=== PATIENT | male | born 1945 | race African-American/Black ===

== ENCOUNTER 2017-04-01 11:45 | Inpatient (IN) | payer MEDICARE, OTHER ==
[2017-04-01] VITALS (14 sets, daily range): BP systolic 132–190; BP diastolic 70–96; PULSE 82–94; RESP 15–20; TEMP 97.6–98.4; O2SAT 94–100
[~2017-04-01] VITALS: Ht 180.3 cm; Wt 120.5 kg
[~2017-04-01 11:45] MED LIST: ALPR.25 PO; ARIC5TAB PO; BENA20 PO; CEFTR2P2 IV; ECOT81TA2 PO; FURO1TAB93 PO; GLUC10TA3 PO; GLUCTAB PO; HYDR10TA23 PO; MEMA10 PO; MULT-65 PO; NORC7.5T PO; NOVOLOGSS; OMEP20TA39 PO; SERO25TA PO; VITA-83 PO; VITATAB25 PO; ZOFR4TAB3 SL
--- NOTE | 2017-04-01 12:20 | PD ---
HPI Chief Complaint: Respiratory Distress Time Seen by Provider: 12:12 Travel History International Travel<30 days: No Contact w/Intl Traveler<30days: No Traveled to known affect area: No History of Present Illness HPI 71-year-old male with history of CHF, diabetes, and pneumonia presents to the emergency room for evaluation of shortness of breath. Patient lives in a dementia unit of a retirement. His daughter requesting a transfer today because he had increased work of breathing, even with talking. He was diagnosed with pneumonia and started on Levaquin and prednisone yesterday. On route, the paramedics administered 1 DuoNeb and 2 albuterol treatments and 125 Solu-Medrol. Patient reports moderate relief in symptoms. Patient reports shortness of breath but denies any chest pain. History is somewhat limited. PFSH Past Medical History Anemia: Yes Anxiety: Yes Cancer: No Cardiovascular Problems: Yes Congestive Heart Failure: Yes Cerebrovascular Accident: Yes Dementia: Yes Diabetes: Yes Patient Takes Glucophage: Yes Endocrine: No GERD: Yes Genitourinary: No Hypertension: Yes Immune Disorder: No Implanted Vascular Access Dvce: No Musculoskeletal: No Neurologic: Yes (DEMENTIA) Psychiatric: No Reproductive: No Respiratory: Yes Past Surgical History Other Surgery: Yes (hemorroid) Social History Alcohol Use: No Tobacco Use: No Substance Use: No Allergies-Medications (Allergen,Severity, Reaction): Coded Allergies: No Known Allergies (Unverified , 03/19/15) Reported Meds & Prescriptions Reported Meds & Active Scripts Active Rocephin 2 Gram Addvantage (Ceftriaxone Sodium) 2 Gm Inj 2 Gm IV DAILY 12 Days Namenda (Memantine HCl) 10 Mg Tab 10 Mg PO BID Start taking after Namenda 5 mg twice a day is completed Ecotrin Low Strength (Aspirin) 81 Mg Tabec 81 Mg PO DAILY Reported Hm Omeprazole (Omeprazole) 20 Mg Tab 20 Mg PO DAILY Seroquel 25 mg (Quetiapine Fumarate) 25 Mg Tab 12.5 Mg PO BID Glipizide 10 Mg Tab 10 Mg PO DAILY Xanax 0.25 Mg (Alprazolam) Alprazolam 0.25 mg Tab 1 Tab PO HS Vitamin C (Calcium Ascorbate) 500 Mg Tab 500 Mg PO BID Aricept (Donepezil HCl) 5 Mg Tab 10 Mg PO DAILY Lotensin 20 mg (Benazepril HCl) 20 Mg Tab 1 Tab PO BID Vitamin D-[address] (Cholecalciferol) 1,000 Unit Tab 1,000 Unit PO DAILY [place] 7.5-325 mg (Hydrocodone-Acetaminophen 7.5-325 mg) 7.5 Mg/325 Mg Tab 1 Tab PO Q4H PRN Multi-Vitamin Daily (Multivitamins) Daily Tab 1 Tab PO DAILY Novolog Insulin Supplemental Scale (Insulin Aspart) 100 /Ml Inj 1 Unit .XX .XX Glucophage XR 24 HR (Metformin HCl) 500 Mg Tab 500 Mg PO BIDPC Lasix (Furosemide) 40 Mg Tab 40 Mg PO DAILY Zofran ODT (Ondansetron HCl) 4 Mg Tab 4 Mg SL Q6H PRN FOR NAUSEA/VOMITING Hydralazine HCl 10 Mg Tab 10 Mg PO Review of Systems Except as stated in HPI: all other systems reviewed are Neg Physical Exam Narrative GENERAL: Well developed, well-nourished male in no acute distress. Afebrile. Ambulatory. SKIN: Focused skin assessment warm/dry. HEAD: Atraumatic. Normocephalic. EYES: Pupils equal and round. No scleral icterus. No injection or drainage. NECK: Trachea midline. No JVD. CARDIOVASCULAR: Regular rate and rhythm. No murmur appreciated. RESPIRATORY: Breath sounds equal bilaterally. Coarse lung sounds bilaterally with inspiratory next 3 wheezes. Moderate increased work of breathing. NEUROLOGICAL: Awake and alert. No obvious cranial nerve deficits. Motor grossly within normal limits. Normal speech. PSYCHIATRIC: Appropriate mood and affect; insight and judgment normal. Data Data Last Documented VS Vital Signs Date Time Temp Pulse Resp B/P (MAP) Pulse Ox O2 Delivery O2 Flow Rate FiO2 04/01/17 14:22 97 40 04/01/17 12:16 Nasal Cannula 3.00 04/01/17 12:02 97.6 85 16 140/96 (111) Orders Orders Complete Blood Count With Diff (04/01/17 12:12) Comprehensive Metabolic Panel (04/01/17 12:12) B-Type Natriuretic Peptide (04/01/17 12:12) Act Partial Throm Time (Ptt) (04/01/17 12:12) Prothrombin Time / Inr (Pt) (04/01/17 12:12) Ckmb (Isoenzyme) Profile (04/01/17 12:12) Troponin I (04/01/17 12:12) Influenzae A/B Antigen (04/01/17 12:12) Iv Access Insert/Monitor (04/01/17 12:12) Electrocardiogram (04/01/17 12:12) Ecg Monitoring (04/01/17 12:12) Oximetry (04/01/17 12:12) Oxygen Administration (04/01/17 12:12) Chest, Single Ap (04/01/17 12:12) Sodium Chloride 0.9% Flush (Ns Flush) (04/01/17 12:15) Blood Culture (04/01/17 12:15) Lactic Acid Sepsis Protocol (04/01/17 12:15) CKMB (04/01/17 12:23) CKMB% (04/01/17 12:23) Sodium Bicarbonate 8.4% Inj (Sodium Bica (04/01/17 13:45) Albuterol Concentrated Neb (Albuterol Co (04/01/17 13:45) Sodium Polysty Sulfate Liq (Kayexalate L (04/01/17 13:45) Insulin Human Nph Inj (Novolin N Inj) (04/01/17 13:45) Ceftriaxone Inj (Rocephin Inj) (04/01/17 13:49) Azithromycin Inj (Zithromax Inj) (04/01/17 13:49) Admit Order (Ed Use Only) (04/01/17 14:29) Labs Laboratory Tests Test 04/01/17 12:23 04/01/17 12:30 White Blood Count 8.1 TH/MM3 Red Blood Count 3.58 MIL/MM3 Hemoglobin 10.2 GM/DL Hematocrit 31.5 % Mean Corpuscular Volume 88.0 FL Mean Corpuscular Hemoglobin 28.4 PG Mean Corpuscular Hemoglobin Concent 32.2 % Red Cell Distribution Width 14.8 % Platelet Count 208 TH/MM3 Mean Platelet Volume 8.2 FL Neutrophils (%) (Auto) 89.3 % Lymphocytes (%) (Auto) 5.7 % Monocytes (%) (Auto) 4.9 % Eosinophils (%) (Auto) 0.0 % Basophils (%) (Auto) 0.1 % Neutrophils # (Auto) 7.3 TH/MM3 Lymphocytes # (Auto) 0.5 TH/MM3 Monocytes # (Auto) 0.4 TH/MM3 Eosinophils # (Auto) 0.0 TH/MM3 Basophils # (Auto) 0.0 TH/MM3 CBC Comment DIFF FINAL Differential Comment Prothrombin Time 10.7 SEC Prothromb Time International Ratio 1.1 RATIO Activated Partial Thromboplast Time 25.8 SEC Blood Urea Nitrogen 60 MG/DL Creatinine 1.52 MG/DL Random Glucose 237 MG/DL Total Protein 7.9 GM/DL Albumin 3.6 GM/DL Calcium Level 8.9 MG/DL Alkaline Phosphatase 142 U/L Aspartate Amino Transf (AST/SGOT) 32 U/L Alanine Aminotransferase (ALT/SGPT) 57 U/L Total Bilirubin 0.2 MG/DL Sodium Level 137 MEQ/L Potassium Level 5.8 MEQ/L Chloride Level 103 MEQ/L Carbon Dioxide Level 27.6 MEQ/L Anion Gap 6 MEQ/L Estimat Glomerular Filtration Rate 55 ML/MIN Total Creatine Kinase 593 U/L Creatine Kinase MB 17.9 NG/ML Creatine Kinase MB % 3.0 % Troponin I 0.10 NG/ML B-Type Natriuretic Peptide 45 PG/ML Lactic Acid Level 2.3 mmol/L [facility] Medical Decision Making Medical Screen Exam Complete: Yes Emergency Medical Condition: Yes Medical Record Reviewed: Yes Differential Diagnosis COPD exacerbation, CHF exacerbation, pneumonia, sepsis Narrative Course 71-year-old male presents to the emergency room from an assisted living facility for evaluation of increasing shortness of breath. He was diagnosed with pneumonia and started on Levaquin and prednisone yesterday. Abdomen worsened today. Patient only complains of shortness of breath. Denies any chest pain. Physical exam reveals moderate increased work of breathing. Lung sounds are coarse bilaterally with inspiratory and expiratory wheezes. IV access established and basic labs obtained. Patient was sent to liters of oxygen and telemetry. EKG shows sinus rhythm with rate [address] changes. Repeat chest x-ray here shows suspected minimal atelectasis or scarring at the bases. Patient BiPAP to help with increased work of breathing. He appears much more comfortable on BiPAP. CBC is essentially unremarkable. CMP has mild hyperkalemia and elevated creatinine. Patient was given insulin, albuterol , and Kayexalate. His CK-MB is elevated at 17.9 and his troponin is 0.1. BMP is unremarkable. Lactic acid is 2.3. Patient treated empirically for pneumonia with azithromycin and Rocephin. This is likely COPD exacerbation with superimposed URI or pneumonia. Patient will be admitted to intermediate care. I spoke to Dr. Warner agrees to accept this patient to his service. Diagnosis Primary Impression: COPD exacerbation Additional Impressions: Lactic acidosis Elevated troponin Admitting Information Admitting Physician Requests: Admit Condition: Stable Bri Linda Apr 01, 2017 12:20
--- NOTE | 2017-04-01 12:59 | RADRPT ---
EXAM DATE/TIME: 04/01/2017 12:29 [facility] COMPARISON: CHEST SINGLE AP, March 19, 2015, 17:56. INDICATIONS : Shortness of breath and congestion. MEDICAL HISTORY : Hypertension. Dementia. Diabetes. SURGICAL HISTORY : None. ENCOUNTER: Initial ACUITY: 3 days PAIN SCORE: 3/10 LOCATION: Bilateral chest FINDINGS: The heart size is normal. There is minimal linear density seen at the bases. The mid and upper lungs are clear. No effusion is seen. CONCLUSION: Suspected minimal atelectasis or scarring at the bases. Jerman John MD on April 01, 2017 at 12:55 Board Certified Radiologist. This report was verified electronically.
[2017-04-01 13:05] LABS: AUTOMATED NEUTROPHIL # 7.3 TH/MM3 (1.8-7.7); BASOPHIL % 0.1 % (0.0-2.0); HEMATOCRIT 31.5 % (39.0-51.0); HEMOGLOBIN 10.2 GM/DL (13.0-17.0); LYMPH % 5.7 % (9.0-44.0); LYMPHOCYTE # 0.5 TH/MM3 (1.0-4.8); MEAN CORPUSCULAR HEMOGLOBIN 28.4 PG (27.0-34.0); MEAN CORPUSCULAR HGB CONC 32.2 % (32.0-36.0); MEAN PLATELET VOLUME 8.2 FL (7.0-11.0); MONO % 4.9 % (0.0-8.0); MONOCYTE # 0.4 TH/MM3 (0-0.9); NEUT % 89.3 % (16.0-70.0); PLATELET COUNT 208 TH/MM3 (150-450); RED BLOOD COUNT 3.58 MIL/MM3 (4.50-5.90); RED CELL DISTRIBUTION WIDTH 14.8 % (11.6-17.2); WHITE BLOOD COUNT 8.1 TH/MM3 (4.0-11.0)
[2017-04-01 13:15] LABS: LACTIC ACID SEPSIS PROTOCOL 2.3 mmol/L (0.4-2.0)
[2017-04-01 13:15] LABS: INTERNATIONAL NORMALIZED RATIO 1.1 RATIO; PROTHROMBIN TIME - PATIENT 10.7 SEC (9.8-11.6)
[2017-04-01 13:33] LABS: ALBUMIN 3.6 GM/DL (3.4-5.0); ALKALINE PHOSPHATASE 142 U/L (45-117); ALT (GPT) 57 U/L (12-78); AST (GOT) 32 U/L (15-37); BICARBONATE 27.6 MEQ/L (21.0-32.0); BLOOD UREA NITROGEN 60 MG/DL (7-18); CALCIUM 8.9 MG/DL (8.5-10.1); CHLORIDE 103 MEQ/L (98-107); CREATININE 1.52 MG/DL (0.60-1.30); GLOMERULAR FILTRATION RATE 55 ML/MIN (>89); GLUCOSE,RANDOM 237 MG/DL (74-106); SODIUM (NA) 137 MEQ/L (136-145); TOTAL BILIRUBIN ADULT 0.2 MG/DL (0.2-1.0); TOTAL PROTEIN 7.9 GM/DL (6.4-8.2)
[2017-04-01] MEDS ORDERED: INSULIN HUMAN NPH 1,000 UNITS/10 ML VIAL SQ ONE (13:45)
[2017-04-01] MEDS ORDERED: SODIUM POLYSTYRENE SULFONATE SUSP 15 GM/60 ML CUP PO ONE (13:45)
[2017-04-01] MEDS ORDERED: RESP: ALBUTEROL CONC 2.5 MG/0.5 ML NEB INH ONE (13:45)
[2017-04-01] MEDS ORDERED: SODIUM BICARBONATE 8.4% SOLN 50 MEQ/50 ML VIAL SLOW IVP ONE (13:45)
[2017-04-01] MEDS ORDERED: AZITHROMYCIN INJ 500 MG in SODIUM CHLOR 0.9% 250 ML INJ 250 ML IV STA (13:49)
[2017-04-01] MEDS ORDERED: cefTRIAXone INJ 2,000 MG in SODIUM CHLORIDE 0.9% INJ 100 ML IV STA (13:49)
--- NOTE | 2017-04-01 14:33 | PD ---
Physical Exam Narrative GENERAL: Well-nourished, well-developed patient. SKIN: Warm and dry. HEAD: Normocephalic and atraumatic. EYES: No injection or drainage. ENT: No nasal drainage noted. NECK: Supple, trachea midline. CARDIOVASCULAR: Regular rate and rhythm RESPIRATORY: Expiratory wheezing bilaterally. No accessory muscle use. GASTROINTESTINAL: Abdomen soft, nondistended. NEUROLOGICAL: Awake and alert. Motor and sensory grossly within normal limits. Normal speech. Data Data Last Documented VS Vital Signs Date Time Temp Pulse Resp B/P (MAP) Pulse Ox O2 Delivery O2 Flow Rate FiO2 04/01/17 14:22 97 40 04/01/17 12:16 Nasal Cannula 3.00 04/01/17 12:02 97.6 85 16 140/96 (111) Orders Orders Complete Blood Count With Diff (04/01/17 12:12) Comprehensive Metabolic Panel (04/01/17 12:12) B-Type Natriuretic Peptide (04/01/17 12:12) Act Partial Throm Time (Ptt) (04/01/17 12:12) Prothrombin Time / Inr (Pt) (04/01/17 12:12) Ckmb (Isoenzyme) Profile (04/01/17 12:12) Troponin I (04/01/17 12:12) Influenzae A/B Antigen (04/01/17 12:12) Iv Access Insert/Monitor (04/01/17 12:12) Electrocardiogram (04/01/17 12:12) Ecg Monitoring (04/01/17 12:12) Oximetry (04/01/17 12:12) Oxygen Administration (04/01/17 12:12) Chest, Single Ap (04/01/17 12:12) Sodium Chloride 0.9% Flush (Ns Flush) (04/01/17 12:15) Blood Culture (04/01/17 12:15) Lactic Acid Sepsis Protocol (04/01/17 12:15) CKMB (04/01/17 12:23) CKMB% (04/01/17 12:23) Sodium Bicarbonate 8.4% Inj (Sodium Bica (04/01/17 13:45) Albuterol Concentrated Neb (Albuterol Co (04/01/17 13:45) Sodium Polysty Sulfate Liq (Kayexalate L (04/01/17 13:45) Insulin Human Nph Inj (Novolin N Inj) (04/01/17 13:45) Ceftriaxone Inj (Rocephin Inj) (04/01/17 13:49) Azithromycin Inj (Zithromax Inj) (04/01/17 13:49) Admit Order (Ed Use Only) (04/01/17 14:29) Labs Laboratory Tests Test 04/01/17 12:23 04/01/17 12:30 White Blood Count 8.1 TH/MM3 Red Blood Count 3.58 MIL/MM3 Hemoglobin 10.2 GM/DL Hematocrit 31.5 % Mean Corpuscular Volume 88.0 FL Mean Corpuscular Hemoglobin 28.4 PG Mean Corpuscular Hemoglobin Concent 32.2 % Red Cell Distribution Width 14.8 % Platelet Count 208 TH/MM3 Mean Platelet Volume 8.2 FL Neutrophils (%) (Auto) 89.3 % Lymphocytes (%) (Auto) 5.7 % Monocytes (%) (Auto) 4.9 % Eosinophils (%) (Auto) 0.0 % Basophils (%) (Auto) 0.1 % Neutrophils # (Auto) 7.3 TH/MM3 Lymphocytes # (Auto) 0.5 TH/MM3 Monocytes # (Auto) 0.4 TH/MM3 Eosinophils # (Auto) 0.0 TH/MM3 Basophils # (Auto) 0.0 TH/MM3 CBC Comment DIFF FINAL Differential Comment Prothrombin Time 10.7 SEC Prothromb Time International Ratio 1.1 RATIO Activated Partial Thromboplast Time 25.8 SEC Blood Urea Nitrogen 60 MG/DL Creatinine 1.52 MG/DL Random Glucose 237 MG/DL Total Protein 7.9 GM/DL Albumin 3.6 GM/DL Calcium Level 8.9 MG/DL Alkaline Phosphatase 142 U/L Aspartate Amino Transf (AST/SGOT) 32 U/L Alanine Aminotransferase (ALT/SGPT) 57 U/L Total Bilirubin 0.2 MG/DL Sodium Level 137 MEQ/L Potassium Level 5.8 MEQ/L Chloride Level 103 MEQ/L Carbon Dioxide Level 27.6 MEQ/L Anion Gap 6 MEQ/L Estimat Glomerular Filtration Rate 55 ML/MIN Total Creatine Kinase 593 U/L Creatine Kinase MB 17.9 NG/ML Creatine Kinase MB % 3.0 % Troponin I 0.10 NG/ML B-Type Natriuretic Peptide 45 PG/ML Lactic Acid Level 2.3 mmol/L [facility] Supervised Visit with DANTE: Yes Interpretation(s) CBC & BMP Diagram 04/01/17 12:23 Total Protein 7.9, Albumin 3.6, Calcium Level 8.9, Alkaline Phosphatase 142 H, Aspartate Amino Transf (AST/SGOT) 32, Alanine Aminotransferase (ALT/SGPT) 57, Total Bilirubin 0.2 Last 24 hours Impressions Chest X-Ray 04/01/17 1212 Signed Impressions: Service Date/Time: April 12:29 - CONCLUSION: Suspected minimal atelectasis or scarring at the bases. Jerman John MD Patient pulled his BiPAP off and when it had been off for about 10 minutes ABG shows pH 7.31, PCO2 53, PO2 of 74, he is probably a chronic retainer but agrees to place BiPAP on to help get rid of CO2 Narrative Course I, Dr. diaz, have reviewed the advance practice practitioner's documentation and am in agreement, met with the patient face to face, made the diagnosis, and the medical decision making was done by me. *My assessment and Findings: 71-year-old male presents with shortness of breath. It appears he's having upper respiratory infection which has triggered his COPD exacerbation. Given his elevated lactate will also dose with antibiotics. His troponin is also elevated and this will need to be trended. Diagnosis Primary Impression: COPD exacerbation Additional Impressions: Elevated troponin Lactic acidosis Admitting Information Admitting Physician Requests: Admit Condition: Stable Belle Diaz MD Apr 01, 2017 14:33
[2017-04-01] MEDS ORDERED: SODIUM CHLOR 0.9% 1000 ML INJ 1,000 ML IV SCH (14:34)
[2017-04-01] MEDS ORDERED: ONDANSETRON ODT 4 MG TAB SL PRN (14:45)
[2017-04-01] MEDS ORDERED: ASPIRIN 325 MG TAB PO ONE (14:45)
[2017-04-01] MEDS ORDERED: RESP: ALBUTEROL 2.5 MG/IPRATROPIUM 0.5 MG NEB (PRN) NEB (14:45)
[2017-04-01] MEDS ORDERED: PILL SPLITTER OTHER PRN (15:15)
[2017-04-01] MEDS: RESP: ALBUTEROL 2.5 MG/IPRATROPIUM 0.5 MG NEB (SCH) NEB ×2 (16:00→20:16)
[2017-04-01] MEDS: methylPREDNISolone SOD SUCC 125 MG/2 ML VIAL IV PUSH SCH ×2 (17:35→21:00)
[2017-04-01] MEDS: HEPARIN SODIUM - SQ 10,000 UNITS/ML VIAL SQ SCH (17:36)
--- NOTE | 2017-04-01 18:30 | HHI.HP ---
[facility] Kee Dugan MD Admission Diagnosis copd exacerbation, lactic acidosis, elevated troponin Diagnoses: Chief Complaint: I can't catch my breath Travel History International Travel<30 Days: No Contact w/Intl Traveler <30 Da: No Traveled to Known Affected Are: No History of Present Illness 71 years old male with history of CHF diabetes and recent upper respiratory infection presented to the ED with severe short of breath and wheezing, patient lives in alf due to dementia, his daughter requested to transfer patient to hospital due to increase work of breathing even on rest. Patient recently was diagnosed with pneumonia and started on Levaquin and prednisone. I saw patient in the room he was on BiPAP, in ED he was found to have hypercapnic respiratory failure he was given O2 and DuoNeb and a dose of Solu- Medrol, history was restricted due to increase of respiratory work and being on BiPAP, influenza A and B was negative Review of Systems All systems reviewed and was positive for what is mentioned in history of present illness otherwise negative Past Family Social History Past Medical History Anemia Anxiety Hypertension CHF History CVA Dementia is Diabetes History of surgery for hemorrhoid Past Surgical History As above Allergies: Coded Allergies: No Known Allergies (Unverified , 03/19/15) Family History Review with the patient,not aware of significant medical history runs in his family Social History Denied tobacco alcohol or illicit drug abuse Physical Exam Vital Signs Vital Signs Date Time Temp Pulse Resp B/P (MAP) Pulse Ox O2 Delivery O2 Flow Rate FiO2 04/01/17 14:39 88 20 144/93 (110) 98 BiPAP 04/01/17 14:22 97 40 04/01/17 12:16 97 Nasal Cannula 3.00 04/01/17 12:16 98 Nasal Cannula 3.00 04/01/17 12:02 97.6 85 16 140/96 (111) 97 Physical Exam GENERAL: This is a well-nourished, well-developed patient, in moderate respiratory distress SKIN: No rashes, warm and dry HEAD: Atraumatic. Normocephalic. EYES: Pupils equal round and reactive. Extraocular motions intact. No scleral icterus. ENT: Nose without bleeding, or drainage, Airway patent. NECK: Trachea midline. Supple CARDIOVASCULAR: Regular acute without murmurs, gallops, or rubs. RESPIRATORY: Bilateral scattered wheezes with increased respiratory work and use of respiratory muscle GASTROINTESTINAL: Abdomen soft, non-tender, nondistended. Positive bowel sounds MUSCULOSKELETAL: Extremities without clubbing, cyanosis, or edema. +1 edema NEUROLOGICAL: Awake and alert. Moves all extremity. Normal speech.no focal neurological deficit Laboratory Laboratory Tests Test 04/01/17 12:23 04/01/17 12:30 04/01/17 15:28 04/01/17 17:11 White Blood Count 8.1 Red Blood Count 3.58 Hemoglobin 10.2 Hematocrit 31.5 Mean Corpuscular Volume 88.0 Mean Corpuscular Hemoglobin 28.4 Mean Corpuscular Hemoglobin Concent 32.2 Red Cell Distribution Width 14.8 Platelet Count 208 Mean Platelet Volume 8.2 Neutrophils (%) (Auto) 89.3 Lymphocytes (%) (Auto) 5.7 Monocytes (%) (Auto) 4.9 Eosinophils (%) (Auto) 0.0 Basophils (%) (Auto) 0.1 Neutrophils # (Auto) 7.3 Lymphocytes # (Auto) 0.5 Monocytes # (Auto) 0.4 Eosinophils # (Auto) 0.0 Basophils # (Auto) 0.0 CBC Comment DIFF FINAL Differential Comment Prothrombin Time 10.7 Prothromb Time International Ratio 1.1 Activated Partial Thromboplast Time 25.8 Blood Urea Nitrogen 60 Creatinine 1.52 Random Glucose 237 Total Protein 7.9 Albumin 3.6 Calcium Level 8.9 Alkaline Phosphatase 142 Aspartate Amino Transf (AST/SGOT) 32 Alanine Aminotransferase (ALT/SGPT) 57 Total Bilirubin 0.2 Sodium Level 137 Potassium Level 5.8 Chloride Level 103 Carbon Dioxide Level 27.6 Anion Gap 6 Estimat Glomerular Filtration Rate 55 Total Creatine Kinase 593 Creatine Kinase MB 17.9 Creatine Kinase MB % 3.0 Troponin I 0.10 B-Type Natriuretic Peptide 45 Lactic Acid Level 2.3 2.4 Blood Gas Puncture Site LT RADIAL Blood Gas Patient Temperature 98.6 Blood Gas HCO3 26 Blood Gas Base Excess 0.8 Blood Gas Oxygen Saturation 92 Arterial Blood pH 7.32 Arterial Blood Partial Pressure CO2 53 Arterial Blood Partial Pressure O2 75 Arterial Blood Oxygen Content 13.0 Arterial Blood Carboxyhemoglobin 1.1 Arterial Blood Methemoglobin 0.7 Blood Gas Hemoglobin 10.0 Oxygen Delivery Device NASAL CANNULA Blood Gas Liter Flow 2.5 Date/Time Source Procedure Growth Status 04/01/17 12:28 Blood Peripheral Aerobic Blood Culture Pending Received 04/01/17 12:28 Blood Peripheral Anaerobic Blood Culture Pending Received 04/01/17 12:35 Nasal Aspirate Influenza Types A,B Antigen (ANTHONY) - Final NEGATIVE FOR FLU A AND B ANTIGEN.... Complete Result Diagram: 04/01/17 1223 04/01/17 1223 Imaging Last Impressions Chest X-Ray 04/01/17 1212 Signed Impressions: Service Date/Time: , April 01, 2017 12:29 - CONCLUSION: Suspected minimal atelectasis or scarring at the bases. MD Alina Henry VTE Risk Assessment Alina VTE Risk Assessment: Mod/High Risk (score >= 2) Alina Risk Assessment Model Point Value = 1 Point Value = 2 Point Value = 3 Point Value = 5 Age 41-60 Minor surgery BMI > 25 kg/m2 Swollen legs Varicose veins or History of unexplained or recurrent spontaneous Oral contraceptives or hormone replacement Sepsis (< 1 month) Serious lung disease, including pneumonia (< 1 month) Abnormal pulmonary function Acute myocardial infarction Congestive heart failure (< 1 month) History of inflammatory bowel disease Medical patient at bed rest Age 61-74 Arthroscopic surgery Major open surgery (> 45 min) Laparoscopic surgery (> 45 min) Malignancy Confined to bed (> 72 hours) Immobilizing plaster cast Central venous access Age >= 75 History of VTE Family history of VTE Factor V Leiden Prothrombin [id number] Lupus anticoagulant Anticardiolipin antibodies Elevated serum homocysteine Heparin-induced thrombocytopenia Other congenital or acquired thrombophilia Stroke (< 1 month) Elective arthroplasty Hip, pelvis, or leg fracture Acute spinal cord injury (< 1 month) Prophylaxis Regimen Total Risk Factor Score Risk Level Prophylaxis Regimen 0-1 Low Early ambulation 2 Moderate Order ONE of the following: *Sequential Compression Device (SCD) *Heparin 5000 units SQ BID 3-4 Higher Order ONE of the following medications: *Heparin 5000 units SQ TID *Enoxaparin/Lovenox 40 mg SQ daily (WT < 150 kg, CrCl > 30 mL/min) *Enoxaparin/Lovenox 30 mg SQ daily (WT < 150 kg, CrCl > 10-29 mL/min) *Enoxaparin/Lovenox 30 mg SQ BID (WT < 150 kg, CrCl > 30 mL/min) AND/OR *Sequential Compression Device (SCD) 5 or more Highest Order ONE of the following medications: *Heparin 5000 units SQ TID (Preferred with Epidurals) *Enoxaparin/Lovenox 40 mg SQ daily (WT < 150 kg, CrCl > 30 mL/min) *Enoxaparin/Lovenox 30 mg SQ daily (WT < 150 kg, CrCl > 10-29 mL/min) *Enoxaparin/Lovenox 30 mg SQ BID (WT < 150 kg, CrCl > 30 mL/min) AND *Sequential Compression Device (SCD) Assessment and Plan Assessment and Plan 71 years old male admitted with worsening severe short of breath and wheezing Hypercapnic resp failure Acute exacerbation bronchial asthma with increased respiratory distress Hyperkalemia Elevated CK and troponin without chest pain mostly due to acute on chronic renal failure and CHF Bilateral lower extremity edema questionable CHF Left shift without leukocytosis Lactic acidosis ADALI DVT prophylaxis Plan: Admit to telemetry floor Stat administration of O2, DuoNeb, Solu-Medrol Stat Bipap prn chest x-ray showed minimal scarring at the bases, no patrick infiltrate,No phlegm or fever no signs of active infection, patient received dose of Zithromax and Rocephin and ED,we'll hold on antibiotic hold Lasix for now due to lactic acidosis and ADALI Repeat BMP and lactic acid in a.m. we'll hold on IV fluid for now due to suspect heart failure Check 2-D echo heparin and SCD for DVT prophylaxis Discussed Condition With Patient in ED physician Physician Certification 2 Midnight Certification Type: Admission for Inpatient Services Order for Inpatient Services The services are ordered in accordance with Medicare regulations or non- Medicare payer requirements, as applicable. In the case of services not specified as inpatient-only, they are appropriately provided as inpatient services in accordance with the 2-midnight benchmark. Estimated LOS (days): 3 days is the estimated time the patient will need to remain in the hospital, assuming treatment plan goals are met and no additional complications. Post-Hospital Plan: Not yet determined Marilou Warner MD Apr 01, 2017 18:29
[2017-04-01 20:07] LABS: TROPONIN I 0.08 NG/ML (0.02-0.05)
--- NOTE | 2017-04-01 20:58 | PD ---
Data Data Last Documented VS Vital Signs Date Time Temp Pulse Resp B/P (MAP) Pulse Ox O2 Delivery O2 Flow Rate FiO2 04/01/17 14:22 97 40 04/01/17 12:16 Nasal Cannula 3.00 04/01/17 12:02 97.6 85 16 140/96 (111) Orders Orders Complete Blood Count With Diff (04/01/17 12:12) Comprehensive Metabolic Panel (04/01/17 12:12) B-Type Natriuretic Peptide (04/01/17 12:12) Act Partial Throm Time (Ptt) (04/01/17 12:12) Prothrombin Time / Inr (Pt) (04/01/17 12:12) Ckmb (Isoenzyme) Profile (04/01/17 12:12) Troponin I (04/01/17 12:12) Influenzae A/B Antigen (04/01/17 12:12) Iv Access Insert/Monitor (04/01/17 12:12) Electrocardiogram (04/01/17 12:12) Ecg Monitoring (04/01/17 12:12) Oximetry (04/01/17 12:12) Oxygen Administration (04/01/17 12:12) Chest, Single Ap (04/01/17 12:12) Sodium Chloride 0.9% Flush (Ns Flush) (04/01/17 12:15) Blood Culture (04/01/17 12:15) Lactic Acid Sepsis Protocol (04/01/17 12:15) CKMB (04/01/17 12:23) CKMB% (04/01/17 12:23) Sodium Bicarbonate 8.4% Inj (Sodium Bica (04/01/17 13:45) Albuterol Concentrated Neb (Albuterol Co (04/01/17 13:45) Sodium Polysty Sulfate Liq (Kayexalate L (04/01/17 13:45) Insulin Human Nph Inj (Novolin N Inj) (04/01/17 13:45) Ceftriaxone Inj (Rocephin Inj) (04/01/17 13:49) Azithromycin Inj (Zithromax Inj) (04/01/17 13:49) Admit Order (Ed Use Only) (04/01/17 14:29) Labs Laboratory Tests Test 04/01/17 12:23 04/01/17 12:30 White Blood Count 8.1 TH/MM3 Red Blood Count 3.58 MIL/MM3 Hemoglobin 10.2 GM/DL Hematocrit 31.5 % Mean Corpuscular Volume 88.0 FL Mean Corpuscular Hemoglobin 28.4 PG Mean Corpuscular Hemoglobin Concent 32.2 % Red Cell Distribution Width 14.8 % Platelet Count 208 TH/MM3 Mean Platelet Volume 8.2 FL Neutrophils (%) (Auto) 89.3 % Lymphocytes (%) (Auto) 5.7 % Monocytes (%) (Auto) 4.9 % Eosinophils (%) (Auto) 0.0 % Basophils (%) (Auto) 0.1 % Neutrophils # (Auto) 7.3 TH/MM3 Lymphocytes # (Auto) 0.5 TH/MM3 Monocytes # (Auto) 0.4 TH/MM3 Eosinophils # (Auto) 0.0 TH/MM3 Basophils # (Auto) 0.0 TH/MM3 CBC Comment DIFF FINAL Differential Comment Prothrombin Time 10.7 SEC Prothromb Time International Ratio 1.1 RATIO Activated Partial Thromboplast Time 25.8 SEC Blood Urea Nitrogen 60 MG/DL Creatinine 1.52 MG/DL Random Glucose 237 MG/DL Total Protein 7.9 GM/DL Albumin 3.6 GM/DL Calcium Level 8.9 MG/DL Alkaline Phosphatase 142 U/L Aspartate Amino Transf (AST/SGOT) 32 U/L Alanine Aminotransferase (ALT/SGPT) 57 U/L Total Bilirubin 0.2 MG/DL Sodium Level 137 MEQ/L Potassium Level 5.8 MEQ/L Chloride Level 103 MEQ/L Carbon Dioxide Level 27.6 MEQ/L Anion Gap 6 MEQ/L Estimat Glomerular Filtration Rate 55 ML/MIN Total Creatine Kinase 593 U/L Creatine Kinase MB 17.9 NG/ML Creatine Kinase MB % 3.0 % Troponin I 0.10 NG/ML B-Type Natriuretic Peptide 45 PG/ML Lactic Acid Level 2.3 mmol/L [facility] Supervised Visit with DANTE: Yes Narrative Course Patient seen and examined by me briefly, alert and awake, tolerating BiPAP fairly well, I was asked by respiratory therapy to review his ABG which earlier today on 2.5 L nasal cannula was a pH of 7.31, PCO2 of 53 and a PO2 of 74, on BiPAP 12/03/34 percent making 900 tidal volume is now a pH is 7.30 and a PCO2 of 54.1 PO2 101, for a short time we increased his settings to 15/8/35 percent, the patient was then discussed with Dr. Stoll briefly and we reviewed the patient 's clinical status as well as the ABGs in he thinks the patient would be fine on 12 03 for now and would be stable for CIC. Diagnosis Primary Impression: COPD exacerbation Additional Impressions: Elevated troponin Lactic acidosis Condition: Jorge Ordonez MD Apr 01, 2017 20:58
[2017-04-01] MEDS: MEMANTINE HCL 10 MG TAB PO SCH (20:59)
[2017-04-01] MEDS: QUEtiapine FUMARATE 25 MG TAB PO SCH (21:00)
[2017-04-01] MEDS: ALPRAZolam 0.25 MG TAB PO SCH (21:00)
[2017-04-01] MEDS: ASCORBIC ACID 500 MG TAB PO SCH (21:00)
[2017-04-02] VITALS (12 sets, daily range): BP systolic 148–191; BP diastolic 72–114; PULSE 79–96; RESP 19–29; TEMP 98.4–98.8; O2SAT 92–99
[2017-04-02] MEDS ORDERED: CHLORHEXIDINE GLUCONATE 2 % 1 PACK (2 CLOTHS)(extra cloths) TOPICAL PRN (00:15)
[2017-04-02] MEDS: CHLORHEXIDINE GLUCONATE 2 % 1 PACK (2 CLOTHS)(taper/protocol) TOPICAL SCH (00:32)
[2017-04-02] MEDS: HEPARIN SODIUM - SQ 10,000 UNITS/ML VIAL SQ SCH ×4 (00:32→23:01)
[2017-04-02 01:51] LABS: CALCIUM 8.4 MG/DL (8.5-10.1)
[2017-04-02 01:54] LABS: TROPONIN I 0.09 NG/ML (0.02-0.05)
[2017-04-02 02:23] LABS: CREATININE 1.81 MG/DL (0.60-1.30)
[2017-04-02] MEDS: RESP: ALBUTEROL 2.5 MG/IPRATROPIUM 0.5 MG NEB (SCH) NEB ×4 (02:46→20:56)
[2017-04-02] MEDS ORDERED: GLUCAGON 1 MG/ML VIAL OTHER PRN (04:00)
[2017-04-02] MEDS ORDERED: DEXTROSE 50% IN WATER 50 ML VIAL(D50) IV PUSH PRN (04:00)
[2017-04-02] MEDS: methylPREDNISolone SOD SUCC 125 MG/2 ML VIAL IV PUSH SCH ×4 (04:14→23:01)
[2017-04-02] MEDS: SODIUM POLYSTYRENE SULFONATE SUSP 15 GM/60 ML CUP PO SCH ×4 (04:14→17:34)
[2017-04-02] MEDS ORDERED: ALPRAZolam 0.25 MG TAB PO ONE (04:15)
[2017-04-02 05:59] LABS: BASOPHIL % 0.1 % (0.0-2.0); HEMATOCRIT 29.8 % (39.0-51.0); LYMPH % 5.6 % (9.0-44.0); LYMPHOCYTE # 0.4 TH/MM3 (1.0-4.8); MEAN CELL VOLUME 87.6 FL (80.0-100.0); MEAN CORPUSCULAR HEMOGLOBIN 29.4 PG (27.0-34.0); MEAN CORPUSCULAR HGB CONC 33.5 % (32.0-36.0); MEAN PLATELET VOLUME 8.2 FL (7.0-11.0); MONO % 4.3 % (0.0-8.0); MONOCYTE # 0.3 TH/MM3 (0-0.9); PLATELET COUNT 182 TH/MM3 (150-450); RED CELL DISTRIBUTION WIDTH 14.7 % (11.6-17.2); WHITE BLOOD COUNT 7.8 TH/MM3 (4.0-11.0)
[2017-04-02 06:24] LABS: BICARBONATE 27.3 MEQ/L (21.0-32.0); CALCIUM 8.4 MG/DL (8.5-10.1); CREATININE 1.75 MG/DL (0.60-1.30)
[2017-04-02] MEDS: INSULIN ASPART SUPPLEMENTAL SCALE SQ SCH ×4 (08:00→20:42)
[2017-04-02] MEDS: ASCORBIC ACID 500 MG TAB PO SCH ×2 (08:47→20:13)
[2017-04-02] MEDS: CHOLECALCIFEROL (VIT D3) 1000 UNIT TAB PO SCH (08:47)
[2017-04-02] MEDS: ASPIRIN EC 81 MG TABEC PO SCH (08:47)
[2017-04-02] MEDS: QUEtiapine FUMARATE 25 MG TAB PO SCH ×3 (08:47→20:14)
[2017-04-02] MEDS: DONEPEZIL HCL 5 MG TAB PO SCH (08:47)
[2017-04-02] MEDS: PANTOPRAZOLE SOD 20 MG DELAYED RELEASE TAB PO SCH (08:48)
[2017-04-02] MEDS: MEMANTINE HCL 10 MG TAB PO SCH ×2 (08:49→20:13)
[2017-04-02] MEDS: ACETAMINOPHEN/HYDROcodone 325 MG/7.5 MG TAB PO PRN ×2 (08:51→17:00)
[2017-04-02] MEDS ORDERED: FUROSEMIDE 40 MG TAB PO SCH (09:00)
[2017-04-02 09:49] LABS: TROPONIN I 0.09 NG/ML (0.02-0.05)
[2017-04-02] MEDS ORDERED: QUEtiapine FUMARATE 25 MG TAB PO ONE (13:00)
--- NOTE | 2017-04-02 14:56 | HHI.PR ---
Subjective Remarks Sitting on the chair on O2 nasal cannula, daughter at the bedside Restart feeling better already, denied having phlegm production or fever Still having significant wheezes Objective Vitals Vital Signs Date Time Temp Pulse Resp B/P (MAP) Pulse Ox O2 Delivery O2 Flow Rate FiO2 04/02/17 09:59 96 35 04/02/17 09:06 97 Nasal Cannula 3.00 04/02/17 04:49 96 35 04/02/17 04:05 92 Nasal Cannula 3.00 04/02/17 04:00 98.8 96 21 148/72 (97) 92 04/02/17 04:00 96 04/02/17 00:00 83 04/02/17 00:00 98.4 81 29 186/97 (126) 99 04/01/17 23:45 98.4 85 15 136/86 (103) 100 04/01/17 23:40 94 35 04/01/17 23:35 100 Non-Rebreather 15.00 04/01/17 23:35 100 15.00 100 04/01/17 23:22 94 18 148/70 (96) 97 BiPAP 35.00 04/01/17 22:26 82 20 164/81 (108) 97 BiPAP 35.00 04/01/17 21:00 99 35 04/01/17 20:48 100 BiPAP 35.00 04/01/17 20:40 99 04/01/17 20:18 99 BiPAP 35 04/01/17 20:18 99 35 04/01/17 19:19 94 20 177/73 (107) 98 BiPAP 40.00 04/01/17 18:40 85 19 132/91 (105) 96 BiPAP I/O 04/01/17 04/01/17 04/01/17 04/02/17 04/02/17 04/02/17 07:00 15:00 23:00 07:00 15:00 23:00 Intake Total 350 ml 812 ml Output Total 300 ml Balance 350 ml 512 ml Intake Oral 240 ml IV Total 350 ml 572 ml Output Urine Total 300 ml # Bowel Movements 0 Result Diagram: 04/02/17 0540 04/02/17 0540 Objective Remarks GENERAL: This is a well-nourished, well-developed patient, in moderate respiratory distress SKIN: No rashes, warm and dry HEAD: Atraumatic. Normocephalic. EYES: Pupils equal round and reactive. Extraocular motions intact. No scleral icterus. ENT: Nose without bleeding, or drainage, Airway patent. NECK: Trachea midline. Supple CARDIOVASCULAR: Regular acute without murmurs, gallops, or rubs. RESPIRATORY: Bilateral scattered wheezes with increased respiratory work and use of respiratory muscle GASTROINTESTINAL: Abdomen soft, non-tender, nondistended. Positive bowel sounds MUSCULOSKELETAL: Extremities without clubbing, cyanosis, or edema. +1 edema NEUROLOGICAL: Awake and alert. Moves all extremity. Normal speech.no focal neurological deficit A/P Assessment and Plan 04/02: Reading relatively improved with continue on steroid DuoNeb oxygen he is on 3 L nasal cannula mostly bronchial asthma no phlegm production or fever, will monitor very closely and repeat chest x-ray in a.m. if not improving, resume Lasix now that lactic acidosis improved, check BNP, creatinine 1.75 today A/P: 71 years old male admitted with worsening severe short of breath and wheezing Hypercapnic resp failure Acute exacerbation bronchial asthma with increased respiratory distress Hyperkalemia Elevated CK and troponin without chest pain mostly due to acute on chronic renal failure and CHF Bilateral lower extremity edema questionable CHF Left shift without leukocytosis Lactic acidosis- -resolved ADALI mostly on CKD DVT prophylaxis Plan: Admit to telemetry floor ABG reviewed by me pH 7.32, PCO2 53, pO2 75 Stat administration of O2, DuoNeb, Solu-Medrol Stat Bipap prn chest x-ray showed minimal scarring at the bases, no patrick infiltrate,No phlegm or fever no signs of active infection, patient received dose of Zithromax and Rocephin and ED,we'll hold on antibiotic hold Lasix for now due to lactic acidosis and ADALI Repeat BMP and lactic acid in a.m. we'll hold on IV fluid for now due to suspect heart failure Check 2-D echo heparin and SCD for DVT prophylaxis Marilou Warner MD Apr 02, 2017 14:56
[2017-04-02] MEDS ORDERED: SODIUM POLYSTYRENE SULFONATE SUSP 15 GM/60 ML CUP PO ONE (18:45)
--- NOTE | 2017-04-02 19:52 | EKG ---
Date Performed: 04/01/2017 Time Performed: 12:22:58 PTAGE: 71 years EKG: Sinus rhythm NORMAL ECG Since the prior tracing, there has been no significant change PREVIOUS TRACING : 03/20/2015 07.25 DOCTOR: Juan Jose Smiley Interpretating Date/Time 04/02/2017 19:51:17
[2017-04-02] MEDS: ALPRAZolam 0.25 MG TAB PO SCH (20:13)
[2017-04-02] MEDS: FUROSEMIDE 40 MG TAB PO SCH (20:34)
--- NOTE | 2017-04-02 22:00 | RADRPT ---
EXAM DATE/TIME: 04/02/2017 21:24 [facility] COMPARISON: CHEST SINGLE AP, April 01, 2017, 12:29. INDICATIONS : Chest pain. MEDICAL HISTORY : Hypertension. Diabetes mellitus type II. Dementia SURGICAL HISTORY : None. ENCOUNTER: Initial ACUITY: 3 days PAIN SCORE: 0/10 LOCATION: Bilateral chest FINDINGS: Stable cardiomegaly is noted. The lungs are clear. The pulmonary vascular pattern is normal. CONCLUSION: Cardiomegaly. Clear lungs. Jorge Chang MD on April 02, 2017 at 21:56 Board Certified Radiologist. This report was verified electronically.
[2017-04-03] VITALS (18 sets, daily range): BP systolic 123–180; BP diastolic 74–96; PULSE 68–97; RESP 11–34; TEMP 97.2–98.7; O2SAT 87–100
[2017-04-03] MEDS: CHLORHEXIDINE GLUCONATE 2 % 1 PACK (2 CLOTHS)(taper/protocol) TOPICAL SCH (02:31)
[2017-04-03] MEDS: methylPREDNISolone SOD SUCC 125 MG/2 ML VIAL IV PUSH SCH ×4 (03:40→21:11)
[2017-04-03] MEDS: RESP: ALBUTEROL 2.5 MG/IPRATROPIUM 0.5 MG NEB (SCH) NEB ×4 (04:42→19:09)
--- NOTE | 2017-04-03 04:46 | HHI.PR ---
Addendum to Inpatient Note Addendum Reason: Additional Documentation Additional Information Patient was unable to go to xray for AP/Lat chest xray. Portable x ray ordered to evaluate pneumonia. Debi Ignacio Apr 03, 2017 04:46
[2017-04-03] MEDS: INSULIN ASPART SUPPLEMENTAL SCALE SQ SCH ×4 (08:00→21:10)
[2017-04-03] MEDS: INSULIN DETEMIR 100 UNITS/ML VIAL SQ SCH ×2 (09:15→21:08)
[2017-04-03] MEDS: ASCORBIC ACID 500 MG TAB PO SCH ×2 (09:44→20:39)
[2017-04-03] MEDS: HEPARIN SODIUM - SQ 10,000 UNITS/ML VIAL SQ SCH ×3 (09:44→22:56)
[2017-04-03] MEDS: FUROSEMIDE 40 MG TAB PO SCH (09:46)
[2017-04-03] MEDS: ASPIRIN EC 81 MG TABEC PO SCH (09:46)
[2017-04-03] MEDS: MEMANTINE HCL 10 MG TAB PO SCH ×2 (09:51→20:41)
[2017-04-03] MEDS: CHOLECALCIFEROL (VIT D3) 1000 UNIT TAB PO SCH (09:51)
[2017-04-03] MEDS: PANTOPRAZOLE SOD 20 MG DELAYED RELEASE TAB PO SCH (09:51)
[2017-04-03] MEDS: DONEPEZIL HCL 5 MG TAB PO SCH (09:51)
[2017-04-03] MEDS: QUEtiapine FUMARATE 25 MG TAB PO SCH ×3 (09:52→20:39)
[2017-04-03] MEDS: ENALAPRILAT 1.25 MG/ML VIAL IV PUSH PRN (12:02)
[2017-04-03] MEDS ORDERED: LORazepam 2 MG/ML VIAL IV ONE (14:45)
[2017-04-03] MEDS ORDERED: hydrALAZINE HCL 20 MG/ML VIAL IV ONE (14:45)
[2017-04-03 15:50] LABS: AUTOMATED NEUTROPHIL # 6.5 TH/MM3 (1.8-7.7); BASOPHIL % 0.1 % (0.0-2.0); HEMATOCRIT 31.4 % (39.0-51.0); HEMOGLOBIN 10.5 GM/DL (13.0-17.0); LYMPH % 6.9 % (9.0-44.0); LYMPHOCYTE # 0.5 TH/MM3 (1.0-4.8); MEAN CELL VOLUME 87.9 FL (80.0-100.0); MEAN CORPUSCULAR HEMOGLOBIN 29.3 PG (27.0-34.0); MEAN CORPUSCULAR HGB CONC 33.3 % (32.0-36.0); MEAN PLATELET VOLUME 8.2 FL (7.0-11.0); MONOCYTE # 0.2 TH/MM3 (0-0.9); PLATELET COUNT 181 TH/MM3 (150-450); RED BLOOD COUNT 3.57 MIL/MM3 (4.50-5.90); RED CELL DISTRIBUTION WIDTH 14.9 % (11.6-17.2); WHITE BLOOD COUNT 7.2 TH/MM3 (4.0-11.0)
--- NOTE | 2017-04-03 16:27 | HHI.PR ---
Subjective Remarks continue to be agitated , he is demented , non coherant d/w nurse and daughter still with inc pco2 , on 4 l nc , refused bipap earleier bg not controlled mostly due to steroid will inc accuch frq, coverage Objective Vitals Vital Signs Date Time Temp Pulse Resp B/P (MAP) Pulse Ox O2 Delivery O2 Flow Rate FiO2 04/03/17 09:23 97 50 04/03/17 05:49 95 50 04/03/17 05:47 94 BiPAP 45 04/03/17 05:01 98.7 68 20 146/80 (102) 98 04/03/17 04:42 98 35 04/03/17 04:00 71 04/03/17 00:39 100 35 04/03/17 00:34 98.2 91 34 136/77 (96) 87 04/03/17 00:00 87 04/02/17 21:40 95 Bi-Pap 04/02/17 21:36 95 35 04/02/17 20:58 93 Nasal Cannula 3.00 04/02/17 20:56 98.6 81 19 191/114 (139) 96 04/02/17 20:00 79 04/02/17 19:00 95 Nasal Cannula 4.00 I/O 04/02/17 04/02/17 04/02/17 04/03/17 04/03/17 04/03/17 07:00 15:00 23:00 07:00 15:00 23:00 Intake Total 812 ml 480 ml 240 ml Output Total 300 ml 900 ml 800 ml Balance 512 ml -420 ml 240 ml -800 ml Intake Oral 240 ml 480 ml 240 ml IV Total 572 ml Output Urine Total 300 ml 900 ml 800 ml # Voids 4 # Bowel Movements 0 0 2 Result Diagram: 04/03/17 1518 04/02/17 0540 Objective Remarks GENERAL: This is a well-nourished, well-developed patient, in moderate respiratory distress SKIN: No rashes, warm and dry HEAD: Atraumatic. Normocephalic. EYES: Pupils equal round and reactive. Extraocular motions intact. No scleral icterus. ENT: Nose without bleeding, or drainage, Airway patent. NECK: Trachea midline. Supple CARDIOVASCULAR: Regular acute without murmurs, gallops, or rubs. RESPIRATORY: Bilateral scattered wheezes with increased respiratory work and use of respiratory muscle GASTROINTESTINAL: Abdomen soft, non-tender, nondistended. Positive bowel sounds MUSCULOSKELETAL: Extremities without clubbing, cyanosis, or edema. +1 edema NEUROLOGICAL: Awake and alert. Moves all extremity. Normal speech.no focal neurological deficit A/P Assessment and Plan 2/3: htn uncontrolled , give stat hydralazine 10 mg ivx1, inc hydralazine po to 10 q8h , d/w daughter and nurse , will give one dose of lasix iv due to inc edema despite bnp wnl 54. I&O, consult pulmonary , cont monitoring bmp bg uncontrolled due to steroid , add levemir 5 u bid with iSS A/P: 71 years old male admitted with worsening severe short of breath and wheezing acute Hypercapnic resp failure Acute exacerbation bronchial asthma with increased respiratory distress Hyperkalemia Elevated CK and troponin without chest pain mostly due to acute on chronic renal failure and CHF Bilateral lower extremity edema questionable CHF Left shift without leukocytosis Lactic acidosis- -resolved ADALI mostly on CKD DVT prophylaxis Plan: Admit to telemetry floor ABG reviewed by me pH 7.32, PCO2 53, pO2 75 Stat administration of O2, DuoNeb, Solu-Medrol Stat Bipap prn chest x-ray showed minimal scarring at the bases, no patrick infiltrate,No phlegm or fever no signs of active infection, patient received dose of Zithromax and Rocephin and ED,we'll hold on antibiotic hold Lasix for now due to lactic acidosis and ADALI Repeat BMP and lactic acid in a.m. we'll hold on IV fluid for now due to suspect heart failure Check 2-D echo heparin and SCD for DVT prophylaxis Marilou Warner MD Apr 03, 2017 16:27
[2017-04-03] MEDS ORDERED: FUROSEMIDE 40 MG/4 ML VIAL IV PUSH ONE (16:30)
[2017-04-03] MEDS: hydrALAZINE HCL 10 MG TAB PO SCH ×2 (17:17→21:11)
--- NOTE | 2017-04-03 18:35 | MB ---
cc: [facility] DATE OF CONSULTATION 04/03/17 REASON FOR CONSULTATION Respiratory failure and COPD. HISTORY OF PRESENT ILLNESS This is a 71-year-old obese man with a history of diabetes and congestive heart failure who was brought to the emergency room with a recent history of respiratory infection leading to cough, chest congestion, wheezing and shortness of breath. The patient is a halfway resident and has a longstanding history of dementia. He has been noted to be tachypneic and was suspected to have pneumonia and, thus, was placed on Levaquin. Due to deterioration in his clinical status with increased lethargy, he was brought to the hospital, was placed on BiPap initially for hypercapneic respiratory failure. A chest x-ray done showed low lung volumes and clear lung carcamo. PAST MEDICAL HISTORY 1. Diabetes, 2. Hypertension, 3. History of CVA 4. Prior history of dementia, 5. History of hemorrhoid surgery 6. Anemia of chronic disease. ALLERGIES None listed. HABITS The patient does not smoke. No significant alcohol use. FAMILY HISTORY Noncontributory REVIEW OF SYSTEMS The patient is demented and does not answer any questions appropriately and seems quite lethargic as well. PHYSICAL EXAMINATION GENERAL: This is an obese elderly man whose face was plethoric. VITAL SIGNS: Blood pressure 140/90, pulse is 88, respirations 20, temperature 97.5. HEENT: Head normocephalic. Pupils are reactive and equal. Sclerae were injected. Tongue is moist. Throat is mildly injected. Nasal mucosa is clear. NECK: Supple. No bruits. There is mild venous distension at 45 degrees. Trachea midline. No thyroid enlargement. CHEST: Equal movements. Decreased excursions. Breath sounds diminished at the bases with wheezes bilaterally and occasional basilar crackles. CARDIAC: Heart sounds are irregular S1, S2 with no murmur. No S3. ABDOMEN: Soft, obese without masses. No organomegaly or tenderness. Bowel sounds are active. EXTREMITIES: Edema 1+. Pigmentation of the skin of the lower extremities. diminished peripheral pulses. The patient does move his legs sluggishly and moves his arms well. There is no calf tenderness on either side. NEUROLOGIC: Reflexes are 1+. there are no focal deficits. SKIN: Dry and scaly. IMPRESSION 1. Hypercapnic respiratory failure. 2. Hypoventilation and possible obstructive sleep apnea syndrome 3. History of bronchial asthma with chronic bronchitis 4. Diabetes mellitus 5. Dementia. 6. History of hypertension 7. History of CVA. PLAN The patient will be placed on O2 3.5 liters, nebulized DuoNeb solution added q.i.d. and Symbicort 160/4.5 two puffs twice a day. The patient will be placed on BiPap at night and blood gases repeated. We will continue with Solu-Medrol 60 mg IV q. [address] him on Zithromax 500 mg IV daily. I will follow and discuss the case with you, Dr. Warner. Thank you for this consultation. MD SLADE Garcia/ /5:32 PM /6:06 PM
[2017-04-03 20:26] LABS: BICARBONATE 31.4 MEQ/L (21.0-32.0); BLOOD UREA NITROGEN 64 MG/DL (7-18); CALCIUM 8.8 MG/DL (8.5-10.1); CHLORIDE 103 MEQ/L (98-107); GLUCOSE,RANDOM 259 MG/DL (74-106); SODIUM (NA) 140 MEQ/L (136-145)
[2017-04-03] MEDS: ALPRAZolam 0.25 MG TAB PO SCH (20:41)
[2017-04-03 20:46] LABS: CREATININE 1.37 MG/DL (0.60-1.30); GLOMERULAR FILTRATION RATE 62 ML/MIN (>89)
[2017-04-03] MEDS: BUDESONIDE-FORMOTEROL 160/4.5 MCG INHALER INH SCH (21:09)
[2017-04-03] MEDS ORDERED: HALOPERIDOL LACTATE 5 MG/ML AMP IM ONE (23:00)
[2017-04-04] VITALS (24 sets, daily range): BP systolic 113–173; BP diastolic 55–89; PULSE 68–105; RESP 13–28; TEMP 97.2–98.5; O2SAT 30–100
[2017-04-04] MEDS ORDERED: ZIPRASIDONE MESYLATE 20 MG VIAL IM ONE (01:30)
[2017-04-04] MEDS: CHLORHEXIDINE GLUCONATE 2 % 1 PACK (2 CLOTHS)(taper/protocol) TOPICAL SCH (03:10)
[2017-04-04] MEDS: methylPREDNISolone SOD SUCC 125 MG/2 ML VIAL IV PUSH SCH ×3 (03:10→20:59)
[2017-04-04] MEDS: hydrALAZINE HCL 10 MG TAB PO SCH ×3 (05:36→21:00)
[2017-04-04] MEDS: AZITHROMYCIN INJ 500 MG in SODIUM CHLOR 0.9% 250 ML INJ 250 ML IV SCH ×2 (08:39→19:28)
[2017-04-04] MEDS: DONEPEZIL HCL 5 MG TAB PO SCH (08:48)
[2017-04-04] MEDS: HEPARIN SODIUM - SQ 10,000 UNITS/ML VIAL SQ SCH ×3 (08:48→23:48)
[2017-04-04] MEDS: ASCORBIC ACID 500 MG TAB PO SCH ×3 (08:48→20:42)
[2017-04-04] MEDS: CHOLECALCIFEROL (VIT D3) 1000 UNIT TAB PO SCH ×2 (08:49→09:00)
[2017-04-04] MEDS: QUEtiapine FUMARATE 25 MG TAB PO SCH ×2 (08:49→20:42)
[2017-04-04] MEDS: FUROSEMIDE 40 MG TAB PO SCH (08:49)
[2017-04-04] MEDS: MEMANTINE HCL 10 MG TAB PO SCH ×2 (08:49→20:42)
[2017-04-04] MEDS: ASPIRIN EC 81 MG TABEC PO SCH (08:49)
[2017-04-04] MEDS: PANTOPRAZOLE SOD 20 MG DELAYED RELEASE TAB PO SCH (08:49)
[2017-04-04] MEDS: BUDESONIDE-FORMOTEROL 160/4.5 MCG INHALER INH SCH ×2 (08:50→20:49)
[2017-04-04] MEDS: RESP: ALBUTEROL 2.5 MG/IPRATROPIUM 0.5 MG NEB (SCH) NEB ×4 (08:54→20:00)
[2017-04-04] MEDS ORDERED: FUROSEMIDE 40 MG/4 ML VIAL ONE (09:06)
[2017-04-04] MEDS ORDERED: FUROSEMIDE 40 MG/4 ML VIAL IV PUSH ONE (09:10)
[2017-04-04] MEDS ORDERED: methylPREDNISolone SOD SUCC 125 MG/2 ML VIAL IV ONE (09:15)
--- NOTE | 2017-04-04 09:34 | HHI.PR ---
Subjective Remarks I was paged by the nurse ~9 AM as the patient is with shortness of breath and he is desaturating. The patient is with severe dementia and he cannot tolerate BiPAP. Patient cannot be a restraints and also on BiPAP at the same time. Since her order at best site and the patient was placed on BiPAP. He is with shortness of breath, crackles, some wheezing. Received stat Solu Medrol 125, Lasix and DuoNeb's. ABG with hypercapnia. Able to reorient the patient. The patient denies any chest pain at this time. He denies nausea or vomiting no diarrhea or constipation. His however noted agitated at times with shortness of breath. Paged by the nurse again at 1 PM, also Halmarct paged as patient noted again deteriorating with sob, lethargic and aggressive at times, with low BP. Objective Vitals Vital Signs Date Time Temp Pulse Resp B/P (MAP) Pulse Ox O2 Delivery O2 Flow Rate FiO2 04/04/17 09:21 98 BiPAP 35 04/04/17 09:05 100 50 04/04/17 09:00 96 Venturi Mask 50 04/04/17 06:00 102 04/04/17 05:00 103 04/04/17 04:00 98.3 104 24 113/55 (74) 96 04/04/17 04:00 Venturi Mask 04/04/17 04:00 104 04/04/17 03:00 103 04/04/17 02:00 100 04/04/17 01:00 105 04/04/17 00:00 Venturi Mask 04/04/17 00:00 99 04/04/17 00:00 97.2 99 24 162/87 (112) 98 04/03/17 23:00 97 04/03/17 22:00 88 04/03/17 21:00 90 04/03/17 20:00 89 04/03/17 20:00 97.9 89 22 123/96 (105) 95 04/03/17 20:00 Nasal Cannula 4.00 04/03/17 19:09 96 Nasal Cannula 3.50 04/03/17 18:00 80 04/03/17 18:00 97.2 82 28 161/82 (108) 97 04/03/17 18:00 97 4.00 2/3/18 16:00 97.5 82 21 162/74 (103) 94 04/03/17 16:00 80 04/03/17 12:00 83 04/03/17 12:00 97.8 80 21 180/86 (117) 95 04/03/17 11:30 92 Nasal Cannula 4.00 I/O 04/03/17 04/03/17 04/03/17 04/04/17 04/04/17 04/04/17 06:59 14:59 22:59 06:59 14:59 22:59 Intake Total 240 ml 480 ml Output Total 800 ml 600 ml 2000 ml Balance 240 ml -800 ml -600 ml -1520 ml Intake Oral 240 ml 480 ml Output Urine Total 800 ml 600 ml 2000 ml # Voids 4 # Bowel Movements 2 0 Result Diagram: 04/03/17 1518 04/03/17 1518 Imaging Last Impressions Chest X-Ray 04/04/17 0000 Signed Impressions: Service Date/Time: Tuesday, April 04, 2017 09:37 - CONCLUSION: 1. Bibasilar atelectasis. Frantz Helms MD Objective Remarks GENERAL: This is a well-nourished, well-developed patient, with sob, in respiratory distress, anxious, agitated at times, however able to reorient patient at times. SKIN: No rashes, warm and dry HEAD: Atraumatic. Normocephalic. EYES: Pupils equal round and reactive. Extraocular motions intact. No scleral icterus. ENT: Nose without bleeding, or drainage, Airway patent. NECK: Trachea midline. Supple CARDIOVASCULAR: Regular acute without murmurs, gallops, or rubs. RESPIRATORY: Bilateral scattered wheezes with increased respiratory work and use of accessory respiratory muscle, decreased breath sounds, bibasilar crackles. GASTROINTESTINAL: Abdomen soft, non-tender, nondistended. Positive bowel sounds MUSCULOSKELETAL: Extremities without clubbing, cyanosis. +2 BL LE edema. NEUROLOGICAL: Lethargic, aggressive at times. Moves all extremity. Doesn't follow commands. Normal speech. A/P Assessment and Plan 71 years old male admitted with worsening severe short of breath and wheezing Acute Hypercapnic resp failure, on BiPAP Acute exacerbation bronchial asthma with increased respiratory distress Hyperkalemia, resolved Elevated CK and troponin without chest pain mostly due to acute on chronic renal failure and CHF. Consult cardiology Bilateral lower extremity edema questionable CHF Left shift without leukocytosis Lactic acidosis- -resolved ADALI mostly on CKD Dementia continue home meds. Now with aggressive behavior, add haldol prn. ABG reviewed by me pH 7.32, PCO2 53, pO2 75 Stat administration of O2, DuoNeb, Solu-Medrol Stat Bipap prn chest x-ray showed minimal scarring at the bases, no patrick infiltrate,No phlegm or fever no signs of active infection, patient received dose of Zithromax and Rocephin and ED,we'll hold on antibiotic hold Lasix for now due to lactic acidosis and ADALI Repeat BMP and lactic acid in a.m. we'll hold on IV fluid for now due to suspect heart failure Check 2-D echo pending. Consult cardiology Patient was noted on with uncontrolled htn received hydralazine 10 mg IV x1, inc hydralazine po to 10 q8h, lasix iv due to inc edema despite bnp wnl 54. I&O, pulmonary consulted , cont monitoring bmp BS uncontrolled due to steroid, added levemir 5 u bid with ISS, monitor BS, patient however not able to eat much On 04/04 at ~ 9 AM paged by the nurse as the patient with hypoxia, altered mental ststus more lethargic confused and also aggressive at times. Patient with bibasilar cracles on exam, wheezing, using accesory muscle with labored breathing. he was placed on BIPAP, abg stat with hypoercapnia , received lasix 40 mg IV x1 with very good UOP, duoneb stat and solumedriol stat. Patient was placed on bipap with repeat ABG improving Paged by the nurse as the patient is very aggressive, received haldol CXR stat reviewed not significant congestion however patient received lasix with good UOP. Ordered DDimer slightly elevated , with ADALI hold CTA for now might consider VQ scan to r/o PE Repeat ABG at ~noon while on bipap reviewed and improved However later at ~ 1PM today paged by the nurse as patient deteriorating, and with low BP SBP in 80s, repeat 89/69. Patient is aggressive at times. Halicat was paged again. Will transfer to the ICU floor for close observation as patient is unstable . Consult folder operator, discussed with Dr Saeed. Patient is deteriorating might need pressors and also might need intubation if doesn't tolerated bipap and worsening. Heparin and SCD for DVT prophylaxis Discussed with the patient, nurse, family, Rita nurse, Dr Saeed folder operator Critical care > 45 minutes Shazia Moreno MD Apr 04, 2017 09:34
[2017-04-04] MEDS: INSULIN ASPART SUPPLEMENTAL SCALE SQ SCH ×4 (10:06→20:45)
--- NOTE | 2017-04-04 10:11 | MB ---
cc: SHASHA MUIR MD DATE OF CONSULTATION: 04/04/2017 REASON FOR CONSULTATION: CHF HISTORY OF PRESENT ILLNESS The patient is a 71-year-old gentleman with a history of hypercarbic respiratory failure, CHF, dementia, diabetes and hypertension who is a "Halicat" here due to what seems like another episode of hypercapnic respiratory failure. Currently the patient is on BiPap and is somewhat altered, is not able to answer any questions. All history is from the chart. PAST MEDICAL HISTORY As above. CURRENT MEDICATIONS 1. Apresoline 10 milligrams q8 hours. 2. Seroquel 25 milligrams b.i.d. 3. Lasix 40 milligrams p.o. daily. IV Lasix has been given. 4. Aricept 10 milligrams daily. 5. Aspirin 81 milligrams daily. 6. Subcu heparin. ALLERGIES: NO KNOWN DRUG ALLERGIES. PHYSICAL EXAMINATION: VITAL SIGNS: Afebrile, pulse 102, respiratory rate 24, blood pressure 115/55, sating 90% on BiPAP. GENERAL: An obese gentleman on BiPAP, who is unable to answer any of my questions due to altered mental status/dementia. NECK: No JVD. LUNGS: Decreased breath sounds. CARDIOVASCULAR: Regular rate and rhythm. No significant murmurs appreciated. ABDOMEN: Benign. EXTREMITIES: No edema. EKG shows sinus rhythm with occasional ectopy. No acute ST-T wave changes. LABORATORY DATA: Sodium 140, potassium 4.1, chloride 103, bicarb 31.4, BUN 64, creatinine 1.37, glucose 259. Troponin is 0.09. Chest x-ray: Cardiomegaly. Echocardiogram from about 2 years ago showed ejection fraction 55-60%. IMPRESSION 1. CHF. The patient seems to have a combination of chronic diastolic congestive heart failure as well as chronic CO2 retention with periodic hypercarbic respiratory failure. He is already diuresing on IV Lasix. I will continue this. He is on BiPAP to assist his significant CO2 retention as proven by his blood gases. Will have him undergo a new echocardiogram to ensure his LV function has not changed. 2. With regards to his slightly elevated troponin, this is very likely due to his CHF, and given his poor baseline functionality as well as dementia, I do not believe that any further ischemic workup is warranted. Further recommendations based on the above. Thank you again for the opportunity to participate this patient's care. MD EARL Gomez/ELVER /9:43 AM /10:00 AM
[2017-04-04] MEDS ORDERED: HALOPERIDOL LACTATE 5 MG/ML AMP IM ONE (10:45)
--- NOTE | 2017-04-04 11:00 | RADRPT ---
EXAM DATE/TIME: 04/04/2017 09:37 [facility] COMPARISON: CHEST SINGLE AP, April 02, 2017, 21:24. INDICATIONS : Short of Breath MEDICAL HISTORY : Hypertension. Diabetes mellitus type II. Dementia SURGICAL HISTORY : None. ENCOUNTER: Subsequent ACUITY: 4 - 6 days PAIN SCORE: 0/10 LOCATION: chest FINDINGS: A single view of the chest demonstrates bibasilar subsegmental atelectasis. Heart borderline enlarged . Diminished lung volumes. The cardiomediastinal contours are unremarkable. Osseous structures are i ntact. CONCLUSION: 1. Bibasilar atelectasis. Frantz Helms MD on April 04, 2017 at 10:56 Board Certified Radiologist. This report was verified electronically.
[2017-04-04 11:30] LABS: AUTOMATED NEUTROPHIL # 10.5 TH/MM3 (1.8-7.7); BASOPHIL % 0.1 % (0.0-2.0); HEMATOCRIT 34.6 % (39.0-51.0); HEMOGLOBIN 11.5 GM/DL (13.0-17.0); LYMPH % 3.8 % (9.0-44.0); LYMPHOCYTE # 0.5 TH/MM3 (1.0-4.8); MEAN CELL VOLUME 88.2 FL (80.0-100.0); MEAN CORPUSCULAR HEMOGLOBIN 29.3 PG (27.0-34.0); MEAN CORPUSCULAR HGB CONC 33.2 % (32.0-36.0); MEAN PLATELET VOLUME 8.3 FL (7.0-11.0); MONO % 8.8 % (0.0-8.0); MONOCYTE # 1.1 TH/MM3 (0-0.9); NEUT % 87.3 % (16.0-70.0); PLATELET COUNT 198 TH/MM3 (150-450); RED BLOOD COUNT 3.92 MIL/MM3 (4.50-5.90); RED CELL DISTRIBUTION WIDTH 14.7 % (11.6-17.2)
[2017-04-04 11:32] LABS: HEMOGLOBIN A1C 7.9 % (4.3-6.0)
[2017-04-04 11:46] LABS: ALBUMIN 3.3 GM/DL (3.4-5.0); AST (GOT) 29 U/L (15-37); BICARBONATE 33.8 MEQ/L (21.0-32.0); BLOOD UREA NITROGEN 55 MG/DL (7-18); CHLORIDE 106 MEQ/L (98-107); CREATININE 1.21 MG/DL (0.60-1.30); GLOMERULAR FILTRATION RATE 71 ML/MIN (>89); GLUCOSE,RANDOM 198 MG/DL (74-106); SODIUM (NA) 144 MEQ/L (136-145)
[2017-04-04 11:50] LABS: ALKALINE PHOSPHATASE 117 U/L (45-117); ALT (GPT) 54 U/L (12-78); TOTAL BILIRUBIN ADULT 0.3 MG/DL (0.2-1.0); TOTAL PROTEIN 7.3 GM/DL (6.4-8.2)
[2017-04-04] MEDS: INSULIN ASPART 1,000 UNITS/10 ML VIAL SQ SCH ×2 (12:00→17:00)
--- NOTE | 2017-04-04 12:13 | EKG ---
Date Performed: 04/04/2017 Time Performed: 09:06:58 PTAGE: 71 years EKG: Sinus rhythm with PACs Otherwise within normal limits Compared to previous tracing, PACs are new. Abnormal ECG PREVIOUS TRACING : 04/01/2017 12.22 DOCTOR: Sudhir Pathak Interpretating Date/Time 04/04/2017 12:11:24
--- NOTE | 2017-04-04 13:05 | HHI.PR ---
Subjective Remarks Paged by the nurse, patient is deteriorating. Halicat was called again. Patient with low BP. On BIPAP> Objective Vitals Vital Signs Date Time Temp Pulse Resp B/P (MAP) Pulse Ox O2 Delivery O2 Flow Rate FiO2 04/04/17 12:39 100 Nasal Cannula 3.00 04/04/17 09:21 98 BiPAP 35 04/04/17 09:05 100 50 04/04/17 09:00 96 Venturi Mask 50 04/04/17 07:00 Venturi Mask 6.00 50 04/04/17 06:00 102 04/04/17 05:00 103 04/04/17 04:00 98.3 104 24 113/55 (74) 96 04/04/17 04:00 Venturi Mask 04/04/17 04:00 104 04/04/17 03:00 103 04/04/17 02:00 100 04/04/17 01:00 105 04/04/17 00:00 Venturi Mask 04/04/17 00:00 99 04/04/17 00:00 97.2 99 24 162/87 (112) 98 04/03/17 23:00 97 04/03/17 22:00 88 04/03/17 21:00 90 04/03/17 20:00 89 04/03/17 20:00 97.9 89 22 123/96 (105) 95 04/03/17 20:00 Nasal Cannula 4.00 04/03/17 19:09 96 Nasal Cannula 3.50 04/03/17 18:00 80 04/03/17 18:00 97.2 82 28 161/82 (108) 97 04/03/17 18:00 97 4.00 04/03/17 16:00 97.5 82 21 162/74 (103) 94 04/03/17 16:00 80 I/O 04/03/17 04/03/17 04/03/17 04/04/17 04/04/17 04/04/17 07:00 15:00 23:00 07:00 15:00 23:00 Intake Total 240 ml 480 ml Output Total 800 ml 600 ml 2000 ml Balance 240 ml -800 ml -600 ml -1520 ml Intake Oral 240 ml 480 ml Output Urine Total 800 ml 600 ml 2000 ml # Voids 4 # Bowel Movements 2 0 Result Diagram: 04/04/17 1020 04/04/17 1020 Shazia Moreno MD Apr 04, 2017 13:05
[2017-04-04] MEDS ORDERED: LORazepam 2 MG/ML VIAL ONE (13:40)
[2017-04-04] MEDS ORDERED: LORazepam 2 MG/ML VIAL IV ONE (14:00)
--- NOTE | 2017-04-04 15:08 | ECHRPT ---
Indication: ASSESS HEART CAPACITY CONCLUSIONS Mildly dilated left ventricle. Moderate concentric left ventricular hypertrophy. The left ventricular systolic function is low normal with an estimated ejection fraction in the rang e of 50- 55%. Patient combative during study, trying to kick nurses/tech; study ended with somewhat limited imagin g. BP: / HR: Rhythm: MEASUREMENTS (Male / Female) Normal Values Technical Quality:Technically difficult study 2D ECHO LV Diastolic Diameter PLAX 5.4 cm 4.2 - 5.9 / 3.9 - 5.3 cm LV Systolic Diameter PLAX 4.2 cm IVS Diastolic Thickness 1.6 cm 0.6 - 1.0 / 0.6 - 0.9 cm LVPW Diastolic Thickness 1.0 cm 0.6 - 1.0 / 0.6 - 0.9 cm LV Relative Wall Thickness 0.5 FINDINGS LEFT VENTRICLE Mildly dilated left ventricle. Moderate concentric left ventricular hypertrophy. The left ventricular systolic function is low normal with an estimated ejection fraction in the rang e of 50- 55%. RIGHT VENTRICLE Normal right ventricular size and systolic function. LEFT ATRIUM The left atrial size is normal. RIGHT ATRIUM The right atrial size is normal. ATRIAL SEPTUM Normal atrial septal thickness without atrial level shunting by limited color doppler interrogation. AORTA The aortic root and proximal ascending aorta are normal in size on limited imaging. MITRAL VALVE Structurally normal mitral valve. No mitral valve stenosis or regurgitation. AORTIC VALVE Trileaflet aortic valve. No aortic valve stenosis or regurgitation. TRICUSPID VALVE The tricuspid valve is not well visualized. PULMONARY VALVE The pulmonary valve is not well visualized. VESSELS The inferior vena cava is normal in size. PERICARDIUM No pericardial effusion. John Perez MD (Electronically Signed) Final Date:04 April 2017 15:06
[2017-04-04] MEDS: ENALAPRILAT 1.25 MG/ML VIAL IV PUSH PRN (16:03)
--- NOTE | 2017-04-04 16:20 | PD.CONS ---
[facility] Service Critical Care Medicine Consult Requested By Reason for Consult Hypercapnic respiratory failure Primary Care Physician Kee Dugan MD History of Present Illness This is a 71 years old male with history of CHF, diabetes and recent upper respiratory infection presented to the ED with severe short of breath and wheezing on 04/01/17.The patient resides in SNF secondary to to dementia, his daughter requested to transfer patient to hospital due to increase work of breathing even on rest. Patient recently was diagnosed with pneumonia and started on Levaquin and prednisone. I saw patient in the room he was on BiPAP, in ED he was found to have hypercapnic respiratory failure he was given O2 and DuoNeb and a dose of Solu-Medrol, history was restricted due to increase of respiratory work and being on BiPAP, influenza A and B was negative. The patient was then transferred to the medical floor. During the last evening the patient had increased work of breathing, the patient was noted to have frothy pink sputum and BiPAP was ordered. The patient did not receive BiPAP during the night secondary to being combative, and inability to be restrained on BiPAP. The patient's respiratory status continued to worsen, Halicat was initiated the patient received furosemide 40 mg IV early this a.m. and diuresed greater than 1 L. The patient subsequently became hypotensive, and critical care medicine was consulted. Upon presentation to [facility], the patient was compatible requiring 2-point wrist restraints, and subsequently 1 mg of Ativan was administered. The patient continues on BiPAP, echocardiogram was performing cardiology evaluation. O2 saturation was noted improvement 100% on FiO2 of 35%, a normal respiratory rate. ROS - General Review of Systems All systems reviewed and was positive for what is mentioned in history of present illness otherwise negative PFSH Past Family Social History Past Medical History Anemia Anxiety Hypertension CHF History CVA Dementia is Diabetes History of surgery for hemorrhoid Past Surgical History As above Allergies: Coded Allergies: No Known Allergies (Unverified , 03/19/15) Family History Review with the patient's family,not aware of significant medical history runs in his family Social History Denied tobacco alcohol or illicit drug abuse per family report Physical Exam Vital Signs Vital Signs Date Time Temp Pulse Resp B/P (MAP) Pulse Ox O2 Delivery O2 Flow Rate FiO2 04/04/17 14:00 79 04/04/17 13:00 80 04/04/17 12:39 100 Nasal Cannula 3.00 04/04/17 12:00 97.2 78 24 152/86 (108) 99 04/04/17 12:00 86 04/04/17 11:00 Bi-Pap 99 04/04/17 11:00 78 04/04/17 10:00 84 04/04/17 09:21 98 BiPAP 35 04/04/17 09:05 100 50 04/04/17 09:00 96 Venturi Mask 50 04/04/17 09:00 88 04/04/17 08:00 86 04/04/17 08:00 97.3 91 28 173/89 (117) 97 04/04/17 07:00 Venturi Mask 6.00 50 04/04/17 07:00 90 04/04/17 06:00 102 04/04/17 05:00 103 04/04/17 04:00 98.3 104 24 113/55 (74) 96 04/04/17 04:00 Venturi Mask 04/04/17 04:00 104 04/04/17 03:00 103 04/04/17 02:00 100 04/04/17 01:00 105 04/04/17 00:00 Venturi Mask 04/04/17 00:00 99 04/04/17 00:00 97.2 99 24 162/87 (112) 98 04/03/17 23:00 97 04/03/17 22:00 88 04/03/17 21:00 90 04/03/17 20:00 89 04/03/17 20:00 97.9 89 22 123/96 (105) 95 04/03/17 20:00 Nasal Cannula 4.00 04/03/17 19:09 96 Nasal Cannula 3.50 04/03/17 18:00 80 04/03/17 18:00 97.2 82 28 161/82 (108) 97 04/03/17 18:00 97 4.00 Physical Exam GENERAL: This is an obese chronically ill appearing combative male patient. Responding to questions, but also swinging arms spontaneously requesting to be left alone SKIN: Warm and dry. HEAD: Atraumatic. Normocephalic. EYES: Pupils equal and round. No scleral icterus. No injection or drainage. ENT: No nasal bleeding or discharge. Mucous membranes pink and moist. NECK: Trachea midline. No JVD. CARDIOVASCULAR: Normal rate, regular rhythm. RESPIRATORY: No accessory muscle use. Diminished breath sounds throughout expiratory wheezing noted throughout lung carcamo. Breath sounds equal bilaterally. GASTROINTESTINAL: Abdomen soft, non-tender, protuberant nondistended. No guarding. MUSCULOSKELETAL: Extremities without clubbing, cyanosis, or edema. No obvious deformities. NEUROLOGICAL: Awake, confused and combative. RASS 0. No gross focal/sensory deficits.Spontaneous movement in all 4 extremities, refuses currently to follow any commands. Laboratory Laboratory Tests Test 04/04/17 09:01 04/04/17 10:20 04/04/17 13:05 04/04/17 13:45 Blood Gas Puncture Site RT RADIAL LT RADIAL RT RADIAL Blood Gas Patient Temperature 98.6 98.6 98.6 Blood Gas HCO3 33 33 33 Blood Gas Base Excess 6.9 8.1 8.3 Blood Gas Oxygen Saturation 97 78 92 Arterial Blood pH 7.34 7.40 7.40 Arterial Blood Partial Pressure CO2 62 54 55 Arterial Blood Partial Pressure O2 188 47 73 Arterial Blood Oxygen Content 15.5 12.0 14.4 Arterial Blood Carboxyhemoglobin 0.6 0.9 0.9 Arterial Blood Methemoglobin 1.5 1.3 1.5 Blood Gas Hemoglobin 11.1 10.9 11.1 Oxygen Delivery Device BiPAP BIPAP 14IPAP 7 EPAP BIPAP 14IPAP/7EPAP Blood Gas Ventilator Setting IPAP14/EPAP7 Blood Gas Inspired Oxygen 50 35 35 White Blood Count 12.0 Red Blood Count 3.92 Hemoglobin 11.5 Hematocrit 34.6 Mean Corpuscular Volume 88.2 Mean Corpuscular Hemoglobin 29.3 Mean Corpuscular Hemoglobin Concent 33.2 Red Cell Distribution Width 14.7 Platelet Count 198 Mean Platelet Volume 8.3 Neutrophils (%) (Auto) 87.3 Lymphocytes (%) (Auto) 3.8 Monocytes (%) (Auto) 8.8 Eosinophils (%) (Auto) 0.0 Basophils (%) (Auto) 0.1 Neutrophils # (Auto) 10.5 Lymphocytes # (Auto) 0.5 Monocytes # (Auto) 1.1 Eosinophils # (Auto) 0.0 Basophils # (Auto) 0.0 CBC Comment DIFF FINAL Differential Comment D-Dimer Quantitative (PE/DVT) 0.65 Blood Urea Nitrogen 55 Creatinine 1.21 Random Glucose 198 Total Protein 7.3 Albumin 3.3 Calcium Level 9.0 Alkaline Phosphatase 117 Aspartate Amino Transf (AST/SGOT) 29 Alanine Aminotransferase (ALT/SGPT) 54 Total Bilirubin 0.3 Sodium Level 144 Potassium Level 4.4 Chloride Level 106 Carbon Dioxide Level 33.8 Anion Gap 4 Estimat Glomerular Filtration Rate 71 B-Type Natriuretic Peptide 64 Date/Time Source Procedure Growth Status 04/01/17 12:28 Blood Peripheral Aerobic Blood Culture - Preliminary NO GROWTH IN 3 DAYS Resulted 04/01/17 12:28 Blood Peripheral Anaerobic Blood Culture - Preliminary NO GROWTH IN 3 DAYS Resulted 04/01/17 12:35 Nasal Aspirate Influenza Types A,B Antigen (ANTHONY) - Final NEGATIVE FOR FLU A AND B ANTIGEN.... Complete Result Diagram: 04/04/17 1020 04/04/17 1020 Imaging Last Impressions Chest X-Ray 04/04/17 0000 Signed Impressions: Service Date/Time: Tuesday, April 04, 2017 09:37 - CONCLUSION: 1. Bibasilar atelectasis. Frantz Helms MD Septic Shock Reassessment Septic shock perfusion: reassessment completed Assessment and Plan Assessment and Plan This is a chronically ill patient with repeated episodes of acute hypoxemic respiratory failure with CHF exacerbation for possible emergent intubation. Admit to ICU. Plan by systems: Neurologic: Dementia History of CVA Agitation Neurochecks per ICU protocol Continue Aricept Ativan 1 mg IV 1 dose Continue Haldol 2 mg every 8 hours when necessary for agitation Respiratory: Acute hypercapnic respiratory failure History of bronchial asthma and chronic bronchitis Pulmonary edema Pulmonology following Dr. Bay Williamson Solu-Medrol 60 mg every 6, azithromycin 500 mg/day, will expand empiric antibiotics see below Follow-up chest x-ray Repeat ABG improved PaO2 73 on FiO2 of 35% Consider CT thorax if no continued improvement Obtain sputum culture Patient received IV Lasix with adequate diuresis. Will consider Acetazolamide in addition secondary to CO2 retention, continue to monitor ABG Cardiovascular: Chronic diastolic CHF Cardiology following-Dr. Pace follow-up recommendations 04/04 echo-EF 5055 percent, mildly dilated left ventricle, moderately concentric LVH , LV systolic function low normal Plan for repeat echo per cardiology in near future F/U BNP Renal: Maintain Locke catheter patient receiving diuretics -- Strict I/Os FEN/GI: Obesity Mild protein calorie malnutrition Assess bedside swallow in a.m. Nothing by mouth except medications tonight Resume diabetic diet in a.m. Hydralazine PRN for systolic blood pressure greater than 160 Heme/ID: Leukocytosis Anemia of chronic disease Monitor CBC. WBC count elevation noted 7 -> 12 today Blood cultures 2 negative growth to date Obtain urine culture Influenza nasal wash negative Obtain Legionella, pneumococcal urine antigens Endocrine: Diabetes mellitus Sliding-scale insulin per ICU protocol low dose regimen -- SSI Prophylaxis: GI Prophylaxis Protonix DVT Prophylaxis -- SCDs Heparin every 8 hours Lines: Peripheral IVs 2 providing adequate access. Central line if indicated Dispo: my billing statement This patient remains critically ill with one or more organ systems which are or may become a threat to life. I have spent in excess of 60 minutes discontinuously in the care and management of this patient. This time is exclusive of procedures, and includes, but is not limited to, evaluation of the patient, review of the medical record, discussions with family, consultants, nursing staff, or respiratory therapy, and documentation in the medical record. Code Status Full Discussed Condition With Dr. Moreno and [employer]LO[employer] PRODUCT MANAGER at bedside Angela Saeed MD Apr 04, 2017 16:20
[2017-04-04] MEDS: PANTOPRAZOLE SODIUM 40 MG VIAL IV PUSH SCH (17:14)
[2017-04-04] MEDS: CEFEPIME INJ 2,000 MG in SODIUM CHLORIDE 0.9% INJ 100 ML IV SCH (17:14)
--- NOTE | 2017-04-04 17:21 | HHI.PR ---
Subjective Remarks He is now on BiPAP but lethargic. CXR shows basal infiltrates. Poor output.Has wheezing. Objective Vital Signs Date Time Temp Pulse Resp B/P (MAP) Pulse Ox O2 Delivery O2 Flow Rate FiO2 04/04/17 16:37 94 35 04/04/17 16:00 88 04/04/17 16:00 98 Bi-Pap 35 04/04/17 16:00 98.5 88 21 147/65 (92) 98 04/04/17 14:00 79 04/04/17 14:00 98 Bi-Pap 35 04/04/17 13:00 80 04/04/17 12:39 100 Nasal Cannula 3.00 04/04/17 12:00 97.2 78 24 152/86 (108) 99 04/04/17 12:00 86 04/04/17 11:00 Bi-Pap 99 04/04/17 11:00 78 04/04/17 10:00 84 04/04/17 09:21 98 BiPAP 35 04/04/17 09:05 100 50 04/04/17 09:00 96 Venturi Mask 50 04/04/17 09:00 88 04/04/17 08:00 86 04/04/17 08:00 97.3 91 28 173/89 (117) 97 04/04/17 07:00 Venturi Mask 6.00 50 04/04/17 07:00 90 04/04/17 06:00 102 04/04/17 05:00 103 04/04/17 04:00 98.3 104 24 113/55 (74) 96 04/04/17 04:00 Venturi Mask 04/04/17 04:00 104 04/04/17 03:00 103 04/04/17 02:00 100 04/04/17 01:00 105 04/04/17 00:00 Venturi Mask 04/04/17 00:00 99 04/04/17 00:00 97.2 99 24 162/87 (112) 98 04/03/17 23:00 97 04/03/17 22:00 88 04/03/17 21:00 90 04/03/17 20:00 89 04/03/17 20:00 97.9 89 22 123/96 (105) 95 04/03/17 20:00 Nasal Cannula 4.00 2/3/18 19:09 96 Nasal Cannula 3.50 04/03/17 18:00 80 04/03/17 18:00 97.2 82 28 161/82 (108) 97 04/03/17 18:00 97 4.00 I/O 04/03/17 04/03/17 04/03/17 04/04/17 04/04/17 04/04/17 07:00 15:00 23:00 07:00 15:00 23:00 Intake Total 240 ml 480 ml Output Total 800 ml 600 ml 2000 ml Balance 240 ml -800 ml -600 ml -1520 ml Intake Oral 240 ml 480 ml Output Urine Total 800 ml 600 ml 2000 ml # Voids 4 # Bowel Movements 2 0 Result Diagram: 04/04/17 1020 04/04/17 1020 Objective Remarks GENERAL: This is an obese elderly man whose face was plethoric. HEENT: Head normocephalic. Pupils are reactive and equal. Sclerae were injected. Tongue is moist. Throat is mildly injected. Nasal mucosa is clear. NECK: Supple. No bruits. There is mild venous distension at 45 degrees. Trachea midline. No thyroid enlargement. CHEST: Equal movements. Decreased excursions. Breath sounds diminished at the bases with wheezes bilaterally and occasional basilar crackles. CARDIAC: Heart sounds are irregular S1, S2 with no murmur. No S3. ABDOMEN: Soft, obese without masses. No organomegaly or tenderness. Bowel sounds are active. EXTREMITIES: Edema 1+. Pigmentation of the skin of the lower extremities. diminished peripheral pulses. The patient does move his legs sluggishly and moves his arms well. There is no calf tenderness on either side. NEUROLOGIC: Reflexes are diminished . Very lethargic. SKIN: Dry and scaly. Assessment and Plan Assessment and Plan IMPRESSION 1. Hypercapnic respiratory failure. 2. Hypoventilation and possible obstructive sleep apnea syndrome 3. History of bronchial asthma with chronic bronchitis 4. Diabetes mellitus 5. Dementia. 6. History of hypertension 7. History of CVA. Plan : 1. Cont BiPAP 12/09 ,FIO2 30% 2. Continue Zithromax 500 mg Daily 3. Nebs qid Duoneb 4. BMP in am. 5.Symbicort 160/4.5 Mcg , 2 puffs bid. 6. Solumedrol 40 Mg q6h. Chhaya Ta MD Apr 04, 2017 17:21
[2017-04-04] MEDS: metroNIDAZOLE 500 MG INJ 100 ML IV SCH (17:57)
[2017-04-04] MEDS ORDERED: FUROSEMIDE 40 MG/4 ML VIAL IV PUSH SCH (18:00)
[2017-04-04 19:17] LABS: AMORPHOUS SEDIMENT, URINE RARE; BACTERIA, URINE OCC /hpf; BILIRUBIN, URINE NEG (NEG); BLOOD, URINE MOD (NEG); GLUCOSE,URINE NEG (NEG); HYALINE CAST, URINE 7 /lpf (RARE); KETONE, URINE NEG (NEG); NITRITE,URINE NEG (NEG); URINE COLOR LIGHT-YELLOW (YELLW/STRAW); URINE LEUKOCYTE ESTERASE TRACE (NEG)
[2017-04-04] MEDS: ALPRAZolam 0.25 MG TAB PO SCH (20:42)
[2017-04-04] MEDS: INSULIN DETEMIR 100 UNITS/ML VIAL SQ SCH (20:43)
[2017-04-04] MEDS: HALOPERIDOL LACTATE 5 MG/ML AMP IV PUSH PRN (23:39)
[2017-04-05] VITALS (16 sets, daily range): BP systolic 133–204; BP diastolic 60–138; PULSE 66–92; RESP 14–38; TEMP 98.3–98.7; O2SAT 86–100
[2017-04-05] MEDS: metroNIDAZOLE 500 MG INJ 100 ML IV SCH ×3 (02:05→19:03)
[2017-04-05] MEDS: CEFEPIME INJ 2,000 MG in SODIUM CHLORIDE 0.9% INJ 100 ML IV SCH ×3 (02:07→19:04)
[2017-04-05] MEDS: hydrALAZINE HCL 20 MG/ML VIAL IV PUSH PRN ×2 (02:07→22:47)
[2017-04-05] MEDS: methylPREDNISolone SOD SUCC 125 MG/2 ML VIAL IV PUSH SCH ×3 (03:29→16:07)
[2017-04-05] MEDS: CHLORHEXIDINE GLUCONATE 2 % 1 PACK (2 CLOTHS)(taper/protocol) TOPICAL SCH (03:29)
[2017-04-05] MEDS: hydrALAZINE HCL 10 MG TAB PO SCH ×3 (04:04→21:30)
--- NOTE | 2017-04-05 04:07 | RADRPT ---
EXAM DATE/TIME: 04/05/2017 03:10 [place] COMPARISON: CHEST SINGLE AP, April 04, 2017, 9:37. INDICATIONS : Shortness of breath, possible pulmonary disease. MEDICAL HISTORY : Hypertension. Diabetes mellitus type II. Dementia SURGICAL HISTORY : None. ENCOUNTER: Subsequent ACUITY: 1 week PAIN SCORE: 0/10 LOCATION: Bilateral chest FINDINGS: Portable AP view of the chest demonstrates mildly enlarged cardiac silhouette. Lungs are underinflate d with atelectasis at the bases. No pleural effusion or pneumothorax is identified. The bones and sof t tissues demonstrate no acute finding. CONCLUSION: Stable chest x-ray with atelectasis at the lung bases. No acute cardiopulmonary abnormality is identi fied otherwise. Jerman Benitez MD on April 05, 2017 at 4:05 Board Certified Radiologist. This report was verified electronically.
[2017-04-05 05:04] LABS: AUTOMATED NEUTROPHIL # 8.1 TH/MM3 (1.8-7.7); BASOPHIL % 0.1 % (0.0-2.0); HEMATOCRIT 33.6 % (39.0-51.0); HEMOGLOBIN 11.1 GM/DL (13.0-17.0); LYMPH % 4.9 % (9.0-44.0); LYMPHOCYTE # 0.5 TH/MM3 (1.0-4.8); MEAN CELL VOLUME 87.2 FL (80.0-100.0); MEAN CORPUSCULAR HGB CONC 33.2 % (32.0-36.0); MEAN PLATELET VOLUME 8.1 FL (7.0-11.0); MONO % 8.9 % (0.0-8.0); MONOCYTE # 0.8 TH/MM3 (0-0.9); NEUT % 86.1 % (16.0-70.0); PLATELET COUNT 188 TH/MM3 (150-450); RED BLOOD COUNT 3.85 MIL/MM3 (4.50-5.90); RED CELL DISTRIBUTION WIDTH 14.9 % (11.6-17.2); WHITE BLOOD COUNT 9.4 TH/MM3 (4.0-11.0)
[2017-04-05 05:25] LABS: ALBUMIN 3.2 GM/DL (3.4-5.0); AST (GOT) 26 U/L (15-37); BLOOD UREA NITROGEN 53 MG/DL (7-18); CALCIUM 8.7 MG/DL (8.5-10.1); CHLORIDE 107 MEQ/L (98-107); CREATININE 1.31 MG/DL (0.60-1.30); GLOMERULAR FILTRATION RATE 65 ML/MIN (>89); GLUCOSE,RANDOM 131 MG/DL (74-106); MAGNESIUM 2.7 MG/DL (1.5-2.5); SODIUM (NA) 148 MEQ/L (136-145)
[2017-04-05 05:28] LABS: ALKALINE PHOSPHATASE 112 U/L (45-117); ALT (GPT) 50 U/L (12-78); PHOSPHORUS 2.4 MG/DL (2.5-4.9); TOTAL BILIRUBIN ADULT 0.4 MG/DL (0.2-1.0); TOTAL PROTEIN 7.2 GM/DL (6.4-8.2)
[2017-04-05] MEDS: INSULIN ASPART SUPPLEMENTAL SCALE SQ SCH ×4 (08:00→20:27)
[2017-04-05] MEDS: INSULIN ASPART 1,000 UNITS/10 ML VIAL SQ SCH ×3 (08:00→16:37)
[2017-04-05] MEDS: RESP: ALBUTEROL 2.5 MG/IPRATROPIUM 0.5 MG NEB (SCH) NEB ×4 (08:00→20:03)
[2017-04-05] MEDS: HALOPERIDOL LACTATE 5 MG/ML AMP IV PUSH PRN ×2 (08:23→22:47)
[2017-04-05] MEDS: SODIUM CHLORIDE 0.9% FLUSH 10 ML FLUSH IVF PRN (08:23)
[2017-04-05] MEDS: INSULIN DETEMIR 100 UNITS/ML VIAL SQ SCH ×3 (09:00→21:30)
[2017-04-05] MEDS: BUDESONIDE-FORMOTEROL 160/4.5 MCG INHALER INH SCH ×2 (09:33→21:00)
[2017-04-05] MEDS: HEPARIN SODIUM - SQ 10,000 UNITS/ML VIAL SQ SCH ×2 (09:34→16:07)
[2017-04-05] MEDS: DONEPEZIL HCL 5 MG TAB PO SCH (09:35)
[2017-04-05] MEDS: ASCORBIC ACID 500 MG TAB PO SCH ×2 (09:36→21:00)
[2017-04-05] MEDS: ASPIRIN EC 81 MG TABEC PO SCH (09:36)
[2017-04-05] MEDS: QUEtiapine FUMARATE 25 MG TAB PO SCH ×2 (09:36→21:00)
[2017-04-05] MEDS: CHOLECALCIFEROL (VIT D3) 1000 UNIT TAB PO SCH (09:36)
[2017-04-05] MEDS: MEMANTINE HCL 10 MG TAB PO SCH ×2 (09:36→21:00)
--- NOTE | 2017-04-05 09:37 | PD.CARD.PN ---
Subjective Subjective Remarks Pt confused, continues to struggle w/ acute on chronic change in MS likely caused by hypercarbia. Objective Medications Current Medications Medications (Trade) Dose Ordered Sig/Vijay Route Start Time Stop Time Status Last Admin (NS Flush) 2 ml UNSCH PRN IVF 04/01/17 12:15 04/05/17 08:23 (Xanax) 0.25 mg HS PO 04/01/17 21:00 04/04/17 20:42 (Vitamin D3) 1,000 units DAILY PO 04/02/17 09:00 04/03/17 09:51 (Aricept) 10 mg DAILY PO 04/02/17 09:00 04/04/17 08:48 ([place] 7.5-325 Mg) 1 tab Q4H PRN PO 04/01/17 14:45 04/02/17 17:00 (Namenda) 10 mg BID PO 04/01/17 21:00 04/04/17 20:42 (Zofran Odt) 4 mg Q6H PRN SL 04/01/17 14:45 (Ecotrin Ec) 81 mg DAILY PO 04/02/17 09:00 04/04/17 08:49 (Vitamin C) 500 mg BID PO 04/01/17 21:00 04/04/17 20:42 (Heparin Inj) 5,000 units Q8H SQ 04/01/17 16:00 04/04/17 23:48 (Duoneb Neb) 1 ampule Q2HR NEB PRN NEB 04/01/17 14:45 (SoluMEDROL INJ) 60 mg Q6H IV PUSH 04/01/17 16:00 04/05/17 03:29 (Pill Splitter) 1 ea UNSCH PRN OTHER 04/01/17 15:15 Miscellaneous Information Patient in critical care unit? Ass... Q361D .XX 04/02/17 00:15 04/02/17 00:15 (Chlorhexidine 2% Cloth) 3 pack DAILY@04 TOPICAL 04/02/17 04:00 04/06/17 04:01 04/05/17 03:29 (Chlorhexidine 2% Cloth) 3 pack UNSCH PRN TOPICAL 04/02/17 00:15 04/07/17 00:10 (D50w (Vial) Inj) 50 ml UNSCH PRN IV PUSH 04/02/17 04:00 (Glucagon Inj) 1 mg UNSCH PRN OTHER 04/02/17 04:00 (NovoLOG SUPPLEMENTAL SCALE) 1 ACHS SLIDING SCALE SQ 04/02/17 08:00 04/04/17 20:45 (SEROquel) 25 mg BID PO 04/02/17 21:00 04/04/17 20:42 (Vasotec Inj) 1.25 mg Q6H PRN IV PUSH 04/03/17 11:30 04/04/17 16:03 (Apresoline) 10 mg Q8HR PO 04/03/17 16:30 04/04/17 21:00 (Symbicort 160-4.5 Mcg Inh) 2 puff Q12HR INH 04/03/17 21:00 04/04/17 08:50 Azithromycin 500 mg/Sodium Chloride 250 ml @ 250 mls/hr Q24H IV 04/03/17 18:00 04/04/17 19:28 (Duoneb Neb) 1 ampule Q4HR WHILE AWAKE NEB NEB 04/03/17 20:00 04/04/17 20:00 (Levemir Inj) 12 units BID SQ 04/04/17 21:00 04/04/17 20:43 (NovoLOG INJ) 2 units TIDAC SQ 04/04/17 12:00 (Lasix Inj) 40 mg BID@09,18 IV PUSH 04/04/17 18:00 04/04/17 17:57 (Haldol Inj) 2 mg Q8HR PRN IV PUSH 04/04/17 10:45 04/05/17 08:23 (Apresoline Inj) 20 mg Q4H PRN IV PUSH 04/04/17 17:00 04/05/17 02:07 (Protonix Inj) 40 mg Q24H IV PUSH 04/04/17 17:00 04/04/17 17:14 Cefepime HCl 2000 mg/Sodium Chloride 100 ml @ 200 mls/hr Q8H IV 04/04/17 18:00 04/05/17 02:07 Metronidazole 100 ml @ 100 mls/hr Q8H IV 04/04/17 18:00 04/05/17 02:05 Vital Signs / I&O Vital Signs Date Time Temp Pulse Resp B/P (MAP) Pulse Ox O2 Delivery O2 Flow Rate FiO2 04/05/17 06:00 83 04/05/17 04:00 Nasal Cannula 6.00 04/05/17 04:00 92 04/05/17 04:00 98.3 92 38 189/84 (119) 100 04/05/17 02:00 81 04/05/17 00:00 91 04/05/17 00:00 98.3 91 35 154/79 (104) 94 04/05/17 00:00 Nasal Cannula 6.00 04/04/17 22:00 96 Nasal Cannula 3.00 04/04/17 22:00 88 04/04/17 20:40 30 30 04/04/17 20:00 99 Bi-Pap 30 04/04/17 20:00 98.1 68 13 132/64 (86) 97 04/04/17 20:00 68 04/04/17 18:00 74 04/04/17 16:37 94 30 04/04/17 16:00 88 04/04/17 16:00 98 Bi-Pap 35 04/04/17 16:00 98.5 88 21 147/65 (92) 98 04/04/17 14:00 79 04/04/17 14:00 98 Bi-Pap 35 04/04/17 13:00 80 04/04/17 12:39 100 Nasal Cannula 3.00 04/04/17 12:00 97.2 78 24 152/86 (108) 99 04/04/17 12:00 86 04/04/17 11:00 Bi-Pap 99 04/04/17 11:00 78 04/04/17 10:00 84 I/O 04/04/17 04/04/17 04/04/17 04/05/17 04/05/17 04/05/17 07:00 15:00 23:00 07:00 15:00 23:00 Intake Total 480 ml 200 ml 450 ml Output Total 2000 ml 1100 ml 1650 ml Balance -1520 ml -900 ml -1200 ml Intake Oral 480 ml 0 ml IV Total 200 ml 450 ml Output Urine Total 2000 ml 1100 ml 1650 ml # Bowel Movements 0 0 Physical Exam GENERAL: confused CARDIOVASCULAR: Regular rate and rhythm without murmurs, gallops, or rubs. RESPIRATORY: Clear to auscultation. Breath sounds equal bilaterally. No wheezes , rales, or rhonchi. GASTROINTESTINAL: Abdomen soft, non-tender, nondistended. Normal active bowel sounds MUSCULOSKELETAL: Extremities without clubbing, cyanosis, or edema. NEURO: confused Laboratory Laboratory Tests Test 04/04/17 10:20 04/04/17 13:05 04/04/17 13:45 04/04/17 17:40 White Blood Count 12.0 TH/MM3 Red Blood Count 3.92 MIL/MM3 Hemoglobin 11.5 GM/DL Hematocrit 34.6 % Mean Corpuscular Volume 88.2 FL Mean Corpuscular Hemoglobin 29.3 PG Mean Corpuscular Hemoglobin Concent 33.2 % Red Cell Distribution Width 14.7 % Platelet Count 198 TH/MM3 Mean Platelet Volume 8.3 FL Neutrophils (%) (Auto) 87.3 % Lymphocytes (%) (Auto) 3.8 % Monocytes (%) (Auto) 8.8 % Eosinophils (%) (Auto) 0.0 % Basophils (%) (Auto) 0.1 % Neutrophils # (Auto) 10.5 TH/MM3 Lymphocytes # (Auto) 0.5 TH/MM3 Monocytes # (Auto) 1.1 TH/MM3 Eosinophils # (Auto) 0.0 TH/MM3 Basophils # (Auto) 0.0 TH/MM3 CBC Comment DIFF FINAL Differential Comment D-Dimer Quantitative (PE/DVT) 0.65 MG/L FEU Blood Urea Nitrogen 55 MG/DL Creatinine 1.21 MG/DL Random Glucose 198 MG/DL Total Protein 7.3 GM/DL Albumin 3.3 GM/DL Calcium Level 9.0 MG/DL Alkaline Phosphatase 117 U/L Aspartate Amino Transf (AST/SGOT) 29 U/L Alanine Aminotransferase (ALT/SGPT) 54 U/L Total Bilirubin 0.3 MG/DL Sodium Level 144 MEQ/L Potassium Level 4.4 MEQ/L Chloride Level 106 MEQ/L Carbon Dioxide Level 33.8 MEQ/L Anion Gap 4 MEQ/L Estimat Glomerular Filtration Rate 71 ML/MIN B-Type Natriuretic Peptide 64 PG/ML Blood Gas Puncture Site LT RADIAL RT RADIAL Blood Gas Patient Temperature 98.6 98.6 Blood Gas HCO3 33 mmol/L 33 mmol/L Blood Gas Base Excess 8.1 mmol/L 8.3 mmol/L Blood Gas Oxygen Saturation 78 % 92 % Arterial Blood pH 7.40 7.40 Arterial Blood Partial Pressure CO2 54 mmHg 55 mmHg Arterial Blood Partial Pressure O2 47 mmHg 73 mmHg Arterial Blood Oxygen Content 12.0 Vol % 14.4 Vol % Arterial Blood Carboxyhemoglobin 0.9 % 0.9 % Arterial Blood Methemoglobin 1.3 % 1.5 % Blood Gas Hemoglobin 10.9 G/DL 11.1 G/DL Oxygen Delivery Device BIPAP 14IPAP 7 EPAP BIPAP 14IPAP/7EPAP Blood Gas Inspired Oxygen 35 % 35 % Urine Color LIGHT-YELLOW Urine Turbidity CLEAR Urine pH 5.0 Urine Specific [place] 1.009 Urine Protein NEG mg/dL Urine Glucose (UA) NEG mg/dL Urine Ketones NEG mg/dL Urine Occult Blood MOD Urine Nitrite NEG Urine Bilirubin NEG Urine Urobilinogen LESS THAN 2.0 MG/DL Urine Leukocyte Esterase TRACE Urine RBC 104 /hpf Urine WBC 4 /hpf Urine Amorphous Sediment RARE Urine Bacteria OCC /hpf Urine Hyaline Casts 7 /lpf Microscopic Urinalysis Comment CULT NOT INDICATED Test 04/04/17 19:29 04/05/17 03:09 04/05/17 04:37 B-Type Natriuretic Peptide 56 PG/ML 41 PG/ML Blood Gas Puncture Site LT RADIAL Blood Gas Patient Temperature 98.6 Blood Gas HCO3 35 mmol/L Blood Gas Base Excess 10.3 mmol/L Blood Gas Oxygen Saturation 92 % Arterial Blood pH 7.44 Arterial Blood Partial Pressure CO2 53 mmHg Arterial Blood Partial Pressure O2 74 mmHg Arterial Blood Oxygen Content 14.3 Vol % Arterial Blood Carboxyhemoglobin 1.0 % Arterial Blood Methemoglobin 1.6 % Blood Gas Hemoglobin 10.9 G/DL Oxygen Delivery Device NASAL CANNULA Blood Gas Liter Flow 5 L/M White Blood Count 9.4 TH/MM3 Red Blood Count 3.85 MIL/MM3 Hemoglobin 11.1 GM/DL Hematocrit 33.6 % Mean Corpuscular Volume 87.2 FL Mean Corpuscular Hemoglobin 29.0 PG Mean Corpuscular Hemoglobin Concent 33.2 % Red Cell Distribution Width 14.9 % Platelet Count 188 TH/MM3 Mean Platelet Volume 8.1 FL Neutrophils (%) (Auto) 86.1 % Lymphocytes (%) (Auto) 4.9 % Monocytes (%) (Auto) 8.9 % Eosinophils (%) (Auto) 0.0 % Basophils (%) (Auto) 0.1 % Neutrophils # (Auto) 8.1 TH/MM3 Lymphocytes # (Auto) 0.5 TH/MM3 Monocytes # (Auto) 0.8 TH/MM3 Eosinophils # (Auto) 0.0 TH/MM3 Basophils # (Auto) 0.0 TH/MM3 CBC Comment DIFF FINAL Differential Comment Blood Urea Nitrogen 53 MG/DL Creatinine 1.31 MG/DL Random Glucose 131 MG/DL Total Protein 7.2 GM/DL Albumin 3.2 GM/DL Calcium Level 8.7 MG/DL Phosphorus Level 2.4 MG/DL Magnesium Level 2.7 MG/DL Alkaline Phosphatase 112 U/L Aspartate Amino Transf (AST/SGOT) 26 U/L Alanine Aminotransferase (ALT/SGPT) 50 U/L Total Bilirubin 0.4 MG/DL Sodium Level 148 MEQ/L Potassium Level 3.9 MEQ/L Chloride Level 107 MEQ/L Carbon Dioxide Level 37.0 MEQ/L Anion Gap 4 MEQ/L Estimat Glomerular Filtration Rate 65 ML/MIN Imaging Last 24 hours Impressions Chest X-Ray 04/05/17 0300 Signed Impressions: Service Date/Time: Wednesday, April 05, 2017 03:10 - CONCLUSION: Stable chest x-ray with atelectasis at the lung bases. No acute cardiopulmonary abnormality is identified otherwise. Jerman Benitez MD Assessment and Plan Problem List: (1) Diastolic CHF ICD Codes: I50.30 - Unspecified diastolic (congestive) heart failure Plan: Cr bumping so will change to oral lasix, seems reasonably compensated, complicated by his severe COPD/CO2 retention, bp still high, will add losartan 100mg daily, LVEF normal (2) COPD exacerbation ICD Codes: J44.1 - Chronic obstructive pulmonary disease with (acute) exacerbation Status: Acute Plan: Per [facility] Assessment and Plan I will sign off but be available as needed, please call with questions. John Perez MD Apr 05, 2017 09:37
[2017-04-05] MEDS: LOSARTAN 50 MG TAB PO SCH (10:00)
[2017-04-05] MEDS ORDERED: LORazepam 2 MG/ML VIAL IV PUSH ONE (11:30)
[2017-04-05] MEDS: ENALAPRILAT 1.25 MG/ML VIAL IV PUSH PRN (12:53)
--- NOTE | 2017-04-05 13:33 | HHI.CCPN ---
Subjective Remarks/Hospital Course This is a 71 year old male with history of CHF, diabetes and recent upper respiratory infection presented to the ED with severe short of breath and wheezing on 04/01/17.The patient resides in SNF secondary to to dementia, his daughter requested to transfer patient to hospital due to increase work of breathing even on rest. Patient recently was diagnosed with pneumonia and started on Levaquin and prednisone. I saw patient in the room he was on BiPAP, in ED he was found to have hypercapnic respiratory failure he was given O2 and DuoNeb and a dose of Solu-Medrol, history was restricted due to increase of respiratory work and being on BiPAP, influenza A and B was negative. The patient was then transferred to the medical floor. During the last evening the patient had increased work of breathing, the patient was noted to have frothy pink sputum and BiPAP was ordered. The patient did not receive BiPAP during the night secondary to being combative, and inability to be restrained on BiPAP. The patient's respiratory status continued to worsen, Halicat was initiated the patient received furosemide 40 mg IV early this a.m. and diuresed greater than 1 L. The patient subsequently became hypotensive, and critical care medicine was consulted. Upon presentation to [facility], the patient was compatible requiring 2-point wrist restraints, and subsequently 1 mg of Ativan was administered. The patient continues on BiPAP, echocardiogram was performing cardiology evaluation. O2 saturation was noted improvement 100% on FiO2 of 35%, a normal respiratory rate. Subjective: 04/05: No acute events overnight. The patient became agitated, removing peripheral IVs, requiring 1 mg of Ativan last evening. Patient continues in restraints for patient safety. The patient continues to have adequate diuresis with Lasix. Patient was changed from CPAP to nasal cannula 6 L/m ABGs performed this afternoon show slight elevation in PCO2 to 63 however patient had been given Ativan for anxiety. Patient will receive 1 dose of Acetazolamide 250 mg. Plan for bedside swallow and advancement of diet. Objective Vital Signs Date Time Temp Pulse Resp B/P (MAP) Pulse Ox O2 Delivery O2 Flow Rate FiO2 04/05/17 12:48 100 30 04/05/17 06:00 83 04/05/17 04:00 Nasal Cannula 6.00 04/05/17 04:00 98.3 38 189/84 (119) Intake and Output 04/05/17 04/05/17 04/06/17 08:00 16:00 00:00 Intake Total 450 ml Output Total 1650 ml Balance -1200 ml Result Diagram: 04/05/17 0437 04/05/17 0437 Other Results Microbiology Date/Time Source Procedure Growth Status 04/04/17 17:40 Urine Catheterized Urine Streptococcus pneumoniae Antigen (M - Final PRESUMPTIVE NEGATIVE FOR STREPTOCOCCU... Complete 04/04/17 17:40 Urine Clean Catch Legionella Antigen - Final PRESUMPTIVE NEGATIVE FOR LEGIONELLA P... Complete Laboratory Tests Test 04/04/17 13:45 04/05/17 03:09 04/05/17 12:30 Blood Gas Puncture Site RT RADIAL LT RADIAL RT RADIAL Blood Gas Patient Temperature 98.6 98.6 98.6 Blood Gas HCO3 33 mmol/L (22-26) 35 mmol/L (22-26) 35 mmol/L (22-26) Blood Gas Base Excess 8.3 mmol/L (-2-2) 10.3 mmol/L (-2-2) 9.9 mmol/L (-2-2) Blood Gas Oxygen Saturation 92 % (90-100) 92 % (90-100) 95 % (90-100) Arterial Blood pH 7.40 (7.380-7.420) 7.44 (7.380-7.420) 7.37 (7.380-7.420) Arterial Blood Partial Pressure CO2 55 mmHg (38-42) 53 mmHg (38-42) 63 mmHg (38-42) Arterial Blood Partial Pressure O2 73 mmHg (61-120) 74 mmHg (61-120) 101 mmHg (61-120) Arterial Blood Oxygen Content 14.4 Vol % (12.0-20.0) 14.3 Vol % (12.0-20.0) 15.2 Vol % (12.0-20.0) Arterial Blood Carboxyhemoglobin 0.9 % (0-4) 1.0 % (0-4) 0.9 % (0-4) Arterial Blood Methemoglobin 1.5 % (0-2) 1.6 % (0-2) 1.5 % (0-2) Blood Gas Hemoglobin 11.1 G/DL (12.0-16.0) 10.9 G/DL (12.0-16.0) 11.3 G/DL (12.0-16.0) Oxygen Delivery Device BIPAP 14IPAP/7EPAP NASAL CANNULA NASAL CANNULA Blood Gas Inspired Oxygen 35 % Blood Gas Liter Flow 5 L/M 4 L/M Imaging Last Impressions Chest X-Ray 04/04/17 0000 Signed Impressions: Service Date/Time: Tuesday, April 04, 2017 09:37 - CONCLUSION: 1. Bibasilar atelectasis. Frantz Helms MD Objective Remarks GENERAL: This is an obese chronically ill appearing male patient, resting comfortably SKIN: Warm and dry. HEAD: Atraumatic. Normocephalic. EYES: Pupils equal and round. No scleral icterus. No injection or drainage. ENT: No nasal bleeding or discharge. Mucous membranes pink and moist. NECK: Trachea midline. No JVD. CARDIOVASCULAR: Normal rate, regular rhythm. RESPIRATORY: No accessory muscle use.Mild expiratory wheezing noted throughout lung carcamo. Breath sounds equal bilaterally. GASTROINTESTINAL: Abdomen soft, non-tender, protuberant nondistended. No guarding. MUSCULOSKELETAL: Extremities without clubbing, cyanosis, or edema. No obvious deformities. NEUROLOGICAL: Asleep, easily arousable. No gross focal/sensory deficits.Spontaneous movement in all 4 extremities. A/P Assessment and Plan This is a chronically ill patient with repeated episodes of acute hypoxemic respiratory failure with CHF exacerbation for possible emergent intubation. Admit to ICU. Plan by systems: Neurologic: Dementia History of CVA Agitation Neurochecks per ICU protocol Continue Aricept and Namenda Ativan 1 mg IV 1 dose repeated today Continue Haldol 2 mg every 8 hours when necessary for agitation Respiratory: Acute hypercapnic respiratory insufficiency History of bronchial asthma and chronic bronchitis Pulmonary edema Pulmonology following Dr. Bay Williamson Solu-Medrol 60 mg every 6, azithromycin 500 mg/day, will expand empiric antibiotics see below Follow-up chest x-ray Repeat ABG improved PaO2 73 on FiO2 of 35% Consider CT thorax if no continued improvement Obtain sputum culture Patient received IV Lasix with adequate diuresis. Acetazolamide 250 mg x 1 dose secondary to CO2 retention, continue to monitor ABG Cardiovascular: Chronic diastolic CHF Cardiology following-Dr. Pace follow-up recommendations 04/04 echo-EF 50-55% mildly dilated left ventricle, moderately concentric LVH , LV systolic function low normal Plan for repeat echo per cardiology in near future F/U BNP Renal: Maintain Locke catheter patient receiving diuretics -- Strict I/Os FEN/GI: Obesity Mild protein calorie malnutrition Assess bedside swallow in a.m. Resume 1800-calorie ADA diet Resume diabetic diet in a.m. Hydralazine PRN for systolic blood pressure greater than 160 Heme/ID: Leukocytosis-resolved Anemia of chronic disease Monitor CBC. WBC count noted 12 ->9 today Blood cultures 2 negative growth to date Obtain urine culture Influenza nasal wash negative Legionella, pneumococcal urine antigens-negative Endocrine: Diabetes mellitus Sliding-scale insulin per ICU protocol low dose regimen -- SSI Prophylaxis: GI Prophylaxis Protonix DVT Prophylaxis -- SCDs Heparin every 8 hours Lines: Peripheral IVs 2 providing adequate access. Central line if indicated Dispo: Level [facility] Discussed with daughter,Haily Lora (TAIWO) and RADIO PRODUCER at bedside(Marciano). All questions answered. Physician Angela Rayo MD Apr 05, 2017 13:33
[2017-04-05] MEDS: PANTOPRAZOLE SODIUM 40 MG VIAL IV PUSH SCH (16:06)
[2017-04-05] MEDS: AZITHROMYCIN INJ 500 MG in SODIUM CHLOR 0.9% 250 ML INJ 250 ML IV SCH (18:00)
--- NOTE | 2017-04-05 19:25 | HHI.PR ---
Subjective Remarks He is now on a N/C but lethargic.Was on BiPAP last nite CXR shows basal infiltrates. Poor output.Has wheezing. Objective Vital Signs Date Time Temp Pulse Resp B/P (MAP) Pulse Ox O2 Delivery O2 Flow Rate FiO2 04/05/17 18:00 84 04/05/17 16:07 98 50 04/05/17 16:00 97 Bi-Pap 50 04/05/17 16:00 98.3 91 21 147/63 (91) 97 04/05/17 16:00 90 04/05/17 14:00 91 04/05/17 12:48 100 30 04/05/17 12:45 94 Bi-Pap 50 04/05/17 12:00 98.6 82 22 204/82 (122) 86 04/05/17 12:00 Nasal Cannula 6.00 04/05/17 12:00 82 04/05/17 10:00 66 04/05/17 08:00 88 04/05/17 08:00 Nasal Cannula 6.00 04/05/17 08:00 98.4 88 20 197/138 (157) 90 04/05/17 06:00 83 04/05/17 04:00 Nasal Cannula 6.00 04/05/17 04:00 92 04/05/17 04:00 98.3 92 38 189/84 (119) 100 04/05/17 02:00 81 04/05/17 00:00 91 04/05/17 00:00 98.3 91 35 154/79 (104) 94 04/05/17 00:00 Nasal Cannula 6.00 04/04/17 22:00 96 Nasal Cannula 3.00 04/04/17 22:00 88 04/04/17 20:40 30 30 04/04/17 20:00 99 Bi-Pap 30 04/04/17 20:00 98.1 68 13 132/64 (86) 97 04/04/17 20:00 68 I/O 04/04/17 04/04/17 04/04/17 04/05/17 04/05/17 04/05/17 07:00 15:00 23:00 07:00 15:00 23:00 Intake Total 480 ml 200 ml 450 ml 200 ml 0 ml Output Total 2000 ml 1100 ml 1650 ml 3000 ml Balance -1520 ml -900 ml -1200 ml 200 ml -3000 ml Intake Oral 480 ml 0 ml 0 ml IV Total 200 ml 450 ml 200 ml Output Urine Total 2000 ml 1100 ml 1650 ml 3000 ml # Bowel Movements 0 0 0 Result Diagram: 04/05/1743604/05/17436 Objective Remarks GENERAL: This is an obese elderly man whose face was plethoric. HEENT: Head normocephalic. Pupils are reactive and equal. Sclerae were injected. Tongue is moist. Throat is dry Nasal mucosa is clear. NECK: Supple. No bruits. There is mild venous distension at 45 degrees. Trachea midline. No thyroid enlargement. CHEST: Equal movements. Decreased excursions. Breath sounds diminished at the bases with wheezes bilaterally and occasional basilar crackles. CARDIAC: Heart sounds are irregular S1, S2 with no murmur. No S3. ABDOMEN: Soft, obese without masses. No organomegaly or tenderness. Bowel sounds are active. EXTREMITIES: Edema 1+. Pigmentation of the skin of the lower extremities. diminished peripheral pulses. The patient does move his legs sluggishly and moves his arms . There is no calf tenderness on either side. NEUROLOGIC: Reflexes are diminished . Very lethargic. SKIN: Dry and scaly. Assessment and Plan Assessment and Plan IMPRESSION 1. Hypercapnic respiratory failure. 2. Hypoventilation and possible obstructive sleep apnea syndrome 3. History of bronchial asthma with chronic bronchitis 4. Diabetes mellitus 5. Dementia. 6. History of hypertension 7. History of CVA. Plan : 1. Cont BiPAP 15/7 ,FIO2 30% 2. Continue Zithromax 500 mg / Cefipime 2 G Q12H Daily 3. Nebs qid Duoneb 4. BMP CXR ,CBC in am. 5.Symbicort 160/4.5 Mcg , 2 puffs bid. 6. Solumedrol IV 40 Mg q6h. 7. Ativan 1 mg and haldol 2 mg Q6H PRN Chhaya Ta MD Apr 05, 2017 19:25
[2017-04-05] MEDS: ALPRAZolam 0.25 MG TAB PO SCH (21:00)
[2017-04-05] MEDS ORDERED: LISINOPRIL 20 MG TAB PO SCH (21:00)
[2017-04-05] MEDS: methylPREDNISolone SOD SUCC 40 MG/1 ML VIAL IV PUSH SCH (22:46)
[2017-04-06] VITALS (20 sets, daily range): BP systolic 107–144; BP diastolic 59–95; PULSE 45–93; RESP 16–23; TEMP 97.3–98.6; O2SAT 91–98
[2017-04-06] MEDS ORDERED: SUCCINYLCHOLINE CHLORIDE 200 MG/10 ML VIAL ONE (00:52)
[2017-04-06] MEDS ORDERED: PROPOFOL 500 MG/50 ML INJ 50 ML ONE (00:57)
[2017-04-06] MEDS ORDERED: PROPOFOL 1000 MG/100 ML INJ 100 ML IV PRN (01:00)
--- NOTE | 2017-04-06 01:20 | PD.PROCEDR ---
Procedure Note Procedure Endotracheal Intubation A time-out was completed verifying correct patient, procedure, site, positioning , and special equipment if applicable. The patient was placed in a flat position. Sedation was obtained using Etomidate 20mg. The patient was easily ventilated using an ambu bag. The [employer]/ MAC 4 BLADE was used and inserted into the oropharynx at which time there was a Grade 1 view of the vocal cords. A 8-icelandic endotracheal tube was inserted and visualized going through the vocal cords. The stylette was removed. Colorimetric change was visualized on the CO2 meter. Breath sounds were heard in both lung carcamo equally. The endotracheal tube was placed at 23 cm, measured at the teeth. A chest x-ray was ordered to assess for pneumothorax and verify endotrachealtube placement. Estimated Blood Loss: 0 The patient tolerated the procedure well and there were no complications. Cheko Coleman MD Apr 06, 2017 1:20 am
--- NOTE | 2017-04-06 01:39 | RADRPT ---
EXAM DATE/TIME: 04/06/2017 01:13 [place] COMPARISON: CHEST SINGLE AP, April 05, 2017, 3:10. INDICATIONS : Respiratory failure. MEDICAL HISTORY : Hypertension. Diabetes mellitus type II. Dementia SURGICAL HISTORY : None. ENCOUNTER: Subsequent ACUITY: 1 day PAIN SCORE: Non-responsive. LOCATION: Bilateral chest FINDINGS: Portable AP view of the chest demonstrates a normal-sized cardiac silhouette. Endotracheal tube is pr esent with distal tip measuring 5.7 cm and the ese. Lungs are underinflated but likely atelectasis at the lung bases. No pleural effusion or pneumothorax is identified. The bones and soft tissues dem onstrate no acute finding. CONCLUSION: 1. Underinflation with bibasilar airspace opacity most likely representing atelectasis. 2. ETT distal tip measures 5.7 cm in the ese. Jerman Benitez MD on April 06, 2017 at 1:37 Board Certified Radiologist. This report was verified electronically.
[2017-04-06] MEDS ORDERED: MIDAZOLAM 100 MG/NS 100 ML DRIP Premix IV PRN (02:00)
[2017-04-06] MEDS: PROPOFOL 1000 MG/100 ML INJ 100 ML IV PRN ×4 (02:10→20:16)
[2017-04-06] MEDS: metroNIDAZOLE 500 MG INJ 100 ML IV SCH ×3 (02:33→16:46)
[2017-04-06] MEDS: CEFEPIME INJ 2,000 MG in SODIUM CHLORIDE 0.9% INJ 100 ML IV SCH ×3 (02:34→16:46)
[2017-04-06] MEDS: CHLORHEXIDINE GLUCONATE 2 % 1 PACK (2 CLOTHS)(taper/protocol) TOPICAL SCH (04:00)
[2017-04-06] MEDS: methylPREDNISolone SOD SUCC 40 MG/1 ML VIAL IV PUSH SCH ×4 (04:21→21:30)
[2017-04-06] MEDS: hydrALAZINE HCL 10 MG TAB PO SCH ×3 (06:00→22:00)
[2017-04-06] MEDS: RESP: ALBUTEROL 2.5 MG/IPRATROPIUM 0.5 MG NEB (SCH) NEB ×3 (07:40→20:33)
[2017-04-06] MEDS: INSULIN ASPART 1,000 UNITS/10 ML VIAL SQ SCH ×3 (08:00→17:00)
[2017-04-06] MEDS: INSULIN ASPART SUPPLEMENTAL SCALE SQ SCH ×4 (08:00→21:29)
[2017-04-06] MEDS: CHLORHEXIDINE 0.12% (ORAL KIT) 15 ML CUP MT SCH ×3 (08:00→19:38)
[2017-04-06] MEDS ORDERED: RASS Change Order XX ONE ×2 (08:45→11:15)
[2017-04-06] MEDS: HEPARIN SODIUM - SQ 10,000 UNITS/ML VIAL SQ SCH ×4 (08:52→23:54)
[2017-04-06] MEDS: ASPIRIN EC 81 MG TABEC PO SCH (08:56)
[2017-04-06] MEDS: ASCORBIC ACID 500 MG TAB PO SCH ×2 (08:57→21:15)
[2017-04-06] MEDS: MEMANTINE HCL 10 MG TAB PO SCH ×2 (08:57→21:15)
[2017-04-06] MEDS: CHOLECALCIFEROL (VIT D3) 1000 UNIT TAB PO SCH (08:57)
[2017-04-06] MEDS: DONEPEZIL HCL 5 MG TAB PO SCH (08:58)
[2017-04-06] MEDS ORDERED: FUROSEMIDE 40 MG TAB PO SCH (09:00)
[2017-04-06] MEDS: BUDESONIDE-FORMOTEROL 160/4.5 MCG INHALER INH SCH ×2 (09:00→20:15)
[2017-04-06] MEDS ORDERED: FUROSEMIDE 40 MG/4 ML VIAL IV PUSH SCH (09:00)
[2017-04-06] MEDS: LISINOPRIL 20 MG TAB PO SCH ×2 (09:00→21:15)
[2017-04-06] MEDS: LOSARTAN 50 MG TAB PO SCH (09:00)
--- NOTE | 2017-04-06 09:11 | HHI.CCPN ---
Subjective Remarks/Hospital Course This is a 71 year old male with history of CHF, diabetes and recent upper respiratory infection presented to the ED with severe short of breath and wheezing on 04/01/17.The patient resides in SNF secondary to to dementia, his daughter requested to transfer patient to hospital due to increase work of breathing even on rest. Patient recently was diagnosed with pneumonia and started on Levaquin and prednisone. I saw patient in the room he was on BiPAP, in ED he was found to have hypercapnic respiratory failure he was given O2 and DuoNeb and a dose of Solu-Medrol, history was restricted due to increase of respiratory work and being on BiPAP, influenza A and B was negative. The patient was then transferred to the medical floor. During the last evening the patient had increased work of breathing, the patient was noted to have frothy pink sputum and BiPAP was ordered. The patient did not receive BiPAP during the night secondary to being combative, and inability to be restrained on BiPAP. The patient's respiratory status continued to worsen, Halicat was initiated the patient received furosemide 40 mg IV early this a.m. and diuresed greater than 1 L. The patient subsequently became hypotensive, and critical care medicine was consulted. [place] [facility] [place] was compatible requiring 2-point wrist restraints, and subsequently 1 mg of Ativan was administered. The patient continues on BiPAP, echocardiogram was performing cardiology evaluation. O2 saturation was noted improvement 100% on FiO2 of 35%, a normal respiratory rate. Subjective: 2: No acute events overnight. The patient became agitated, removing peripheral IVs, requiring 1 mg of Ativan last evening. Patient continues in restraints for patient safety. The patient continues to have adequate diuresis with Lasix. Patient was changed from CPAP to nasal cannula 6 L/m ABGs performed this afternoon show slight elevation in PCO2 to 63 however patient had been given Ativan for anxiety. Patient will receive 1 dose of Acetazolamide 250 mg. Plan for bedside swallow and advancement of diet. 04/06: Afebrile. Early this a.m. ,the patient became hypoxemic requiring emergent intubation at 5 AM. The patient currently intubated and sedated. ET tube T was noted to be near the ese endotracheal tube retracted chest x-ray pending. Dietary consulted for initiation of tube feeds. Objective Vital Signs Date Time Temp Pulse Resp B/P (MAP) Pulse Ox O2 Delivery O2 Flow Rate FiO2 04/06/17 08:42 92 80 04/06/17 06:00 55 04/06/17 04:00 98.2 16 112/62 (79) 04/06/17 00:00 Nasal Cannula 6.00 Intake and Output 04/06/17 04/06/17 04/06/17 07:59 15:59 23:59 Intake Total 350 ml Output Total 1275 ml Balance -925 ml Result Diagram: 04/05/17 0437 04/05/17 0437 Other Results Microbiology Date/Time Source Procedure Growth Status 04/04/17 17:40 Urine Catheterized Urine Streptococcus pneumoniae Antigen (M - Final PRESUMPTIVE NEGATIVE FOR STREPTOCOCCU... Complete 04/04/17 17:40 Urine Clean Catch Legionella Antigen - Final PRESUMPTIVE NEGATIVE FOR LEGIONELLA P... Complete Laboratory Tests Test 04/05/17 12:30 04/05/17 17:28 04/05/17 18:50 04/06/17 02:14 Blood Gas Puncture Site RT RADIAL RT RADIAL RT RADIAL RT RADIAL Blood Gas Patient Temperature 98.6 98.6 98.6 98.6 Blood Gas HCO3 35 mmol/L (22-26) 36 mmol/L (22-26) 34 mmol/L (22-26) 31 mmol/L (22-26) Blood Gas Base Excess 9.9 mmol/L (-2-2) 7.6 mmol/L (-2-2) 7.4 mmol/L (-2-2) 5.6 mmol/L (-2-2) Blood Gas Oxygen Saturation 95 % (90-100) 94 % (90-100) 95 % (90-100) 88 % ( 90-100) Arterial Blood pH 7.37 (7.380-7.420) 7.18 (7.380-7.420) 7.30 (7.380-7.420) 7.37 (7.380-7.420) Arterial Blood Partial Pressure CO2 63 mmHg (38-42) 99 mmHg (38-42) 70 mmHg (38-42) 54 mmHg (38-42) Arterial Blood Partial Pressure O2 101 mmHg (61-120) 106 mmHg (61-120) 106 mmHg (61-120) 61 mmHg (61-120) Arterial Blood Oxygen Content 15.2 Vol % (12.0-20.0) 15.4 Vol % (12.0-20.0) 14.4 Vol % (12.0-20.0) 13.4 Vol % (12.0-20.0) Arterial Blood Carboxyhemoglobin 0.9 % (0-4) 0.6 % (0-4) 0.9 % (0-4) 0.8 % (0-4) Arterial Blood Methemoglobin 1.5 % (0-2) 1.6 % (0-2) 1.4 % (0-2) 1.5 % (0-2) Blood Gas Hemoglobin 11.3 G/DL (12.0-16.0) 11.6 G/DL (12.0-16.0) 10.7 G/DL (12.0-16.0) 10.8 G/DL (12.0-16.0) Oxygen Delivery Device NASAL CANNULA BiPAP BiPAP VENTILATOR Blood Gas Liter Flow 4 L/M Blood Gas Ventilator Setting [id number] PRVC14/550/1.0/+8 Blood Gas Inspired Oxygen 50 % 50 % 100 % Test 04/06/17 05:20 Blood Gas Puncture Site LT RADIAL Blood Gas Patient Temperature 98.6 Blood Gas HCO3 30 mmol/L (22-26) Blood Gas Base Excess 5.8 mmol/L (-2-2) Blood Gas Oxygen Saturation 94 % (90-100) Arterial Blood pH 7.46 (7.380-7.420) Arterial Blood Partial Pressure CO2 43 mmHg (38-42) Arterial Blood Partial Pressure O2 76 mmHg (61-120) Arterial Blood Oxygen Content 13.6 Vol % (12.0-20.0) Arterial Blood Carboxyhemoglobin 0.9 % (0-4) Arterial Blood Methemoglobin 1.4 % (0-2) Blood Gas Hemoglobin 10.3 G/DL (12.0-16.0) Oxygen Delivery Device VENTILATOR Blood Gas Ventilator Setting PRVC14/550/1.0/+8 Blood Gas Inspired Oxygen 80 % Imaging Last Impressions Chest X-Ray 04/04/17 0000 Signed Impressions: Service Date/Time: Tuesday, April 04, 2017 09:37 - CONCLUSION: 1. Bibasilar atelectasis. Frantz Helms MD Objective Remarks GENERAL: This is an obese chronically ill appearing male patient, intubated and sedated SKIN: Warm and dry. HEAD: Atraumatic. Normocephalic. EYES: Pupils equal and round. No scleral icterus. No injection or drainage. ENT: No nasal bleeding or discharge. Mucous membranes pink and moist. NECK: Trachea midline. No JVD. CARDIOVASCULAR: Normal rate, regular rhythm. RESPIRATORY: No accessory muscle use.Mild expiratory wheezing still noted throughout lung carcamo. Breath sounds equal bilaterally. GASTROINTESTINAL: Abdomen soft, non-tender, protuberant nondistended. No guarding. MUSCULOSKELETAL: Extremities without clubbing, cyanosis, or edema. No obvious deformities. NEUROLOGICAL: RASS -2. No gross focal/sensory deficits.Spontaneous movement in all 4 extremities. Procedures 2/ emergent intubation Urinary Catheter: No A/P Assessment and Plan Plan by systems: Neurologic: Dementia History of CVA Agitation Neurochecks per ICU protocol 04/06 propofol and midazolam for sedation and analgesia while intubated. Discontinue midazolam changed to fentanyl infusion Continue Aricept and Namenda Daily sedation vacation Continue Haldol 2 mg every 8 hours when necessary for agitation Respiratory: Acute hypercapnic respiratory insufficiency History of bronchial asthma and chronic bronchitis Pulmonary edema Pulmonology following Dr. Bay Williamson Solu-Medrol 60 mg every 6, azithromycin 500 mg/day, will expand empiric antibiotics see below 04/06 emergently intubated 8.0 ETT at 26.5 at the lip ( near ese), retracted 2 cm Follow-up chest x-ray Repeat ABG postintubation 7.46/43/76/30/5.8 Obtain sputum culture Continue IV Lasix 40mg/ day Cardiovascular: Chronic diastolic CHF Cardiology following-Dr. Pace follow-up recommendations 04/04 echo-EF 50-55% mildly dilated left ventricle, moderately concentric LVH , LV systolic function low normal Plan for repeat echo per cardiology in near future F/U BNP Renal: Maintain Locke catheter patient receiving diuretics -- Strict I/Os FEN/GI: Obesity Mild protein calorie malnutrition Insert OGT Dietary consult for tube feeds Hydralazine PRN for systolic blood pressure greater than 160 Heme/ID: Leukocytosis-resolved Anemia of chronic disease Monitor CBC. WBC count noted 12 ->9 today 2/2 Blood cultures 2 negative growth to date Obtain urine culture Influenza nasal wash negative Legionella, pneumococcal urine antigens-negative Follow up sputum culture Endocrine: Diabetes mellitus Sliding-scale insulin per ICU protocol low dose regimen -- SSI Prophylaxis: GI Prophylaxis Protonix DVT Prophylaxis -- SCDs Heparin every 8 hours Lines: Peripheral IVs 2 providing adequate access. Central line if indicated Dispo: Level 3 Discussed with AUTOMOTIVE QUALITY ENGINEER at bedside(Marciano). All questions answered. Physician Angela Rayo MD Apr 06, 2017 09:11
[2017-04-06] MEDS: fentaNYL 2,500 MCG/NS 250 ML IV PRN (09:43)
[2017-04-06] MEDS: INSULIN DETEMIR 100 UNITS/ML VIAL SQ SCH ×2 (09:44→21:30)
--- NOTE | 2017-04-06 10:12 | RADRPT ---
EXAM DATE/TIME: 04/06/2017 09:26 [facility] COMPARISON: No previous studies available for comparison. INDICATIONS : Evaluate OG tube placement. MEDICAL HISTORY : Hypertension. Diabetes mellitus type II. Dementia. SURGICAL HISTORY : None. ENCOUNTER: Subsequent ACUITY: 1 day PAIN SCORE: Non-responsive. LOCATION: abdomen FINDINGS: The nasogastric tube has its tip in the distal stomach. There is no bowel obstruction or ileus. Degen erative changes are noted throughout the lumbar spine. Mild degenerative changes are noted involving hip joints bilaterally. CONCLUSION: 1. Nasogastric tube has its tip in the distal stomach. 2. Mild degenerative changes involving the lumbar spine and hip joints bilaterally. 3. No bowel obstruction or ileus. Jorge Chang MD on April 06, 2017 at 10:08 Board Certified Radiologist. This report was verified electronically.
--- NOTE | 2017-04-06 10:21 | RADRPT ---
EXAM DATE/TIME: 04/06/2017 09:20 [facility] COMPARISON: CHEST SINGLE AP, April 06, 2017, 1:13. INDICATIONS : Evaluate ET tube placement. MEDICAL HISTORY : Hypertension. Diabetes mellitus type II. Dementia. SURGICAL HISTORY : None. ENCOUNTER: Subsequent ACUITY: 1 day PAIN SCORE: Non-responsive. LOCATION: Bilateral chest FINDINGS: The cardiac silhouette is enlarged in transverse diameter. Endotracheal tube is in good position abov e the ese. A nasogastric tube is in place with its tip in the stomach. There is prominence of the central pulmonary vasculature with indistinct vascular margins compatible with vascular congestion bu t no evidence of overt failure. The findings are improved when compared with the prior exam. CONCLUSION: Cardiomegaly and findings of vascular congestion without overt failure. The findings are improved whe n compared with the prior exam. Kee Leone MD on April 06, 2017 at 10:16 Board Certified Radiologist. This report was verified electronically.
[2017-04-06 11:27] LABS: AUTOMATED NEUTROPHIL # 5.2 TH/MM3 (1.8-7.7); BASOPHIL % 0.1 % (0.0-2.0); HEMATOCRIT 32.8 % (39.0-51.0); HEMOGLOBIN 10.9 GM/DL (13.0-17.0); LYMPHOCYTE # 0.5 TH/MM3 (1.0-4.8); MEAN CELL VOLUME 88.4 FL (80.0-100.0); MEAN CORPUSCULAR HEMOGLOBIN 29.3 PG (27.0-34.0); MEAN CORPUSCULAR HGB CONC 33.1 % (32.0-36.0); MEAN PLATELET VOLUME 8.5 FL (7.0-11.0); MONO % 4.2 % (0.0-8.0); MONOCYTE # 0.3 TH/MM3 (0-0.9); NEUT % 86.7 % (16.0-70.0); PLATELET COUNT 164 TH/MM3 (150-450); RED BLOOD COUNT 3.72 MIL/MM3 (4.50-5.90); RED CELL DISTRIBUTION WIDTH 14.7 % (11.6-17.2)
--- NOTE | 2017-04-06 11:30 | HHI.PR ---
Subjective Remarks Was on BiPAP last nite but became obtunded and intubated and now on 70 % FIO2 CXR shows basal infiltrates. Has wheezing. Sedated now. Objective Vital Signs Date Time Temp Pulse Resp B/P (MAP) Pulse Ox O2 Delivery O2 Flow Rate FiO2 04/06/17 08:42 92 80 04/06/17 06:00 55 04/06/17 05:30 96 80 04/06/17 04:18 98 100 04/06/17 04:00 98.2 61 16 112/62 (79) 98 04/06/17 04:00 61 04/06/17 04:00 40 04/06/17 02:00 70 04/06/17 01:24 97 100 04/06/17 01:05 95 50 04/06/17 00:00 Nasal Cannula 6.00 04/06/17 00:00 93 04/06/17 00:00 98.5 93 23 122/95 (104) 95 04/05/17 22:20 100 50 04/05/17 22:00 69 04/05/17 20:03 100 50 04/05/17 20:03 100 BiPAP 50 04/05/17 20:00 97 Bi-Pap 50 04/05/17 20:00 73 04/05/17 20:00 98.7 73 14 133/60 (84) 100 04/05/17 18:00 84 04/05/17 16:07 98 50 04/05/17 16:00 97 Bi-Pap 50 04/05/17 16:00 98.3 91 21 147/63 (91) 97 04/05/17 16:00 90 04/05/17 14:00 91 04/05/17 12:48 100 30 04/05/17 12:45 94 Bi-Pap 50 04/05/17 12:00 98.6 82 22 204/82 (122) 86 04/05/17 12:00 Nasal Cannula 6.00 04/05/17 12:00 82 I/O 04/05/17 04/05/17 04/05/17 04/06/17 04/06/17 04/06/17 07:00 15:00 23:00 07:00 15:00 23:00 Intake Total 450 ml 200 ml 250 ml 350 ml Output Total 1650 ml 3000 ml 1275 ml Balance -1200 ml 200 ml -2750 ml -925 ml Intake Oral 0 ml 0 ml 0 ml IV Total 450 ml 200 ml 250 ml 350 ml Output Urine Total 1650 ml 3000 ml 1275 ml # Bowel Movements 0 0 0 Result Diagram: 04/06/17 1030 04/05/17 0437 Objective Remarks GENERAL: This is an obese elderly man on the vent HEENT: Head normocephalic. Pupils are reactive and equal. Sclerae were clear. Nasal mucosa is clear. NECK: Supple. No bruits. There is mild venous distension . Trachea midline. No thyroid enlargement. CHEST: Equal movements. Decreased excursions. Breath sounds diminished at the bases with wheezes bilaterally and occasional basilar crackles. CARDIAC: Heart sounds are irregular S1, S2 with no murmur. No S3. ABDOMEN: Soft, obese without masses. No organomegaly or tenderness. Bowel sounds are active. EXTREMITIES: Edema 1+. Pigmentation of the skin of the lower extremities. diminished peripheral pulses. NEUROLOGIC: Reflexes are diminished . Very lethargic, Sedated. SKIN: Dry and scaly. Assessment and Plan Assessment and Plan IMPRESSION 1. Hypercapnic respiratory failure. 2. Hypoventilation and possible obstructive sleep apnea syndrome 3. History of bronchial asthma with chronic bronchitis 4. Diabetes mellitus 5. Dementia. 6. History of hypertension 7. History of CVA. Plan : 1. Vent support and wean FIo2 2. Continue antibiotics. 3. Nebs qid Duoneb 4. BMP CXR ,CBC in am. 5.Symbicort 160/4.5 Mcg , 2 puffs bid. 6. Solumedrol IV 40 Mg q6h. 7. IV Versed , Fentanyl Chhaya Ta MD Apr 06, 2017 11:30
[2017-04-06 11:37] LABS: BICARBONATE 30.1 MEQ/L (21.0-32.0); CALCIUM 8.5 MG/DL (8.5-10.1); CREATININE 1.44 MG/DL (0.60-1.30); MAGNESIUM 3.1 MG/DL (1.5-2.5); PHOSPHORUS 1.9 MG/DL (2.5-4.9)
[2017-04-06 13:30] LABS: MYCOPLASMA PNEUMONIAE IGG Positive (Negative); MYCOPLASMA PNEUMONIAE IGM Negative (Negative)
[2017-04-06] MEDS: PANTOPRAZOLE SODIUM 40 MG VIAL IV PUSH SCH (16:45)
[2017-04-06] MEDS: AZITHROMYCIN INJ 500 MG in SODIUM CHLOR 0.9% 250 ML INJ 250 ML IV SCH (18:11)
[2017-04-06] MEDS ORDERED: ICU - MAGNESIUM OXIDE 400 MG TAB PO PRN (20:00)
[2017-04-06] MEDS ORDERED: ICU - SODIUM PHOSPHATE 30 MMOL/NS 250 ML IV PRN ×2 (20:00)
[2017-04-06] MEDS ORDERED: ICU - POTASSIUM CHLORIDE/AQUEOUS SOLN 20 MEQ/100 ML IVPB IV PRN (20:00)
[2017-04-06] MEDS ORDERED: ICU - MAGNESIUM SULFATE 2 GM/NS 100 ML IV PRN ×2 (20:00)
[2017-04-06] MEDS ORDERED: ICU - POTASSIUM CHLORIDE/AQUEOUS SOLN 40 MEQ/100 ML IVPB IV PRN (20:00)
[2017-04-06] MEDS ORDERED: ICU - POTASSIUM PHOSPHATE 30 MMOL/NS 250 ML IV PRN ×2 (20:00)
[2017-04-06] MEDS ORDERED: ICU - POTASSIUM PHOSPHATE MONOBASIC 500 MG TAB PO PRN (20:00)
[2017-04-06] MEDS ORDERED: ICU - CALL ORDERING PHYSICIAN PRN (20:00)
[2017-04-06] MEDS ORDERED: ICU - D/C ICU ELECTROLYTE ORDERS PRN (20:00)
[2017-04-06] MEDS ORDERED: POTASSIUM CHLORIDE 25 MEQ EFFERVESCENT TAB PO PRN (20:00)
[2017-04-06] MEDS ORDERED: ICU - MAGNESIUM SULFATE 4 GM/NS 100 ML IV PRN ×2 (20:00)
[2017-04-07] VITALS (17 sets, daily range): BP systolic 106–127; BP diastolic 52–62; PULSE 58–72; RESP 14–21; TEMP 97.5–98.8; O2SAT 92–98
[2017-04-07] MEDS: metroNIDAZOLE 500 MG INJ 100 ML IV SCH ×3 (02:21→18:16)
[2017-04-07] MEDS: CEFEPIME INJ 2,000 MG in SODIUM CHLORIDE 0.9% INJ 100 ML IV SCH ×3 (02:21→17:15)
[2017-04-07] MEDS: RESP: ALBUTEROL 2.5 MG/IPRATROPIUM 0.5 MG NEB (SCH) NEB ×4 (03:16→20:08)
[2017-04-07] MEDS: methylPREDNISolone SOD SUCC 40 MG/1 ML VIAL IV PUSH SCH ×4 (03:56→21:51)
[2017-04-07 04:25] LABS: BASOPHIL % 0.1 % (0.0-2.0); HEMATOCRIT 35.1 % (39.0-51.0); HEMOGLOBIN 11.7 GM/DL (13.0-17.0); LYMPH % 2.2 % (9.0-44.0); LYMPHOCYTE # 0.2 TH/MM3 (1.0-4.8); MEAN CELL VOLUME 87.8 FL (80.0-100.0); MEAN CORPUSCULAR HEMOGLOBIN 29.2 PG (27.0-34.0); MEAN CORPUSCULAR HGB CONC 33.3 % (32.0-36.0); MEAN PLATELET VOLUME 8.9 FL (7.0-11.0); MONO % 4.9 % (0.0-8.0); MONOCYTE # 0.5 TH/MM3 (0-0.9); NEUT % 92.8 % (16.0-70.0); PLATELET COUNT 178 TH/MM3 (150-450); RED CELL DISTRIBUTION WIDTH 14.9 % (11.6-17.2); WHITE BLOOD COUNT 9.7 TH/MM3 (4.0-11.0)
--- NOTE | 2017-04-07 04:44 | RADRPT ---
EXAM DATE/TIME: 04/07/2017 03:48 [facility] COMPARISON: CHEST SINGLE AP, April 06, 2017, 9:20. INDICATIONS : Short of breath. MEDICAL HISTORY : Hypertension. Diabetes mellitus type II. Dementia. SURGICAL HISTORY : None. ENCOUNTER: Subsequent ACUITY: 1 week PAIN SCORE: 0/10 LOCATION: Bilateral chest FINDINGS: Portable AP view of the chest demonstrates cardiac silhouette size at the upper limits for normal. ET T and NG tube remain present. Lungs are underinflated with mild bibasilar opacity. No pleural effusio n or pneumothorax is identified. CONCLUSION: Stable chest x-ray with underinflation with mild bibasilar opacity likely representing atelectasis. Jerman Benitez MD on April 07, 2017 at 4:42 Board Certified Radiologist. This report was verified electronically.
[2017-04-07 05:14] LABS: BICARBONATE 31.7 MEQ/L (21.0-32.0); CALCIUM 8.4 MG/DL (8.5-10.1); CREATININE 1.61 MG/DL (0.60-1.30)
[2017-04-07] MEDS: hydrALAZINE HCL 10 MG TAB PO SCH ×3 (05:43→22:00)
--- NOTE | 2017-04-07 07:58 | HHI.CCPN ---
Subjective Remarks/Hospital Course This is a 71 year old male with history of CHF, diabetes and recent upper respiratory infection presented to the ED with severe short of breath and wheezing on 04/01/17.The patient resides in SNF secondary to to dementia, his daughter requested to transfer patient to hospital due to increase work of breathing even on rest. Patient recently was diagnosed with pneumonia and started on Levaquin and prednisone. I saw patient in the room he was on BiPAP, in ED he was found to have hypercapnic respiratory failure he was given O2 and DuoNeb and a dose of Solu-Medrol, history was restricted due to increase of respiratory work and being on BiPAP, influenza A and B was negative. The patient was then transferred to the medical floor. During the last evening the patient had increased work of breathing, the patient was noted to have frothy pink sputum and BiPAP was ordered. The patient did not receive BiPAP during the night secondary to being combative, and inability to be restrained on BiPAP. The patient's respiratory status continued to worsen, Halicat was initiated the patient received furosemide 40 mg IV early this a.m. and diuresed greater than 1 L. The patient subsequently became hypotensive, and critical care medicine was consulted. [place] [facility] [place] was compatible requiring 2-point wrist restraints, and subsequently 1 mg of Ativan was administered. The patient continues on BiPAP, echocardiogram was performing cardiology evaluation. O2 saturation was noted improvement 100% on FiO2 of 35%, a normal respiratory rate. Subjective: 2: No acute events overnight. The patient became agitated, removing peripheral IVs, requiring 1 mg of Ativan last evening. Patient continues in restraints for patient safety. The patient continues to have adequate diuresis with Lasix. Patient was changed from CPAP to nasal cannula 6 L/m ABGs performed this afternoon show slight elevation in PCO2 to 63 however patient had been given Ativan for anxiety. Patient will receive 1 dose of Acetazolamide 250 mg. Plan for bedside swallow and advancement of diet. 04/06: Afebrile. Early this a.m. ,the patient became hypoxemic requiring emergent intubation at 5 AM. The patient currently intubated and sedated. ET tube T was noted to be near the ese endotracheal tube retracted chest x-ray pending. Dietary consulted for initiation of tube feeds. 04/07: Afebrile. Overnight the patient's noted sodium level elevation with slight elevation in creatinine. Lasix discontinued. Chest x-ray unchanged. Oxygenation status slightly improved today plan for initiation of CPAP trials. Objective Vital Signs Date Time Temp Pulse Resp B/P (MAP) Pulse Ox O2 Delivery O2 Flow Rate FiO2 04/07/17 06:00 64 04/07/17 04:00 97.5 21 113/57 (75) 93 04/07/17 04:00 60 04/06/17 00:00 Nasal Cannula 6.00 Intake and Output 04/07/17 04/07/17 04/08/17 08:00 16:00 00:00 Intake Total 866 ml Output Total 600 ml Balance 266 ml Result Diagram: 04/07/1731604/07/17316 Other Results Microbiology Date/Time Source Procedure Growth Status 04/04/17 17:40 Urine Catheterized Urine Streptococcus pneumoniae Antigen (M - Final PRESUMPTIVE NEGATIVE FOR STREPTOCOCCU... Complete 04/04/17 17:40 Urine Clean Catch Legionella Antigen - Final PRESUMPTIVE NEGATIVE FOR LEGIONELLA P... Complete Laboratory Tests Test 04/07/17 05:31 Blood Gas Puncture Site LT RADIAL Blood Gas Patient Temperature 98.6 Blood Gas HCO3 29 mmol/L (22-26) Blood Gas Base Excess 5.3 mmol/L (-2-2) Blood Gas Oxygen Saturation 95 % (90-100) Arterial Blood pH 7.45 (7.380-7.420) Arterial Blood Partial Pressure CO2 43 mmHg (38-42) Arterial Blood Partial Pressure O2 94 mmHg (61-120) Arterial Blood Oxygen Content 16.0 Vol % (12.0-20.0) Arterial Blood Carboxyhemoglobin 0.7 % (0-4) Arterial Blood Methemoglobin 1.6 % (0-2) Blood Gas Hemoglobin 12.0 G/DL (12.0-16.0) Oxygen Delivery Device VENTILATOR Blood Gas Ventilator Setting Blood Gas Inspired Oxygen 55 % Imaging Last Impressions Chest X-Ray 04/07/17 0600 Signed Impressions: Service Date/Time: Friday, April 07, 2017 03:48 - CONCLUSION: Stable chest x-ray with underinflation with mild bibasilar opacity likely representing atelectasis. Jerman Benitez MD Abdomen X-Ray 04/06/17 0000 Signed Impressions: Service Date/Time: Thursday, April 06, 2017 09:26 - CONCLUSION: 1. Nasogastric tube has its tip in the distal stomach. 2. Mild degenerative changes involving the lumbar spine and hip joints bilaterally. 3. No bowel obstruction or ileus. Jorge Chang MD Last Impressions Chest X-Ray 04/04/17 0000 Signed Impressions: Service Date/Time: Tuesday, April 04, 2017 09:37 - CONCLUSION: 1. Bibasilar atelectasis. Frantz Helms MD Objective Remarks GENERAL: This is an obese chronically ill appearing male patient, intubated and sedated SKIN: Warm and dry. HEAD: Atraumatic. Normocephalic. EYES: Pupils equal and round. No scleral icterus. No injection or drainage. ENT: No nasal bleeding or discharge. Mucous membranes pink and moist. NECK: Trachea midline. No JVD. CARDIOVASCULAR: Normal rate, regular rhythm. RESPIRATORY: No accessory muscle use. Clear to auscultation bilaterally. Breath sounds equal bilaterally. GASTROINTESTINAL: Abdomen soft, non-tender, protuberant nondistended. No guarding. Normoactive bowel sounds MUSCULOSKELETAL: Extremities without clubbing, cyanosis, or edema. No obvious deformities. NEUROLOGICAL: RASS -2. No gross focal/sensory deficits.Spontaneous movement in all 4 extremities. Procedures 2/ emergent intubation A/P Assessment and Plan Plan by systems: Neurologic: Dementia History of CVA Agitation Neurochecks per ICU protocol propofol and fentanyl for sedation and analgesia while intubated. Continue Aricept and Namenda Daily sedation vacation Continue Haldol 2 mg every 8 hours when necessary for agitation Respiratory: Acute hypercapnic respiratory insufficiency History of bronchial asthma and chronic bronchitis Pulmonary edema Pulmonology following Dr. Bay Williamson Solu-Medrol 60 mg every 6, azithromycin 500 mg/day, will expand empiric antibiotics see below 2/ emergently intubated 8.0 ETT at 26.5 at the lip ( near ese), retracted 2 cm Follow-up chest x-ray IV Lasix 40mg/ day as continued noted elevation in creatinine ETT day 2 Cardiovascular: Chronic diastolic CHF Cardiology following-Dr. Pace follow-up recommendations 04/04 echo-EF 50-55% mildly dilated left ventricle, moderately concentric LVH , LV systolic function low normal Plan for repeat echo per cardiology in near future BNP- WNL Renal: Maintain Locke catheter -- Strict I/Os FEN/GI: Obesity Mild protein calorie malnutrition Electrolyte derangement Glucerna 1.5 goal rate 50 Hydralazine PRN for systolic blood pressure greater than 160 Sodium level 151-free water flushes initiated 200 cc every 6 hours Heme/ID: Leukocytosis-resolved Anemia of chronic disease Monitor CBC. WBC count noted 12 ->9 today 2/2 Blood cultures 2 negative growth to date Obtain urine culture Influenza nasal wash negative Legionella, pneumococcal urine antigens-negative Follow up sputum culture Endocrine: Diabetes mellitus Sliding-scale insulin per ICU protocol low dose regimen -- SSI Prophylaxis: GI Prophylaxis Protonix DVT Prophylaxis -- SCDs Heparin every 8 hours Lines: Peripheral IVs 2 providing adequate access. Central line if indicated Dispo: Level 3 Discussed with DINING CAR CONDUCTOR at bedside. All questions answered. Discussed with daughter patient's daughter yesterday, consideration for possible trach tracheostomy and continued aggressive ventilator weaning process at this time. Palliative care consulted to determine goals of care in the event that a tracheostomy and PEG placement will have to be a consideration. Physician Angela Rayo MD Apr 07, 2017 07:58
[2017-04-07] MEDS: CHLORHEXIDINE 0.12% (ORAL KIT) 15 ML CUP MT SCH ×4 (08:00→20:00)
[2017-04-07] MEDS: FREE WATER G-TUBE SCH ×3 (08:00→18:00)
[2017-04-07 08:18] LABS: PHOSPHORUS 4.1 MG/DL (2.5-4.9)
[2017-04-07] MEDS: LISINOPRIL 20 MG TAB PO SCH ×2 (08:19→20:49)
[2017-04-07] MEDS: ASCORBIC ACID 500 MG TAB PO SCH ×2 (08:19→20:49)
[2017-04-07] MEDS: LOSARTAN 50 MG TAB PO SCH (08:19)
[2017-04-07] MEDS: MEMANTINE HCL 10 MG TAB PO SCH ×2 (08:19→20:49)
[2017-04-07] MEDS: CHOLECALCIFEROL (VIT D3) 1000 UNIT TAB PO SCH (08:19)
[2017-04-07] MEDS: ASPIRIN EC 81 MG TABEC PO SCH (08:19)
[2017-04-07] MEDS: HEPARIN SODIUM - SQ 10,000 UNITS/ML VIAL SQ SCH ×2 (08:20→17:15)
[2017-04-07] MEDS: INSULIN ASPART 1,000 UNITS/10 ML VIAL SQ SCH ×3 (08:20→16:21)
[2017-04-07] MEDS: INSULIN ASPART SUPPLEMENTAL SCALE SQ SCH ×4 (08:21→21:03)
[2017-04-07] MEDS: INSULIN DETEMIR 100 UNITS/ML VIAL SQ SCH ×2 (08:21→21:03)
[2017-04-07] MEDS: DONEPEZIL HCL 5 MG TAB PO SCH (08:22)
[2017-04-07] MEDS: BUDESONIDE-FORMOTEROL 160/4.5 MCG INHALER INH SCH ×2 (08:22→20:50)
[2017-04-07] MEDS: PROPOFOL 1000 MG/100 ML INJ 100 ML IV PRN ×3 (10:59→19:39)
--- NOTE | 2017-04-07 13:32 | PD.CONS ---
Consult Service Palliative Care Consult Requested By Dr. Saeed. Primary Care Physician Kee Dugan MD Reason for Consultation a. To assist with evaluation and management of symptoms including: Shortness of breath, anxiety/agitation. b. To assist medical decision maker(s) with: better understanding of current medical conditions; weighing benefits/burdens of medical treatment options; making medical treatment decisions. . HPI History of Present Illness Mr. Lora 71-year-old male with a medical history significant for dementia, CHF , diabetes mellitus, history of CVA. Patient presented to ED from EMS on 04/01/17 for evaluation of worsening shortness of breath. Patient was recently diagnosed with pneumonia and was started on antibiotic and steroids. Upon ED arrival, patient was placed on BiPAP. Laboratory workup revealing potassium 5.8, BUN/ creatinine 60/1.52. Troponin elevated. Chest x-ray revealing minimal atelectasis or scaring at the bases. Patient was admitted for further management. Pulmonology, Dr. Ta consulted on 04/03/17 for evaluation of respiratory failure and COPD. Patient was placed on BiPAP and was continued on Solu-Medrol IV. Cardiology, Dr. Perez consulted on 04/05/17 for evaluation and management of CHF. Echocardiogram revealing EF of 50-55%, moderate left ventricular hypertrophy. Patient with a combination of chronic diastolic congestive heart failure as well as chronic CO2 retention. As per cardiology, elevated troponin likely secondary to CHF. No further ischemic workup recommended given patient's poor baseline physical condition and dementia. Clinical course complicated by worsening respiratory condition, agitation. Halicat was called on 04/04/07 patient was transferred to medical ICU for further monitoring and management. Patient was emergently intubated on 04/06/17 secondary to hypoxia and respiratory failure. Palliative care has been consulted for further clarifications of goals of care. Reviewed patient's past acute hospitalization from 04/13/14 to 04/14/14 secondary to TIA. At that time, patient was at [facility] receiving IV antibiotic treatment for right foot osteomyelitis. Patient was returned to [place] upon discharge. Patient seen in medical ICU. Endotracheally intubated on mechanical ventilation. On propofol and fentanyl drip for sedation. Briefly opening eyes to tactile stimuli, not following any commands or attempting to communicate. Patient currently on 50% FiO2, tolerated CPAP trial for approximately 3 hours today, however, became restless. Chest x-ray today revealed an stable chest with underinflation with mild bibasilar opacity likely representing atelectasis. Blood cultures 04/01/17 with no growth in 5 days. Sodium remains elevated at 151, potassium 3.7. BUN/creatinine 85/1.61. Met with patient's Carley and daughter Haily. In this first visit, reviewed the role of palliative care in advanced illness in regards to symptom management as well as support surrounding goals of care and advance care planning. and daughter receptive to palliative care consultation. Obtained patient's past medical history and psychosocial history. Reviewed events leading to this hospitalization, clinical course and current medical management. Patient's and daughter with a very good understanding of patient's clinical condition and plan of care. Shared concerns of patient high risk for further complications, continue decline and given multiple chronic ongoing comorbidities, respiratory failure, dementia and physical deconditioning. Reviewed advance directives, no living will has been completed as per family. Shared concerns of patient's ability to medically extubate given the above. Reviewed likelihood of trach and PEG if patient is unable to medically extubate. Patient's verbalized that patient would never be in agreement with tracheostomy or PEG tube placement. Goal of therapy at this time is to allow a few more days for clinical improvement, continue attempts at medical extubation. Family verbalized that they will not proceed with tracheostomy or PEG tube if patient is unable to medically extubate. Reviewed that at that time compression and withdrawal life support would be available. Discussed risks, benefits and limitations of CPR given patient's condition. Family requesting full code at this time while awaiting for additional family members. Daughter verbalized wishing for her sister to see patient alive, sister is coming from [facility] tomorrow. Patient's 2 sisters and brother, and from [place] on Wednesday. Family receptive to palliative care follow-ups. Case reviewed with bedside RN Bonifacio and Mercedes. Function/Cognitive Trajectory Patient is a long-term resident of [place] memory care unit for the past year and a half. Walking without assistive device. Requiring assistance with bathing and dressing. Able to feed self. Diagnosed with dementia approximately 4 years ago. Progressive cognitive decline since then. . Review of Systems ROS Limitations: Clinical Condition, Intubated, Altered Mental Status Constitutional: COMPLAINS OF: Generalized weakness, DENIES: Fever Eyes: DENIES: Eye inflammation Ears, nose, mouth, throat: DENIES: Nasal discharge, Oral lesions, Running Nose , Epistaxis Respiratory: COMPLAINS OF: Cough, Sputum production, Shortness of breath Cardiovascular: COMPLAINS OF: Dyspnea on Exertion, DENIES: Lower Extremity Edema Gastrointestinal: DENIES: Nausea, Vomiting, Difficulty Swallowing Genitourinary: COMPLAINS OF: Urinary incontinence Musculoskeletal: DENIES: Back pain Integumentary: DENIES: Abnormal pigmentation, Rash Hematologic/Lymphatics: COMPLAINS OF: Bruising Immunologic/Allergic: DENIES: Eczema Neurologic: DENIES: Localized weakness, Seizures, Tremor Psychiatric: COMPLAINS OF: Anxiety, Confusion, Agitation Other ROS: Limited ROS secondary to patient's clinical condition, sedated, intubated. ROS obtained from medical records, patient's family and clinical observation. . Past Family Social History Coded Allergies: No Known Allergies (Unverified , 03/19/15) Past Medical History Dementia Hypertension Anemia Anxiety Hypertension CHF History CVA Diabetes History of osteomyelitis to right foot, IV abx 2014. . Past Surgical History History of surgery for hemorrhoid. . Reported Medications Rocephin 2 Gram Addvantage (Ceftriaxone Sodium) 2 Gm Inj 2 Gm IV DAILY 12 Days Namenda (Memantine HCl) 10 Mg Tab 10 Mg PO BID Start taking after Namenda 5 mg twice a day is completed Ecotrin Low Strength (Aspirin) 81 Mg Tabec 81 Mg PO DAILY Hm Omeprazole (Omeprazole) 20 Mg Tab 20 Mg PO DAILY Seroquel 25 mg (Quetiapine Fumarate) 25 Mg Tab 12.5 Mg PO BID Glipizide 10 Mg Tab 10 Mg PO DAILY Xanax 0.25 Mg (Alprazolam) Alprazolam 0.25 mg Tab 1 Tab PO HS Vitamin C (Calcium Ascorbate) 500 Mg Tab 500 Mg PO BID Aricept (Donepezil HCl) 5 Mg Tab 10 Mg PO DAILY Lotensin 20 mg (Benazepril HCl) 20 Mg Tab 1 Tab PO BID Vitamin D-[address] (Cholecalciferol) 1,000 Unit Tab 1,000 Unit PO DAILY Lenox 7.5-325 mg (Hydrocodone-Acetaminophen 7.5-325 mg) 7.5 Mg/325 Mg Tab 1 Tab PO Q4H PRN Multi-Vitamin Daily (Multivitamins) Daily Tab 1 Tab PO DAILY Novolog Insulin Supplemental Scale (Insulin Aspart) 100 /Ml Inj 1 Unit .XX .XX Glucophage XR 24 HR (Metformin HCl) 500 Mg Tab 500 Mg PO BIDPC Lasix (Furosemide) 40 Mg Tab 40 Mg PO DAILY Zofran ODT (Ondansetron HCl) 4 Mg Tab 4 Mg SL Q6H PRN Hydralazine HCl 10 Mg Tab 10 Mg PO . Current Medications Medications (Trade) Dose Ordered Sig/Vijay Route Start Time Stop Time Status Last Admin (NS Flush) 2 ml UNSCH PRN IVF 04/01/17 12:15 04/05/17 08:23 (Vitamin D3) 1,000 units DAILY PO 04/02/17 09:00 04/07/17 08:19 (Aricept) 10 mg DAILY PO 04/02/17 09:00 04/07/17 08:22 (Lenox 7.5-325 Mg) 1 tab Q4H PRN PO 04/01/17 14:45 04/02/17 17:00 (Namenda) 10 mg BID PO 04/01/17 21:00 04/07/17 08:19 (Zofran Odt) 4 mg Q6H PRN SL 04/01/17 14:45 (Ecotrin Ec) 81 mg DAILY PO 04/02/17 09:00 04/07/17 08:19 (Vitamin C) 500 mg BID PO 04/01/17 21:00 04/07/17 08:19 (Heparin Inj) 5,000 units Q8H SQ 04/01/17 16:00 04/07/17 08:20 (Duoneb Neb) 1 ampule Q2HR NEB PRN NEB 04/01/17 14:45 (Pill Splitter) 1 ea UNSCH PRN OTHER 04/01/17 15:15 Miscellaneous Information Patient in critical care unit? Ass... Q361D .XX 04/02/17 00:15 04/02/17 00:15 (D50w (Vial) Inj) 50 ml UNSCH PRN IV PUSH 04/02/17 04:00 (Glucagon Inj) 1 mg UNSCH PRN OTHER 04/02/17 04:00 (NovoLOG SUPPLEMENTAL SCALE) 1 ACHS SLIDING SCALE SQ 04/02/17 08:00 04/07/17 11:48 (SEROquel) 25 mg BID PO 04/02/17 21:00 Future Hold 04/05/17 09:36 (Vasotec Inj) 1.25 mg Q6H PRN IV PUSH 04/03/17 11:30 04/05/17 12:53 (Apresoline) 10 mg Q8HR PO 04/03/17 16:30 04/04/17 21:00 (Symbicort 160-4.5 Mcg Inh) 2 puff Q12HR INH 04/03/17 21:00 04/05/17 09:33 Azithromycin 500 mg/Sodium Chloride 250 ml @ 250 mls/hr Q24H IV 04/03/17 18:00 04/06/17 18:11 (NovoLOG INJ) 2 units TIDAC SQ 04/04/17 12:00 04/07/17 11:47 (Haldol Inj) 2 mg Q8HR PRN IV PUSH 04/04/17 10:45 04/05/17 22:47 (Apresoline Inj) 20 mg Q4H PRN IV PUSH 04/04/17 17:00 04/05/17 22:47 (Protonix Inj) 40 mg Q24H IV PUSH 04/04/17 17:00 04/06/17 16:45 Cefepime HCl 2000 mg/Sodium Chloride 100 ml @ 200 mls/hr Q8H IV 04/04/17 18:00 04/07/17 08:19 Metronidazole 100 ml @ 100 mls/hr Q8H IV 04/04/17 18:00 04/07/17 08:18 (Cozaar) 100 mg DAILY PO 04/05/17 10:00 04/07/17 08:19 (SoluMEDROL INJ) 40 mg Q6H IV PUSH 04/05/17 22:00 04/07/17 08:20 (Peridex 0.12% Liq) 15 ml BID@08,20 MT 04/06/17 08:00 04/07/17 08:22 Propofol 100 ml @ 37.74 mls/ hr TITRATE PRN IV 04/06/17 01:45 04/07/17 10:59 (Duoneb Neb) 1 ampule Q6HR NEB NEB 04/06/17 16:00 04/07/17 09:05 (Peridex 0.12% Liq) 15 ml BID@08,20 MT 04/06/17 20:00 Fentanyl Citrate 250 ml @ 5 mls/hr TITRATE PRN IV 04/06/17 08:45 04/06/17 09:43 (Lasix Inj) 40 mg DAILY IV PUSH 04/06/17 09:00 Future Hold 04/06/17 09:44 (Prinivil) 20 mg BID PO 04/06/17 09:00 04/07/17 08:19 Miscellaneous Information D/C ICU ELECTROLYTE ORDERS... UNSCH PRN .XX 04/06/17 20:00 Miscellaneous Information ICU - CALL ORDERING PHYSIC... UNSCH PRN .XX 04/06/17 20:00 Potassium Chloride 100 ml @ 25 mls/hr UNSCH PRN IV 04/06/17 20:00 (K-Lyte Cl Eff) 50 meq UNSCH PRN PO 04/06/17 20:00 Potassium Chloride 100 ml @ 50 mls/hr UNSCH PRN IV 04/06/17 20:00 Magnesium Sulfate 4 gm/Sodium Chloride 108 ml @ 54 mls/hr UNSCH PRN IV 04/06/17 20:00 Magnesium Sulfate 2 gm/Sodium Chloride 104 ml @ 52 mls/hr UNSCH PRN IV 04/06/17 20:00 (Mag-Ox) 800 mg UNSCH PRN PO 04/06/17 20:00 Sodium Phosphate 30 mmol/Sodium Chloride 260 ml @ 43.333 mls/ hr UNSCH PRN IV 04/06/17 20:00 (K-Phos) 2,000 mg UNSCH PRN PO 04/06/17 20:00 Potassium Phosphate 30 mmol/ Sodium Chloride 260 ml @ 43.333 mls/ hr UNSCH PRN IV 04/06/17 20:00 04/06/17 21:14 (Free Water) VOLUME: 200 ML Q6HR G-TUBE 04/07/17 08:00 04/07/17 12:00 (Levemir Inj) 15 units BID SQ 04/07/17 21:00 Family History Patient has 4 children who are alive and well. . Substance Use Tobacco: Former smoker. Patient smoking 1 cigar per day. Alcohol: None reported. Prescription med abuse: None reported. Illicits: None reported. . Psychosocial History Patient's family is originally from [place]. Patient was born in [facility]. Patient moved to [place] approximately 4 years ago. Patient has been for over 30 years, they have 4 children together. 2 sons who live in [place], one daughter who resides locally and another daughter who is is still in [facility]. 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 . Spiritual/Cultural Factors Alevism obey. . Living Will: Never completed Health Care Surrogate: Never completed Durable Power of Title Abstractor: Copy in medical record Date completed: 02/26/2014. . Health Care Surrogate(s): Only daughter power of corporate associate attorney has been completed. No living will or designation of healthcare surrogate completed as per family. As per [place] statute, healthcare proxy decision-making falls to patient's Carley Lora. . Family/friends goals: Full code. Continue aggressive management at this time. . Ethical and Legal Issues No ethical legal issues identified. . Physical Exam Vital Signs Date Time Temp Pulse Resp B/P (MAP) Pulse Ox O2 Delivery O2 Flow Rate FiO2 04/07/17 10:00 66 04/07/17 09:05 50 04/07/17 09:05 97 50 04/07/17 08:00 98.8 66 16 110/52 (71) 96 04/07/17 08:00 64 04/07/17 06:00 64 04/07/17 04:00 97.5 65 21 113/57 (75) 93 04/07/17 04:00 60 04/07/17 04:00 65 04/07/17 03:16 94 55 04/07/17 02:00 58 04/07/17 00:00 61 04/07/17 00:00 60 04/07/17 00:00 97.7 60 16 127/62 (83) 95 04/06/17 22:00 61 04/06/17 20:33 97 60 04/06/17 20:00 97.3 52 16 144/68 (93) 97 04/06/17 20:00 60 04/06/17 20:00 52 04/06/17 18:00 48 04/06/17 17:00 97 65 04/06/17 16:00 98.5 45 16 126/68 (87) 96 04/06/17 16:00 65 04/06/17 16:00 45 04/06/17 14:00 46 Exam CONSTITUTIONAL/GENERAL: This is an adequately nourished patient, in no apparent distress. TUBES/LINES/DRAINS: ETT, OG, Locke catheter, PIV's, SCDs, bilateral soft wrist restraints. SKIN: No jaundice, rashes, or lesions. Ecchymoses on upper extremities. No wounds seen anteriorly. Skin temperature appropriate. Not diaphoretic. HEAD: Atraumatic. Normocephalic. EYES: Pupils equal and round and reactive. No scleral icterus. No injection or drainage. ENT: Hearing grossly normal. Nose without bleeding or purulent drainage. Moist oral mucosa. NECK: Trachea midline. Supple. CARDIOVASCULAR: Regular rate and rhythm without murmurs, gallops, or rubs. Peripheral pulses symmetric. RESPIRATORY/CHEST: Symmetric, unlabored respirations. Endotracheally intubated on mechanical ventilation. Clear breath sounds bilaterally. GASTROINTESTINAL: Abdomen large, round, obese. Bowel sounds present. GENITOURINARY: Without palpable bladder distension. Locke catheter in place. MUSCULOSKELETAL: Extremities without clubbing, cyanosis. No mottling or clubbing. Edema to bilateral arms. NEUROLOGICAL: Sedated. Briefly opening eyes to tactile stimuli. Not following commands. PSYCHIATRIC: Episodes of anxiety/agitation. . Diagnostic Tests Laboratory Laboratory Tests Test 04/04/17 13:05 04/04/17 13:45 04/04/17 17:40 04/04/17 19:29 Blood Gas Puncture Site LT RADIAL RT RADIAL Blood Gas Patient Temperature 98.6 98.6 Blood Gas HCO3 33 mmol/L (22-26) 33 mmol/L (22-26) Blood Gas Base Excess 8.1 mmol/L (-2-2) 8.3 mmol/L (-2-2) Blood Gas Oxygen Saturation 78 % (90-100) 92 % (90-100) Arterial Blood pH 7.40 (7.380-7.420) 7.40 (7.380-7.420) Arterial Blood Partial Pressure CO2 54 mmHg (38-42) 55 mmHg (38-42) Arterial Blood Partial Pressure O2 47 mmHg (61-120) 73 mmHg (61-120) Arterial Blood Oxygen Content 12.0 Vol % (12.0-20.0) 14.4 Vol % (12.0-20.0) Arterial Blood Carboxyhemoglobin 0.9 % (0-4) 0.9 % (0-4) Arterial Blood Methemoglobin 1.3 % (0-2) 1.5 % (0-2) Blood Gas Hemoglobin 10.9 G/DL (12.0-16.0) 11.1 G/DL (12.0-16.0) Oxygen Delivery Device BIPAP 14IPAP 7 EPAP BIPAP 14IPAP/7EPAP Blood Gas Inspired Oxygen 35 % 35 % Urine Color LIGHT-YELLOW (YELLW/STRAW) Urine Turbidity CLEAR (CLEAR) Urine pH 5.0 (5.0-8.5) Urine Specific Otis 1.009 (1.002-1.035) Urine Protein NEG mg/dL (NEG-TRACE) Urine Glucose (UA) NEG mg/dL (NEG) Urine Ketones NEG mg/dL (NEG) Urine Occult Blood MOD (NEG) Urine Nitrite NEG (NEG) Urine Bilirubin NEG (NEG) Urine Urobilinogen LESS THAN 2.0 MG/DL (LESS Urine Leukocyte Esterase TRACE (NEG) Urine RBC 104 /hpf (0-3) Urine WBC 4 /hpf (0-5) Urine Amorphous Sediment RARE Urine Bacteria OCC /hpf (NONE) Urine Hyaline Casts 7 /lpf (RARE) Microscopic Urinalysis Comment CULT NOT INDICATED B-Type Natriuretic Peptide 56 PG/ML (0-100) Mycoplasma Pneumoniae Interpretat . Mycoplasma pneumoniae IgG Antibody Positive (Negative) Mycoplasma pneumoniae IgM Antibody Negative (Negative) Test 04/05/17 03:09 04/05/17 04:37 04/05/17 12:30 04/05/17 17:28 Blood Gas Puncture Site LT RADIAL RT RADIAL RT RADIAL Blood Gas Patient Temperature 98.6 98.6 98.6 Blood Gas HCO3 35 mmol/L (22-26) 35 mmol/L (22-26) 36 mmol/L (22-26) Blood Gas Base Excess 10.3 mmol/L (-2-2) 9.9 mmol/L (-2-2) 7.6 mmol/L (-2-2) Blood Gas Oxygen Saturation 92 % (90-100) 95 % (90-100) 94 % (90-100) Arterial Blood pH 7.44 (7.380-7.420) 7.37 (7.380-7.420) 7.18 (7.380-7.420) Arterial Blood Partial Pressure CO2 53 mmHg (38-42) 63 mmHg (38-42) 99 mmHg (38-42) Arterial Blood Partial Pressure O2 74 mmHg (61-120) 101 mmHg (61-120) 106 mmHg (61-120) Arterial Blood Oxygen Content 14.3 Vol % (12.0-20.0) 15.2 Vol % (12.0-20.0) 15.4 Vol % (12.0-20.0) Arterial Blood Carboxyhemoglobin 1.0 % (0-4) 0.9 % (0-4) 0.6 % (0-4) Arterial Blood Methemoglobin 1.6 % (0-2) 1.5 % (0-2) 1.6 % (0-2) Blood Gas Hemoglobin 10.9 G/DL (12.0-16.0) 11.3 G/DL (12.0-16.0) 11.6 G/DL (12.0-16.0) Oxygen Delivery Device NASAL CANNULA NASAL CANNULA BiPAP Blood Gas Liter Flow 5 L/M 4 L/M White Blood Count 9.4 TH/MM3 (4.0-11.0) Red Blood Count 3.85 MIL/MM3 (4.50-5.90) Hemoglobin 11.1 GM/DL (13.0-17.0) Hematocrit 33.6 % (39.0-51.0) Mean Corpuscular Volume 87.2 FL (80.0-100.0) Mean Corpuscular Hemoglobin 29.0 PG (27.0-34.0) Mean Corpuscular Hemoglobin Concent 33.2 % (32.0-36.0) Red Cell Distribution Width 14.9 % (11.6-17.2) Platelet Count 188 TH/MM3 (150-450) Mean Platelet Volume 8.1 FL (7.0-11.0) Neutrophils (%) (Auto) 86.1 % (16.0-70.0) Lymphocytes (%) (Auto) 4.9 % (9.0-44.0) Monocytes (%) (Auto) 8.9 % (0.0-8.0) Eosinophils (%) (Auto) 0.0 % (0.0-4.0) Basophils (%) (Auto) 0.1 % (0.0-2.0) Neutrophils # (Auto) 8.1 TH/MM3 (1.8-7.7) Lymphocytes # (Auto) 0.5 TH/MM3 (1.0-4.8) Monocytes # (Auto) 0.8 TH/MM3 (0-0.9) Eosinophils # (Auto) 0.0 TH/MM3 (0-0.4) Basophils # (Auto) 0.0 TH/MM3 (0-0.2) CBC Comment DIFF FINAL Differential Comment Blood Urea Nitrogen 53 MG/DL (7-18) Creatinine 1.31 MG/DL (0.60-1.30) Random Glucose 131 MG/DL (74-106) Total Protein 7.2 GM/DL (6.4-8.2) Albumin 3.2 GM/DL (3.4-5.0) Calcium Level 8.7 MG/DL (8.5-10.1) Phosphorus Level 2.4 MG/DL (2.5-4.9) Magnesium Level 2.7 MG/DL (1.5-2.5) Alkaline Phosphatase 112 U/L (45-117) Aspartate Amino Transf (AST/SGOT) 26 U/L (15-37) Alanine Aminotransferase (ALT/SGPT) 50 U/L (12-78) Total Bilirubin 0.4 MG/DL (0.2-1.0) Sodium Level 148 MEQ/L (136-145) Potassium Level 3.9 MEQ/L (3.5-5.1) Chloride Level 107 MEQ/L (98-107) Carbon Dioxide Level 37.0 MEQ/L (21.0-32.0) Anion Gap 4 MEQ/L (5-15) Estimat Glomerular Filtration Rate 65 ML/MIN (>89) B-Type Natriuretic Peptide 41 PG/ML (0-100) Blood Gas Ventilator Setting [id number] Blood Gas Inspired Oxygen 50 % Test 04/05/17 18:50 04/06/17 02:14 04/06/17 05:20 04/06/17 10:30 Blood Gas Puncture Site RT RADIAL RT RADIAL LT RADIAL Blood Gas Patient Temperature 98.6 98.6 98.6 Blood Gas HCO3 34 mmol/L (22-26) 31 mmol/L (22-26) 30 mmol/L (22-26) Blood Gas Base Excess 7.4 mmol/L (-2-2) 5.6 mmol/L (-2-2) 5.8 mmol/L (-2-2) Blood Gas Oxygen Saturation 95 % (90-100) 88 % (90-100) 94 % (90-100) Arterial Blood pH 7.30 (7.380-7.420) 7.37 (7.380-7.420) 7.46 (7.380-7.420) Arterial Blood Partial Pressure CO2 70 mmHg (38-42) 54 mmHg (38-42) 43 mmHg (38-42) Arterial Blood Partial Pressure O2 106 mmHg (61-120) 61 mmHg (61-120) 76 mmHg (61-120) Arterial Blood Oxygen Content 14.4 Vol % (12.0-20.0) 13.4 Vol % (12.0-20.0) 13.6 Vol % (12.0-20.0) Arterial Blood Carboxyhemoglobin 0.9 % (0-4) 0.8 % (0-4) 0.9 % (0-4) Arterial Blood Methemoglobin 1.4 % (0-2) 1.5 % (0-2) 1.4 % (0-2) Blood Gas Hemoglobin 10.7 G/DL (12.0-16.0) 10.8 G/DL (12.0-16.0) 10.3 G/DL (12.0-16.0) Oxygen Delivery Device BiPAP VENTILATOR VENTILATOR Blood Gas Ventilator Setting [id number] PRVC14/550/1.0/+8 PRVC14/550/1.0/+8 Blood Gas Inspired Oxygen 50 % 100 % 80 % White Blood Count 6.0 TH/MM3 (4.0-11.0) Red Blood Count 3.72 MIL/MM3 (4.50-5.90) Hemoglobin 10.9 GM/DL (13.0-17.0) Hematocrit 32.8 % (39.0-51.0) Mean Corpuscular Volume 88.4 FL (80.0-100.0) Mean Corpuscular Hemoglobin 29.3 PG (27.0-34.0) Mean Corpuscular Hemoglobin Concent 33.1 % (32.0-36.0) Red Cell Distribution Width 14.7 % (11.6-17.2) Platelet Count 164 TH/MM3 (150-450) Mean Platelet Volume 8.5 FL (7.0-11.0) Neutrophils (%) (Auto) 86.7 % (16.0-70.0) Lymphocytes (%) (Auto) 9.0 % (9.0-44.0) Monocytes (%) (Auto) 4.2 % (0.0-8.0) Eosinophils (%) (Auto) 0.0 % (0.0-4.0) Basophils (%) (Auto) 0.1 % (0.0-2.0) Neutrophils # (Auto) 5.2 TH/MM3 (1.8-7.7) Lymphocytes # (Auto) 0.5 TH/MM3 (1.0-4.8) Monocytes # (Auto) 0.3 TH/MM3 (0-0.9) Eosinophils # (Auto) 0.0 TH/MM3 (0-0.4) Basophils # (Auto) 0.0 TH/MM3 (0-0.2) CBC Comment DIFF FINAL Differential Comment Blood Urea Nitrogen 68 MG/DL (7-18) Creatinine 1.44 MG/DL (0.60-1.30) Random Glucose 309 MG/DL (74-106) Calcium Level 8.5 MG/DL (8.5-10.1) Phosphorus Level 1.9 MG/DL (2.5-4.9) Magnesium Level 3.1 MG/DL (1.5-2.5) Sodium Level 150 MEQ/L (136-145) Potassium Level 3.2 MEQ/L (3.5-5.1) Chloride Level 110 MEQ/L (98-107) Carbon Dioxide Level 30.1 MEQ/L (21.0-32.0) Anion Gap 10 MEQ/L (5-15) Estimat Glomerular Filtration Rate 58 ML/MIN (>89) B-Type Natriuretic Peptide 25 PG/ML (0-100) Test 04/07/17 03:17 04/07/17 05:31 04/07/17 07:20 White Blood Count 9.7 TH/MM3 (4.0-11.0) Red Blood Count 4.00 MIL/MM3 (4.50-5.90) Hemoglobin 11.7 GM/DL (13.0-17.0) Hematocrit 35.1 % (39.0-51.0) Mean Corpuscular Volume 87.8 FL (80.0-100.0) Mean Corpuscular Hemoglobin 29.2 PG (27.0-34.0) Mean Corpuscular Hemoglobin Concent 33.3 % (32.0-36.0) Red Cell Distribution Width 14.9 % (11.6-17.2) Platelet Count 178 TH/MM3 (150-450) Mean Platelet Volume 8.9 FL (7.0-11.0) Neutrophils (%) (Auto) 92.8 % (16.0-70.0) Lymphocytes (%) (Auto) 2.2 % (9.0-44.0) Monocytes (%) (Auto) 4.9 % (0.0-8.0) Eosinophils (%) (Auto) 0.0 % (0.0-4.0) Basophils (%) (Auto) 0.1 % (0.0-2.0) Neutrophils # (Auto) 9.0 TH/MM3 (1.8-7.7) Lymphocytes # (Auto) 0.2 TH/MM3 (1.0-4.8) Monocytes # (Auto) 0.5 TH/MM3 (0-0.9) Eosinophils # (Auto) 0.0 TH/MM3 (0-0.4) Basophils # (Auto) 0.0 TH/MM3 (0-0.2) CBC Comment DIFF FINAL Differential Comment Blood Urea Nitrogen 85 MG/DL (7-18) Creatinine 1.61 MG/DL (0.60-1.30) Random Glucose 345 MG/DL (74-106) Calcium Level 8.4 MG/DL (8.5-10.1) Sodium Level 151 MEQ/L (136-145) Potassium Level 3.7 MEQ/L (3.5-5.1) 3.9 MEQ/L (3.5-5.1) Chloride Level 112 MEQ/L (98-107) Carbon Dioxide Level 31.7 MEQ/L (21.0-32.0) Anion Gap 7 MEQ/L (5-15) Estimat Glomerular Filtration Rate 51 ML/MIN (>89) Blood Gas Puncture Site LT RADIAL Blood Gas Patient Temperature 98.6 Blood Gas HCO3 29 mmol/L (22-26) Blood Gas Base Excess 5.3 mmol/L (-2-2) Blood Gas Oxygen Saturation 95 % (90-100) Arterial Blood pH 7.45 (7.380-7.420) Arterial Blood Partial Pressure CO2 43 mmHg (38-42) Arterial Blood Partial Pressure O2 94 mmHg (61-120) Arterial Blood Oxygen Content 16.0 Vol % (12.0-20.0) Arterial Blood Carboxyhemoglobin 0.7 % (0-4) Arterial Blood Methemoglobin 1.6 % (0-2) Blood Gas Hemoglobin 12.0 G/DL (12.0-16.0) Oxygen Delivery Device VENTILATOR Blood Gas Ventilator Setting Blood Gas Inspired Oxygen 55 % Phosphorus Level 4.1 MG/DL (2.5-4.9) Result Diagram: 04/07/17 0317 04/07/17 0720 Microbiology Microbiology Date/Time Source Procedure Growth Status 04/06/17 12:15 Sputum Oral Tracheal Aspirate Gram Stain - Final Resulted 04/06/17 12:15 Sputum Oral Tracheal Aspirate Sputum Culture - Preliminary MODERATE GROWTH NORMAL RESPIRATORY FL... Resulted 04/04/17 17:40 Urine Catheterized Urine Streptococcus pneumoniae Antigen (M - Final PRESUMPTIVE NEGATIVE FOR STREPTOCOCCU... Complete 04/04/17 17:40 Urine Clean Catch Legionella Antigen - Final PRESUMPTIVE NEGATIVE FOR LEGIONELLA P... Complete Imaging Last Impressions Chest X-Ray 04/07/17 0600 Signed Impressions: Service Date/Time: Friday, April 07, 2017 03:48 - CONCLUSION: Stable chest x-ray with underinflation with mild bibasilar opacity likely representing atelectasis. Jerman Benitez MD Abdomen X-Ray 04/06/17 0000 Signed Impressions: Service Date/Time: Thursday, April 06, 2017 09:26 - CONCLUSION: 1. Nasogastric tube has its tip in the distal stomach. 2. Mild degenerative changes involving the lumbar spine and hip joints bilaterally. 3. No bowel obstruction or ileus. Jorge Chang MD Procedures * 04/06/17 -endotracheal intubation . Patient/Family Conference Present at Family Conference: Carley and daughter Haily. . Family Conference Time (mins): 41 Family Conference Location: Bedside, Consult Room Issues Discussed: * Palliative care role, purpose, approach * Additional medical, psychosocial, and spiritual history * Patients general health, functional status, and cognitive changes in the months leading up to the current hospitalization * Patient/family understanding of the current medical problems -baseline dementia, multiple chronic comorbidities, physical deconditioning, respiratory failure * Patient/family understanding of prognosis -prognosis is guarded at this time. High risk for further complications, continue decline and . * Patients goals of care as best understood from advance directives and/or conversations and/or values * Current medical treatment options and benefits/burdens of those options * Likely scenarios comparing ongoing aggressive care with a transition to comfort measures only * Compassionate withdrawal life support * Questions answered to the best of my ability * Palliative care contact information provided * Risks, benefits and limitations of CPR given patient's condition . Assessment and Plan Disease Oriented Problem List: (1) Acute respiratory failure (2) Pulmonary edema (3) Chronic diastolic congestive heart failure (4) Dementia (5) Diabetes mellitus Symptom Scale: (1) Shortness of breath 0-10 Scale: Unable to quantify (2) Pain 0-10 Scale: 10 (3) Debility 0-10 Scale: Unable to quantify Pertinent Non-Medical Issues Psychosocial: Patient's family is originally from [place]. Patient was born in [facility]. Patient moved to [place] approximately 4 years ago. Patient has been for over 30 years, they have 4 children together. 2 sons who live in [place], one daughter who resides locally and another daughter who is is still in [facility]. 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 Spiritual: Alevism. Legal: POA completed. Ethical issues impacting care: No ethical lesions identified. . Important Contacts Silvestre Lora , . . Prognosis Mr. Lora 71-year-old male with a medical history significant for dementia, CHF , diabetes mellitus, history of CVA. Patient is a resident of a long-term memory care unit. Currently admitted for respiratory failure requiring intubation and mechanical ventilation. Very high risk for further complications , continue decline and . Guarded prognosis. . Code Status: Full Code Plan * CODE STATUS: Full code. Risks, benefits and limitations of CPR discussed with patient's family given patient's condition. The requesting full code at this time. * HEALTHCARE DECISION-MAKING: Patient incapacitated for medical decision-making given baseline dementia and critical condition. Patient will not regain medical decision-making capacity. POA completed but only includes financial matters. As per [place] statute, healthcare proxy decision-making falls to patient's Carley Lora. is fully supported by daughter Haily Lora who is a nurse. Palliative care recommends to include patient's daughter Haily in all goals of care conversations with . * GOALS OF CARE: Family electing to continue aggressive management to include full code. Family verbalized NOT likely to proceed with tracheostomy or PEG tube placement if patient is unable to medically extubate, compassionately withdrawal life support discussed at length. Family awaiting for additional family members to arrive. Receptive to f/u goals of care conversation with palliative care. * SYMPTOMS: = Shortness of breath, secondary to respiratory failure, pulmonary edema, CHF. Currently intubated on mechanical ventilation. = Debility: Progressive. Patient resident of long-term [facility]. = Pain: No defect oral. History of chronic pain. Currently on fentanyl drip. Appears comfortable. * Case discussed with bedside RN Bonifacio. * Spiritual services offered and accepted. Referral made. * Palliative care contact information has been provided to patient's family. * Palliative care will continue to follow-up for further clarifications of goals of care as patient's clinical course continue to evolve. . Time Spent Total Floor Time (mins): 79 (Total time to include review and summarization of available medical records to include prior hospitalization, physical exam, goals of care conversation with patient's family, case discussion with bedside RN.) >50% Counseling/Coord of Care: Yes Thank you for the opportunity to participate in the care of Mr. Lora. Attestation To help prompt me to consider important information that might be impacting today's encounter and assessment, information from prior notes written by myself or my colleagues may have been "brought forward" into today's note. My signature on this note, however, is an attestation that I personally performed the exam, history, and/or decision-making noted today, and, unless otherwise indicated, the interactions with patient, family, and staff as well as the review of records all occurred today. I also attest that the listed assessment and stated plan reflect my best clinical judgment today based on the combination of historical information, prior notes, and today's exam/ interactions. When time spent is documented, it refers only to time spent today by the signer, or if indicated, combined time spent today by collaborating physician/nurse practitioner. Mercedes Blanco Apr 07, 2017 13:32
[2017-04-07] MEDS: PANTOPRAZOLE SODIUM 40 MG VIAL IV PUSH SCH (16:21)
[2017-04-07] MEDS: AZITHROMYCIN INJ 500 MG in SODIUM CHLOR 0.9% 250 ML INJ 250 ML IV SCH (17:03)
--- NOTE | 2017-04-07 19:34 | HHI.PR ---
Subjective Remarks Intubated and on vent support. Fio2 50 %. Poor output. Opens eyes but will not follow commands. Family here Objective Vital Signs Date Time Temp Pulse Resp B/P (MAP) Pulse Ox O2 Delivery O2 Flow Rate FiO2 04/07/17 18:00 72 04/07/17 16:35 92 50 04/07/17 16:00 65 04/07/17 16:00 50 04/07/17 16:00 98.7 66 14 106/55 (72) 95 04/07/17 14:00 68 04/07/17 12:54 94 50 04/07/17 12:00 98.6 72 18 98 04/07/17 12:00 66 04/07/17 12:00 50 04/07/17 10:00 66 04/07/17 09:05 50 04/07/17 09:05 97 50 04/07/17 08:00 98.8 66 16 110/52 (71) 96 04/07/17 08:00 64 04/07/17 06:00 64 04/07/17 04:00 97.5 65 21 113/57 (75) 93 04/07/17 04:00 60 04/07/17 04:00 65 04/07/17 03:16 94 55 04/07/17 02:00 58 04/07/17 00:00 61 04/07/17 00:00 60 04/07/17 00:00 97.7 60 16 127/62 (83) 95 04/06/17 22:00 61 04/06/17 20:33 97 60 04/06/17 20:00 97.3 52 16 144/68 (93) 97 04/06/17 20:00 60 04/06/17 20:00 52 I/O 04/06/17 04/06/17 04/06/17 04/07/17 04/07/17 04/07/17 07:00 15:00 23:00 07:00 15:00 23:00 Intake Total 350 ml 200 ml 630 ml 866 ml 100 ml 636 ml Output Total 1275 ml 1250 ml 600 ml 550 ml Balance -925 ml 200 ml -620 ml 266 ml 100 ml 86 ml Intake Oral 0 ml IV Total 350 ml 200 ml 450 ml 460 ml 100 ml Tube Feeding 100 ml 346 ml 436 ml Other 80 ml 60 ml 200 ml Output Urine Total 1275 ml 1250 ml 600 ml 550 ml # Bowel Movements 0 0 0 0 Result Diagram: 04/07/177 04/07/17 0720 Objective Remarks GENERAL: This is an obese elderly man on vent support and sedated. HEENT: Head normocephalic. Pupils are reactive and equal. Sclerae were injected. Tongue is moist. Throat is dry Nasal mucosa is clear. NECK: Supple. No bruits. There is mild venous distension Trachea midline. No thyroid enlargement. CHEST: Equal movements. Decreased excursions. Breath sounds diminished at the bases with wheezes bilaterally and occasional basilar crackles. CARDIAC: Heart sounds are irregular S1, S2 with no murmur. No S3. ABDOMEN: Soft, obese without masses. No organomegaly or tenderness. Bowel sounds are active. EXTREMITIES: Edema 1+. Pigmentation of the skin of the lower extremities. diminished peripheral pulses. NEUROLOGIC: Reflexes are diminished . lethargic.Sedated SKIN: Dry and scaly. Assessment and Plan Assessment and Plan IMPRESSION 1. Hypercapnic respiratory failure. 2. Hypoventilation and possible obstructive sleep apnea syndrome 3. History of bronchial asthma with chronic bronchitis 4. Diabetes mellitus 5. Dementia. 6. History of hypertension 7. History of CVA. 8. ADALI Plan : 1. Wean vent to CPAP and FIo2 40 % 2. Continue antibiotics Cefipime 2 G Q12H Daily 3. Nebs qid Duoneb 4. BMP CXR ,CBC in am. 5.Symbicort 160/4.5 Mcg , 2 puffs bid. 6. Solumedrol IV 40 Mg q6h. 7. Sedation with versed / Fentanyl. 8. Hold Diuretics. Chhaya Ta MD Apr 07, 2017 19:33
[2017-04-08] VITALS (19 sets, daily range): BP systolic 86–118; BP diastolic 52–62; PULSE 59–80; RESP 6–17; TEMP 97.6–99; O2SAT 5–96
[2017-04-08] MEDS: HEPARIN SODIUM - SQ 10,000 UNITS/ML VIAL SQ SCH ×3 (00:03→16:07)
[2017-04-08] MEDS: PROPOFOL 1000 MG/100 ML INJ 100 ML IV PRN ×4 (00:04→17:53)
[2017-04-08] MEDS: metroNIDAZOLE 500 MG INJ 100 ML IV SCH ×3 (01:58→17:17)
[2017-04-08] MEDS: CEFEPIME INJ 2,000 MG in SODIUM CHLORIDE 0.9% INJ 100 ML IV SCH ×3 (01:58→22:14)
[2017-04-08] MEDS: RESP: ALBUTEROL 2.5 MG/IPRATROPIUM 0.5 MG NEB (SCH) NEB ×4 (04:04→20:21)
[2017-04-08] MEDS: methylPREDNISolone SOD SUCC 40 MG/1 ML VIAL IV PUSH SCH ×3 (04:39→16:06)
[2017-04-08 05:09] LABS: HEMATOCRIT 35.3 % (39.0-51.0); HEMOGLOBIN 11.5 GM/DL (13.0-17.0); MEAN CELL VOLUME 88.5 FL (80.0-100.0); MEAN CORPUSCULAR HEMOGLOBIN 28.8 PG (27.0-34.0); MEAN CORPUSCULAR HGB CONC 32.5 % (32.0-36.0); MEAN PLATELET VOLUME 9.3 FL (7.0-11.0); PLATELET COUNT 153 TH/MM3 (150-450); RED BLOOD COUNT 3.99 MIL/MM3 (4.50-5.90); RED CELL DISTRIBUTION WIDTH 14.8 % (11.6-17.2); WHITE BLOOD COUNT 10.8 TH/MM3 (4.0-11.0)
[2017-04-08 05:23] LABS: BICARBONATE 29.2 MEQ/L (21.0-32.0); CREATININE 2.42 MG/DL (0.60-1.30); MAGNESIUM 3.3 MG/DL (1.5-2.5); PHOSPHORUS 3.7 MG/DL (2.5-4.9)
[2017-04-08 05:34] LABS: CALCIUM-PROTEIN CORRECTED 7.8 MG/DL (8.5-10.1); TOTAL PROTEIN 5.6 GM/DL (6.4-8.2)
[2017-04-08] MEDS: FREE WATER G-TUBE SCH ×5 (06:00→20:00)
[2017-04-08] MEDS: hydrALAZINE HCL 10 MG TAB PO SCH ×3 (06:00→22:00)
[2017-04-08] MEDS: CHLORHEXIDINE 0.12% (ORAL KIT) 15 ML CUP MT SCH ×4 (08:00→21:02)
[2017-04-08] MEDS: INSULIN ASPART SUPPLEMENTAL SCALE SQ SCH (08:03)
[2017-04-08] MEDS: INSULIN DETEMIR 100 UNITS/ML VIAL SQ SCH ×2 (08:03→21:00)
[2017-04-08] MEDS: INSULIN ASPART 1,000 UNITS/10 ML VIAL SQ SCH (08:03)
[2017-04-08] MEDS: ASCORBIC ACID 500 MG TAB PO SCH ×2 (08:04→21:02)
[2017-04-08] MEDS: ASPIRIN EC 81 MG TABEC PO SCH (08:05)
[2017-04-08] MEDS: MEMANTINE HCL 10 MG TAB PO SCH ×2 (08:05→21:02)
[2017-04-08] MEDS: DONEPEZIL HCL 5 MG TAB PO SCH (08:06)
[2017-04-08] MEDS: CHOLECALCIFEROL (VIT D3) 1000 UNIT TAB PO SCH (08:06)
[2017-04-08] MEDS: LOSARTAN 50 MG TAB PO SCH (08:07)
[2017-04-08] MEDS: BUDESONIDE-FORMOTEROL 160/4.5 MCG INHALER INH SCH ×2 (08:07→21:00)
[2017-04-08] MEDS: LISINOPRIL 20 MG TAB PO SCH ×2 (08:07→21:00)
[2017-04-08] MEDS ORDERED: CALCIUM GLUCONATE INJ 2 GM in DEXTROSE 5% IN WATER 100ML INJ 100 ML IV ONE ×2 (08:15)
--- NOTE | 2017-04-08 08:22 | HHI.CCPN ---
Subjective Remarks/Hospital Course This is a 71 year old male with history of CHF, diabetes and recent upper respiratory infection presented to the ED with severe short of breath and wheezing on 04/01/17.The patient resides in SNF secondary to to dementia, his daughter requested to transfer patient to hospital due to increase work of breathing even on rest. Patient recently was diagnosed with pneumonia and started on Levaquin and prednisone. I saw patient in the room he was on BiPAP, in ED he was found to have hypercapnic respiratory failure he was given O2 and DuoNeb and a dose of Solu-Medrol, history was restricted due to increase of respiratory work and being on BiPAP, influenza A and B was negative. The patient was then transferred to the medical floor. During the last evening the patient had increased work of breathing, the patient was noted to have frothy pink sputum and BiPAP was ordered. The patient did not receive BiPAP during the night secondary to being combative, and inability to be restrained on BiPAP. The patient's respiratory status continued to worsen, Halicat was initiated the patient received furosemide 40 mg IV early this a.m. and diuresed greater than 1 L. The patient subsequently became hypotensive, and critical care medicine was consulted. Upon presentation to [facility], the patient was compatible requiring 2-point wrist restraints, and subsequently 1 mg of Ativan was administered. The patient continues on BiPAP, echocardiogram was performing cardiology evaluation. O2 saturation was noted improvement 100% on FiO2 of 35%, a normal respiratory rate. Subjective: 2: No acute events overnight. The patient became agitated, removing peripheral IVs, requiring 1 mg of Ativan last evening. Patient continues in restraints for patient safety. The patient continues to have adequate diuresis with Lasix. Patient was changed from CPAP to nasal cannula 6 L/m ABGs performed this afternoon show slight elevation in PCO2 to 63 however patient had been given Ativan for anxiety. Patient will receive 1 dose of Acetazolamide 250 mg. Plan for bedside swallow and advancement of diet. 04/06: Afebrile. Early this a.m. ,the patient became hypoxemic requiring emergent intubation at 5 AM. The patient currently intubated and sedated. ET tube was noted to be near the ese endotracheal tube retracted chest x-ray pending. Dietary consulted for initiation of tube feeds. 04/07: Afebrile. Overnight the patient's noted sodium level elevation with slight elevation in creatinine. Lasix discontinued on 04/06. Chest x-ray unchanged. Oxygenation status slightly improved today plan for initiation of CPAP trials. 04/08: The patient continues to have an elevation in creatinine, Lasix was discontinued on 04/06. BUN also elevated ,free water flushes frequency increased to every 4 hours. Patient fell CPAP trials yesterday after approximately 30 minutes, and continued attempts at CPAP trials. Palliative care was consulted yesterday discussion with family the patient and family would not want a tracheostomy nor PEG placement. Family arriving from [facility] today to visit patient. Continuing aggressive ventilator weaning in attempt to extubate patient. A chin with persistent hyperglycemia most likely secondary to exogenous steroids, placed on high-dose insulin sliding scale, dehydration will bolus with 1/2 NSS this am. Objective Vital Signs Date Time Temp Pulse Resp B/P (MAP) Pulse Ox O2 Delivery O2 Flow Rate FiO2 04/08/17 06:00 80 04/08/17 04:06 92 50 04/08/17 04:00 98.8 6 114/58 (76) 04/06/17 00:00 Nasal Cannula 6.00 Intake and Output 04/08/17 04/08/17 04/09/17 08:00 16:00 00:00 Intake Total 1138 ml Output Total 400 ml Balance 738 ml Result Diagram: 04/08/17 0428 04/08/17 0428 Other Results Laboratory Tests Test 04/08/17 06:00 Blood Gas Puncture Site RT RADIAL Blood Gas Patient Temperature 98.6 Blood Gas HCO3 26 mmol/L (22-26) Blood Gas Base Excess 2.3 mmol/L (-2-2) Blood Gas Oxygen Saturation 91 % (90-100) Arterial Blood pH 7.44 (7.380-7.420) Arterial Blood Partial Pressure CO2 40 mmHg (38-42) Arterial Blood Partial Pressure O2 71 mmHg (61-120) Arterial Blood Oxygen Content 15.2 Vol % (12.0-20.0) Arterial Blood Carboxyhemoglobin 0.6 % (0-4) Arterial Blood Methemoglobin 1.6 % (0-2) Blood Gas Hemoglobin 11.8 G/DL (12.0-16.0) Oxygen Delivery Device VENTILATOR Blood Gas Ventilator Setting Blood Gas Inspired Oxygen 50 % Imaging Last Impressions Chest X-Ray 04/07/17 0600 Signed Impressions: Service Date/Time: Friday, April 07, 2017 03:48 - CONCLUSION: Stable chest x-ray with underinflation with mild bibasilar opacity likely representing atelectasis. Jerman Benitez MD Abdomen X-Ray 04/06/17 0000 Signed Impressions: Service Date/Time: Thursday, April 06, 2017 09:26 - CONCLUSION: 1. Nasogastric tube has its tip in the distal stomach. 2. Mild degenerative changes involving the lumbar spine and hip joints bilaterally. 3. No bowel obstruction or ileus. Jorge Chang MD Last Impressions Chest X-Ray 04/07/17 0600 Signed Impressions: Service Date/Time: Friday, April 07, 2017 03:48 - CONCLUSION: Stable chest x-ray with underinflation with mild bibasilar opacity likely representing atelectasis. Jerman Benitez MD Abdomen X-Ray 04/06/17 0000 Signed Impressions: Service Date/Time: Thursday, April 06, 2017 09:26 - CONCLUSION: 1. Nasogastric tube has its tip in the distal stomach. 2. Mild degenerative changes involving the lumbar spine and hip joints bilaterally. 3. No bowel obstruction or ileus. Jorge Chang MD Last Impressions Chest X-Ray 04/04/17 0000 Signed Impressions: Service Date/Time: Tuesday, April 04, 2017 09:37 - CONCLUSION: 1. Bibasilar atelectasis. Frantz Helms MD Objective Remarks GENERAL: This is an obese chronically ill appearing male patient, intubated and sedated SKIN: Warm and dry. HEAD: Atraumatic. Normocephalic. EYES: Pupils equal and round. No scleral icterus. No injection or drainage. ENT: No nasal bleeding or discharge. Mucous membranes pink and moist. NECK: Trachea midline. No JVD. CARDIOVASCULAR: Normal rate, regular rhythm. RESPIRATORY: No accessory muscle use. Mild expiratory wheezing, diminished breath sounds throughout lung carcamo. Breath sounds equal bilaterally. GASTROINTESTINAL: Abdomen soft, non-tender, protuberant nondistended. No guarding. Normoactive bowel sounds MUSCULOSKELETAL: Extremities without clubbing, cyanosis, or edema. No obvious deformities. NEUROLOGICAL: RASS -2. No gross focal/sensory deficits.Spontaneous movement in all 4 extremities. Procedures 04/06 emergent intubation A/P Assessment and Plan Plan by systems: Neurologic: Dementia History of CVA Agitation Neurochecks per ICU protocol Propofol and fentanyl for sedation and analgesia while intubated. Continue Aricept and Namenda Daily sedation vacation Continue Haldol 2 mg every 8 hours when necessary for agitation Respiratory: Acute hypercapnic respiratory insufficiency History of bronchial asthma and chronic bronchitis Pulmonary edema Pulmonology following Dr. Bay Williamson Solu-Medrol 60 mg every 6, azithromycin 500 mg/day, will expand empiric antibiotics see below 04/06 emergently intubated 8.0 ETT at 26.5 at the lip ( near ese), retracted 2 cm Follow-up chest x-ray 04/06 IV Lasix 40mg/ day discontinued noted elevation in creatinine ETT day 2 Cardiovascular: Chronic diastolic CHF Cardiology following-Dr. Pace follow-up recommendations 04/04 echo-EF 50-55% mildly dilated left ventricle, moderately concentric LVH , LV systolic function low normal Plan for repeat echo per cardiology in near future BNP- WNL Renal: Maintain Locke catheter -- Strict I/Os FEN/GI: Obesity Mild protein calorie malnutrition Electrolyte derangement Glucerna 1.5 goal rate 50 Hydralazine PRN for systolic blood pressure greater than 160 Sodium level 151-> 154 free water flushes increased 200 cc every 4 hours. We' ll consider / NSS infusion Hypernatremia, hypocalcemia Calcium gluconate 2 g IV now Heme/ID: Leukocytosis-resolved Anemia of chronic disease Monitor CBC. WBC count noted 12 ->9 today 2/2 Blood cultures 2 negative growth to date Obtain urine culture Influenza nasal wash negative Legionella, pneumococcal urine antigens-negative Follow up sputum culture Endocrine: Diabetes mellitus Persistent elevation in glucose most likely secondary to steroids every 6 hours , Levemir increased to 15 units twice a day, and high-dose supplemental scale Sliding-scale insulin per ICU protocol high dose regimen -- SSI Musculoskeletal: PT evaluation and treat Functional maintenance daily Prophylaxis: GI Prophylaxis Protonix DVT Prophylaxis -- SCDs Heparin every 8 hours Lines: Peripheral IVs 2 providing adequate access. Central line if indicated Dispo: Level 3 Discussed with WASTE PICKER at bedside. All questions answered. Discussed with daughter patient's daughter yesterday, consideration for possible trach tracheostomy and continued aggressive ventilator weaning process at this time. Palliative care following to determine goals of care in the event that a tracheostomy and PEG placement, family does not want a tracheostomy or PEG tube placement. Plan for aggressive ventilator weaning measures, if unsuccessful tentative plan for possible compassionate withdrawal. Physician Angela Rayo MD Apr 08, 2017 08:21
[2017-04-08] MEDS ORDERED: SODIUM CHLOR 0.45% 500 ML INJ 500 ML IV ONE (08:30)
[2017-04-08] MEDS ORDERED: CALCIUM GLUCONATE INJ 2 GM in SODIUM CHLORIDE 0.9% INJ 100 ML IV ONE (09:00)
[2017-04-08] MEDS ORDERED: INSULIN ASPART SUPPLEMENTAL SCALE SQ SCH (12:00)
--- NOTE | 2017-04-08 12:38 | HHI.PR ---
Subjective Remarks Intubated and on vent support. Fio2 50 %. On CPAP now but renal functions are worse. Opens eyes but will not follow commands. Objective Vital Signs Date Time Temp Pulse Resp B/P (MAP) Pulse Ox O2 Delivery O2 Flow Rate FiO2 04/08/17 12:00 50 04/08/17 12:00 67 04/08/17 11:12 94 50 04/08/17 10:00 68 04/08/17 08:36 95 50 04/08/17 08:00 98.8 69 14 99/55 (70) 94 04/08/17 08:00 50 04/08/17 08:00 50 04/08/17 08:00 69 04/08/17 06:00 80 04/08/17 04:06 92 50 04/08/17 04:00 73 04/08/17 04:00 50 04/08/17 04:00 98.8 73 6 114/58 (76) 91 04/08/17 02:00 71 04/08/17 00:35 92 50 04/08/17 00:00 97.6 69 15 116/62 (80) 91 04/08/17 00:00 50 04/08/17 00:00 69 04/07/17 22:00 70 04/07/17 20:05 93 50 04/07/17 20:00 50 04/07/17 20:00 98.6 69 15 109/59 (76) 92 04/07/17 20:00 69 04/07/17 18:00 72 04/07/17 16:35 92 50 04/07/17 16:00 65 04/07/17 16:00 50 04/07/17 16:00 98.7 66 14 106/55 (72) 95 04/07/17 14:00 68 04/07/17 12:54 94 50 I/O 04/07/17 04/07/17 04/07/17 04/08/17 04/08/17 04/08/17 07:00 15:00 23:00 07:00 15:00 23:00 Intake Total 866 ml 100 ml 936 ml 1138 ml Output Total 600 ml 550 ml 400 ml Balance 266 ml 100 ml 386 ml 738 ml IV Total 460 ml 100 ml 300 ml 200 ml Tube Feeding 346 ml 436 ml 538 ml Other 60 ml 200 ml 400 ml Output Urine Total 600 ml 550 ml 400 ml # Bowel Movements 0 0 0 Result Diagram: 04/08/1742704/08/17427 Objective Remarks GENERAL: This is an obese elderly man on the vent HEENT: Head normocephalic. Pupils are reactive and equal. Sclerae were clear. Nasal mucosa is clear. NECK: Supple. No bruits. There is venous distension . Trachea midline. No thyroid enlargement. CHEST: Equal movements. Decreased excursions. Breath sounds diminished at the bases with wheezes bilaterally and occasional basilar crackles. CARDIAC: Heart sounds are irregular S1, S2 with no murmur. No S3. ABDOMEN: Soft, obese without masses. No organomegaly or tenderness. Bowel sounds are active. EXTREMITIES: Edema 1+. Pigmentation of the skin of the lower extremities. diminished peripheral pulses. NEUROLOGIC: Very lethargic, Sedated. SKIN: Dry and scaly. Assessment and Plan Assessment and Plan IMPRESSION 1. Hypercapnic respiratory failure. 2. Hypoventilation and possible obstructive sleep apnea syndrome 3. History of bronchial asthma with chronic bronchitis 4. Diabetes mellitus 5. Dementia. 6. History of hypertension 7. History of CVA. 8. ADALI Plan : 1. Wean vent to CPAP 6/12 and FIo2 50 % 2. Continue antibiotics Cefipime 2 G Q12H Daily 3. Nebs qid Duoneb 4. BMP BMP ,CBC in am. 5.Symbicort 160/4.5 Mcg , 2 puffs bid. 6. Solumedrol IV 40 Mg q8h. 7. Sedation with versed / Fentanyl. 8. Family to discus with palliative care. 9. Poor prognosis Chhaya Ta MD Apr 08, 2017 12:38
[2017-04-08] MEDS ORDERED: SODIUM CHLOR 0.45% 1000 ML INJ 1,000 ML IV SCH (12:45)
[2017-04-08] MEDS ORDERED: DEXTROSE 50% IN WATER 50 ML VIAL(D50) IV PUSH PRN (12:45)
[2017-04-08] MEDS ORDERED: MISC INFORMATION OTHER ONE (12:45)
--- NOTE | 2017-04-08 13:34 | HHI.HCPN ---
Palliative care spoke with daughter, Haily. Confirmed to meet with palliative care tomorrow, Wednesday04/09/17 at 11am. Palliative care will continue to follow throughout hospitalization. Dora Abraham MSW, SHERIFF OFFICER Apr 08, 2017 13:34
[2017-04-08] MEDS: INSULIN REGULAR (IV INFUSION) 100 UNITS in SODIUM CHLORIDE 0.9% INJ 99 ML IV PRN ×2 (13:41→20:50)
[2017-04-08] MEDS: PANTOPRAZOLE SODIUM 40 MG VIAL IV PUSH SCH (16:06)
[2017-04-08] MEDS ORDERED: SODIUM CHLOR 0.45% IV ONE (17:00)
[2017-04-08] MEDS: AZITHROMYCIN INJ 500 MG in SODIUM CHLOR 0.9% 250 ML INJ 250 ML IV SCH (17:16)
[2017-04-08] MEDS: SODIUM CHLOR 0.45% 1000 ML INJ 1,000 ML IV SCH ×2 (22:04→23:09)
[2017-04-09] VITALS (18 sets, daily range): BP systolic 91–135; BP diastolic 52–72; PULSE 54–67; RESP 7–24; TEMP 97.4–98.1; O2SAT 5–97
[2017-04-09] MEDS: methylPREDNISolone SOD SUCC 40 MG/1 ML VIAL IV PUSH SCH ×3 (00:31→16:40)
[2017-04-09] MEDS: HEPARIN SODIUM - SQ 10,000 UNITS/ML VIAL SQ SCH ×3 (00:31→16:41)
[2017-04-09] MEDS: metroNIDAZOLE 500 MG INJ 100 ML IV SCH ×3 (02:00→17:29)
[2017-04-09] MEDS: PROPOFOL 1000 MG/100 ML INJ 100 ML IV PRN ×2 (03:17→16:43)
[2017-04-09] MEDS: fentaNYL 2,500 MCG/NS 250 ML IV PRN (03:17)
[2017-04-09] MEDS: RESP: ALBUTEROL 2.5 MG/IPRATROPIUM 0.5 MG NEB (SCH) NEB ×4 (03:30→20:09)
[2017-04-09] MEDS: FREE WATER G-TUBE SCH ×5 (04:00→17:29)
--- NOTE | 2017-04-09 04:36 | RADRPT ---
EXAM DATE/TIME: 04/09/2017 03:44 [place] COMPARISON: CHEST SINGLE AP, April 07, 2017, 3:48. INDICATIONS : Evaluate for respiratory failure. MEDICAL HISTORY : Hypertension. Diabetes mellitus type II. Dementia. SURGICAL HISTORY : None. ENCOUNTER: Subsequent ACUITY: 1 week PAIN SCORE: Non-responsive. LOCATION: chest FINDINGS: A single view of the chest demonstrates a endotracheal tube in good position. NG enters stomach. Card iomegaly. Mild basilar airspace disease similar to April 07. No pneumothorax. CONCLUSION: 1. Stable exam with mild basilar airspace disease. No pneumothorax. Tha Wilhelm MD on April 09, 2017 at 4:34 Board Certified Radiologist. This report was verified electronically.
[2017-04-09] MEDS: hydrALAZINE HCL 10 MG TAB PO SCH ×3 (06:00→21:41)
[2017-04-09 06:44] LABS: HEMATOCRIT 33.1 % (39.0-51.0); HEMOGLOBIN 10.7 GM/DL (13.0-17.0); MEAN CELL VOLUME 89.1 FL (80.0-100.0); MEAN CORPUSCULAR HEMOGLOBIN 28.9 PG (27.0-34.0); MEAN CORPUSCULAR HGB CONC 32.4 % (32.0-36.0); MEAN PLATELET VOLUME 9.7 FL (7.0-11.0); PLATELET COUNT 119 TH/MM3 (150-450); RED BLOOD COUNT 3.72 MIL/MM3 (4.50-5.90); RED CELL DISTRIBUTION WIDTH 14.9 % (11.6-17.2); WHITE BLOOD COUNT 12.6 TH/MM3 (4.0-11.0)
[2017-04-09 07:15] LABS: BICARBONATE 26.9 MEQ/L (21.0-32.0); CALCIUM 6.8 MG/DL (8.5-10.1); CREATININE 3.37 MG/DL (0.60-1.30); MAGNESIUM 3.3 MG/DL (1.5-2.5); PHOSPHORUS 4.4 MG/DL (2.5-4.9)
[2017-04-09 07:37] LABS: CALCIUM-PROTEIN CORRECTED 7.8 MG/DL (8.5-10.1); TOTAL PROTEIN 5.1 GM/DL (6.4-8.2)
[2017-04-09] MEDS: CHLORHEXIDINE 0.12% (ORAL KIT) 15 ML CUP MT SCH ×4 (08:00→21:40)
[2017-04-09] MEDS: ASCORBIC ACID 500 MG TAB PO SCH ×2 (08:07→21:40)
[2017-04-09] MEDS: DONEPEZIL HCL 5 MG TAB PO SCH (08:08)
[2017-04-09] MEDS: ASPIRIN EC 81 MG TABEC PO SCH (08:08)
[2017-04-09] MEDS: LOSARTAN 50 MG TAB PO SCH (08:08)
[2017-04-09] MEDS: MEMANTINE HCL 10 MG TAB PO SCH ×2 (08:08→21:40)
[2017-04-09] MEDS: CHOLECALCIFEROL (VIT D3) 1000 UNIT TAB PO SCH (08:08)
[2017-04-09] MEDS: BUDESONIDE-FORMOTEROL 160/4.5 MCG INHALER INH SCH ×2 (08:09→21:00)
[2017-04-09] MEDS: LISINOPRIL 20 MG TAB PO SCH (08:09)
[2017-04-09] MEDS: INSULIN DETEMIR 100 UNITS/ML VIAL SQ SCH ×2 (08:10→21:00)
[2017-04-09] MEDS: CEFEPIME INJ 2,000 MG in SODIUM CHLORIDE 0.9% INJ 100 ML IV SCH ×2 (09:21→21:40)
--- NOTE | 2017-04-09 10:21 | HHI.CCPN ---
Subjective Remarks/Hospital Course This is a 71 year old male with history of CHF, diabetes and recent upper respiratory infection presented to the ED with severe short of breath and wheezing on 04/01/17.The patient resides in SNF secondary to to dementia, his daughter requested to transfer patient to hospital due to increase work of breathing even on rest. Patient recently was diagnosed with pneumonia and started on Levaquin and prednisone. I saw patient in the room he was on BiPAP, in ED he was found to have hypercapnic respiratory failure he was given O2 and DuoNeb and a dose of Solu-Medrol, history was restricted due to increase of respiratory work and being on BiPAP, influenza A and B was negative. The patient was then transferred to the medical floor. During the last evening the patient had increased work of breathing, the patient was noted to have frothy pink sputum and BiPAP was ordered. The patient did not receive BiPAP during the night secondary to being combative, and inability to be restrained on BiPAP. The patient's respiratory status continued to worsen, Halicat was initiated the patient received furosemide 40 mg IV early this a.m. and diuresed greater than 1 L. The patient subsequently became hypotensive, and critical care medicine was consulted. Upon presentation to [facility], the patient was compatible requiring 2-point wrist restraints, and subsequently 1 mg of Ativan was administered. The patient continues on BiPAP, echocardiogram was performing cardiology evaluation. O2 saturation was noted improvement 100% on FiO2 of 35%, a normal respiratory rate. Subjective: 2: No acute events overnight. The patient became agitated, removing peripheral IVs, requiring 1 mg of Ativan last evening. Patient continues in restraints for patient safety. The patient continues to have adequate diuresis with Lasix. Patient was changed from CPAP to nasal cannula 6 L/m ABGs performed this afternoon show slight elevation in PCO2 to 63 however patient had been given Ativan for anxiety. Patient will receive 1 dose of Acetazolamide 250 mg. Plan for bedside swallow and advancement of diet. 04/06: Afebrile. Early this a.m. ,the patient became hypoxemic requiring emergent intubation at 5 AM. The patient currently intubated and sedated. ET tube was noted to be near the ese endotracheal tube retracted chest x-ray pending. Dietary consulted for initiation of tube feeds. 04/07: Afebrile. Overnight the patient's noted sodium level elevation with slight elevation in creatinine. Lasix discontinued on 04/06. Chest x-ray unchanged. Oxygenation status slightly improved today plan for initiation of CPAP trials. 04/08: The patient continues to have an elevation in creatinine, Lasix was discontinued on 04/06. BUN also elevated ,free water flushes frequency increased to every 4 hours. Patient fell CPAP trials yesterday after approximately 30 minutes, and continued attempts at CPAP trials. Palliative care was consulted yesterday discussion with family the patient and family would not want a tracheostomy nor PEG placement. Family arriving from [facility] today to visit patient. Continuing aggressive ventilator weaning in attempt to extubate patient. A chin with persistent hyperglycemia most likely secondary to exogenous steroids, placed on high-dose insulin sliding scale, dehydration will bolus with 1/2 NSS this am. 04/09: Remains intubated sedated. Apparently gets agitated on lightening sedation. On 45% FiO2. Chest x-ray remains unchanged. Further worsening of renal function BUN 144 from 116 yesterday, creatinine 2.4 today from 2.4 yesterday. Urine output in 24 hours under 400. Continues to fail CPAP. I have consulted nephrology Objective Vital Signs Date Time Temp Pulse Resp B/P (MAP) Pulse Ox O2 Delivery O2 Flow Rate FiO2 04/09/17 10:00 57 04/09/17 08:20 96 45 04/09/17 08:00 97.4 17 93/52 (66) 04/06/17 00:00 Nasal Cannula 6.00 Intake and Output 04/09/17 04/09/17 04/09/17 07:59 15:59 23:59 Intake Total 1430 ml Output Total 125 ml Balance 1305 ml Result Diagram: 04/09/17 0615 04/09/17 0615 Other Results Microbiology Date/Time Source Procedure Growth Status 04/06/17 12:15 Sputum Oral Tracheal Aspirate Gram Stain - Final Complete 04/06/17 12:15 Sputum Oral Tracheal Aspirate Sputum Culture - Final MODERATE GROWTH NORMAL RESPIRATORY ANIA Complete Imaging Last Impressions Chest X-Ray 04/07/17 0600 Signed Impressions: Service Date/Time: Friday, April 07, 2017 03:48 - CONCLUSION: Stable chest x-ray with underinflation with mild bibasilar opacity likely representing atelectasis. Jerman Benitez MD Abdomen X-Ray 04/06/17 0000 Signed Impressions: Service Date/Time: Thursday, April 06, 2017 09:26 - CONCLUSION: 1. Nasogastric tube has its tip in the distal stomach. 2. Mild degenerative changes involving the lumbar spine and hip joints bilaterally. 3. No bowel obstruction or ileus. Jorge Chang MD Last Impressions Chest X-Ray 04/07/17 0600 Signed Impressions: Service Date/Time: Friday, April 07, 2017 03:48 - CONCLUSION: Stable chest x-ray with underinflation with mild bibasilar opacity likely representing atelectasis. Jerman Benitez MD Abdomen X-Ray 04/06/17 0000 Signed Impressions: Service Date/Time: Thursday, April 06, 2017 09:26 - CONCLUSION: 1. Nasogastric tube has its tip in the distal stomach. 2. Mild degenerative changes involving the lumbar spine and hip joints bilaterally. 3. No bowel obstruction or ileus. Jorge Chang MD Last Impressions Chest X-Ray 04/04/17 0000 Signed Impressions: Service Date/Time: Tuesday, April 04, 2017 09:37 - CONCLUSION: 1. Bibasilar atelectasis. Frantz Helms MD Objective Remarks GENERAL: This is an obese chronically ill appearing patient, intubated and sedated SKIN: Warm and dry. HEAD: Atraumatic. Normocephalic. EYES: Pupils equal and round. No scleral icterus. No injection or drainage. ENT: No nasal bleeding or discharge. Orotracheally intubated NECK: Trachea midline. No JVD. CARDIOVASCULAR: Normal rate, regular rhythm. RESPIRATORY: Mild expiratory wheezing, diminished breath sounds throughout lung carcamo, equal bilaterally. GASTROINTESTINAL: Abdomen soft, non-tender, protuberant nondistended. No guarding. Normoactive bowel sounds MUSCULOSKELETAL: Extremities without clubbing, cyanosis, or edema. No obvious deformities. NEUROLOGICAL: RASS -2. Spontaneous movement in all 4 extremities. No gross focal/sensory deficits. Procedures 2/6 emergent intubation A/P Assessment and Plan Plan by systems: Neurologic: Dementia History of CVA Agitation Propofol and fentanyl for sedation and analgesia while intubated. Continue Aricept and Namenda Daily sedation vacation Continue Haldol 2 mg every 8 hours when necessary for agitation Neurochecks per ICU protocol Respiratory: Acute hypoxemic and hypercapnic respiratory failure History of bronchial asthma and chronic bronchitis Pulmonary edema Pulmonology following Dr. Bay Delgadillo-Medrol 40 mg every 8, azithromycin 500 mg/day, will expand empiric antibiotics see below 04/06 emergently intubated 8.0 ETT 04/06 IV Lasix 40mg/ day discontinued noted elevation in creatinine Continues to fail CPAP trials Cardiovascular: Chronic diastolic CHF Cardiology following-Dr. Pace 04/04 echo-EF 50-55% mildly dilated left ventricle, moderately concentric LVH LV systolic function low normal Plan for repeat echo per cardiology in near future Renal: Worsening acute kidney failure Worsening BUN and creatinine today 144/3.4 Maintain Locke catheter Strict I/Os, Nephrology consult Normal saline 500 ML bolus and half normal saline at 100 ML per hour FEN/GI: Obesity Mild protein calorie malnutrition Electrolyte derangement Glucerna 1.5 goal rate 50 Hydralazine PRN for systolic blood pressure greater than 160 Sodium level 150 free water flushes 200 cc every 4 hours. Hypernatremia, hypocalcemia Calcium gluconate 2 g IV now Heme/ID: Leukocytosis Anemia of chronic disease Monitor CBC. WBC count noted 12 04/02 Blood cultures 2 negative growth to date Obtain urine culture Influenza nasal wash negative Legionella, pneumococcal urine antigens-negative Continue cefepime Flagyl azithromycin Endocrine: Diabetes mellitus Persistent elevation in glucose secondary to steroids Continue Levemir, Sliding-scale insulin per ICU protocol high dose regimen -- SSI Musculoskeletal: PT evaluation and treat Functional maintenance daily Prophylaxis: GI Prophylaxis Protonix DVT Prophylaxis -- SCDs Heparin every 8 hours Lines: Peripheral IVs 2 providing adequate access. Central line if indicated Dispo: CCT 30 Discussed with TELEMARKETING SALES REPRESENTATIVE at bedside. Condition is critically ill now with worsening renal function BUN of 144 creatinine of 3.4. Remains encephalopathic failing CPAP trials. Nephrology consulted. Prognosis guarded Palliative care following to determine goals of care in the event that a tracheostomy and PEG placement, family does not want a tracheostomy or PEG tube placement. Plan for aggressive ventilator weaning measures, if unsuccessful tentative plan for possible compassionate withdrawal. Moise Stoll MD Apr 09, 2017 10:21
[2017-04-09] MEDS ORDERED: SODIUM CHLORID 0.9% 500 ML INJ 500 ML IV ONE (10:30)
[2017-04-09] MEDS ORDERED: SODIUM CHLOR 0.45% 1000 ML INJ 1,000 ML IV SCH (10:30)
--- NOTE | 2017-04-09 12:33 | HHI.HCPN ---
Reason for visit a. To assist with evaluation and management of symptoms including: Shortness of breath, anxiety/agitation. b. To assist medical decision maker(s) with: better understanding of current medical conditions; weighing benefits/burdens of medical treatment options; making medical treatment decisions. . Subjective/Interval History Palliative care follow-up for further clarifications of goals of care. Patient seen in medical ICU. Endotracheally intubated on mechanical ventilation. Sedation off during my visit. Patient opening eyes to voice and tactile stimuli , restless. Tracking with eyes but not following any commands. Currently on 45 % FiO2. Has been unable to tolerate CPAP trials, currently on day 4 of endotracheal intubation. Kidney function, BUN/creatinine 144/3.37 from 116/ 2.42. Nephrology has been consulted, pending recommendations. Met with patient's Carley, daughters Haily and Delilah and granddaughters Ferny and Marilyn. Reviewed events leading to this hospitalization, clinical course and current medical management. Patient's and daughter Haily with a very good understanding of patient's clinical condition and plan of care. Shared concerns of patient high risk for further complications, continue decline and given multiple chronic ongoing comorbidities, respiratory failure, dementia and physical deconditioning. Reviewed advance directives, no living will has been completed as per family. Shared concerns of patient's ability to medically extubate given the above. Reviewed likelihood of trach and PEG if patient is unable to medically extubate. Patient 's verbalized that patient would never be in agreement with tracheostomy or PEG tube placement. Goal of therapy at this time is to allow a few more days for clinical improvement, continue attempts at medical extubation. Family verbalized that they will NOT proceed with tracheostomy or PEG tube if patient is unable to medically extubate. Reviewed that at that time compassionate withdrawal of life support would be available. Discussed risks, benefits and limitations of CPR given patient's condition. Family requesting full code at this time while awaiting for additional family members. Patient's siblings arriving today from [place]. Family receptive to palliative care follow-up on Wednesday. Case reviewed with bedside RN Millie and guest request runner Tim. . Family/friend interactions See interval note. . Advance Directives Living Will: Never completed Health Care Surrogate: Never completed Durable Power of Workforce Advisor: Copy in medical record Advance Directive Specifics Date completed: 02/26/2014. . Health Care Surrogate(s): Only daughter power of consumer attorney has been completed. No living will or designation of healthcare surrogate completed as per family. As per [place] statute, healthcare proxy decision-making falls to patient's Carley Lora. . Significant change in goals: Goals aggressive at this time. . Objective Vital Signs Date Time Temp Pulse Resp B/P (MAP) Pulse Ox O2 Delivery O2 Flow Rate FiO2 04/09/17 12:00 60 04/09/17 10:59 95 50 04/09/17 10:00 57 04/09/17 10:00 63 04/09/17 08:20 96 45 04/09/17 08:00 57 04/09/17 08:00 97.4 57 17 93/52 (66) 96 04/09/17 06:00 55 04/09/17 04:00 97.9 55 15 97/53 (68) 95 04/09/17 04:00 55 04/09/17 04:00 60 04/09/17 03:24 93 60 04/09/17 02:00 57 04/09/17 00:00 97.6 54 7 91/53 (66) 97 04/09/17 00:00 54 04/09/17 00:00 60 04/08/17 22:00 59 04/08/17 20:22 5 60 04/08/17 20:00 97.9 61 12 96/52 (67) 96 04/08/17 20:00 61 04/08/17 20:00 60 04/08/17 18:00 62 04/08/17 16:30 67 17 118/56 (76) 92 04/08/17 16:00 45 04/08/17 16:00 98.6 63 16 86/52 (63) 92 04/08/17 16:00 63 04/08/17 15:22 95 45 04/08/17 14:00 63 Intake & Output 04/09/17 04/09/17 07:00 19:00 Intake Total 3578 ml Output Total 125 ml Balance 3453 ml IV Total 2486 ml Tube Feeding 492 ml Other 600 ml Output Urine Total 125 ml # Bowel Movements 0 Physical Exam CONSTITUTIONAL/GENERAL: This is an adequately nourished patient in moderate distress secondary to restlessness. Sedation off at this time. TUBES/LINES/DRAINS: ETT, OG, Locke catheter, PIV's, SCDs, bilateral soft wrist restraints. SKIN: No jaundice, rashes, or lesions. Ecchymoses on upper extremities. No wounds seen anteriorly. Skin temperature appropriate. Not diaphoretic. HEAD: Atraumatic. Normocephalic. EYES: Pupils equal and round and reactive. No scleral icterus. No injection or drainage. ENT: Hearing grossly normal. Nose without bleeding or purulent drainage. Moist oral mucosa. Moderate amount of clear oral secretions noted. NECK: Trachea midline. Supple. CARDIOVASCULAR: Regular rate and rhythm without murmurs, gallops, or rubs. Peripheral pulses symmetric. RESPIRATORY/CHEST: Symmetric, unlabored respirations. Endotracheally intubated on mechanical ventilation. Scattered rhonchi. GASTROINTESTINAL: Abdomen large, round, obese. Bowel sounds present. GENITOURINARY: Without palpable bladder distension. Locke catheter in place. MUSCULOSKELETAL: Extremities without clubbing, cyanosis. No mottling or clubbing. Edema to bilateral arms. NEUROLOGICAL: Sedation. Tracking with eyes, not following any commands. PSYCHIATRIC: Restless, agitated. . Diagnostic Tests Laboratory Laboratory Tests Test 04/07/17 03:17 04/07/17 05:31 04/07/17 07:20 04/08/17 04:28 White Blood Count 9.7 TH/MM3 (4.0-11.0) 10.8 TH/MM3 (4.0-11.0) Red Blood Count 4.00 MIL/MM3 (4.50-5.90) 3.99 MIL/MM3 (4.50-5.90) Hemoglobin 11.7 GM/DL (13.0-17.0) 11.5 GM/DL (13.0-17.0) Hematocrit 35.1 % (39.0-51.0) 35.3 % (39.0-51.0) Mean Corpuscular Volume 87.8 FL (80.0-100.0) 88.5 FL (80.0-100.0) Mean Corpuscular Hemoglobin 29.2 PG (27.0-34.0) 28.8 PG (27.0-34.0) Mean Corpuscular Hemoglobin Concent 33.3 % (32.0-36.0) 32.5 % (32.0-36.0) Red Cell Distribution Width 14.9 % (11.6-17.2) 14.8 % (11.6-17.2) Platelet Count 178 TH/MM3 (150-450) 153 TH/MM3 (150-450) Mean Platelet Volume 8.9 FL (7.0-11.0) 9.3 FL (7.0-11.0) Neutrophils (%) (Auto) 92.8 % (16.0-70.0) Lymphocytes (%) (Auto) 2.2 % (9.0-44.0) Monocytes (%) (Auto) 4.9 % (0.0-8.0) Eosinophils (%) (Auto) 0.0 % (0.0-4.0) Basophils (%) (Auto) 0.1 % (0.0-2.0) Neutrophils # (Auto) 9.0 TH/MM3 (1.8-7.7) Lymphocytes # (Auto) 0.2 TH/MM3 (1.0-4.8) Monocytes # (Auto) 0.5 TH/MM3 (0-0.9) Eosinophils # (Auto) 0.0 TH/MM3 (0-0.4) Basophils # (Auto) 0.0 TH/MM3 (0-0.2) CBC Comment DIFF FINAL Differential Comment Blood Urea Nitrogen 85 MG/DL (7-18) 116 MG/DL (7-18) Creatinine 1.61 MG/DL (0.60-1.30) 2.42 MG/DL (0.60-1.30) Random Glucose 345 MG/DL (74-106) 338 MG/DL (74-106) Calcium Level 8.4 MG/DL (8.5-10.1) 7.0 MG/DL (8.5-10.1) Sodium Level 151 MEQ/L (136-145) 154 MEQ/L (136-145) Potassium Level 3.7 MEQ/L (3.5-5.1) 3.9 MEQ/L (3.5-5.1) 3.9 MEQ/L (3.5-5.1) Chloride Level 112 MEQ/L (98-107) 116 MEQ/L (98-107) Carbon Dioxide Level 31.7 MEQ/L (21.0-32.0) 29.2 MEQ/L (21.0-32.0) Anion Gap 7 MEQ/L (5-15) 9 MEQ/L (5-15) Estimat Glomerular Filtration Rate 51 ML/MIN (>89) 32 ML/MIN (>89) Blood Gas Puncture Site LT RADIAL Blood Gas Patient Temperature 98.6 Blood Gas HCO3 29 mmol/L (22-26) Blood Gas Base Excess 5.3 mmol/L (-2-2) Blood Gas Oxygen Saturation 95 % (90-100) Arterial Blood pH 7.45 (7.380-7.420) Arterial Blood Partial Pressure CO2 43 mmHg (38-42) Arterial Blood Partial Pressure O2 94 mmHg (61-120) Arterial Blood Oxygen Content 16.0 Vol % (12.0-20.0) Arterial Blood Carboxyhemoglobin 0.7 % (0-4) Arterial Blood Methemoglobin 1.6 % (0-2) Blood Gas Hemoglobin 12.0 G/DL (12.0-16.0) Oxygen Delivery Device VENTILATOR Blood Gas Ventilator Setting Blood Gas Inspired Oxygen 55 % Phosphorus Level 4.1 MG/DL (2.5-4.9) 3.7 MG/DL (2.5-4.9) Total Protein 5.6 GM/DL (6.4-8.2) Magnesium Level 3.3 MG/DL (1.5-2.5) Protein Corrected Calcium 7.8 MG/DL (8.5-10.1) Test 04/08/17 06:00 04/09/17 06:15 Blood Gas Puncture Site RT RADIAL Blood Gas Patient Temperature 98.6 Blood Gas HCO3 26 mmol/L (22-26) Blood Gas Base Excess 2.3 mmol/L (-2-2) Blood Gas Oxygen Saturation 91 % (90-100) Arterial Blood pH 7.44 (7.380-7.420) Arterial Blood Partial Pressure CO2 40 mmHg (38-42) Arterial Blood Partial Pressure O2 71 mmHg (61-120) Arterial Blood Oxygen Content 15.2 Vol % (12.0-20.0) Arterial Blood Carboxyhemoglobin 0.6 % (0-4) Arterial Blood Methemoglobin 1.6 % (0-2) Blood Gas Hemoglobin 11.8 G/DL (12.0-16.0) Oxygen Delivery Device VENTILATOR Blood Gas Ventilator Setting Blood Gas Inspired Oxygen 50 % White Blood Count 12.6 TH/MM3 (4.0-11.0) Red Blood Count 3.72 MIL/MM3 (4.50-5.90) Hemoglobin 10.7 GM/DL (13.0-17.0) Hematocrit 33.1 % (39.0-51.0) Mean Corpuscular Volume 89.1 FL (80.0-100.0) Mean Corpuscular Hemoglobin 28.9 PG (27.0-34.0) Mean Corpuscular Hemoglobin Concent 32.4 % (32.0-36.0) Red Cell Distribution Width 14.9 % (11.6-17.2) Platelet Count 119 TH/MM3 (150-450) Mean Platelet Volume 9.7 FL (7.0-11.0) Blood Urea Nitrogen 144 MG/DL (7-18) Creatinine 3.37 MG/DL (0.60-1.30) Random Glucose 167 MG/DL (74-106) Total Protein 5.1 GM/DL (6.4-8.2) Calcium Level 6.8 MG/DL (8.5-10.1) Phosphorus Level 4.4 MG/DL (2.5-4.9) Magnesium Level 3.3 MG/DL (1.5-2.5) Sodium Level 150 MEQ/L (136-145) Potassium Level 4.4 MEQ/L (3.5-5.1) Chloride Level 114 MEQ/L (98-107) Carbon Dioxide Level 26.9 MEQ/L (21.0-32.0) Anion Gap 9 MEQ/L (5-15) Estimat Glomerular Filtration Rate 22 ML/MIN (>89) Protein Corrected Calcium 7.8 MG/DL (8.5-10.1) Result Diagram: 04/09/1715 04/09/1715 Microbiology Microbiology Date/Time Source Procedure Growth Status 04/01/17 12:28 Blood Peripheral Aerobic Blood Culture - Final NO GROWTH IN 5 DAYS Complete 04/01/17 12:28 Blood Peripheral Anaerobic Blood Culture - Final NO GROWTH IN 5 DAYS Complete 04/06/17 12:15 Sputum Oral Tracheal Aspirate Gram Stain - Final Complete 04/06/17 12:15 Sputum Oral Tracheal Aspirate Sputum Culture - Final MODERATE GROWTH NORMAL RESPIRATORY ANIA Complete 04/04/17 17:40 Urine Catheterized Urine Streptococcus pneumoniae Antigen (M - Final PRESUMPTIVE NEGATIVE FOR STREPTOCOCCU... Complete Imaging Last 48 hours Impressions Chest X-Ray 04/09/17 0600 Signed Impressions: Service Date/Time: Sunday, April 09, 2017 03:44 - CONCLUSION: 1. Stable exam with mild basilar airspace disease. No pneumothorax. Tha Wilhelm MD Procedures * 04/06/17 -endotracheal intubation . Assessment and Plan Disease Oriented Problem List: (1) Acute respiratory failure (2) Pulmonary edema (3) Chronic diastolic congestive heart failure (4) Dementia (5) Diabetes mellitus Symptom Scale: (1) Shortness of breath 0-10 Scale: Unable to quantify (2) Pain 0-10 Scale: 10 (3) Debility 0-10 Scale: Unable to quantify Pertinent Non-Medical Issues Psychosocial: Patient's family is originally from [place]. Patient was born in [facility]. Patient moved to [place] approximately 4 years ago. Patient has been for over 30 years, they have 4 children together. 2 sons who live in [place], one daughter who resides locally and another daughter who is is still in [facility]. 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 Spiritual: Voodoo. Legal: POA completed. Ethical issues impacting care: No ethical lesions identified. . Important Contacts Ned Lora , . . Prognosis Mr. Lora 71-year-old male with a medical history significant for dementia, CHF , diabetes mellitus, history of CVA. Patient is a resident of a long-term memory care unit. Currently admitted for respiratory failure requiring intubation and mechanical ventilation. Very high risk for further complications , continue decline and . Guarded prognosis. . Code Status: Full Code Plan * CODE STATUS: Full code. Risks, benefits and limitations of CPR discussed with patient's family given patient's condition. [facility] requesting full code at this time. * HEALTHCARE DECISION-MAKING: Patient incapacitated for medical decision-making given baseline dementia and critical condition. Patient will not regain medical decision-making capacity. POA completed but only includes financial matters. As per [place] statute, healthcare proxy decision-making falls to patient's Carley Lora. is fully supported by ned Lora who is a nurse. Palliative care recommends to include patient's daughter Haily in all goals of care conversations with . * GOALS OF CARE: Family electing to continue aggressive management to include full code. Family verbalized NOT likely to proceed with tracheostomy or PEG tube placement if patient is unable to medically extubate, compassionately withdrawal life support discussed at length. Family awaiting for additional family members to arrive. Receptive to f/u goals of care conversation with palliative care. * SYMPTOMS: = Shortness of breath, secondary to respiratory failure, pulmonary edema, CHF. Currently intubated on mechanical ventilation. = Debility: Progressive. Patient resident of long-term facility. = Pain: No defect oral. History of chronic pain. Currently on fentanyl drip. Appears comfortable. * Case discussed with bedside RN Millie and guest request runner Josué. * Palliative care contact information has been provided to patient's family. * Palliative care will continue to follow-up for further clarifications of goals of care as patient's clinical course continue to evolve. . Time Spent Total Floor Time (mins): 37 (Total time to include review of medical records, physical exam, goals of care conversation with patient's family, case discussion with bedside RN and guest request runner.) >50% Counseling/Coord of Care: Yes Attestation To help prompt me to consider important information that might be impacting today's encounter and assessment, information from prior notes written by myself or my colleagues may have been "brought forward" into today's note. My signature on this note, however, is an attestation that I personally performed the exam, history, and/or decision-making noted today, and, unless otherwise indicated, the interactions with patient, family, and staff as well as the review of records all occurred today. I also attest that the listed assessment and stated plan reflect my best clinical judgment today based on the combination of historical information, prior notes, and today's exam/ interactions. When time spent is documented, it refers only to time spent today by the signer, or if indicated, combined time spent today by collaborating physician/nurse practitioner. Mercedes Blanco Apr 09, 2017 12:33
--- NOTE | 2017-04-09 13:00 | PD.CONS ---
HPI Service Nephrology Consult Requested By Reason for Consult Acute Renal Failure Primary Care Physician Kee Dugan MD History of Present Illness This is a 71 y/o AAM patient who was admitted from dementia LTC facility for shortness of breath, recent URI on 04/01. He was placed on BiPap 04/03, required intubation on 04/06. His baseline creatinine is 1.1-1.2. On arrival it was 1.5, improved slightly and venus to 3.37 today. His serum sodium is 150, urine output has slowed (400 ml yesterday, less than 200 ml today). PMH includes dementia, DM II, HTN, CHF. His BP has varied from 200s to 80s systolic. We were consulted to assist with management. His family is at the bedside. (Aliyah Onofre) Review of Systems ROS Limitations: Clinical Condition, Intubated, Unresponsive (Aliyah Onofre) Past Family Social History Allergies: Coded Allergies: No Known Allergies (Unverified , 03/19/15) Past Medical History Dementia Anemia Anxiety Hypertension CHF History CVA Diabetes Past Surgical History History of surgery for hemorrhoid Reported Medications Rocephin 2 Gram Addvantage (Ceftriaxone Sodium) 2 Gm Inj 2 Gm IV DAILY 12 Days Namenda (Memantine HCl) 10 Mg Tab 10 Mg PO BID Start taking after Namenda 5 mg twice a day is completed Ecotrin Low Strength (Aspirin) 81 Mg Tabec 81 Mg PO DAILY Reported Hm Omeprazole (Omeprazole) 20 Mg Tab 20 Mg PO DAILY Seroquel 25 mg (Quetiapine Fumarate) 25 Mg Tab 12.5 Mg PO BID Glipizide 10 Mg Tab 10 Mg PO DAILY Xanax 0.25 Mg (Alprazolam) Alprazolam 0.25 mg Tab 1 Tab PO HS Vitamin C (Calcium Ascorbate) 500 Mg Tab 500 Mg PO BID Aricept (Donepezil HCl) 5 Mg Tab 10 Mg PO DAILY Lotensin 20 mg (Benazepril HCl) 20 Mg Tab 1 Tab PO BID Vitamin D-[address] (Cholecalciferol) 1,000 Unit Tab 1,000 Unit PO DAILY Gilford 7.5-325 mg (Hydrocodone-Acetaminophen 7.5-325 mg) 7.5 Mg/325 Mg Tab 1 Tab PO Q4H PRN Multi-Vitamin Daily (Multivitamins) Daily Tab 1 Tab PO DAILY Novolog Insulin Supplemental Scale (Insulin Aspart) 100 /Ml Inj 1 Unit .XX .XX Glucophage XR 24 HR (Metformin HCl) 500 Mg Tab 500 Mg PO BIDPC Lasix (Furosemide) 40 Mg Tab 40 Mg PO DAILY Zofran ODT (Ondansetron HCl) 4 Mg Tab 4 Mg SL Q6H PRN FOR NAUSEA/VOMITING Hydralazine HCl 10 Mg Tab 10 Mg PO Active Ordered Medications Current Medications Medications (Trade) Dose Ordered Sig/Vijay Route Start Time Stop Time Status Last Admin (NS Flush) 2 ml UNSCH PRN IVF 04/01/17 12:15 04/05/17 08:23 (Vitamin D3) 1,000 units DAILY PO 04/02/17 09:00 04/09/17 08:08 (Aricept) 10 mg DAILY PO 04/02/17 09:00 04/09/17 08:08 (Gilford 7.5-325 Mg) 1 tab Q4H PRN PO 04/01/17 14:45 04/02/17 17:00 (Namenda) 10 mg BID PO 04/01/17 21:00 04/09/17 08:08 (Zofran Odt) 4 mg Q6H PRN SL 04/01/17 14:45 (Ecotrin Ec) 81 mg DAILY PO 04/02/17 09:00 04/09/17 08:08 (Vitamin C) 500 mg BID PO 04/01/17 21:00 04/09/17 08:07 (Heparin Inj) 5,000 units Q8H SQ 04/01/17 16:00 04/09/17 08:08 (Duoneb Neb) 1 ampule Q2HR NEB PRN NEB 04/01/17 14:45 (Pill Splitter) 1 ea UNSCH PRN OTHER 04/01/17 15:15 Miscellaneous Information Patient in critical care unit? Ass... Q361D .XX 04/02/17 00:15 04/02/17 00:15 (SEROquel) 25 mg BID PO 04/02/17 21:00 Future Hold 04/05/17 09:36 (Vasotec Inj) 1.25 mg Q6H PRN IV PUSH 04/03/17 11:30 04/05/17 12:53 (Apresoline) 10 mg Q8HR PO 04/03/17 16:30 04/04/17 21:00 (Symbicort 160-4.5 Mcg Inh) 2 puff Q12HR INH 04/03/17 21:00 04/05/17 09:33 Azithromycin 500 mg/Sodium Chloride 250 ml @ 250 mls/hr Q24H IV 04/03/17 18:00 04/08/17 17:16 (Haldol Inj) 2 mg Q8HR PRN IV PUSH 04/04/17 10:45 04/05/17 22:47 (Apresoline Inj) 20 mg Q4H PRN IV PUSH 04/04/17 17:00 04/05/17 22:47 (Protonix Inj) 40 mg Q24H IV PUSH 04/04/17 17:00 04/08/17 16:06 Metronidazole 100 ml @ 100 mls/hr Q8H IV 04/04/17 18:00 04/09/17 09:21 (Cozaar) 100 mg DAILY PO 04/05/17 10:00 Future Hold 04/07/17 08:19 (Peridex 0.12% Liq) 15 ml BID@08,20 MT 04/06/17 08:00 04/09/17 08:10 Propofol 100 ml @ 37.74 mls/ hr TITRATE PRN IV 04/06/17 01:45 04/09/17 03:17 (Duoneb Neb) 1 ampule Q6HR NEB NEB 04/06/17 16:00 04/09/17 08:20 (Peridex 0.12% Liq) 15 ml BID@08,20 MT 04/06/17 20:00 Fentanyl Citrate 250 ml @ 5 mls/hr TITRATE PRN IV 04/06/17 08:45 04/09/17 03:17 (Prinivil) 20 mg BID PO 04/06/17 09:00 Future Hold 04/07/17 20:49 Miscellaneous Information D/C ICU ELECTROLYTE ORDERS... UNSCH PRN .XX 04/06/17 20:00 Miscellaneous Information ICU - CALL ORDERING PHYSIC... UNSCH PRN .XX 04/06/17 20:00 Potassium Chloride 100 ml @ 25 mls/hr UNSCH PRN IV 04/06/17 20:00 (K-Lyte Cl Eff) 50 meq UNSCH PRN PO 04/06/17 20:00 Potassium Chloride 100 ml @ 50 mls/hr UNSCH PRN IV 04/06/17 20:00 Magnesium Sulfate 4 gm/Sodium Chloride 108 ml @ 54 mls/hr UNSCH PRN IV 04/06/17 20:00 Magnesium Sulfate 2 gm/Sodium Chloride 104 ml @ 52 mls/hr UNSCH PRN IV 04/06/17 20:00 (Mag-Ox) 800 mg UNSCH PRN PO 04/06/17 20:00 Sodium Phosphate 30 mmol/Sodium Chloride 260 ml @ 43.333 mls/ hr UNSCH PRN IV 04/06/17 20:00 (K-Phos) 2,000 mg UNSCH PRN PO 04/06/17 20:00 Potassium Phosphate 30 mmol/ Sodium Chloride 260 ml @ 43.333 mls/ hr UNSCH PRN IV 04/06/17 20:00 04/06/17 21:14 (Levemir Inj) 15 units BID SQ 04/07/17 21:00 04/08/17 08:03 Cefepime HCl 2000 mg/Sodium Chloride 100 ml @ 200 mls/hr Q12H IV 04/08/17 22:00 04/09/17 09:21 (SoluMEDROL INJ) 40 mg Q8H IV PUSH 04/08/17 17:00 04/09/17 08:09 Insulin Human Regular 100 units/ Sodium Chloride 100 ml @ 2 mls/hr TITRATE PRN IV 04/08/17 12:45 04/08/17 20:50 (D50w (Vial) Inj) 50 ml UNSCH PRN IV PUSH 04/08/17 12:45 (Free Water) 400 ml Q6HR G-TUBE 04/09/17 18:00 UNV (Diuril Inj) 250 mg ONCE ONCE IV 04/09/17 12:30 04/09/17 12:31 UNV Sodium Chloride 38.5 meq/Sterile Water 1,009.625 ml @ 30 mls/hr Q24H IV 04/09/17 12:30 UNV Family History No hx of renal impairment Social History Lives at longterm No smoking Hx + ETOH history (Aliyah Onofre) Physical Exam Vital Signs Vital Signs Date Time Temp Pulse Resp B/P (MAP) Pulse Ox O2 Delivery O2 Flow Rate FiO2 04/09/17 12:00 60 04/09/17 10:59 95 50 04/09/17 10:00 57 04/09/17 10:00 63 04/09/17 08:20 96 45 04/09/17 08:00 57 04/09/17 08:00 97.4 57 17 93/52 (66) 96 04/09/17 06:00 55 04/09/17 04:00 97.9 55 15 97/53 (68) 95 04/09/17 04:00 55 04/09/17 04:00 60 04/09/17 03:24 93 60 04/09/17 02:00 57 04/09/17 00:00 97.6 54 7 91/53 (66) 97 04/09/17 00:00 54 04/09/17 00:00 60 04/08/17 22:00 59 04/08/17 20:22 5 60 04/08/17 20:00 97.9 61 12 96/52 (67) 96 04/08/17 20:00 61 04/08/17 20:00 60 04/08/17 18:00 62 04/08/17 16:30 67 17 118/56 (76) 92 04/08/17 16:00 45 04/08/17 16:00 98.6 63 16 86/52 (63) 92 04/08/17 16:00 63 04/08/17 15:22 95 45 04/08/17 14:00 63 Physical Exam Elderly AAM, off sedation slightly agitated S1/S2, RRR Lungs clear in upper carcamo, decreased in bases Abdomen obese, soft, + BS Ext 2-3+ edema Laboratory Laboratory Tests Test 04/09/17 06:15 White Blood Count 12.6 Red Blood Count 3.72 Hemoglobin 10.7 Hematocrit 33.1 Mean Corpuscular Volume 89.1 Mean Corpuscular Hemoglobin 28.9 Mean Corpuscular Hemoglobin Concent 32.4 Red Cell Distribution Width 14.9 Platelet Count 119 Mean Platelet Volume 9.7 Blood Urea Nitrogen 144 Creatinine 3.37 Random Glucose 167 Total Protein 5.1 Calcium Level 6.8 Phosphorus Level 4.4 Magnesium Level 3.3 Sodium Level 150 Potassium Level 4.4 Chloride Level 114 Carbon Dioxide Level 26.9 Anion Gap 9 Estimat Glomerular Filtration Rate 22 Protein Corrected Calcium 7.8 Date/Time Source Procedure Growth Status 2/1/18 12:28 Blood Peripheral Aerobic Blood Culture - Final NO GROWTH IN 5 DAYS Complete 04/01/17 12:28 Blood Peripheral Anaerobic Blood Culture - Final NO GROWTH IN 5 DAYS Complete 04/06/17 12:15 Sputum Oral Tracheal Aspirate Gram Stain - Final Complete 04/06/17 12:15 Sputum Oral Tracheal Aspirate Sputum Culture - Final MODERATE GROWTH NORMAL RESPIRATORY ANIA Complete 04/04/17 17:40 Urine Catheterized Urine Streptococcus pneumoniae Antigen (M - Final PRESUMPTIVE NEGATIVE FOR STREPTOCOCCU... Complete (Aliyah Onofre) Result Diagram: 04/09/1761404/09/17 0615 Imaging Last 72 hours Impressions Chest X-Ray 04/09/17 0600 Signed Impressions: Service Date/Time: Sunday, April 09, 2017 03:44 - CONCLUSION: 1. Stable exam with mild basilar airspace disease. No pneumothorax. Tha Wilhelm MD Chest X-Ray 04/07/17 06 Signed Impressions: Service Date/Time: Friday, April 07, 2017 03:48 - CONCLUSION: Stable chest x-ray with underinflation with mild bibasilar opacity likely representing atelectasis. Jerman Benitez MD (Aliyah Onofre) Assessment and Plan Problem List: (1) Acute renal failure ICD Codes: N17.9 - Acute kidney failure, unspecified Plan: Baseline creatinine 1.1-1.2 ADALI most likely ATN, possibly from renal hypoperfusion. His blood pressure was 200 systolic and later 90s. His urine output has slowed, he is volume overloaded. Due to hypernatremia, change Lasix to Diuril D/W family he may need dialysis today or tomorrow. They would like to think about it Avoid nephrotoxic agents. Lisinopril on hold. Obtain renal US. Repeat labs. (2) Chronic diastolic congestive heart failure ICD Codes: I50.32 - Chronic diastolic (congestive) heart failure Plan: Diuresis as above Echo shows LVH, EF 50-55%. 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 On 50% FiO2. (4) Diabetes mellitus ICD Codes: E11.9 - Diabetes mellitus Status: Acute Plan: On insulin gtt, maintain glucose 140-180 mg/dL. (5) Hypernatremia ICD Codes: E87.0 - Hyperosmolality and hypernatremia Plan: Increase free water via OG Diuril Start 03/04 NS Code Status Prognosis is guarded Discussed Condition With Family (, daughters, granddaughters) (Aliyah Onofre) Assessment and Plan patient was seen and examined. ADALI could be due to hypotension, ATN. He was diuresed on , and . Patient has hypernatremia with elevation in BUN and creatinine. May need dialysis if family wants aggressive care. Prognosis is guarded. Agree with above assessment and plan. Discussed with Dr. Stoll. Needs dialysis most likely. Will try diuresis. If not successful in the next 12 hours, dialysis. (Carloz Adams MD) Aliyah Onofre Apr 09, 2017 12:59 Carloz Adams MD Apr 09, 2017 15:19
[2017-04-09] MEDS ORDERED: CHLOROTHIAZIDE SOD 500 MG VIAL IV ONE (15:00)
--- NOTE | 2017-04-09 15:44 | RADRPT ---
EXAM DATE/TIME: 04/09/2017 13:55 [facility] COMPARISON: No previous studies available for comparison. EXTERNAL COMPARISON : [facility], CT ABDOMEN & PELVIS W & W/O CONTRAST, June 22, 2014 INDICATIONS : Increased BUN/Creatinine. MEDICAL HISTORY : Congestive heart failure. Gastroesophageal reflux disease. Hypertension. Transi ent ischemic attack. Dementia. Incontinence. Diabetes. Anxiety. Anemia. SURGICAL HISTORY : Hemorrhoidectomy. ENCOUNTER: Initial ACUITY: 1 day PAIN SCORE: Nonresponsive. LOCATION: Bilateral flank MEASUREMENTS: RIGHT KIDNEY: 11.1 x 6.0 x 6.7 cm LEFT KIDNEY: 12.0 x 6.6 x 4.7 cm FINDINGS: RIGHT KIDNEY: Renal cortex is normal in thickness and echotexture. No hydronephrosis, stone, or mass. LEFT KIDNEY: Renal cortex is normal in thickness and echotexture. No hydronephrosis, stone, or m ass. BLADDER: Within normal limits given the degree of distension. CONCLUSION: Limited exam, no hydronephrosis. Normal size kidneys. Marcelino Mc MD FACR on April 09, 2017 at 15:41 Board Certified Radiologist. This report was verified electronically.
[2017-04-09] MEDS: SODIUM CHLORIDE 23.4% INJ 38.5 MEQ in WATER STERILE FOR INJ 1,000 ML IV SCH (15:56)
[2017-04-09 16:23] LABS: ALBUMIN 2.2 GM/DL (3.4-5.0); BICARBONATE 25.2 MEQ/L (21.0-32.0); CALCIUM-PROTEIN CORRECTED 7.6 MG/DL (8.5-10.1); CREATININE 3.65 MG/DL (0.60-1.30); TOTAL BILIRUBIN ADULT 0.3 MG/DL (0.2-1.0); TOTAL PROTEIN 5.9 GM/DL (6.4-8.2)
[2017-04-09] MEDS: PANTOPRAZOLE SODIUM 40 MG VIAL IV PUSH SCH (16:41)
[2017-04-09] MEDS: AZITHROMYCIN INJ 500 MG in SODIUM CHLOR 0.9% 250 ML INJ 250 ML IV SCH (17:29)
[2017-04-09] MEDS: FUROSEMIDE 100 MG/10 ML VIAL IV PUSH SCH ×2 (17:57→21:41)
[2017-04-09] MEDS: INSULIN REGULAR (IV INFUSION) 100 UNITS in SODIUM CHLORIDE 0.9% INJ 99 ML IV PRN (21:43)
[2017-04-10] VITALS (18 sets, daily range): BP systolic 95–151; BP diastolic 53–73; PULSE 58–66; RESP 14–22; TEMP 97.5–98.2; O2SAT 91–96
[2017-04-10] MEDS: methylPREDNISolone SOD SUCC 40 MG/1 ML VIAL IV PUSH SCH ×3 (00:43→17:49)
[2017-04-10] MEDS: metroNIDAZOLE 500 MG INJ 100 ML IV SCH ×3 (00:43→17:47)
[2017-04-10] MEDS: HEPARIN SODIUM - SQ 10,000 UNITS/ML VIAL SQ SCH ×4 (00:43→23:36)
[2017-04-10] MEDS: PROPOFOL 1000 MG/100 ML INJ 100 ML IV PRN ×2 (04:07→18:02)
[2017-04-10] MEDS: RESP: ALBUTEROL 2.5 MG/IPRATROPIUM 0.5 MG NEB (SCH) NEB ×3 (04:32→15:26)
[2017-04-10] MEDS: hydrALAZINE HCL 10 MG TAB PO SCH ×3 (05:29→22:00)
[2017-04-10] MEDS: FREE WATER G-TUBE SCH ×5 (05:36→23:36)
[2017-04-10] MEDS: FUROSEMIDE 100 MG/10 ML VIAL IV PUSH SCH ×3 (05:36→22:01)
[2017-04-10 06:01] LABS: AUTOMATED NEUTROPHIL # 13.6 TH/MM3 (1.8-7.7); HEMATOCRIT 33.5 % (39.0-51.0); HEMOGLOBIN 10.8 GM/DL (13.0-17.0); LYMPH % 2.9 % (9.0-44.0); LYMPHOCYTE # 0.4 TH/MM3 (1.0-4.8); MEAN CELL VOLUME 89.1 FL (80.0-100.0); MEAN CORPUSCULAR HEMOGLOBIN 28.7 PG (27.0-34.0); MEAN CORPUSCULAR HGB CONC 32.2 % (32.0-36.0); MEAN PLATELET VOLUME 9.8 FL (7.0-11.0); MONO % 4.7 % (0.0-8.0); MONOCYTE # 0.7 TH/MM3 (0-0.9); NEUT % 92.4 % (16.0-70.0); PLATELET COUNT 120 TH/MM3 (150-450); RED BLOOD COUNT 3.76 MIL/MM3 (4.50-5.90); WHITE BLOOD COUNT 14.8 TH/MM3 (4.0-11.0)
--- NOTE | 2017-04-10 06:06 | RADRPT ---
EXAM DATE/TIME: 04/10/2017 03:45 [facility] COMPARISON: CHEST SINGLE AP, April 09, 2017, 3:44. INDICATIONS : Shortness of breath, possible pulmonary disease. MEDICAL HISTORY : Hypertension. Diabetes mellitus type II. Dementia SURGICAL HISTORY : None. ENCOUNTER: Subsequent ACUITY: 1 week PAIN SCORE: Non-responsive. LOCATION: Bilateral chest FINDINGS: A single view of the chest demonstrates endotracheal tube in good position. NG enters stomach. Bilate ral mostly basilar airspace disease and small effusions similar to April 09. No pneumothorax. CONCLUSION: 1. Basilar airspace disease and pleural effusions similar to April 09. Endotracheal tube and nasoga stric tube in good position. Tha Wilhelm MD on April 10, 2017 at 6:03 Board Certified Radiologist. This report was verified electronically.
[2017-04-10] MEDS: fentaNYL 2,500 MCG/NS 250 ML IV PRN (06:36)
[2017-04-10 07:22] LABS: ALBUMIN 1.9 GM/DL (3.4-5.0); BICARBONATE 25.6 MEQ/L (21.0-32.0); CALCIUM-PROTEIN CORRECTED 8.1 MG/DL (8.5-10.1); CREATININE 4.25 MG/DL (0.60-1.30); MAGNESIUM 3.3 MG/DL (1.5-2.5); TOTAL BILIRUBIN ADULT 0.3 MG/DL (0.2-1.0); TOTAL PROTEIN 5.1 GM/DL (6.4-8.2)
[2017-04-10] MEDS: CHLORHEXIDINE 0.12% (ORAL KIT) 15 ML CUP MT SCH ×4 (08:00→20:21)
[2017-04-10] MEDS: CHOLECALCIFEROL (VIT D3) 1000 UNIT TAB PO SCH (08:10)
[2017-04-10] MEDS: MEMANTINE HCL 10 MG TAB PO SCH ×2 (08:10→20:21)
[2017-04-10] MEDS: ASPIRIN EC 81 MG TABEC PO SCH (08:10)
[2017-04-10] MEDS: ASCORBIC ACID 500 MG TAB PO SCH ×2 (08:10→20:21)
[2017-04-10] MEDS: DONEPEZIL HCL 5 MG TAB PO SCH (08:11)
[2017-04-10] MEDS: CEFEPIME INJ 2,000 MG in SODIUM CHLORIDE 0.9% INJ 100 ML IV SCH ×2 (08:13→22:00)
[2017-04-10] MEDS: BUDESONIDE-FORMOTEROL 160/4.5 MCG INHALER INH SCH ×2 (08:15→20:21)
[2017-04-10] MEDS: INSULIN DETEMIR 100 UNITS/ML VIAL SQ SCH ×2 (08:16→20:21)
--- NOTE | 2017-04-10 11:32 | HHI.NPPN ---
Subjective Additional Remarks Patient is on the vent. sedated, clinically same. Objective Data Data Vital Signs Date Time Temp Pulse Resp B/P (MAP) Pulse Ox O2 Delivery O2 Flow Rate FiO2 04/10/17 08:03 50 04/10/17 08:03 95 50 04/10/17 06:00 59 04/10/17 04:32 91 50 04/10/17 04:00 58 04/10/17 04:00 97.8 58 14 101/55 (70) 91 04/10/17 04:00 50 04/10/17 02:00 61 04/10/17 00:00 97.9 63 16 151/65 (93) 93 04/10/17 00:00 63 04/10/17 00:00 50 04/09/17 23:31 95 50 04/09/17 22:00 58 04/09/17 20:00 97.9 64 24 117/58 (77) 92 04/09/17 20:00 50 04/09/17 20:00 64 04/09/17 19:58 92 50 04/09/17 18:00 63 04/09/17 16:08 5 50 04/09/17 16:00 67 04/09/17 16:00 50 04/09/17 16:00 98.1 67 17 135/68 (90) 96 04/09/17 14:00 61 04/09/17 12:00 97.9 60 14 130/72 (91) 94 04/09/17 12:00 50 04/09/17 12:00 60 -: 04/10/17 0400 04/10/17 0400 Physical Exam General Appearance Remarks Intubated and sedated. Eyes Eye Exam: Pupils Equal Pulmonary Resp Exam: Crackles, Rhonchi, Decreased Bases, Diminished Breath Sounds, Poor Inspiratory Effort Cardiology CV Exam: Regular, Normal Sinus Rhythm Gastrointestinal/Abdomen GI Exam: Soft, Non-Tender, Distended Extremeties Extremities Exam: Moderate Edema, Pitting Edema, Dependent Edema Neurologic Neuro Exam: Sedated Assessment/Plan Problem List: (1) Acute renal failure ICD Codes: N17.9 - Acute kidney failure, unspecified Plan: Baseline creatinine 1.1-1.2 ADALI most likely ATN, possibly from renal hypoperfusion. His blood pressure was 200 systolic and later 90s. His urine output has slowed, he is volume overloaded. D/W family he may need dialysis. Avoid nephrotoxic agents. Lisinopril on hold. Renal U/S noted. Non Oliguric, but urine out put is low. Creatinine continue to increase. If no improvement possible Dialysis. D/W his daughter. Continue Lasix. (2) Chronic diastolic congestive heart failure ICD Codes: I50.32 - Chronic diastolic (congestive) heart failure Plan: Diuresis as above Echo shows LVH, EF 50-55%. (3) Acute respiratory failure ICD Codes: J96.00 - Acute respiratory failure, unspecified whether with hypoxia or hypercapnia Plan: Vent management per sole ruffer. On 50% FiO2. (4) Diabetes mellitus ICD Codes: E11.9 - Diabetes mellitus Status: Acute Plan: On insulin gtt, maintain glucose 140-180 mg/dL. (5) Hypernatremia ICD Codes: E87.0 - Hyperosmolality and hypernatremia Plan: Increase free water via OG Diuril Start 03/04 Peter Rios MD Apr 10, 2017 11:32
[2017-04-10] MEDS: SODIUM CHLORIDE 23.4% INJ 38.5 MEQ in WATER STERILE FOR INJ 1,000 ML IV SCH (13:38)
--- NOTE | 2017-04-10 14:00 | HHI.CCPN ---
Subjective Remarks/Hospital Course This is a 71 year old male with history of CHF, diabetes and recent upper respiratory infection presented to the ED with severe short of breath and wheezing on 04/01/17.The patient resides in SNF secondary to to dementia, his daughter requested to transfer patient to hospital due to increase work of breathing even on rest. Patient recently was diagnosed with pneumonia and started on Levaquin and prednisone. I saw patient in the room he was on BiPAP, in ED he was found to have hypercapnic respiratory failure he was given O2 and DuoNeb and a dose of Solu-Medrol, history was restricted due to increase of respiratory work and being on BiPAP, influenza A and B was negative. The patient was then transferred to the medical floor. During the last evening the patient had increased work of breathing, the patient was noted to have frothy pink sputum and BiPAP was ordered. The patient did not receive BiPAP during the night secondary to being combative, and inability to be restrained on BiPAP. The patient's respiratory status continued to worsen, Halicat was initiated the patient received furosemide 40 mg IV early this a.m. and diuresed greater than 1 L. The patient subsequently became hypotensive, and critical care medicine was consulted. Upon presentation to [facility], the patient was compatible requiring 2-point wrist restraints, and subsequently 1 mg of Ativan was administered. The patient continues on BiPAP, echocardiogram was performing cardiology evaluation. O2 saturation was noted improvement 100% on FiO2 of 35%, a normal respiratory rate. Subjective: 2: No acute events overnight. The patient became agitated, removing peripheral IVs, requiring 1 mg of Ativan last evening. Patient continues in restraints for patient safety. The patient continues to have adequate diuresis with Lasix. Patient was changed from CPAP to nasal cannula 6 L/m ABGs performed this afternoon show slight elevation in PCO2 to 63 however patient had been given Ativan for anxiety. Patient will receive 1 dose of Acetazolamide 250 mg. Plan for bedside swallow and advancement of diet. 04/06: Afebrile. Early this a.m. ,the patient became hypoxemic requiring emergent intubation at 5 AM. The patient currently intubated and sedated. ET tube was noted to be near the ese endotracheal tube retracted chest x-ray pending. Dietary consulted for initiation of tube feeds. 04/07: Afebrile. Overnight the patient's noted sodium level elevation with slight elevation in creatinine. Lasix discontinued on 04/06. Chest x-ray unchanged. Oxygenation status slightly improved today plan for initiation of CPAP trials. 04/08: The patient continues to have an elevation in creatinine, Lasix was discontinued on 04/06. BUN also elevated ,free water flushes frequency increased to every 4 hours. Patient fell CPAP trials yesterday after approximately 30 minutes, and continued attempts at CPAP trials. Palliative care was consulted yesterday discussion with family the patient and family would not want a tracheostomy nor PEG placement. Family arriving from [facility] today to visit patient. Continuing aggressive ventilator weaning in attempt to extubate patient. A chin with persistent hyperglycemia most likely secondary to exogenous steroids, placed on high-dose insulin sliding scale, dehydration will bolus with 1/2 NSS this am. 04/09: Remains intubated sedated. Apparently gets agitated on lightening sedation. On 45% FiO2. Chest x-ray remains unchanged. Further worsening of renal function BUN 144 from 116 yesterday, creatinine 2.4 today from 2.4 yesterday. Urine output in 24 hours under 400. Continues to fail CPAP. I have consulted nephrology 04/10: BUN creat continues to rise. 165/4.3. Remans intubated, on lightening sedation, he follows commands on UE. D/W Dr. Zuniga. Will proceed with [facility] for HD starting in am (Renal failure with volume overload) Objective Vital Signs Date Time Temp Pulse Resp B/P (MAP) Pulse Ox O2 Delivery O2 Flow Rate FiO2 04/10/17 12:00 50 04/10/17 12:00 63 04/10/17 11:36 95 04/10/17 08:00 97.9 22 98/53 (68) Intake and Output 04/10/17 04/10/17 04/11/17 08:00 16:00 00:00 Intake Total 1765 ml Output Total 300 ml Balance 1465 ml Result Diagram: 04/10/17 0400 04/10/17 0400 Imaging Last Impressions Chest X-Ray 04/07/17 0600 Signed Impressions: Service Date/Time: Friday, April 07, 2017 03:48 - CONCLUSION: Stable chest x-ray with underinflation with mild bibasilar opacity likely representing atelectasis. Jerman Benitez MD Abdomen X-Ray 04/06/17 0000 Signed Impressions: Service Date/Time: Thursday, April 06, 2017 09:26 - CONCLUSION: 1. Nasogastric tube has its tip in the distal stomach. 2. Mild degenerative changes involving the lumbar spine and hip joints bilaterally. 3. No bowel obstruction or ileus. Jorge Chang MD Last Impressions Chest X-Ray 04/07/17 0600 Signed Impressions: Service Date/Time: Friday, April 07, 2017 03:48 - CONCLUSION: Stable chest x-ray with underinflation with mild bibasilar opacity likely representing atelectasis. Jerman Benitez MD Abdomen X-Ray 04/06/17 0000 Signed Impressions: Service Date/Time: Thursday, April 06, 2017 09:26 - CONCLUSION: 1. Nasogastric tube has its tip in the distal stomach. 2. Mild degenerative changes involving the lumbar spine and hip joints bilaterally. 3. No bowel obstruction or ileus. Jorge Chang MD Last Impressions Chest X-Ray 04/04/17 0000 Signed Impressions: Service Date/Time: Tuesday, April 04, 2017 09:37 - CONCLUSION: 1. Bibasilar atelectasis. Frantz Helms MD Objective Remarks GENERAL: This is an obese chronically ill appearing patient, intubated and sedated SKIN: Warm and dry. HEAD: Atraumatic. Normocephalic. EYES: Pupils equal and round. No scleral icterus. No injection or drainage. ENT: No nasal bleeding or discharge. Orotracheally intubated NECK: Trachea midline. No JVD. CARDIOVASCULAR: Normal rate, regular rhythm. RESPIRATORY: Mild expiratory wheezing, diminished breath sounds throughout lung carcamo, equal bilaterally. GASTROINTESTINAL: Abdomen soft, non-tender, protuberant nondistended. No guarding. Normoactive bowel sounds MUSCULOSKELETAL: Extremities without clubbing, cyanosis, or edema. No obvious deformities. NEUROLOGICAL: RASS -1. Spontaneous movement in all 4 extremities. Following commands on UE. No gross focal/sensory deficits. Procedures 2/6 emergent intubation A/P Assessment and Plan Plan by systems: Neurologic: Dementia History of CVA Agitation Propofol and fentanyl for sedation and analgesia while intubated. Continue Aricept and Namenda Daily sedation vacation, follows commands on UE with sedation hold Continue Haldol 2 mg every 8 hours when necessary for agitation Neurochecks per ICU protocol Respiratory: Acute hypoxemic and hypercapnic respiratory failure History of bronchial asthma and chronic bronchitis Pulmonary edema Pulmonology following Dr. Bay Williamson Solu-Medrol 40 mg every 8 2/6 emergently intubated 8.0 ETT Continues to fail CPAP trials Cardiovascular: Chronic diastolic CHF Cardiology following-Dr. Pace 04/04 echo-EF 50-55% mildly dilated left ventricle, moderately concentric LVH LV systolic function low normal Plan for repeat echo per cardiology in near future Need HD for fluid removal. Currently on Lasix 80 mg IV q8h Renal: Worsening acute kidney failure Worsening BUN and creatinine today 165/4.3 Maintain Locke catheter Strict I/Os, Nephrology following Need HD for fluid removal, patient is fluid overloaded. Currently on Lasix 80 mg IV q8h FEN/GI: Obesity Mild protein calorie malnutrition Electrolyte derangement Glucerna 1.5 goal rate 50 Hydralazine PRN for systolic blood pressure greater than 160 Sodium level 150 free water flushes 200 cc every 4 hours. Hypernatremia, hypocalcemia Calcium gluconate 2 g IV now Heme/ID: Leukocytosis Anemia of chronic disease Monitor CBC. WBC count noted 14 2/2 Blood cultures 2 negative growth to date Obtain urine culture Influenza nasal wash negative Legionella, pneumococcal urine antigens-negative Continue cefepime Flagyl azithromycin Endocrine: Diabetes mellitus Persistent elevation in glucose secondary to steroids Continue Levemir, Sliding-scale insulin per ICU protocol high dose regimen -- SSI Musculoskeletal: PT evaluation and treat Functional maintenance daily Prophylaxis: GI Prophylaxis Protonix DVT Prophylaxis -- SCDs Heparin every 8 hours Lines: Peripheral IVs [address] [facility] Discussed with CLINICAL AUDITOR at bedside. D/W Dr. Zuniga. Plan to start HD in 24 hours Condition is critically ill now with worsening renal function BUN of 165 creatinine of 4.3, fluid overloaded. Remains encephalopathic failing CPAP trials. Nephrology following HD starting tomorrow Palliative care following to determine goals of care in the event that a tracheostomy and PEG placement, family does not want a tracheostomy or PEG tube placement. Plan for aggressive ventilator weaning measures, if unsuccessful tentative plan for possible compassionate withdrawal. Moise Stoll MD Apr 10, 2017 14:00
[2017-04-10] MEDS: PANTOPRAZOLE SODIUM 40 MG VIAL IV PUSH SCH (17:46)
[2017-04-10] MEDS: AZITHROMYCIN INJ 500 MG in SODIUM CHLOR 0.9% 250 ML INJ 250 ML IV SCH (17:48)
[2017-04-10] MEDS: INSULIN REGULAR (IV INFUSION) 100 UNITS in SODIUM CHLORIDE 0.9% INJ 99 ML IV PRN (21:58)
[2017-04-11] VITALS (19 sets, daily range): BP systolic 92–132; BP diastolic 52–64; PULSE 60–71; RESP 14–18; TEMP 97.8–98.8; O2SAT 93–98
[2017-04-11] MEDS: methylPREDNISolone SOD SUCC 40 MG/1 ML VIAL IV PUSH SCH ×3 (01:09→16:48)
[2017-04-11] MEDS: metroNIDAZOLE 500 MG INJ 100 ML IV SCH ×3 (01:09→16:48)
[2017-04-11] MEDS: PROPOFOL 1000 MG/100 ML INJ 100 ML IV PRN ×4 (04:33→20:56)
[2017-04-11 04:46] LABS: AUTOMATED NEUTROPHIL # 14.2 TH/MM3 (1.8-7.7); BASOPHIL % 0.2 % (0.0-2.0); HEMATOCRIT 33.2 % (39.0-51.0); HEMOGLOBIN 10.7 GM/DL (13.0-17.0); LYMPH % 2.6 % (9.0-44.0); LYMPHOCYTE # 0.4 TH/MM3 (1.0-4.8); MEAN CELL VOLUME 88.9 FL (80.0-100.0); MEAN CORPUSCULAR HEMOGLOBIN 28.7 PG (27.0-34.0); MEAN CORPUSCULAR HGB CONC 32.3 % (32.0-36.0); MEAN PLATELET VOLUME 9.8 FL (7.0-11.0); MONO % 5.2 % (0.0-8.0); MONOCYTE # 0.8 TH/MM3 (0-0.9); PLATELET COUNT 120 TH/MM3 (150-450); RED BLOOD COUNT 3.74 MIL/MM3 (4.50-5.90); WHITE BLOOD COUNT 15.5 TH/MM3 (4.0-11.0)
[2017-04-11 05:26] LABS: ALBUMIN 1.9 GM/DL (3.4-5.0); BICARBONATE 22.1 MEQ/L (21.0-32.0); CALCIUM 7.4 MG/DL (8.5-10.1); CALCIUM-PROTEIN CORRECTED 8.4 MG/DL (8.5-10.1); CREATININE 4.84 MG/DL (0.60-1.30); TOTAL BILIRUBIN ADULT 0.3 MG/DL (0.2-1.0); TOTAL PROTEIN 5.3 GM/DL (6.4-8.2)
--- NOTE | 2017-04-11 05:34 | RADRPT ---
EXAM DATE/TIME: 04/11/2017 04:10 [facility] COMPARISON: CHEST SINGLE AP, April 10, 2017, 3:45. INDICATIONS : Respiratory failure- Evaluate for pneumonia MEDICAL HISTORY : Hypertension. Diabetes mellitus type II. Dementia SURGICAL HISTORY : ENCOUNTER: Subsequent ACUITY: 1 week PAIN SCORE: Non-responsive. LOCATION: Bilateral chest FINDINGS: A single view of the chest demonstrates endotracheal tube in good position. NG enters stomach. Bilate ral mostly basilar airspace disease relatively stable. No pneumothorax. No significant effusion. CONCLUSION: 1. Endotracheal tube and nasogastric tube in good position. Bilateral mostly basilar airspace disease relatively stable. Tha Wilhelm MD on April 11, 2017 at 5:31 Board Certified Radiologist. This report was verified electronically.
[2017-04-11] MEDS: FUROSEMIDE 100 MG/10 ML VIAL IV PUSH SCH ×3 (05:37→20:53)
[2017-04-11] MEDS: FREE WATER G-TUBE SCH ×2 (05:37→12:00)
[2017-04-11] MEDS: hydrALAZINE HCL 10 MG TAB PO SCH ×3 (05:37→20:54)
--- NOTE | 2017-04-11 07:24 | HHI.CCPN ---
Subjective Remarks/Hospital Course This is a 71 year old male with history of CHF, diabetes and recent upper respiratory infection presented to the ED with severe short of breath and wheezing on 04/01/17.The patient resides in SNF secondary to to dementia, his daughter requested to transfer patient to hospital due to increase work of breathing even on rest. Patient recently was diagnosed with pneumonia and started on Levaquin and prednisone. I saw patient in the room he was on BiPAP, in ED he was found to have hypercapnic respiratory failure he was given O2 and DuoNeb and a dose of Solu-Medrol, history was restricted due to increase of respiratory work and being on BiPAP, influenza A and B was negative. The patient was then transferred to the medical floor. During the last evening the patient had increased work of breathing, the patient was noted to have frothy pink sputum and BiPAP was ordered. The patient did not receive BiPAP during the night secondary to being combative, and inability to be restrained on BiPAP. The patient's respiratory status continued to worsen, Halicat was initiated the patient received furosemide 40 mg IV early this a.m. and diuresed greater than 1 L. The patient subsequently became hypotensive, and critical care medicine was consulted. Upon presentation to [facility] [place], the patient was compatible requiring 2-point wrist restraints, and subsequently 1 mg of Ativan was administered. The patient continues on BiPAP, echocardiogram was performing cardiology evaluation. O2 saturation was noted improvement 100% on FiO2 of 35%, a normal respiratory rate. Subjective: 2: No acute events overnight. The patient became agitated, removing peripheral IVs, requiring 1 mg of Ativan last evening. Patient continues in restraints for patient safety. The patient continues to have adequate diuresis with Lasix. Patient was changed from CPAP to nasal cannula 6 L/m ABGs performed this afternoon show slight elevation in PCO2 to 63 however patient had been given Ativan for anxiety. Patient will receive 1 dose of Acetazolamide 250 mg. Plan for bedside swallow and advancement of diet. 04/06: Afebrile. Early this a.m. ,the patient became hypoxemic requiring emergent intubation at 5 AM. The patient currently intubated and sedated. ET tube was noted to be near the ese endotracheal tube retracted chest x-ray pending. Dietary consulted for initiation of tube feeds. 04/07: Afebrile. Overnight the patient's noted sodium level elevation with slight elevation in creatinine. Lasix discontinued on 04/06. Chest x-ray unchanged. Oxygenation status slightly improved today plan for initiation of CPAP trials. 04/08: The patient continues to have an elevation in creatinine, Lasix was discontinued on 04/06. BUN also elevated ,free water flushes frequency increased to every 4 hours. Patient fell CPAP trials yesterday after approximately 30 minutes, and continued attempts at CPAP trials. Palliative care was consulted yesterday discussion with family the patient and family would not want a tracheostomy nor PEG placement. Family arriving from [facility] today to visit patient. Continuing aggressive ventilator weaning in attempt to extubate patient. A chin with persistent hyperglycemia most likely secondary to exogenous steroids, placed on high-dose insulin sliding scale, dehydration will bolus with 1/2 NSS this am. 04/09: Remains intubated sedated. Apparently gets agitated on lightening sedation. On 45% FiO2. Chest x-ray remains unchanged. Further worsening of renal function BUN 144 from 116 yesterday, creatinine 2.4 today from 2.4 yesterday. Urine output in 24 hours under 400. Continues to fail CPAP. I have consulted nephrology 04/10: BUN creat continues to rise. 165/4.3. Remans intubated, on lightening sedation, he follows commands on UE. D/W Dr. Zuniga. Will proceed with vascat for HD starting in am (Renal failure with volume overload) 04/11: Remains intubated sedated. BUN creatinine very elevated at 192/4.84. Urine output minimally improved 950 mL in [address] a Vas-Cath today to initiate hemodialysis. Still significantly volume overloaded with weight gain Objective Vital Signs Date Time Temp Pulse Resp B/P (MAP) Pulse Ox O2 Delivery O2 Flow Rate FiO2 04/11/17 06:00 65 04/11/17 04:10 95 50 04/11/17 04:00 98.8 16 132/61 (84) Intake and Output 04/11/17 04/11/17 04/12/17 08:00 16:00 00:00 Intake Total 1593 ml Output Total 600 ml Balance 993 ml Result Diagram: 04/11/1740904/11/17409 Imaging Last Impressions Chest X-Ray 04/07/17 0600 Signed Impressions: Service Date/Time: Friday, April 07, 2017 03:48 - CONCLUSION: Stable chest x-ray with underinflation with mild bibasilar opacity likely representing atelectasis. Jerman Benitez MD Abdomen X-Ray 04/06/17 0000 Signed Impressions: Service Date/Time: Thursday, April 06, 2017 09:26 - CONCLUSION: 1. Nasogastric tube has its tip in the distal stomach. 2. Mild degenerative changes involving the lumbar spine and hip joints bilaterally. 3. No bowel obstruction or ileus. Jorge Chang MD Last Impressions Chest X-Ray 04/07/17 0600 Signed Impressions: Service Date/Time: Friday, April 07, 2017 03:48 - CONCLUSION: Stable chest x-ray with underinflation with mild bibasilar opacity likely representing atelectasis. Jerman Benitez MD Abdomen X-Ray 04/06/17 0000 Signed Impressions: Service Date/Time: Thursday, April 06, 2017 09:26 - CONCLUSION: 1. Nasogastric tube has its tip in the distal stomach. 2. Mild degenerative changes involving the lumbar spine and hip joints bilaterally. 3. No bowel obstruction or ileus. Jorge Chagn MD Last Impressions Chest X-Ray 04/04/17 0000 Signed Impressions: Service Date/Time: Tuesday, April 04, 2017 09:37 - CONCLUSION: 1. Bibasilar atelectasis. Frantz Helms MD Objective Remarks GENERAL: This is an obese chronically ill appearing patient, intubated and sedated SKIN: Warm and dry. HEAD: Atraumatic. Normocephalic. EYES: Pupils equal and round. No scleral icterus. No injection or drainage. ENT: No nasal bleeding or discharge. Orotracheally intubated NECK: Trachea midline. No JVD. CARDIOVASCULAR: Normal rate, regular rhythm. RESPIRATORY: Mild expiratory wheezing, diminished breath sounds throughout lung carcamo, equal bilaterally. GASTROINTESTINAL: Abdomen soft, non-tender, protuberant nondistended. No guarding. Normoactive bowel sounds MUSCULOSKELETAL: Extremities without clubbing, cyanosis, or edema. No obvious deformities. NEUROLOGICAL: RASS -1. Spontaneous movement in all 4 extremities. Following commands on UE. No gross focal/sensory deficits. Procedures 2/6 emergent intubation A/P Assessment and Plan Plan by systems: Neurologic: Dementia History of CVA Agitation Propofol and fentanyl for sedation and analgesia while intubated. Continue Aricept and Namenda Daily sedation vacation, follows commands on UE with sedation hold Continue Haldol 2 mg every 8 hours when necessary for agitation Neurochecks per ICU protocol Respiratory: Acute hypoxemic and hypercapnic respiratory failure History of bronchial asthma and chronic bronchitis Pulmonary edema Pulmonology following Dr. Bay Williamson Solu-Medrol 40 mg every 8 2 emergently intubated 8.0 ETT Continues to fail CPAP trials DuoNeb every 6 hours scheduled and as needed Cardiovascular: Chronic diastolic CHF Cardiology following-Dr. Pace 04/04 echo-EF 50-55% mildly dilated left ventricle, moderately concentric LVH LV systolic function low normal Plan for repeat echo per cardiology in near future Start HD for fluid removal. Currently on Lasix 80 mg IV q8h Renal: Worsening acute kidney failure Worsening BUN and creatinine today 192/4.8 Maintain Locke catheter Strict I/Os, Nephrology following Need HD for fluid removal, patient is fluid overloaded. Currently on Lasix 80 mg IV q8h Please Vas-Cath for hemodialysis today FEN/GI: Obesity Mild protein calorie malnutrition Electrolyte derangement Glucerna 1.5 goal rate 50 Hydralazine PRN for systolic blood pressure greater than 160 Last BM 04/09/17 Heme/ID: Leukocytosis Anemia of chronic disease Probable pneumonia Monitor CBC. WBC count noted 14 2 Blood cultures 2 negative growth to date Influenza nasal wash negative Legionella, pneumococcal urine antigens-negative Continue cefepime Flagyl and DC azithromycin 04/11 Endocrine: Diabetes mellitus Persistent elevation in glucose secondary to steroids On Insulin gtt Musculoskeletal: PT evaluation and treat Functional maintenance daily Prophylaxis: GI Prophylaxis Protonix DVT Prophylaxis -- SCDs Heparin every 12 hours Lines: Peripheral IVs [address] Vascath 04/11 Dispo: CCT 30 Discussed with GEAR GENERATOR SET UP OPERATOR at bedside. D/W Dr. Zuniga. Plan to start HD 04/11/17 Condition is critically ill now with worsening renal function BUN of 192 creatinine of 4.8, fluid overloaded. Remains encephalopathic failing CPAP trials. Nephrology following HD starting today Palliative care following to determine goals of care in the event that a tracheostomy and PEG placement, family does not want a tracheostomy or PEG tube placement. Plan for aggressive ventilator weaning measures, if unsuccessful tentative plan for possible compassionate withdrawal. Moise Stoll MD Apr 11, 2017 07:23
[2017-04-11] MEDS: INSULIN DETEMIR 100 UNITS/ML VIAL SQ SCH ×2 (09:00→20:54)
[2017-04-11] MEDS: BUDESONIDE-FORMOTEROL 160/4.5 MCG INHALER INH SCH ×2 (09:00→20:53)
[2017-04-11] MEDS: RESP: ALBUTEROL 2.5 MG/IPRATROPIUM 0.5 MG NEB (SCH) NEB ×3 (09:41→20:11)
[2017-04-11] MEDS: CHOLECALCIFEROL (VIT D3) 1000 UNIT TAB PO SCH (09:59)
[2017-04-11] MEDS: ASCORBIC ACID 500 MG TAB PO SCH ×2 (09:59→20:54)
[2017-04-11] MEDS: MEMANTINE HCL 10 MG TAB PO SCH ×2 (09:59→20:54)
[2017-04-11] MEDS: DONEPEZIL HCL 5 MG TAB PO SCH (10:00)
--- NOTE | 2017-04-11 10:14 | RADRPT ---
EXAM DATE/TIME: 04/11/2017 09:25 [facility] COMPARISON: CHEST SINGLE AP, April 11, 2017, 4:10. INDICATIONS : Post vas vath placement. MEDICAL HISTORY : Hypertension. Diabetes mellitus type II. Dementia SURGICAL HISTORY : Hemorrhoidectomy. ENCOUNTER: Subsequent ACUITY: 3 weeks PAIN SCORE: Non-responsive. LOCATION: Bilateral chest FINDINGS: AP supine portable view of the chest demonstrates an endotracheal tube with the tip 2 cm above the le digna of the clavicles. Recommend advancement. There is a new right-sided central line with the tip ove rlying the region of the mid SVC. Orogastric tubing extending beyond the imaged portion of the film. Heart size is mildly enlarged. Bilateral pleural effusions are noted. Loss of visualization of the he midiaphragms consistent with bilateral lower lobe atelectasis. CONCLUSION: Interval placement of a right-sided central line which appears in appropriate position. The endotrach eal tube remains above the level of the clavicles, recommend advancement. Stable lung exam with bilat eral small moderate-sized pleural effusions. Jessenia Valenzuela MD on April 11, 2017 at 10:10 Board Certified Radiologist. This report was verified electronically.
[2017-04-11] MEDS ORDERED: SODIUM CHLOR 0.9% 1000 ML INJ 1,000 ML IV PRN (10:37)
[2017-04-11] MEDS ORDERED: SODIUM CHLOR 0.9% 1000 ML INJ 1,000 ML OTHER PRN ×2 (10:37)
--- NOTE | 2017-04-11 10:37 | HHI.NPPN ---
Subjective Additional Remarks Patient is on the vent. sedated, and clinically same. Objective Data Data Vital Signs Date Time Temp Pulse Resp B/P (MAP) Pulse Ox O2 Delivery O2 Flow Rate FiO2 04/11/17 08:00 50 04/11/17 07:42 98 50 04/11/17 06:00 65 04/11/17 04:10 95 50 04/11/17 04:00 50 04/11/17 04:00 66 04/11/17 04:00 98.8 66 16 132/61 (84) 93 04/11/17 02:00 66 04/11/17 00:24 96 50 04/11/17 00:00 65 04/11/17 00:00 50 04/11/17 00:00 98.6 65 16 103/64 (77) 94 04/10/17 22:00 61 04/10/17 20:04 95 50 04/10/17 20:01 98.0 65 14 95/73 (80) 96 04/10/17 20:00 65 04/10/17 20:00 50 04/10/17 18:00 65 04/10/17 16:00 64 04/10/17 16:00 50 04/10/17 16:00 97.5 64 14 130/62 (84) 93 04/10/17 15:27 93 50 04/10/17 14:00 62 04/10/17 12:00 50 04/10/17 12:00 98.2 63 15 143/63 (89) 92 04/10/17 12:00 63 04/10/17 11:36 95 50 -: 04/11/17 0410 04/11/17 0410 Physical Exam General Appearance Remarks Intubated and sedated. Eyes Eye Exam: Pupils Equal Pulmonary Resp Exam: Crackles, Rhonchi, Decreased Bases, Diminished Breath Sounds, Poor Inspiratory Effort Cardiology CV Exam: Regular, Normal Sinus Rhythm Gastrointestinal/Abdomen GI Exam: Soft, Non-Tender, Distended Extremeties Extremities Exam: Moderate Edema, Pitting Edema, Dependent Edema Neurologic Neuro Exam: Sedated Assessment/Plan Problem List: (1) Acute renal failure ICD Codes: N17.9 - Acute kidney failure, unspecified Plan: Baseline creatinine 1.1-1.2 ADALI most likely ATN, possibly from renal hypoperfusion. Avoid nephrotoxic agents. Lisinopril on hold. Renal U/S noted. Non Oliguric, but urine out put is low. Creatinine continue to increase. On Lasix, K is 5.5. Need to start HD, family willing to proceed. Bentleyreba done, will start HD today around [address] Adams will follow from AM. (2) Chronic diastolic congestive heart failure ICD Codes: I50.32 - Chronic diastolic (congestive) heart failure Plan: Diuresis as above Echo shows LVH, EF 50-55%. (3) Acute respiratory failure ICD Codes: J96.00 - Acute respiratory failure, unspecified whether with hypoxia or hypercapnia Plan: Vent management per communication clerk. On 50% FiO2. (4) Diabetes mellitus ICD Codes: E11.9 - Diabetes mellitus Status: Acute Plan: On insulin gtt, maintain glucose 140-180 mg/dL. (5) Hypernatremia ICD Codes: E87.0 - Hyperosmolality and hypernatremia Plan: Increase free water via OG Diuril Start 03/04 Peter Rios MD Apr 11, 2017 10:37
[2017-04-11] MEDS ORDERED: ONDANSETRON HCL 4 MG/2 ML VIAL IV PUSH PRN (10:45)
[2017-04-11] MEDS ORDERED: cloNIDine HCL 0.1 MG TAB PO PRN (10:45)
[2017-04-11] MEDS ORDERED: diphenhydrAMINE HCL 25 MG CAP PO PRN (10:45)
[2017-04-11] MEDS ORDERED: SODIUM CHLORIDE 0.9% FLUSH 10 ML FLUSH IV FLUSH PRN (10:45)
[2017-04-11] MEDS ORDERED: MANNITOL 12.5 GM/50 ML VIAL IV PRN (10:45)
[2017-04-11] MEDS ORDERED: GELATIN 12 MM/7 MM FOAM TOP PRN (10:45)
[2017-04-11] MEDS ORDERED: NITROGLYCERIN 0.4 MG SL 25 TABS/BTL SL PRN (10:45)
[2017-04-11] MEDS ORDERED: ACETAMINOPHEN 325 MG TAB PO PRN (10:45)
[2017-04-11] MEDS ORDERED: HEPARIN SODIUM - IV 10,000 UNITS/10 ML VIAL IV FLUSH PRN (10:45)
[2017-04-11] MEDS: HEPARIN SODIUM - SQ 10,000 UNITS/ML VIAL SQ SCH ×2 (12:57→20:53)
[2017-04-11] MEDS: ASPIRIN EC 81 MG TABEC PO SCH (12:57)
[2017-04-11] MEDS: CHLORHEXIDINE 0.12% (ORAL KIT) 15 ML CUP MT SCH ×2 (12:59→20:55)
[2017-04-11] MEDS: PANTOPRAZOLE SODIUM 40 MG VIAL IV PUSH SCH (16:48)
[2017-04-11] MEDS: GENTAMICIN SULFATE 20 MG/2 ML VIAL OTHER PRN (17:05)
[2017-04-11] MEDS ORDERED: DEXTROSE 50% IN WATER 50 ML VIAL(D50) IV PUSH PRN (17:30)
[2017-04-11] MEDS ORDERED: GLUCAGON 1 MG/ML VIAL OTHER PRN (17:30)
[2017-04-11] MEDS: CEFEPIME INJ 2,000 MG in SODIUM CHLORIDE 0.9% INJ 100 ML IV SCH (21:18)
[2017-04-11] MEDS: MEDIUM DOSE INSULIN NOVOLOG SUPPLEMENTAL SCALE SQ SCH (21:57)
[2017-04-12] VITALS (44 sets, daily range): BP systolic 83–154; BP diastolic 47–66; PULSE 68–88; RESP 10–19; TEMP 98.1–99; O2SAT 94–100
[2017-04-12] MEDS: methylPREDNISolone SOD SUCC 40 MG/1 ML VIAL IV PUSH SCH ×4 (01:01→21:32)
[2017-04-12] MEDS: metroNIDAZOLE 500 MG INJ 100 ML IV SCH ×3 (01:01→19:08)
[2017-04-12] MEDS: MEDIUM DOSE INSULIN NOVOLOG SUPPLEMENTAL SCALE SQ SCH (01:26)
[2017-04-12] MEDS: PROPOFOL 1000 MG/100 ML INJ 100 ML IV PRN ×2 (02:40→08:19)
[2017-04-12] MEDS: RESP: ALBUTEROL 2.5 MG/IPRATROPIUM 0.5 MG NEB (SCH) NEB ×4 (03:11→19:33)
[2017-04-12] MEDS ORDERED: DEXTROSE 50% IN WATER 50 ML VIAL(D50) IV PUSH PRN (03:30)
[2017-04-12] MEDS ORDERED: GLUCAGON 1 MG/ML VIAL OTHER PRN (03:30)
[2017-04-12] MEDS: HIGH DOSE INSULIN NOVOLOG SUPPLEMENTAL SCALE SQ SCH ×6 (03:37→21:31)
[2017-04-12] MEDS: FREE WATER G-TUBE SCH ×4 (06:00→21:32)
[2017-04-12] MEDS: FUROSEMIDE 100 MG/10 ML VIAL IV PUSH SCH (06:33)
[2017-04-12] MEDS: hydrALAZINE HCL 10 MG TAB PO SCH ×3 (06:33→21:30)
[2017-04-12] MEDS: CHLORHEXIDINE 0.12% (ORAL KIT) 15 ML CUP MT SCH ×2 (08:12→21:29)
[2017-04-12] MEDS: BUDESONIDE-FORMOTEROL 160/4.5 MCG INHALER INH SCH ×2 (08:13→21:00)
[2017-04-12] MEDS: HEPARIN SODIUM - SQ 10,000 UNITS/ML VIAL SQ SCH ×2 (08:13→21:31)
[2017-04-12] MEDS: ASPIRIN EC 81 MG TABEC PO SCH (08:14)
[2017-04-12] MEDS: CHOLECALCIFEROL (VIT D3) 1000 UNIT TAB PO SCH (08:14)
[2017-04-12] MEDS: DONEPEZIL HCL 5 MG TAB PO SCH (08:14)
[2017-04-12] MEDS: ASCORBIC ACID 500 MG TAB PO SCH ×2 (08:15→21:30)
[2017-04-12] MEDS: MEMANTINE HCL 10 MG TAB PO SCH ×2 (08:15→21:31)
[2017-04-12] MEDS: INSULIN DETEMIR 100 UNITS/ML VIAL SQ SCH ×2 (08:15→21:31)
[2017-04-12] MEDS: HEPARIN SODIUM - IV 10,000 UNITS/10 ML VIAL PRN (08:50)
[2017-04-12] MEDS: GENTAMICIN SULFATE 20 MG/2 ML VIAL OTHER PRN (08:51)
[2017-04-12] MEDS: ALBUMIN 25% INJ 100 ML IV PRN (09:53)
--- NOTE | 2017-04-12 11:15 | HHI.NPPN ---
Subjective General Problems: Edema Renal Failure: Acute Interval History Remains intubated, unresponsive. Seen during dialysis. He was dialyzed yesterday with 2L UF. (Aliyah Onofre) Review of Systems General General Remarks unable to obtain (Aliyah Onofre) Objective Data Data Vital Signs Date Time Temp Pulse Resp B/P (MAP) Pulse Ox O2 Delivery O2 Flow Rate FiO2 04/12/17 10:45 72 04/12/17 10:31 72 04/12/17 10:15 71 04/12/17 10:00 71 04/12/17 09:45 72 04/12/17 09:45 72 14 110/55 (73) 96 04/12/17 09:30 71 14 86/51 (63) 95 04/12/17 09:30 71 04/12/17 09:15 71 04/12/17 09:15 71 14 83/47 (59) 94 04/12/17 09:00 74 13 113/53 (73) 96 04/12/17 09:00 74 04/12/17 08:45 74 13 131/66 (87) 96 04/12/17 08:45 74 04/12/17 08:37 72 04/12/17 08:37 72 13 127/65 (85) 96 04/12/17 08:30 72 04/12/17 08:30 72 13 122/58 (79) 95 04/12/17 08:00 45 04/12/17 08:00 98.6 70 10 121/60 (80) 96 04/12/17 08:00 70 04/12/17 07:31 96 45 04/12/17 07:31 45 04/12/17 06:00 69 04/12/17 04:00 50 04/12/17 04:00 98.3 75 18 144/65 (91) 95 04/12/17 04:00 75 04/12/17 03:12 97 50 04/12/17 02:00 76 04/12/17 00:00 50 04/12/17 00:00 74 04/12/17 00:00 98.5 74 17 121/58 (79) 96 04/11/17 23:48 97 50 04/11/17 22:00 64 04/11/17 20:11 96 50 04/11/17 20:00 50 04/11/17 20:00 63 04/11/17 20:00 97.8 63 18 101/56 (71) 95 04/11/17 18:00 68 04/11/17 16:00 50 04/11/17 16:00 97.9 70 14 92/52 (65) 94 04/11/17 16:00 70 04/11/17 15:25 95 50 04/11/17 14:00 63 04/11/17 12:00 60 04/11/17 12:00 50 04/11/17 12:00 97.9 60 14 114/57 (76) 94 04/11/17 11:15 96 50 (Aliyah Onofre) -: 04/11/17 0410 04/11/17 0410 Imaging Last 72 hours Impressions Chest X-Ray 04/11/17 0600 Signed Impressions: Service Date/Time: Tuesday, April 11, 2017 04:10 - CONCLUSION: 1. Endotracheal tube and nasogastric tube in good position. Bilateral mostly basilar airspace disease relatively stable. Tha Wilhelm MD Chest X-Ray 04/11/17 0000 Signed Impressions: Service Date/Time: Tuesday, April 11, 2017 09:25 - CONCLUSION: Interval placement of a right-sided central line which appears in appropriate position. The endotracheal tube remains above the level of the clavicles, recommend advancement. Stable lung exam with bilateral small moderate-sized pleural effusions. Jessenia Valenzuela MD Chest X-Ray 04/10/17 0600 Signed Impressions: Service Date/Time: Monday, April 10, 2017 03:45 - CONCLUSION: 1. Basilar airspace disease and pleural effusions similar to April 09. Endotracheal tube and nasogastric tube in good position. Tha Wilhelm MD Tubes & Lines: Vas-Cath, Locke (Aliyah Onofre) Physical Exam General Appearance: Well Developed, Comfortable, Sleeping (Aliyah Onofre) Eyes Eye Exam: Pupils Equal (Aliyah Onofre) Throat Throat Exam: Oral Mucosa [place] & Moist (Aliyah Onofre) Pulmonary Resp Exam: No Distress, Crackles, Rhonchi, Decreased Bases, Diminished Breath Sounds, Poor Inspiratory Effort Resp Remarks vented lung sounds (Aliyah Onofre) Cardiology CV Exam: Regular, Normal Sinus Rhythm (Aliyah Onofre) Gastrointestinal/Abdomen GI Exam: Soft, Non-Tender, Distended (Aliyah Onofre) Musculoskeletal MS Exam: Joints Intact, Unable to Ambulate (Aliyah Onofre) Integumentary Skin Exam: Warm, Dry (Aliyah Onofre) Extremeties Extremities Exam: Moderate Edema, Pitting Edema, Dependent Edema (Aliyah Onofre) Neurologic Neuro Exam: Unresponsive, Sedated (Aliyah Onofre) Assessment/Plan Assessment Summary: ADALI/Acute Renal Failure, Acute Tubular Necrosis, Fluid/ Volume Overload Problem List: (1) Acute renal failure ICD Codes: N17.9 - Acute kidney failure, unspecified Plan: Baseline creatinine 1.1-1.2 Renal failure from ATN, possibly from renal hypoperfusion. HD started 04/11, 2L UF Seen during dialysis today on a 1K, 350 BFR, goal 2.5-3 L as tolerated Repeat labs daily. await renal recovery Avoid nephrotoxic agents. Lisinopril on hold. Non Oliguric, but urine out put is low. Avoid IVF Hold lasix for now. (2) Chronic diastolic congestive heart failure ICD Codes: I50.32 - Chronic diastolic (congestive) heart failure Plan: Diuresis as above Echo shows LVH, EF 50-55%. (3) Acute respiratory failure ICD Codes: J96.00 - Acute respiratory failure, unspecified whether with hypoxia or hypercapnia Plan: Vent management per english composition teacher. On 45% FiO2. (4) Diabetes mellitus ICD Codes: E11.9 - Diabetes mellitus Status: Acute Plan: On insulin gtt, maintain glucose 140-180 mg/dL. (5) Hypernatremia ICD Codes: E87.0 - Hyperosmolality and hypernatremia Plan: Improved Reduce free water via OG (Aliyah Onofre) Problem List: (1) Acute renal failure ICD Codes: N17.9 - Acute kidney failure, unspecified Plan: Baseline creatinine 1.1-1.2 Renal failure from ATN, possibly from renal hypoperfusion. HD started 2/11, 2L UF Seen during dialysis today on a 1K, 350 BFR, goal 2.5-3 L as tolerated Repeat labs daily. await renal recovery Avoid nephrotoxic agents. Lisinopril on hold. Non Oliguric, but urine out put is low. Avoid IVF Hold lasix for now. (2) Chronic diastolic congestive heart failure ICD Codes: I50.32 - Chronic diastolic (congestive) heart failure Plan: Diuresis as above Echo shows LVH, EF 50-55%. (3) Acute respiratory failure ICD Codes: J96.00 - Acute respiratory failure, unspecified whether with hypoxia or hypercapnia Plan: Vent management per english composition teacher. On 45% FiO2. (4) Diabetes mellitus ICD Codes: E11.9 - Diabetes mellitus Status: Acute Plan: On insulin gtt, maintain glucose 140-180 mg/dL. (5) Hypernatremia ICD Codes: E87.0 - Hyperosmolality and hypernatremia Plan: Improved Reduce free water via OG Plan patient was seen and examined. Intubated, seen during dialysis. 2700 ml removed in dialysis. Continue to monitor fluid and electrolyte status. (Carloz Adams MD) Aliyah Onofre Apr 12, 2017 11:15 Carloz Adams MD Apr 12, 2017 19:34
--- NOTE | 2017-04-12 12:30 | PD.PROCEDR ---
Central Line Procedure PROCEDURE DONE ON 04/11/17 REASON FOR PROCEDURE Central venous access PROCEDURE PERFORMED [facility] Informed consent for procedure was obtained and time out performed. The risks and benefits of the procedure were discussed to include but limited to bleeding , clot formation, infection, and even . ANESTHESIA Local injection of 1% Lidocaine DESCRIPTION OF THE PROCEDURE The patient was placed in supine, mild Trendelenburg position. The area was exposed and cleansed with ChloraPrep, times two. Large sterile drape was used to cover the patient, with the site exposed, under sterile conditions including cap, face mask, sterile gown, and sterile gloves. On single attempt, the introducer needle was inserted with negative pressure in syringe and venous flash was obtained. The guide wire was then advanced without any restriction and the needle was removed. The dilator was used without any complications. Using Seldinger technique the 20 CM 14 F two lumen catheter was advanced over the guide wire to a depth of 18 centimeters. The guide wire was removed. All ports were aspirated with dark venous blood return and flushed easily with sterile saline. All ports were capped. Antibiotic disc was placed around central line at puncture site. The central line was secured to the skin with two interrupted 2.0 silk sutures. The area was bandaged with sterile see- through central line bandage. RADIOLOGICAL DATA Ultrasound guidance was used to locate RIJ. Doppler/color flow was used to confirm venous flow. COMPLICATIONS: No apparent complications ESTIMATED BLOOD LOSS: Less than 5 cc. Moise Stoll MD Apr 12, 2017 12:30
--- NOTE | 2017-04-12 13:02 | HHI.CCPN ---
Subjective Remarks/Hospital Course This is a 71 year old male with history of CHF, diabetes and recent upper respiratory infection presented to the ED with severe short of breath and wheezing on 04/01/17.The patient resides in SNF secondary to to dementia, his daughter requested to transfer patient to hospital due to increase work of breathing even on rest. Patient recently was diagnosed with pneumonia and started on Levaquin and prednisone. I saw patient in the room he was on BiPAP, in ED he was found to have hypercapnic respiratory failure he was given O2 and DuoNeb and a dose of Solu-Medrol, history was restricted due to increase of respiratory work and being on BiPAP, influenza A and B was negative. The patient was then transferred to the medical floor. During the last evening the patient had increased work of breathing, the patient was noted to have frothy pink sputum and BiPAP was ordered. The patient did not receive BiPAP during the night secondary to being combative, and inability to be restrained on BiPAP. The patient's respiratory status continued to worsen, Halicat was initiated the patient received furosemide 40 mg IV early this a.m. and diuresed greater than 1 L. The patient subsequently became hypotensive, and critical care medicine was consulted. Upon presentation to [facility], the patient was compatible requiring 2-point wrist restraints, and subsequently 1 mg of Ativan was administered. The patient continues on BiPAP, echocardiogram was performing cardiology evaluation. O2 saturation was noted improvement 100% on FiO2 of 35%, a normal respiratory rate. Subjective: 2: No acute events overnight. The patient became agitated, removing peripheral IVs, requiring 1 mg of Ativan last evening. Patient continues in restraints for patient safety. The patient continues to have adequate diuresis with Lasix. Patient was changed from CPAP to nasal cannula 6 L/m ABGs performed this afternoon show slight elevation in PCO2 to 63 however patient had been given Ativan for anxiety. Patient will receive 1 dose of Acetazolamide 250 mg. Plan for bedside swallow and advancement of diet. 04/06: Afebrile. Early this a.m. ,the patient became hypoxemic requiring emergent intubation at 5 AM. The patient currently intubated and sedated. ET tube was noted to be near the ese endotracheal tube retracted chest x-ray pending. Dietary consulted for initiation of tube feeds. 04/07: Afebrile. Overnight the patient's noted sodium level elevation with slight elevation in creatinine. Lasix discontinued on 04/06. Chest x-ray unchanged. Oxygenation status slightly improved today plan for initiation of CPAP trials. 04/08: The patient continues to have an elevation in creatinine, Lasix was discontinued on 04/06. BUN also elevated ,free water flushes frequency increased to every 4 hours. Patient fell CPAP trials yesterday after approximately 30 minutes, and continued attempts at CPAP trials. Palliative care was consulted yesterday discussion with family the patient and family would not want a tracheostomy nor PEG placement. Family arriving from [facility] today to visit patient. Continuing aggressive ventilator weaning in attempt to extubate patient. A chin with persistent hyperglycemia most likely secondary to exogenous steroids, placed on high-dose insulin sliding scale, dehydration will bolus with 1/2 NSS this am. 04/09: Remains intubated sedated. Apparently gets agitated on lightening sedation. On 45% FiO2. Chest x-ray remains unchanged. Further worsening of renal function BUN 144 from 116 yesterday, creatinine 2.4 today from 2.4 yesterday. Urine output in 24 hours under 400. Continues to fail CPAP. I have consulted nephrology 04/10: BUN creat continues to rise. 165/4.3. Remans intubated, on lightening sedation, he follows commands on UE. D/W Dr. Zuniga. Will proceed with vascat for HD starting in am (Renal failure with volume overload) 04/11: Remains intubated sedated. BUN creatinine very elevated at 192/4.84. Urine output minimally improved 950 mL in [address] a Vas-Cath today to initiate hemodialysis. Still significantly volume overloaded with weight gain 04/12: Started on HD 04/11, removed 2L yesterday and 2.7 L today. Labs today pending, BUN was 192 yesterday. Remains encephalopathic Objective Vital Signs Date Time Temp Pulse Resp B/P (MAP) Pulse Ox O2 Delivery O2 Flow Rate FiO2 04/12/17 11:24 100 45 04/12/17 10:45 72 04/12/17 09:45 14 110/55 (73) 04/12/17 08:00 98.6 Intake and Output 04/12/17 04/12/17 04/13/17 08:00 16:00 00:00 Intake Total 1055 ml Output Total 250 ml 2700 ml Balance 805 ml -2700 ml Result Diagram: 04/11/1740904/11/17409 Imaging Last Impressions Chest X-Ray 04/07/17599 Signed Impressions: Service Date/Time: Friday, April 07, 2017 03:48 - CONCLUSION: Stable chest x-ray with underinflation with mild bibasilar opacity likely representing atelectasis. Jerman Benitez MD Abdomen X-Ray 04/06/17 0000 Signed Impressions: Service Date/Time: Thursday, April 06, 2017 09:26 - CONCLUSION: 1. Nasogastric tube has its tip in the distal stomach. 2. Mild degenerative changes involving the lumbar spine and hip joints bilaterally. 3. No bowel obstruction or ileus. Jorge Chang MD Last Impressions Chest X-Ray 04/07/17599 Signed Impressions: Service Date/Time: Friday, April 07, 2017 03:48 - CONCLUSION: Stable chest x-ray with underinflation with mild bibasilar opacity likely representing atelectasis. Jerman Benitez MD Abdomen X-Ray 04/06/17 0000 Signed Impressions: Service Date/Time: Thursday, April 06, 2017 09:26 - CONCLUSION: 1. Nasogastric tube has its tip in the distal stomach. 2. Mild degenerative changes involving the lumbar spine and hip joints bilaterally. 3. No bowel obstruction or ileus. Jorge Chang MD Last Impressions Chest X-Ray 04/04/17 0000 Signed Impressions: Service Date/Time: Tuesday, April 04, 2017 09:37 - CONCLUSION: 1. Bibasilar atelectasis. Frantz Helms MD Objective Remarks GENERAL: This is an obese chronically ill appearing patient, intubated and sedated SKIN: Warm and dry. HEAD: Atraumatic. Normocephalic. EYES: Pupils equal and round. No scleral icterus. No injection or drainage. ENT: No nasal bleeding or discharge. Orotracheally intubated, large amount of oral secretions NECK: Trachea midline. No JVD. CARDIOVASCULAR: Normal rate, regular rhythm. RESPIRATORY: Mild expiratory wheezing, diminished breath sounds throughout lung carcamo, equal bilaterally. GASTROINTESTINAL: Abdomen soft, non-tender, protuberant nondistended. No guarding. Normoactive bowel sounds MUSCULOSKELETAL: Extremities without clubbing, cyanosis, or edema. No obvious deformities. NEUROLOGICAL: More encephalopathic today, not following commands. No evident focal deficits Procedures 2 emergent intubation Urinary Catheter: Yes Assessment to: Continue A/P Assessment and Plan Plan by systems: Neurologic: Dementia History of CVA Agitation Propofol and fentanyl for sedation and analgesia while intubated. Daily sedation vacation Continue Aricept and Namenda Continue Haldol 2 mg every 8 hours when necessary for agitation Neurochecks per ICU protocol Respiratory: Acute hypoxemic and hypercapnic respiratory failure History of bronchial asthma and chronic bronchitis Pulmonary edema Solu-Medrol 40 mg every 8 2 emergently intubated 8.0 ETT Continues to fail CPAP trials DuoNeb every 6 hours scheduled and as needed Pulmonology following Dr. Bay Williamson Family requested continued weaning and no trach or PEG Cardiovascular: Chronic diastolic CHF Cardiology following-Dr. Pace 04/04 echo-EF 50-55% mildly dilated left ventricle, moderately concentric LVH Plan for repeat echo per cardiology in near future HD started 04/11/11. Removed 4.7L in 2 sessions. Currently on Lasix 80 mg IV q8h Renal: Worsening acute kidney failure Worsening BUN and creatinine 192/4.8 on 04/11 Maintain Locke catheter. Strict I/Os, Nephrology following HD started 04/11/11. Removed 4.7L in 2 sessions. Currently on Lasix 80 mg IV q8h. Currently on Lasix 80 mg IV q8h FEN/GI: Obesity Mild protein calorie malnutrition Electrolyte derangement Glucerna 1.5 goal rate 50 Hydralazine PRN for systolic blood pressure greater than 160 Heme/ID: Leukocytosis Anemia of chronic disease Probable pneumonia Monitor CBC. WBC count noted 14 04/02 Blood cultures 2 negative growth to date Influenza nasal wash negative Legionella, pneumococcal urine antigens-negative Continue cefepime Flagyl and DC azithromycin 04/11 Endocrine: Diabetes mellitus Persistent elevation in glucose secondary to steroids On Insulin gtt Musculoskeletal: PT evaluation and treat Functional maintenance daily Prophylaxis: GI Prophylaxis Protonix DVT Prophylaxis -- SCDs Heparin every 12 hours Lines: Peripheral IVs 2 providing adequate access. Placed Vascath 04/11 Dispo: CCT 30 Discussed with SOFTWARE CONFIGURATION MANAGER at bedside. D/W Dr. Jumani started HD 04/11/17 Condition is critically ill now with worsening renal function BUN of 192 creatinine of 4.8, fluid overloaded. Remains encephalopathic failing CPAP trials. Nephrology following HD starting today Palliative care following to determine goals of care in the event that a tracheostomy and PEG placement, family does not want a tracheostomy or PEG tube placement. Plan for aggressive ventilator weaning measures, if unsuccessful tentative plan for possible compassionate withdrawal. Moise Stoll MD Apr 12, 2017 13:02
[2017-04-12 13:21] LABS: ALBUMIN 2.6 GM/DL (3.4-5.0); ALKALINE PHOSPHATASE 90 U/L (45-117); ALT (GPT) 64 U/L (12-78); AST (GOT) 33 U/L (15-37); BICARBONATE 25.5 MEQ/L (21.0-32.0); BLOOD UREA NITROGEN 132 MG/DL (7-18); CALCIUM 7.6 MG/DL (8.5-10.1); CHLORIDE 101 MEQ/L (98-107); CREATININE 4.05 MG/DL (0.60-1.30); GLOMERULAR FILTRATION RATE 18 ML/MIN (>89); GLUCOSE,RANDOM 296 MG/DL (74-106); SODIUM (NA) 138 MEQ/L (136-145); TOTAL BILIRUBIN ADULT 0.5 MG/DL (0.2-1.0); TOTAL PROTEIN 5.5 GM/DL (6.4-8.2)
[2017-04-12] MEDS: HYOSCYAMINE 0.5 MG/ML AMP IV PUSH PRN ×2 (14:14→21:33)
--- NOTE | 2017-04-12 14:45 | HHI.HCPN ---
Reason for visit a. To assist with evaluation and management of symptoms including: Shortness of breath, anxiety/agitation. b. To assist medical decision maker(s) with: better understanding of current medical conditions; weighing benefits/burdens of medical treatment options; making medical treatment decisions. . Subjective/Interval History Palliative care follow-up for further clarifications of goals of care. Patient seen in medical ICU. Also present nurse and Dora Abraham LCSW. Patient remains intubated on mech vent, FiO2 45%/ PEEP 8. On Propofol. He does not arouse to voice or exam. No withdraw to noxious stimuli. Post hemodialysis today with 2700 mL removal. Creatinine 4.05, albumin 2.6. No new imaging. Generalized edema noted. Requested nurse call when family arrives. . Advance Directives Living Will: Never completed Health Care Surrogate: Never completed Durable Power of Icebox Man: Copy in medical record Advance Directive Specifics Date completed: 02/26/2014. . Health Care Surrogate(s): Only daughter power of trademark attorney has been completed. No living will or designation of healthcare surrogate completed as per family. As per [place] statute, healthcare proxy decision-making falls to patient's Carley Lora. . Significant change in goals: FULL CODE. Will further clarify treatment goals when family arrives. . Objective Vital Signs Date Time Temp Pulse Resp B/P (MAP) Pulse Ox O2 Delivery O2 Flow Rate FiO2 04/12/17 13:45 71 15 121/57 (78) 94 04/12/17 13:45 71 04/12/17 13:30 71 14 122/58 (79) 95 04/12/17 13:30 71 04/12/17 13:15 73 04/12/17 13:15 73 16 125/59 (81) 97 04/12/17 13:00 71 11 122/55 (77) 96 04/12/17 13:00 71 04/12/17 12:45 98.1 72 12 122/58 (79) 97 04/12/17 12:45 72 04/12/17 12:30 72 04/12/17 12:30 72 13 122/57 (78) 97 04/12/17 12:15 72 04/12/17 12:15 72 14 124/61 (82) 98 04/12/17 12:00 45 2/12/18 12:00 72 19 122/59 (80) 98 04/12/17 12:00 72 04/12/17 11:24 100 45 04/12/17 10:45 72 04/12/17 10:31 72 04/12/17 10:15 71 04/12/17 10:00 71 04/12/17 09:45 72 04/12/17 09:45 72 14 110/55 (73) 96 04/12/17 09:30 71 14 86/51 (63) 95 04/12/17 09:30 71 04/12/17 09:15 71 04/12/17 09:15 71 14 83/47 (59) 94 04/12/17 09:00 74 13 113/53 (73) 96 04/12/17 09:00 74 04/12/17 08:45 74 13 131/66 (87) 96 04/12/17 08:45 74 04/12/17 08:37 72 04/12/17 08:37 72 13 127/65 (85) 96 04/12/17 08:30 72 04/12/17 08:30 72 13 122/58 (79) 95 04/12/17 08:00 45 04/12/17 08:00 98.6 70 10 121/60 (80) 96 04/12/17 08:00 70 04/12/17 07:31 96 45 04/12/17 07:31 45 04/12/17 06:00 69 04/12/17 04:00 50 04/12/17 04:00 98.3 75 18 144/65 (91) 95 04/12/17 04:00 75 04/12/17 03:12 97 50 04/12/17 02:00 76 04/12/17 00:00 50 04/12/17 00:00 74 04/12/17 00:00 98.5 74 17 121/58 (79) 96 04/11/17 23:48 97 50 04/11/17 22:00 64 04/11/17 20:11 96 50 04/11/17 20:00 50 04/11/17 20:00 63 04/11/17 20:00 97.8 63 18 101/56 (71) 95 04/11/17 18:00 68 04/11/17 16:00 50 04/11/17 16:00 97.9 70 14 92/52 (65) 94 04/11/17 16:00 70 04/11/17 15:25 95 50 Intake & Output 04/12/17 04/12/17 07:00 19:00 Intake Total 1155 ml Output Total 250 ml 2700 ml Balance 905 ml -2700 ml IV Total 355 ml Other 800 ml Output Urine Total 250 ml Hemodialysis 2700 ml # Bowel Movements 1 Physical Exam CONSTITUTIONAL/GENERAL: This is an adequately nourished patient on access [facility] [place] vent. TUBES/LINES/DRAINS: ETT, OG, right IJ central line, Locke catheter, PIV's, SCDs , bilateral soft wrist restraints. SKIN: No jaundice, rashes, or lesions. Ecchymoses on upper extremities. No wounds seen anteriorly. Skin temperature appropriate. Not diaphoretic. EYES: Pupils equal and round and reactive. ENT: Unable to assess hearing. Nose without bleeding or purulent drainage. Moist oral mucosa. Moderate amount of clear oral secretions noted. CARDIOVASCULAR: Regular rate and rhythm without murmurs, gallops, or rubs. Peripheral pulses symmetric. RESPIRATORY/CHEST: Symmetric, unlabored respirations. Endotracheally intubated on mechanical ventilation. Scattered rhonchi. GASTROINTESTINAL: Abdomen large, round, obese. Bowel sounds present. GENITOURINARY: Without palpable bladder distension. Locke catheter in place. MUSCULOSKELETAL: Extremities without clubbing, cyanosis. No mottling or clubbing. Edema to bilateral arms. NEUROLOGICAL: Does not arouse to voice or exam. PSYCHIATRIC: sedated. . Diagnostic Tests Laboratory Laboratory Tests Test 04/09/17 14:58 04/10/17 04:00 04/11/17 04:10 04/11/17 12:40 Blood Urea Nitrogen 152 MG/DL (7-18) 165 MG/DL (7-18) 192 MG/DL (7-18) Creatinine 3.65 MG/DL (0.60-1.30) 4.25 MG/DL (0.60-1.30) 4.84 MG/DL (0.60-1.30) Random Glucose 164 MG/DL (74-106) 157 MG/DL (74-106) 149 MG/DL (74-106) Total Protein 5.9 GM/DL (6.4-8.2) 5.1 GM/DL (6.4-8.2) 5.3 GM/DL (6.4-8.2) Albumin 2.2 GM/DL (3.4-5.0) 1.9 GM/DL (3.4-5.0) 1.9 GM/DL (3.4-5.0) Calcium Level 7.0 MG/DL (8.5-10.1) 7.0 MG/DL (8.5-10.1) 7.4 MG/DL (8.5-10.1) Alkaline Phosphatase 94 U/L (45-117) 88 U/L (45-117) 83 U/L (45-117) Aspartate Amino Transf (AST/SGOT) 82 U/L (15-37) 79 U/L (15-37) 67 U/L (15-37) Alanine Aminotransferase (ALT/SGPT) 86 U/L (12-78) 79 U/L (12-78) 79 U/L (12-78) Total Bilirubin 0.3 MG/DL (0.2-1.0) 0.3 MG/DL (0.2-1.0) 0.3 MG/DL (0.2-1.0) Sodium Level 148 MEQ/L (136-145) 145 MEQ/L (136-145) 141 MEQ/L (136-145) Potassium Level 4.8 MEQ/L (3.5-5.1) 5.0 MEQ/L (3.5-5.1) 5.5 MEQ/L (3.5-5.1) Chloride Level 112 MEQ/L (98-107) 108 MEQ/L (98-107) 107 MEQ/L (98-107) Carbon Dioxide Level 25.2 MEQ/L (21.0-32.0) 25.6 MEQ/L (21.0-32.0) 22.1 MEQ/L (21.0-32.0) Anion Gap 11 MEQ/L (5-15) 11 MEQ/L (5-15) 12 MEQ/L (5-15) Estimat Glomerular Filtration Rate 20 ML/MIN (>89) 17 ML/MIN (>89) 14 ML/MIN (>89) Protein Corrected Calcium 7.6 MG/DL (8.5-10.1) 8.1 MG/DL (8.5-10.1) 8.4 MG/DL (8.5-10.1) White Blood Count 14.8 TH/MM3 (4.0-11.0) 15.5 TH/MM3 (4.0-11.0) Red Blood Count 3.76 MIL/MM3 (4.50-5.90) 3.74 MIL/MM3 (4.50-5.90) Hemoglobin 10.8 GM/DL (13.0-17.0) 10.7 GM/DL (13.0-17.0) Hematocrit 33.5 % (39.0-51.0) 33.2 % (39.0-51.0) Mean Corpuscular Volume 89.1 FL (80.0-100.0) 88.9 FL (80.0-100.0) Mean Corpuscular Hemoglobin 28.7 PG (27.0-34.0) 28.7 PG (27.0-34.0) Mean Corpuscular Hemoglobin Concent 32.2 % (32.0-36.0) 32.3 % (32.0-36.0) Red Cell Distribution Width 15.0 % (11.6-17.2) 15.0 % (11.6-17.2) Platelet Count 120 TH/MM3 (150-450) 120 TH/MM3 (150-450) Mean Platelet Volume 9.8 FL (7.0-11.0) 9.8 FL (7.0-11.0) Neutrophils (%) (Auto) 92.4 % (16.0-70.0) 92.0 % (16.0-70.0) Lymphocytes (%) (Auto) 2.9 % (9.0-44.0) 2.6 % (9.0-44.0) Monocytes (%) (Auto) 4.7 % (0.0-8.0) 5.2 % (0.0-8.0) Eosinophils (%) (Auto) 0.0 % (0.0-4.0) 0.0 % (0.0-4.0) Basophils (%) (Auto) 0.0 % (0.0-2.0) 0.2 % (0.0-2.0) Neutrophils # (Auto) 13.6 TH/MM3 (1.8-7.7) 14.2 TH/MM3 (1.8-7.7) Lymphocytes # (Auto) 0.4 TH/MM3 (1.0-4.8) 0.4 TH/MM3 (1.0-4.8) Monocytes # (Auto) 0.7 TH/MM3 (0-0.9) 0.8 TH/MM3 (0-0.9) Eosinophils # (Auto) 0.0 TH/MM3 (0-0.4) 0.0 TH/MM3 (0-0.4) Basophils # (Auto) 0.0 TH/MM3 (0-0.2) 0.0 TH/MM3 (0-0.2) CBC Comment DIFF FINAL DIFF FINAL Differential Comment Magnesium Level 3.3 MG/DL (1.5-2.5) Test 04/12/17 12:25 Blood Urea Nitrogen 132 MG/DL (7-18) Creatinine 4.05 MG/DL (0.60-1.30) Random Glucose 296 MG/DL (74-106) Total Protein 5.5 GM/DL (6.4-8.2) Albumin 2.6 GM/DL (3.4-5.0) Calcium Level 7.6 MG/DL (8.5-10.1) Alkaline Phosphatase 90 U/L (45-117) Aspartate Amino Transf (AST/SGOT) 33 U/L (15-37) Alanine Aminotransferase (ALT/SGPT) 64 U/L (12-78) Total Bilirubin 0.5 MG/DL (0.2-1.0) Sodium Level 138 MEQ/L (136-145) Potassium Level 5.0 MEQ/L (3.5-5.1) Chloride Level 101 MEQ/L (98-107) Carbon Dioxide Level 25.5 MEQ/L (21.0-32.0) Anion Gap 12 MEQ/L (5-15) Estimat Glomerular Filtration Rate 18 ML/MIN (>89) Result Diagram: 04/11/17 0410 04/12/17 1225 Microbiology Microbiology Date/Time Source Procedure Growth Status 04/01/17 12:28 Blood Peripheral Aerobic Blood Culture - Final NO GROWTH IN 5 DAYS Complete 04/01/17 12:28 Blood Peripheral Anaerobic Blood Culture - Final NO GROWTH IN 5 DAYS Complete 04/06/17 12:15 Sputum Oral Tracheal Aspirate Gram Stain - Final Complete 04/06/17 12:15 Sputum Oral Tracheal Aspirate Sputum Culture - Final MODERATE GROWTH NORMAL RESPIRATORY ANIA Complete 04/04/17 17:40 Urine Catheterized Urine Streptococcus pneumoniae Antigen (M - Final PRESUMPTIVE NEGATIVE FOR STREPTOCOCCU... Complete Imaging Last Impressions Chest X-Ray 04/11/17 0600 Signed Impressions: Service Date/Time: Tuesday, April 11, 2017 04:10 - CONCLUSION: 1. Endotracheal tube and nasogastric tube in good position. Bilateral mostly basilar airspace disease relatively stable. Tha Wilhelm MD Renal Ultrasound 04/09/17 0000 Signed Impressions: Service Date/Time: Sunday, April 09, 2017 13:55 - CONCLUSION: Limited exam, no hydronephrosis. Normal size kidneys. Marcelino Mc MD FACR Abdomen X-Ray 04/06/17 0000 Signed Impressions: Service Date/Time: Thursday, April 06, 2017 09:26 - CONCLUSION: 1. Nasogastric tube has its tip in the distal stomach. 2. Mild degenerative changes involving the lumbar spine and hip joints bilaterally. 3. No bowel obstruction or ileus. Jorge Chang MD Procedures * 04/06/17 -endotracheal intubation . Assessment and Plan Disease Oriented Problem List: (1) Acute respiratory failure (2) Pulmonary edema (3) Chronic diastolic congestive heart failure (4) Dementia (5) Diabetes mellitus Symptom Scale: (1) Shortness of breath 0-10 Scale: Unable to quantify (2) Pain 0-10 Scale: Unable to quantify (3) Debility 0-10 Scale: Unable to quantify Pertinent Non-Medical Issues Psychosocial: Patient's family is originally from [place]. Patient was born in [facility]. Patient moved to [place] approximately 4 years ago. Patient has been for over 30 years, they have 4 children together. 2 sons who live in [place], one daughter who resides locally and another daughter who is is still in [facility]. 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 Spiritual: Quaker. Legal: POA completed. Ethical issues impacting care: No ethical lesions identified. . Important Contacts Daughter Haily Lora , . . Prognosis Mr. Lora 71-year-old male with a medical history significant for dementia, CHF , diabetes mellitus, history of CVA. Patient is a resident of a long-term memory care unit. Currently admitted for respiratory failure requiring intubation and mechanical ventilation. Very high risk for further complications , continue decline and . Guarded prognosis. . Code Status: Full Code Plan * CODE STATUS: Full code. Risks, benefits and limitations of CPR discussed with patient's family given patient's condition. Fam requesting full code at this time. * HEALTHCARE DECISION-MAKING: Patient incapacitated for medical decision-making given baseline dementia and critical condition. Patient will not regain medical decision-making capacity. POA completed but only includes financial matters. As per [place] statute, healthcare proxy decision-making falls to patient's Carley Lora. is fully supported by daughter Haily Lora who is a nurse. Palliative care recommends to include patient's daughter Haily in all goals of care conversations with . * GOALS OF CARE: Family electing to continue aggressive management to include full code. Family verbalized NOT likely to proceed with tracheostomy or PEG tube placement if patient is unable to medically extubate, compassionately withdrawal life support discussed at length. Family awaiting for additional family members to arrive. Receptive to f/u goals of care conversation with palliative care. * SYMPTOMS: = Shortness of breath, secondary to respiratory failure, pulmonary edema, CHF. Currently intubated on mechanical ventilation. = Debility: Progressive. Patient resident of long-term facility. = Pain: No defect oral. History of chronic pain. Appears comfortable. * Palliative care will continue to follow-up for further clarifications of goals of care as patient's clinical course continue to evolve. . Attestation To help prompt me to consider important information that might be impacting today's encounter and assessment, information from prior notes written by myself or my colleagues may have been "brought forward" into today's note. My signature on this note, however, is an attestation that I personally performed the exam, history, and/or decision-making noted today, and, unless otherwise indicated, the interactions with patient, family, and staff as well as the review of records all occurred today. I also attest that the listed assessment and stated plan reflect my best clinical judgment today based on the combination of historical information, prior notes, and today's exam/ interactions. When time spent is documented, it refers only to time spent today by the signer, or if indicated, combined time spent today by collaborating physician/nurse practitioner. Danette Bernal Apr 12, 2017 14:45
[2017-04-12 15:37] LABS: HEPATITIS A AB IGM NEGATIVE (NEGATIVE); HEPATITIS B CORE AB IGM NEGATIVE (NEGATIVE); HEPATITIS B SURFACE ANTIGEN NEGATIVE (NEGATIVE); HEPATITIS C AB IgG NEGATIVE (NEGATIVE)
--- NOTE | 2017-04-12 16:05 | HHI.HCPN ---
Palliative care continuing to follow for ongoing support and continued conversation regarding goals of care. Spoke with daughter, Haily. Family meeting scheduled for Thursday 04/13 at 12pm. Palliative care will continue to follow throughout hospitalization. Dora Abraham ADMINISTRATIVE ASST, CARTON CATCHER Apr 12, 2017 16:05
[2017-04-12] MEDS: PANTOPRAZOLE SODIUM 40 MG VIAL IV PUSH SCH (19:11)
--- NOTE | 2017-04-12 20:04 | HHI.PR ---
Subjective Remarks Intubated and on vent support. Fio2 50 %. On CPAP now but renal functions are worse.Was Dialyzed Seems poorly responsive. Objective Vital Signs Date Time Temp Pulse Resp B/P (MAP) Pulse Ox O2 Delivery O2 Flow Rate FiO2 04/12/17 19:15 72 04/12/17 19:00 69 04/12/17 18:45 70 04/12/17 18:30 83 04/12/17 18:15 73 04/12/17 18:00 69 04/12/17 16:30 78 15 154/64 (94) 94 04/12/17 16:30 78 04/12/17 16:29 95 40 04/12/17 16:15 78 04/12/17 16:15 78 13 138/61 (86) 95 04/12/17 16:00 76 04/12/17 16:00 45 04/12/17 16:00 98.1 76 13 126/59 (81) 94 04/12/17 14:45 83 04/12/17 14:30 88 04/12/17 14:15 71 04/12/17 14:00 71 04/12/17 13:45 71 15 121/57 (78) 94 04/12/17 13:45 71 04/12/17 13:30 71 14 122/58 (79) 95 04/12/17 13:30 71 04/12/17 13:15 73 04/12/17 13:15 73 16 125/59 (81) 97 04/12/17 13:00 71 11 122/55 (77) 96 04/12/17 13:00 71 04/12/17 12:45 98.1 72 12 122/58 (79) 97 04/12/17 12:45 72 04/12/17 12:30 72 04/12/17 12:30 72 13 122/57 (78) 97 04/12/17 12:15 72 04/12/17 12:15 72 14 124/61 (82) 98 04/12/17 12:00 45 04/12/17 12:00 72 19 122/59 (80) 98 04/12/17 12:00 72 04/12/17 11:24 100 45 04/12/17 10:45 72 04/12/17 10:31 72 04/12/17 10:15 71 04/12/17 10:00 71 04/12/17 09:45 72 04/12/17 09:45 72 14 110/55 (73) 96 04/12/17 09:30 71 14 86/51 (63) 95 04/12/17 09:30 71 04/12/17 09:15 71 04/12/17 09:15 71 14 83/47 (59) 94 04/12/17 09:00 74 13 113/53 (73) 96 04/12/17 09:00 74 04/12/17 08:45 74 13 131/66 (87) 96 04/12/17 08:45 74 04/12/17 08:37 72 04/12/17 08:37 72 13 127/65 (85) 96 04/12/17 08:30 72 04/12/17 08:30 72 13 122/58 (79) 95 04/12/17 08:00 45 04/12/17 08:00 98.6 70 10 121/60 (80) 96 04/12/17 08:00 70 04/12/17 07:31 96 45 04/12/17 07:31 45 04/12/17 06:00 69 04/12/17 04:00 50 04/12/17 04:00 98.3 75 18 144/65 (91) 95 04/12/17 04:00 75 04/12/17 03:12 97 50 04/12/17 02:00 76 04/12/17 00:00 50 04/12/17 00:00 74 04/12/17 00:00 98.5 74 17 121/58 (79) 96 04/11/17 23:48 97 50 04/11/17 22:00 64 04/11/17 20:11 96 50 I/O 04/11/17 04/11/17 04/11/17 04/12/17 04/12/17 04/12/17 07:00 15:00 23:00 07:00 15:00 23:00 Intake Total 1593 ml 500 ml 1334 ml 1055 ml 605 ml Output Total 600 ml 2300 ml 250 ml 2700 ml 150 ml Balance 993 ml 500 ml -966 ml 805 ml -2700 ml 455 ml IV Total 200 ml 500 ml 100 ml 255 ml Tube Feeding 533 ml 434 ml 185 ml Tube Irrigant 60 ml Other 800 ml 800 ml 800 ml 420 ml Output Urine Total 600 ml 300 ml 250 ml 150 ml Hemodialysis 2000 ml 2700 ml # Bowel Movements 1 1 0 Result Diagram: 04/11/17 0410 04/12/17 1225 Objective Remarks GENERAL: This is an obese elderly man on the vent HEENT: Head normocephalic. Pupils are reactive and equal. Sclerae were clear. Nasal mucosa is clear. NECK: Supple. No bruits. There is venous distension . Trachea midline. No thyroid enlargement. CHEST: Equal movements. Decreased excursions. Breath sounds diminished at the bases with Occ wheezes bilaterally and occasional basilar crackles. CARDIAC: Heart sounds are irregular S1, S2 with no murmur. No S3. ABDOMEN: Soft, obese without masses. No organomegaly or tenderness. Bowel sounds are active. EXTREMITIES: Edema 1+. Pigmentation of the skin of the lower extremities. diminished peripheral pulses. NEUROLOGIC: Very lethargic, Sedated. SKIN: Dry and scaly. Assessment and Plan Assessment and Plan IMPRESSION 1. Hypercapnic respiratory failure. 2. Hypoventilation and possible obstructive sleep apnea syndrome 3. History of bronchial asthma with chronic bronchitis 4. Diabetes mellitus 5. Dementia. 6. History of hypertension 7. History of CVA. 8. ADALI Plan : 1. Wean vent to CPAP 8/5 cm and FIo2 40 % 2. Continue antibiotics Daily 3. Nebs qid Duoneb 4. BMP BMP ,CBC in am. 5.Symbicort 160/4.5 Mcg , 2 puffs bid. 6. Taper Solumedrol IV 40 Mg BID 7. Sedation with Propofol / Fentanyl. 8. Family to discus with palliative care. Chhaya Ta MD Apr 12, 2017 20:04
[2017-04-12] MEDS: CEFEPIME INJ 2,000 MG in SODIUM CHLORIDE 0.9% INJ 100 ML IV SCH (21:30)
[2017-04-13] VITALS (38 sets, daily range): BP systolic 117–179; BP diastolic 56–81; PULSE 64–86; RESP 14–21; TEMP 96.6–99.5; O2SAT 92–98
[2017-04-13] MEDS: metroNIDAZOLE 500 MG INJ 100 ML IV SCH ×3 (01:23→17:45)
[2017-04-13] MEDS: HIGH DOSE INSULIN NOVOLOG SUPPLEMENTAL SCALE SQ SCH ×6 (01:24→21:13)
[2017-04-13] MEDS: RESP: ALBUTEROL 2.5 MG/IPRATROPIUM 0.5 MG NEB (SCH) NEB ×4 (03:04→20:28)
--- NOTE | 2017-04-13 05:00 | RADRPT ---
EXAM DATE/TIME: 04/13/2017 03:27 [place] COMPARISON: CHEST SINGLE AP, April 11, 2017, 9:25. INDICATIONS : Short of breath. MEDICAL HISTORY : Hypertension. Diabetes mellitus type II. Dementia SURGICAL HISTORY : None. ENCOUNTER: Subsequent ACUITY: 2 weeks PAIN SCORE: 0/10 LOCATION: Bilateral chest FINDINGS: Endotracheal tube, enteric tube, right jugular line, bilateral effusions and lower lobe consolidation again seen. Cardiomegaly again noted. CONCLUSION: No significant change has occurred. Raoul Hemphill MD on April 13, 2017 at 4:57 Board Certified Radiologist. This report was verified electronically.
[2017-04-13] MEDS: hydrALAZINE HCL 10 MG TAB PO SCH ×3 (05:27→21:01)
[2017-04-13] MEDS: FREE WATER G-TUBE SCH ×3 (05:27→21:02)
[2017-04-13 06:51] LABS: AUTOMATED NEUTROPHIL # 11.9 TH/MM3 (1.8-7.7); BASOPHIL % 0.1 % (0.0-2.0); HEMATOCRIT 28.1 % (39.0-51.0); HEMOGLOBIN 9.4 GM/DL (13.0-17.0); LYMPH % 2.2 % (9.0-44.0); LYMPHOCYTE # 0.3 TH/MM3 (1.0-4.8); MEAN CELL VOLUME 87.3 FL (80.0-100.0); MEAN CORPUSCULAR HEMOGLOBIN 29.1 PG (27.0-34.0); MEAN CORPUSCULAR HGB CONC 33.3 % (32.0-36.0); MEAN PLATELET VOLUME 9.5 FL (7.0-11.0); MONO % 6.8 % (0.0-8.0); MONOCYTE # 0.9 TH/MM3 (0-0.9); NEUT % 90.9 % (16.0-70.0); PLATELET COUNT 142 TH/MM3 (150-450); RED BLOOD COUNT 3.22 MIL/MM3 (4.50-5.90); RED CELL DISTRIBUTION WIDTH 14.7 % (11.6-17.2); WHITE BLOOD COUNT 13.1 TH/MM3 (4.0-11.0)
[2017-04-13 07:16] LABS: ALBUMIN 2.3 GM/DL (3.4-5.0); BICARBONATE 24.8 MEQ/L (21.0-32.0); CALCIUM 7.7 MG/DL (8.5-10.1); CREATININE 5.21 MG/DL (0.60-1.30); MAGNESIUM 3.4 MG/DL (1.5-2.5); PHOSPHORUS 8.3 MG/DL (2.5-4.9)
[2017-04-13] MEDS: ASPIRIN EC 81 MG TABEC PO SCH (07:36)
[2017-04-13] MEDS: CHLORHEXIDINE 0.12% (ORAL KIT) 15 ML CUP MT SCH ×2 (07:36→21:00)
[2017-04-13] MEDS: HEPARIN SODIUM - SQ 10,000 UNITS/ML VIAL SQ SCH ×2 (07:36→21:00)
[2017-04-13] MEDS: DONEPEZIL HCL 5 MG TAB PO SCH (07:37)
[2017-04-13] MEDS: CHOLECALCIFEROL (VIT D3) 1000 UNIT TAB PO SCH (07:37)
[2017-04-13] MEDS: MEMANTINE HCL 10 MG TAB PO SCH ×2 (07:37→21:01)
[2017-04-13] MEDS: ASCORBIC ACID 500 MG TAB PO SCH ×2 (07:37→21:01)
[2017-04-13] MEDS: methylPREDNISolone SOD SUCC 40 MG/1 ML VIAL IV PUSH SCH ×2 (07:38→21:01)
[2017-04-13] MEDS: INSULIN DETEMIR 100 UNITS/ML VIAL SQ SCH ×2 (07:38→21:01)
[2017-04-13] MEDS: BUDESONIDE-FORMOTEROL 160/4.5 MCG INHALER INH SCH ×2 (07:38→21:00)
[2017-04-13] MEDS: HYOSCYAMINE 0.5 MG/ML AMP IV PUSH PRN (08:07)
[2017-04-13] MEDS: hydrALAZINE HCL 20 MG/ML VIAL IV PUSH PRN (09:28)
[2017-04-13] MEDS ORDERED: CALCIUM CHLORIDE 10% SOLN 1 GRAM/10 ML SYR IV PUSH ONE (09:30)
[2017-04-13] MEDS ORDERED: DEXTROSE 50% IN WATER 50 ML SYRINGE IV PUSH ONE (09:30)
[2017-04-13] MEDS ORDERED: INSULIN HUMAN REGULAR 1,000 UNITS/10 ML VIAL IV PUSH ONE (09:30)
[2017-04-13] MEDS ORDERED: CALCIUM GLUCONATE 10% 1 GM/10 ML VIAL ONE (09:34)
[2017-04-13] MEDS ORDERED: MORPHINE SULFATE 4 MG/ML INJ IV PUSH PRN (09:45)
--- NOTE | 2017-04-13 09:52 | HHI.CCPN ---
Subjective Remarks/Hospital Course This is a 71 year old male with history of CHF, diabetes and recent upper respiratory infection presented to the ED with severe short of breath and wheezing on 04/01/17.The patient resides in SNF secondary to to dementia, his daughter requested to transfer patient to hospital due to increase work of breathing even on rest. Patient recently was diagnosed with pneumonia and started on Levaquin and prednisone. I saw patient in the room he was on BiPAP, in ED he was found to have hypercapnic respiratory failure he was given O2 and DuoNeb and a dose of Solu-Medrol, history was restricted due to increase of respiratory work and being on BiPAP, influenza A and B was negative. The patient was then transferred to the medical floor. During the last evening the patient had increased work of breathing, the patient was noted to have frothy pink sputum and BiPAP was ordered. The patient did not receive BiPAP during the night secondary to being combative, and inability to be restrained on BiPAP. The patient's respiratory status continued to worsen, Halicat was initiated the patient received furosemide 40 mg IV early this a.m. and diuresed greater than 1 L. The patient subsequently became hypotensive, and critical care medicine was consulted. [place] [facility] the patient was compatible requiring 2-point wrist restraints, and subsequently 1 mg of Ativan was administered. The patient continues on BiPAP, echocardiogram was performing cardiology evaluation. O2 saturation was noted improvement 100% on FiO2 of 35%, a normal respiratory rate. Subjective: 2: No acute events overnight. The patient became agitated, removing peripheral IVs, requiring 1 mg of Ativan last evening. Patient continues in restraints for patient safety. The patient continues to have adequate diuresis with Lasix. Patient was changed from CPAP to nasal cannula 6 L/m ABGs performed this afternoon show slight elevation in PCO2 to 63 however patient had been given Ativan for anxiety. Patient will receive 1 dose of Acetazolamide 250 mg. Plan for bedside swallow and advancement of diet. 04/06: Afebrile. Early this a.m. ,the patient became hypoxemic requiring emergent intubation at 5 AM. The patient currently intubated and sedated. ET tube was noted to be near the ese endotracheal tube retracted chest x-ray pending. Dietary consulted for initiation of tube feeds. 04/07: Afebrile. Overnight the patient's noted sodium level elevation with slight elevation in creatinine. Lasix discontinued on 04/06. Chest x-ray unchanged. Oxygenation status slightly improved today plan for initiation of CPAP trials. 04/08: The patient continues to have an elevation in creatinine, Lasix was discontinued on 04/06. BUN also elevated ,free water flushes frequency increased to every 4 hours. Patient fell CPAP trials yesterday after approximately 30 minutes, and continued attempts at CPAP trials. Palliative care was consulted yesterday discussion with family the patient and family would not want a tracheostomy nor PEG placement. Family arriving from [facility] today to visit patient. Continuing aggressive ventilator weaning in attempt to extubate patient. A chin with persistent hyperglycemia most likely secondary to exogenous steroids, placed on high-dose insulin sliding scale, dehydration will bolus with 1/2 NSS this am. 04/09: Remains intubated sedated. Apparently gets agitated on lightening sedation. On 45% FiO2. Chest x-ray remains unchanged. Further worsening of renal function BUN 144 from 116 yesterday, creatinine 2.4 today from 2.4 yesterday. Urine output in 24 hours under 400. Continues to fail CPAP. I have consulted nephrology 04/10: BUN creat continues to rise. 165/4.3. Remans intubated, on lightening sedation, he follows commands on UE. D/W Dr. Zuniga. Will proceed with [facility] for HD starting in am (Renal failure with volume overload) 04/11: Remains intubated sedated. BUN creatinine very elevated at 192/4.84. Urine output minimally improved 950 mL in [address] a Vas-Cath today to initiate hemodialysis. Still significantly volume overloaded with weight gain 04/12: Started on HD 04/11, removed 2L yesterday and 2.7 L today. Labs today pending, BUN was 192 yesterday. Remains encephalopathic 04/13: Awake on the vent today. Followed basic commands when instructed in Icelandic by the physical therapist. Remains very weak. K remains elevated at 5.8 , BUN/creat 169/5.2, discuss with nephrology Dr. Adams. Plan for repeat dialysis again today Objective Vital Signs Date Time Temp Pulse Resp B/P (MAP) Pulse Ox O2 Delivery O2 Flow Rate FiO2 04/13/17 09:03 179/81 (113) 04/13/17 09:03 82 04/13/17 09:00 15 94 04/13/17 08:00 40 04/13/17 08:00 99.5 Intake and Output 04/13/17 04/13/17 04/14/17 08:00 16:00 00:00 Intake Total 1177 ml Output Total 150.0 ml Balance 1027.0 ml Result Diagram: 04/13/17 0420 04/13/17 0420 Imaging Last Impressions Chest X-Ray 04/07/17 0600 Signed Impressions: Service Date/Time: Friday, April 07, 2017 03:48 - CONCLUSION: Stable chest x-ray with underinflation with mild bibasilar opacity likely representing atelectasis. Jerman Benitez MD Abdomen X-Ray 04/06/17 0000 Signed Impressions: Service Date/Time: Thursday, April 06, 2017 09:26 - CONCLUSION: 1. Nasogastric tube has its tip in the distal stomach. 2. Mild degenerative changes involving the lumbar spine and hip joints bilaterally. 3. No bowel obstruction or ileus. Jorge Chang MD Last Impressions Chest X-Ray 04/07/17 0600 Signed Impressions: Service Date/Time: Friday, April 07, 2017 03:48 - CONCLUSION: Stable chest x-ray with underinflation with mild bibasilar opacity likely representing atelectasis. Jerman Benitez MD Abdomen X-Ray 04/06/17 0000 Signed Impressions: Service Date/Time: Thursday, April 06, 2017 09:26 - CONCLUSION: 1. Nasogastric tube has its tip in the distal stomach. 2. Mild degenerative changes involving the lumbar spine and hip joints bilaterally. 3. No bowel obstruction or ileus. Jorge Chang MD Last Impressions Chest X-Ray 04/04/17 0000 Signed Impressions: Service Date/Time: Tuesday, April 04, 2017 09:37 - CONCLUSION: 1. Bibasilar atelectasis. Frantz Helms MD Objective Remarks GENERAL: This is an obese chronically ill appearing patient, intubated off all sedation SKIN: Warm and dry. HEAD: Atraumatic. Normocephalic. EYES: Pupils equal and round. No scleral icterus. No injection or drainage. ENT: No nasal bleeding or discharge. Orotracheally intubated, large amount of oral secretions, moderate ETT secretions NECK: Trachea midline. No JVD. CARDIOVASCULAR: Normal rate, regular rhythm. RESPIRATORY: Mild expiratory wheezing, diminished breath sounds throughout lung [place], equal bilaterally. GASTROINTESTINAL: Abdomen soft, non-tender, protuberant nondistended. No guarding. Normoactive bowel sounds MUSCULOSKELETAL: Extremities without clubbing, cyanosis, or edema. No obvious deformities. NEUROLOGICAL: Awake alert. Follows commands upper and lower extremity when instructed in [place]ic. Right side slightly weaker than left but difficult to assess Procedures 2/6 emergent intubation A/P Assessment and Plan Plan by systems: Neurologic: Dementia History of CVA Agitation Hold all continuos sedation. Start morphine 2 mg IV every 3 hours as needed for pain Continue Aricept and Namenda Continue Haldol 2 mg every 8 hours when necessary for agitation Neurochecks per ICU protocol Respiratory: Acute hypoxemic and hypercapnic respiratory failure History of bronchial asthma and chronic bronchitis Pulmonary edema Solu-Medrol 40 mg every 12 2 emergently intubated 8.0 ETT. Vent day 8 Continues to fail CPAP trials DuoNeb every 6 hours scheduled and as needed Pulmonology following Dr. Bay Williamson Family requested continued weaning and no trach/PEG. Will request clarification re: aurea intubation if failed extubation Cardiovascular: Chronic diastolic CHF Cardiology following-Dr. Pace 04/04 echo-EF 50-55% mildly dilated left ventricle, moderately concentric LVH Plan for repeat echo per cardiology in near future HD started 04/11/11. Removed 4.7L in 2 sessions. Renal: Worsening acute kidney failure BUN and creatinine 192/4.8 on 04/11, HD started today 169/5.2 with K 5.8 will need repeat dialysis discussed with Dr. Adams Maintain Locke catheter. Strict I/Os, Nephrology following HD started 04/11/11. Removed 4.7L in 2 sessions. Currently on Lasix 80 mg IV q8h FEN/GI: Obesity Mild protein calorie malnutrition Electrolyte derangement Glucerna 1.5 goal rate 50-change to Nepro due to hyperkalemia Hydralazine PRN for systolic blood pressure greater than 160 Heme/ID: Leukocytosis-improving Anemia of chronic disease Probable pneumonia Monitor CBC. WBC count noted 12 trending down / Blood cultures 2 negative growth to date Influenza nasal wash negative Legionella, pneumococcal urine antigens-negative Continue cefepime Flagyl and DCd azithromycin 04/11 Endocrine: Diabetes mellitus Persistent elevation in glucose secondary to steroids On Insulin SSI Musculoskeletal: PT evaluation and treat Functional maintenance daily Prophylaxis: GI Prophylaxis Protonix DVT Prophylaxis -- SCDs Heparin every 12 hours Lines: Peripheral IVs 2 providing adequate access. Placed Vascath 04/11 Dispo: CCT 30 Discussed with [employer]AIL [employer] H[employer]DER at bedside. D/W Dr. Adams Condition remains critical with BUN of 169 creatinine of 5.2 and K 5.8, fluid overloaded. Need repeat HD today Palliative care following to determine goals of care in the event that a tracheostomy and PEG placement, family does not want a tracheostomy or PEG tube placement. Plan for aggressive ventilator weaning measures, if unsuccessful tentative plan for possible compassionate withdrawal. Patient could possibly be extubated in 1-2 days, will need to clarify goals of care prior to extubation. Discussed with palliative care team Moise Stoll MD Apr 13, 2017 09:52
--- NOTE | 2017-04-13 09:58 | HHI.NPPN ---
Subjective General Problems: Edema Renal Failure: Acute Interval History He is off sedation, on CPAP trial. Eyes open, following commands. Dialyzed Wednesday and Wednesday, however creatinine, BUN, and potassium are higher. Palliative care meeting today with family. (Aliyah Onofre) Review of Systems General General Remarks unable to obtain (Aliyah Onofre) Objective Data Data 04/13/17 04/14/17 19:00 07:00 Output Total 0 ml Balance 0 ml Tube Feeding Residual Discard 0 ml Vital Signs Date Time Temp Pulse Resp B/P (MAP) Pulse Ox O2 Delivery O2 Flow Rate FiO2 04/13/17 09:48 98 40 04/13/17 09:47 40 04/13/17 09:03 179/81 (113) 04/13/17 09:03 82 04/13/17 09:00 82 04/13/17 09:00 82 15 176/76 (109) 94 04/13/17 08:45 77 15 168/73 (104) 94 04/13/17 08:45 77 04/13/17 08:30 83 04/13/17 08:30 83 16 170/74 (106) 93 04/13/17 08:15 84 20 156/62 (93) 94 04/13/17 08:15 84 04/13/17 08:00 75 04/13/17 08:00 40 04/13/17 08:00 99.5 75 18 176/77 (110) 94 04/13/17 07:30 96 40 04/13/17 06:00 70 04/13/17 04:56 95 40 04/13/17 04:00 66 04/13/17 04:00 99.1 66 14 135/58 (83) 92 04/13/17 04:00 40 04/13/17 03:05 40 04/13/17 03:00 95 40 04/13/17 02:00 72 04/13/17 00:00 99.4 71 16 144/61 (88) 94 04/13/17 00:00 71 04/13/17 00:00 40 04/12/17 22:00 87 04/12/17 20:00 68 04/12/17 20:00 99.0 68 13 122/51 (74) 96 04/12/17 20:00 40 04/12/17 19:31 95 40 04/12/17 19:15 72 04/12/17 19:00 69 04/12/17 18:45 70 04/12/17 18:30 83 04/12/17 18:15 73 04/12/17 18:00 69 04/12/17 16:30 78 15 154/64 (94) 94 04/12/17 16:30 78 04/12/17 16:29 95 40 04/12/17 16:15 78 04/12/17 16:15 78 13 138/61 (86) 95 04/12/17 16:00 76 04/12/17 16:00 45 04/12/17 16:00 98.1 76 13 126/59 (81) 94 04/12/17 14:45 83 04/12/17 14:30 88 04/12/17 14:15 71 04/12/17 14:00 71 04/12/17 13:45 71 15 121/57 (78) 94 04/12/17 13:45 71 04/12/17 13:30 71 14 122/58 (79) 95 04/12/17 13:30 71 04/12/17 13:15 73 04/12/17 13:15 73 16 125/59 (81) 97 04/12/17 13:00 71 11 122/55 (77) 96 04/12/17 13:00 71 04/12/17 12:45 98.1 72 12 122/58 (79) 97 04/12/17 12:45 72 04/12/17 12:30 72 04/12/17 12:30 72 13 122/57 (78) 97 04/12/17 12:15 72 04/12/17 12:15 72 14 124/61 (82) 98 04/12/17 12:00 45 04/12/17 12:00 72 19 122/59 (80) 98 04/12/17 12:00 72 04/12/17 11:24 100 45 04/12/17 10:45 72 04/12/17 10:31 72 04/12/17 10:15 71 04/12/17 10:00 71 (Aliyah Onofre) -: 04/13/17 0420 04/13/17 0420 Imaging Last 72 hours Impressions Chest X-Ray 04/13/17 0600 Signed Impressions: Service Date/Time: Thursday, April 13, 2017 03:27 - CONCLUSION: No significant change has occurred. Raoul Hemphill MD Chest X-Ray 04/11/17 0600 Signed Impressions: Service Date/Time: Tuesday, April 11, 2017 04:10 - CONCLUSION: 1. Endotracheal tube and nasogastric tube in good position. Bilateral mostly basilar airspace disease relatively stable. Tha Wilhelm MD Chest X-Ray 04/11/17 0000 Signed Impressions: Service Date/Time: Tuesday, April 11, 2017 09:25 - CONCLUSION: Interval placement of a right-sided central line which appears in appropriate position. The endotracheal tube remains above the level of the clavicles, recommend advancement. Stable lung exam with bilateral small moderate-sized pleural effusions. Jessenia Valenzuela MD Tubes & Lines: Vas-Cath, Locke (Aliyah Onofre B. MOBILE PHONE SALESPERSON) Physical Exam General Appearance: Well Developed, Comfortable (Aliyah Onofre B. MOBILE PHONE SALESPERSON) Eyes Eye Exam: Pupils Equal ([place]Ali[place]ah B. MOBILE PHONE SALESPERSON) Throat Throat Exam: Oral Mucosa [place] & Moist ([place] B. MOBILE PHONE SALESPERSON) Pulmonary Resp Exam: No Distress, Crackles, Rhonchi, Decreased Bases, Diminished Breath Sounds, Poor Inspiratory Effort Resp Remarks vented lung sounds ([place]Ali[place]ah B. MOBILE PHONE SALESPERSON) Cardiology CV Exam: Regular, Normal Sinus Rhythm (Zia Onofreon B. MOBILE PHONE SALESPERSON) Gastrointestinal/Abdomen GI Exam: Soft, Non-Tender, Bowel Sounds Present ([place]ah B. MOBILE PHONE SALESPERSON) Musculoskeletal MS Exam: Joints Intact, Unable to Ambulate ([place]Aliyah B. MOBILE PHONE SALESPERSON) Integumentary Skin Exam: Warm, Dry ([place]Ali[place]ah B. MOBILE PHONE SALESPERSON) Extremeties Extremities Exam: Moderate Edema, Pitting Edema, Dependent Edema ([place]Aliyah B. MOBILE PHONE SALESPERSON) Neurologic Neuro Exam: Awake, Moving All Extremities (Aliyah Onofre B. MOBILE PHONE SALESPERSON) Assessment/Plan Discussed Condition With: Patient Assessment Summary: ADALI/Acute Renal Failure, Acute Tubular Necrosis, Fluid/ Volume Overload Problem List: (1) Acute renal failure ICD Codes: N17.9 - Acute kidney failure, unspecified Plan: Baseline creatinine 1.1-1.2 Renal failure from ATN, possibly from renal hypoperfusion. HD: 04/11 (2L UF); 04/12, (2.7L UF) HD today on a 1K, 2L fluid removal High BUN may be due to steroids, begin to taper Repeat labs daily. await renal recovery Avoid nephrotoxic agents. Lisinopril on hold. Non Oliguric, but urine out put is low. Avoid IVF Lasix on hold. (2) Hyperkalemia, diminished renal excretion ICD Codes: E87.5 - Hyperkalemia Plan: Give IV insulin, dextrose, calcium Dialysis today (3) Chronic diastolic congestive heart failure ICD Codes: I50.32 - Chronic diastolic (congestive) heart failure Plan: Diuresis as above Echo shows LVH, EF 50-55%. (4) Acute respiratory failure ICD Codes: J96.00 - Acute respiratory failure, unspecified whether with hypoxia or hypercapnia Plan: Vent management per laborer sawmill. CPAP trial, possible extubation. (5) Diabetes mellitus ICD Codes: E11.9 - Diabetes mellitus Status: Acute Plan: On insulin gtt, maintain glucose 140-180 mg/dL. (6) Hypernatremia ICD Codes: E87.0 - Hyperosmolality and hypernatremia Plan: Improved Reduce free water via OG (Aliyah Onofre) Plan patient was seen and examined. Agree with above assessment and plan. Discussed with Dr. Stoll. To have dialysis again today. Change TF to Nepro. Taper down steroids. Prognosis is guarded. (Carloz Adams MD) Aliyah Onofre Apr 13, 2017 09:58 Carloz Adams MD Apr 13, 2017 10:18
[2017-04-13] MEDS: CALCIUM ACETATE 667 MG CAP PO SCH ×3 (11:15→17:45)
--- NOTE | 2017-04-13 11:45 | HHI.HCPN ---
Reason for visit a. To assist with evaluation and management of symptoms including: Shortness of breath, anxiety/agitation. b. To assist medical decision maker(s) with: better understanding of current medical conditions; weighing benefits/burdens of medical treatment options; making medical treatment decisions. . Subjective/Interval History Palliative care follow-up for further clarifications of goals of care. Patient seen and assessed in medical ICU- room 500. Off sedation; tolerating CPAP trails since 929 on 40% FiO2 with PEEP/pressor support of 5/5. Eyes are open, tracking. Able to respond to simple questions (asked in [place]) by nodding yes or no. Follows simple commands by consistently squeezing with his left and right hand when asked to do so. Per notes, patient was following basic commands earlier this morning when instructed in [place] by the physical therapist. Dialyzed Wednesday and Wednesday, however creatinine, BUN, and potassium are higher. Potassium: 5.8, BUN 169, creatinine 5.21, GFR 16. Plan for HD today. Nephrology following. Plan for possible medical extubation in the upcoming days; palliative care met with the patient's family to clarify medical treatment goals moving forward. If the patient fails extubation he will need trach/PEG tube placement per Dr. Stoll so will need to consider desired CODE STATUS s/p extubation. Previously the patient's indicated that the patient would never be in agreement with tracheostomy or PEG tube placement, but now that the patient is more alert the family is uncertain what they should do. We reviewed the patient's comorbid conditions, underlying dementia as well as baseline debility. Family was encouraged to consider what the patient would say if he was participating in these conversations.They will discuss with family overnight; palliative care will follow up with family tomorrow morning 04/14/16. . Advance Directives Living Will: Never completed Health Care Surrogate: Never completed Durable Power of Rough Planer Tender: Copy in medical record Advance Directive Specifics Date completed: 02/26/2014. . Health Care Surrogate(s): Only daughter power of defense attorney has been completed. No living will or designation of healthcare surrogate completed as per family. As per [place] statute, healthcare proxy decision-making falls to patient's Carley Lora. . Objective Vital Signs Date Time Temp Pulse Resp B/P (MAP) Pulse Ox O2 Delivery O2 Flow Rate FiO2 04/13/17 11:25 93 40 04/13/17 09:48 98 40 04/13/17 09:47 40 04/13/17 09:03 179/81 (113) 04/13/17 09:03 82 04/13/17 09:00 82 04/13/17 09:00 82 15 176/76 (109) 94 04/13/17 08:45 77 15 168/73 (104) 94 04/13/17 08:45 77 04/13/17 08:30 83 04/13/17 08:30 83 16 170/74 (106) 93 04/13/17 08:15 84 20 156/62 (93) 94 04/13/17 08:15 84 04/13/17 08:00 75 04/13/17 08:00 40 04/13/17 08:00 99.5 75 18 176/77 (110) 94 04/13/17 07:30 96 40 04/13/17 06:00 70 04/13/17 04:56 95 40 04/13/17 04:00 66 04/13/17 04:00 99.1 66 14 135/58 (83) 92 04/13/17 04:00 40 04/13/17 03:05 40 04/13/17 03:00 95 40 04/13/17 02:00 72 04/13/17 00:00 99.4 71 16 144/61 (88) 94 04/13/17 00:00 71 04/13/17 00:00 40 04/12/17 22:00 87 04/12/17 20:00 68 04/12/17 20:00 99.0 68 13 122/51 (74) 96 04/12/17 20:00 40 04/12/17 19:31 95 40 04/12/17 19:15 72 04/12/17 19:00 69 04/12/17 18:45 70 04/12/17 18:30 83 04/12/17 18:15 73 04/12/17 18:00 69 04/12/17 16:30 78 15 154/64 (94) 94 04/12/17 16:30 78 04/12/17 16:29 95 40 04/12/17 16:15 78 04/12/17 16:15 78 13 138/61 (86) 95 04/12/17 16:00 76 04/12/17 16:00 45 04/12/17 16:00 98.1 76 13 126/59 (81) 94 04/12/17 14:45 83 04/12/17 14:30 88 04/12/17 14:15 71 04/12/17 14:00 71 04/12/17 13:45 71 15 121/57 (78) 94 04/12/17 13:45 71 04/12/17 13:30 71 14 122/58 (79) 95 04/12/17 13:30 71 04/12/17 13:15 73 04/12/17 13:15 73 16 125/59 (81) 97 04/12/17 13:00 71 11 122/55 (77) 96 04/12/17 13:00 71 04/12/17 12:45 98.1 72 12 122/58 (79) 97 04/12/17 12:45 72 04/12/17 12:30 72 04/12/17 12:30 72 13 122/57 (78) 97 04/12/17 12:15 72 04/12/17 12:15 72 14 124/61 (82) 98 04/12/17 12:00 45 04/12/17 12:00 72 19 122/59 (80) 98 04/12/17 12:00 72 Intake & Output 04/13/17 04/13/17 06:59 18:59 Intake Total 1692 ml Output Total 150 ml 0 ml Balance 1542 ml 0 ml IV Total 615 ml Tube Feeding 477 ml Tube Irrigant 600 ml Output Urine Total 150 ml Tube Feeding Residual Discard 0 ml # Bowel Movements 1 . Physical Exam CONSTITUTIONAL/GENERAL: This is an adequately nourished patient on [facility] vent. TUBES/LINES/DRAINS: ETT, OG, right IJ central line, Locke catheter, PIV's, SCDs , bilateral soft wrist restraints. SKIN: No jaundice, rashes, or lesions. Ecchymoses on upper extremities. No wounds seen anteriorly. Skin temperature appropriate. Not diaphoretic. EYES: Pupils equal and round and reactive. ENT: Unable to assess hearing. Nose without bleeding or purulent drainage. Dry oral mucosa. CARDIOVASCULAR: Regular rate and rhythm without murmurs, gallops, or rubs. Peripheral pulses symmetric. RESPIRATORY/CHEST: Symmetric, unlabored respirations. Endotracheally intubated , tolerating CPAP trials this morning Scattered rhonchi. GASTROINTESTINAL: Abdomen large, round, obese. Bowel sounds present. GENITOURINARY: Without palpable bladder distension. Locke catheter in place. MUSCULOSKELETAL: Extremities without clubbing, cyanosis. No mottling or clubbing. Edema to bilateral arms. NEUROLOGICAL: Eyes open, tracking. Able to respond to simple questions by nodding yes or no. Assessment limited as patient's primary language is [place]an. PSYCHIATRIC: No obvious anxiety or agitation.. . Diagnostic Tests Laboratory Laboratory Tests Test 04/11/17 04:10 04/11/17 12:40 04/12/17 12:25 04/13/17 04:20 White Blood Count 15.5 TH/MM3 (4.0-11.0) 13.1 TH/MM3 (4.0-11.0) Red Blood Count 3.74 MIL/MM3 (4.50-5.90) 3.22 MIL/MM3 (4.50-5.90) Hemoglobin 10.7 GM/DL (13.0-17.0) 9.4 GM/DL (13.0-17.0) Hematocrit 33.2 % (39.0-51.0) 28.1 % (39.0-51.0) Mean Corpuscular Volume 88.9 FL (80.0-100.0) 87.3 FL (80.0-100.0) Mean Corpuscular Hemoglobin 28.7 PG (27.0-34.0) 29.1 PG (27.0-34.0) Mean Corpuscular Hemoglobin Concent 32.3 % (32.0-36.0) 33.3 % (32.0-36.0) Red Cell Distribution Width 15.0 % (11.6-17.2) 14.7 % (11.6-17.2) Platelet Count 120 TH/MM3 (150-450) 142 TH/MM3 (150-450) Mean Platelet Volume 9.8 FL (7.0-11.0) 9.5 FL (7.0-11.0) Neutrophils (%) (Auto) 92.0 % (16.0-70.0) 90.9 % (16.0-70.0) Lymphocytes (%) (Auto) 2.6 % (9.0-44.0) 2.2 % (9.0-44.0) Monocytes (%) (Auto) 5.2 % (0.0-8.0) 6.8 % (0.0-8.0) Eosinophils (%) (Auto) 0.0 % (0.0-4.0) 0.0 % (0.0-4.0) Basophils (%) (Auto) 0.2 % (0.0-2.0) 0.1 % (0.0-2.0) Neutrophils # (Auto) 14.2 TH/MM3 (1.8-7.7) 11.9 TH/MM3 (1.8-7.7) Lymphocytes # (Auto) 0.4 TH/MM3 (1.0-4.8) 0.3 TH/MM3 (1.0-4.8) Monocytes # (Auto) 0.8 TH/MM3 (0-0.9) 0.9 TH/MM3 (0-0.9) Eosinophils # (Auto) 0.0 TH/MM3 (0-0.4) 0.0 TH/MM3 (0-0.4) Basophils # (Auto) 0.0 TH/MM3 (0-0.2) 0.0 TH/MM3 (0-0.2) CBC Comment DIFF FINAL DIFF FINAL Differential Comment Blood Urea Nitrogen 192 MG/DL (7-18) 132 MG/DL (7-18) 169 MG/DL (7-18) Creatinine 4.84 MG/DL (0.60-1.30) 4.05 MG/DL (0.60-1.30) 5.21 MG/DL (0.60-1.30) Random Glucose 149 MG/DL (74-106) 296 MG/DL (74-106) 165 MG/DL (74-106) Total Protein 5.3 GM/DL (6.4-8.2) 5.5 GM/DL (6.4-8.2) Albumin 1.9 GM/DL (3.4-5.0) 2.6 GM/DL (3.4-5.0) 2.3 GM/DL (3.4-5.0) Calcium Level 7.4 MG/DL (8.5-10.1) 7.6 MG/DL (8.5-10.1) 7.7 MG/DL (8.5-10.1) Alkaline Phosphatase 83 U/L (45-117) 90 U/L (45-117) Aspartate Amino Transf (AST/SGOT) 67 U/L (15-37) 33 U/L (15-37) Alanine Aminotransferase (ALT/SGPT) 79 U/L (12-78) 64 U/L (12-78) Total Bilirubin 0.3 MG/DL (0.2-1.0) 0.5 MG/DL (0.2-1.0) Sodium Level 141 MEQ/L (136-145) 138 MEQ/L (136-145) 139 MEQ/L (136-145) Potassium Level 5.5 MEQ/L (3.5-5.1) 5.0 MEQ/L (3.5-5.1) 5.8 MEQ/L (3.5-5.1) Chloride Level 107 MEQ/L (98-107) 101 MEQ/L (98-107) 100 MEQ/L (98-107) Carbon Dioxide Level 22.1 MEQ/L (21.0-32.0) 25.5 MEQ/L (21.0-32.0) 24.8 MEQ/L (21.0-32.0) Anion Gap 12 MEQ/L (5-15) 12 MEQ/L (5-15) 14 MEQ/L (5-15) Estimat Glomerular Filtration Rate 14 ML/MIN (>89) 18 ML/MIN (>89) 13 ML/MIN (>89) Protein Corrected Calcium 8.4 MG/DL (8.5-10.1) Hepatitis A IgM Antibody NEGATIVE (NEGATIVE) Hepatitis B Surface Antigen NEGATIVE (NEGATIVE) Hepatitis B Core IgM Antibody NEGATIVE (NEGATIVE) Hepatitis C Antibody NEGATIVE (NEGATIVE) Phosphorus Level 8.3 MG/DL (2.5-4.9) Magnesium Level 3.4 MG/DL (1.5-2.5) . Result Diagram: 04/13/1741904/13/17419 Imaging Last 72 hours Impressions Chest X-Ray 04/13/17599 Signed Impressions: Service Date/Time: Thursday, April 13, 2017 03:27 - CONCLUSION: No significant change has occurred. Raoul Hemphill MD Chest X-Ray 2/11/18 0600 Signed Impressions: Service Date/Time: Tuesday, April 11, 2017 04:10 - CONCLUSION: 1. Endotracheal tube and nasogastric tube in good position. Bilateral mostly basilar airspace disease relatively stable. Tha Wilhelm MD Chest X-Ray 04/11/17 0000 Signed Impressions: Service Date/Time: Tuesday, April 11, 2017 09:25 - CONCLUSION: Interval placement of a right-sided central line which appears in appropriate position. The endotracheal tube remains above the level of the clavicles, recommend advancement. Stable lung exam with bilateral small moderate-sized pleural effusions. Jessenia Valenzuela MD . Procedures * 04/06/17 -endotracheal intubation . Assessment and Plan Disease Oriented Problem List: (1) Acute respiratory failure (2) Pulmonary edema (3) Chronic diastolic congestive heart failure (4) Dementia (5) Diabetes mellitus Symptom Scale: (1) Shortness of breath 0-10 Scale: Unable to quantify (2) Pain 0-10 Scale: Unable to quantify (3) Debility 0-10 Scale: Unable to quantify Pertinent Non-Medical Issues Psychosocial: Patient's family is originally from [place]. Patient was born in [facility]. Patient moved to [place] approximately 4 years ago. Patient has been for over 30 years, they have 4 children together. 2 sons who live in [place], one daughter who resides locally and another daughter who is is still in [facility]. 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 Spiritual: Christianity. Legal: POA completed. Ethical issues impacting care: No ethical lesions identified. . Important Contacts Daughter Haily Lora , . . Prognosis Mr. Lora 71-year-old male with a medical history significant for dementia, CHF , diabetes mellitus, history of CVA. Patient is a resident of a long-term memory care unit. Currently admitted for respiratory failure requiring intubation and mechanical ventilation. Very high risk for further complications , continue decline and . Guarded prognosis. . Code Status: Full Code Plan * CODE STATUS: Full code. Risks, benefits and limitations of CPR discussed with patient's family given patient's condition. [facility] requesting full code at this time. * HEALTHCARE DECISION-MAKING: Patient incapacitated for medical decision-making given baseline dementia and critical condition. Patient will not regain medical decision-making capacity. POA completed but only includes financial matters. As per [place] statute, healthcare proxy decision-making falls to patient's Carley Lora. is fully supported by daughter Haily Lora who is a nurse. Palliative care recommends to include patient's daughter Haily in all goals of care conversations with . * AGGRESSIVE REMAIN GOALS AT THIS TIME * Plan for possible medical extubation in the upcoming days; palliative care met with the patient's family to clarify medical treatment goals moving forward. If the patient fails extubation he will need trach/PEG tube placement per Dr. Stoll so will need to consider desired CODE STATUS s/p extubation. Previously the patient's indicated that the patient would never be in agreement with tracheostomy or PEG tube placement, but now that the patient is more alert the family is uncertain what they should do. We reviewed the patient' s comorbid conditions, underlying dementia as well as baseline debility. Family was encouraged to consider what the patient would say if he was participating in these conversations.They will discuss with family overnight; palliative care will follow up with family tomorrow morning 04/14/16. * SYMPTOMS: = Shortness of breath, secondary to respiratory failure, pulmonary edema, CHF. Currently intubated-tolerating spontaneous breathing trials this morning. = Debility: Progressive. Patient resident of long-term facility. = Pain: No defect oral. History of chronic pain. Appears comfortable. * Palliative care will continue to follow-up for further clarifications of goals of care as patient's clinical course continue to evolve. . Attestation To help prompt me to consider important information that might be impacting today's encounter and assessment, information from prior notes written by myself or my colleagues may have been "brought forward" into today's note. My signature on this note, however, is an attestation that I personally performed the exam, history, and/or decision-making noted today, and, unless otherwise indicated, the interactions with patient, family, and staff as well as the review of records all occurred today. I also attest that the listed assessment and stated plan reflect my best clinical judgment today based on the combination of historical information, prior notes, and today's exam/ interactions. When time spent is documented, it refers only to time spent today by the signer, or if indicated, combined time spent today by collaborating physician/nurse practitioner. . Vesely,Debra H. ROLL CLEANER Apr 13, 2017 11:45
[2017-04-13] MEDS: PANTOPRAZOLE SODIUM 40 MG VIAL IV PUSH SCH (17:00)
[2017-04-13] MEDS: HEPARIN SODIUM - IV 10,000 UNITS/10 ML VIAL PRN (18:10)
[2017-04-13] MEDS: GENTAMICIN SULFATE 20 MG/2 ML VIAL OTHER PRN (18:10)
[2017-04-13] MEDS: ALBUMIN 25% INJ 100 ML IV PRN (18:11)
--- NOTE | 2017-04-13 19:45 | HHI.PR ---
Subjective Remarks Intubated and on vent support. Fio2 40 %. On CPAP 5/5 now and ABG to be done. Renal functions are worse.Was Dialyzed Seems poorly responsive. Objective Vital Signs Date Time Temp Pulse Resp B/P (MAP) Pulse Ox O2 Delivery O2 Flow Rate FiO2 04/13/17 18:30 69 04/13/17 18:15 71 04/13/17 18:00 74 04/13/17 16:45 74 14 158/70 (99) 92 04/13/17 16:45 74 04/13/17 16:44 93 40 04/13/17 16:30 72 04/13/17 16:30 72 19 165/70 (101) 92 04/13/17 16:15 66 16 168/71 (103) 94 04/13/17 16:15 66 04/13/17 16:00 98.1 75 17 179/74 (109) 97 04/13/17 16:00 40 04/13/17 16:00 75 04/13/17 14:45 76 04/13/17 14:30 81 04/13/17 14:15 79 04/13/17 14:00 81 04/13/17 12:00 99.5 77 21 157/70 (99) 95 04/13/17 12:00 77 04/13/17 12:00 40 04/13/17 11:30 78 04/13/17 11:25 93 40 04/13/17 11:15 79 04/13/17 11:00 77 04/13/17 10:45 79 04/13/17 10:30 80 04/13/17 10:15 82 04/13/17 10:00 86 04/13/17 09:48 98 40 04/13/17 09:47 40 04/13/17 09:03 179/81 (113) 04/13/17 09:03 82 04/13/17 09:00 82 04/13/17 09:00 82 15 176/76 (109) 94 04/13/17 08:45 77 15 168/73 (104) 94 04/13/17 08:45 77 04/13/17 08:30 83 04/13/17 08:30 83 16 170/74 (106) 93 04/13/17 08:15 84 20 156/62 (93) 94 04/13/17 08:15 84 2/13/18 08:00 75 04/13/17 08:00 40 04/13/17 08:00 99.5 75 18 176/77 (110) 94 04/13/17 07:30 96 40 04/13/17 06:00 70 04/13/17 04:56 95 40 04/13/17 04:00 66 04/13/17 04:00 99.1 66 14 135/58 (83) 92 04/13/17 04:00 40 04/13/17 03:05 40 04/13/17 03:00 95 40 04/13/17 02:00 72 04/13/17 00:00 99.4 71 16 144/61 (88) 94 04/13/17 00:00 71 04/13/17 00:00 40 04/12/17 22:00 87 04/12/17 20:00 68 04/12/17 20:00 99.0 68 13 122/51 (74) 96 04/12/17 20:00 40 I/O 04/12/17 04/12/17 04/12/17 04/13/17 04/13/17 04/13/17 07:00 15:00 23:00 07:00 15:00 23:00 Intake Total 1055 ml 1120 ml 1177 ml 1494 ml Output Total 250 ml 2700 ml 150 ml 150 ml 0 ml 5175 ml Balance 805 ml -2700 ml 970 ml 1027 ml 0 ml -3681 ml IV Total 255 ml 515 ml 100 ml 100 ml Tube Feeding 185 ml 477 ml 774 ml Tube Irrigant 600 ml Other 800 ml 420 ml 620 ml Output Urine Total 250 ml 150 ml 150 ml 175 ml Tube Feeding Residual Discard 0 ml Hemodialysis 2700 ml 5000 ml # Bowel Movements 1 0 1 0 Result Diagram: 04/13/17 0420 04/13/17 0420 Objective Remarks GENERAL: This is an obese elderly man on the vent HEENT: Head normocephalic. Pupils are reactive and equal. Sclerae were clear. Nasal mucosa is clear. NECK: Supple. No bruits. There is no venous distension . Trachea midline. No thyroid enlargement. CHEST: Equal movements. Decreased excursions. Breath sounds diminished at the bases with Occ wheezes bilaterally and basilar crackles. CARDIAC: Heart sounds are irregular S1, S2 with no murmur. No S3. ABDOMEN: Soft, obese without masses. No organomegaly or tenderness. Bowel sounds are active. EXTREMITIES: Edema 1+. Pigmentation of the skin of the lower extremities. diminished peripheral pulses. NEUROLOGIC: Very lethargic, Sedated. SKIN: Dry and scaly. Assessment and Plan Assessment and Plan IMPRESSION 1. Hypercapnic respiratory failure. 2. Hypoventilation and possible obstructive sleep apnea syndrome 3. History of bronchial asthma with chronic bronchitis 4. Diabetes mellitus 5. Dementia. 6. History of hypertension 7. History of CVA. 8. ADALI Plan : 1. Wean vent to CPAP 5/5 cm and FIo2 40 % 2. Continue antibiotics Daily 3. Nebs qid Duoneb 4. CXR BMP ,CBC in am. 5.Symbicort 160/4.5 Mcg , 2 puffs bid. 6. Cont Solumedrol IV 40 Mg BID 7. Stop Sedation 8. Dialysis per renal Chhaya Ta MD Apr 13, 2017 19:45
[2017-04-13] MEDS: CEFEPIME INJ 2,000 MG in SODIUM CHLORIDE 0.9% INJ 100 ML IV SCH (21:02)
[2017-04-14] VITALS (56 sets, daily range): BP systolic 88–199; BP diastolic 52–89; PULSE 67–86; RESP 13–30; TEMP 97.2–98.9; O2SAT 90–99
[2017-04-14] MEDS: HIGH DOSE INSULIN NOVOLOG SUPPLEMENTAL SCALE SQ SCH ×6 (02:00→21:43)
[2017-04-14] MEDS: metroNIDAZOLE 500 MG INJ 100 ML IV SCH ×3 (02:07→17:32)
[2017-04-14] MEDS: RESP: ALBUTEROL 2.5 MG/IPRATROPIUM 0.5 MG NEB (SCH) NEB ×4 (03:39→19:37)
[2017-04-14] MEDS: hydrALAZINE HCL 10 MG TAB PO SCH ×3 (04:52→20:17)
[2017-04-14] MEDS: FREE WATER G-TUBE SCH ×3 (04:55→20:17)
[2017-04-14 05:23] LABS: ALBUMIN 2.8 GM/DL (3.4-5.0); BICARBONATE 25.1 MEQ/L (21.0-32.0); CREATININE 4.93 MG/DL (0.60-1.30); PHOSPHORUS 7.9 MG/DL (2.5-4.9)
[2017-04-14] MEDS: methylPREDNISolone SOD SUCC 40 MG/1 ML VIAL IV PUSH SCH (08:06)
[2017-04-14] MEDS: ASCORBIC ACID 500 MG TAB PO SCH ×2 (08:06→20:17)
[2017-04-14] MEDS: CALCIUM ACETATE 667 MG CAP PO SCH (08:06)
[2017-04-14] MEDS: CHOLECALCIFEROL (VIT D3) 1000 UNIT TAB PO SCH (08:06)
[2017-04-14] MEDS: MEMANTINE HCL 10 MG TAB PO SCH ×2 (08:06→20:17)
[2017-04-14] MEDS: DONEPEZIL HCL 5 MG TAB PO SCH (08:07)
[2017-04-14] MEDS: HEPARIN SODIUM - SQ 10,000 UNITS/ML VIAL SQ SCH ×2 (08:07→20:16)
[2017-04-14] MEDS: CHLORHEXIDINE 0.12% (ORAL KIT) 15 ML CUP MT SCH ×2 (08:08→20:16)
[2017-04-14] MEDS: INSULIN DETEMIR 100 UNITS/ML VIAL SQ SCH ×2 (08:08→20:17)
[2017-04-14] MEDS: BUDESONIDE-FORMOTEROL 160/4.5 MCG INHALER INH SCH ×2 (09:00→20:17)
[2017-04-14] MEDS: ASPIRIN EC 81 MG TABEC PO SCH (09:00)
--- NOTE | 2017-04-14 09:41 | HHI.NPPN ---
Subjective General Problems: Edema Renal Failure: Acute Interval History Off sedation, on CPAP trial. BUN continues to be elevated. 5L fluid removal yesterday with HD. (Aliyah Onofre) Review of Systems General General Remarks unable to obtain (Aliyah Onofre) Objective Data Data Vital Signs Date Time Temp Pulse Resp B/P (MAP) Pulse Ox O2 Delivery O2 Flow Rate FiO2 04/14/17 07:11 94 50 04/14/17 07:11 50 04/14/17 06:00 75 04/14/17 04:09 94 50 04/14/17 04:00 97.5 67 18 165/72 (103) 94 04/14/17 04:00 40 04/14/17 04:00 67 04/14/17 02:00 73 04/14/17 01:01 96 50 04/14/17 00:00 97.2 77 19 180/78 (112) 92 04/14/17 00:00 77 04/14/17 00:00 40 04/13/17 22:00 69 04/13/17 20:28 96 40 04/13/17 20:00 96.6 64 16 117/56 (76) 95 04/13/17 20:00 64 04/13/17 20:00 40 04/13/17 18:30 69 04/13/17 18:15 71 04/13/17 18:00 74 04/13/17 16:45 74 14 158/70 (99) 92 04/13/17 16:45 74 04/13/17 16:44 93 40 04/13/17 16:30 72 04/13/17 16:30 72 19 165/70 (101) 92 04/13/17 16:15 66 16 168/71 (103) 94 04/13/17 16:15 66 04/13/17 16:00 98.1 75 17 179/74 (109) 97 04/13/17 16:00 40 04/13/17 16:00 75 04/13/17 14:45 76 04/13/17 14:30 81 04/13/17 14:15 79 04/13/17 14:00 81 04/13/17 12:00 99.5 77 21 157/70 (99) 95 04/13/17 12:00 77 04/13/17 12:00 40 04/13/17 11:30 78 04/13/17 11:25 93 40 04/13/17 11:15 79 04/13/17 11:00 77 04/13/17 10:45 79 04/13/17 10:30 80 04/13/17 10:15 82 04/13/17 10:00 86 04/13/17 09:48 98 40 04/13/17 09:47 40 (Aliyah Onofre) -: 04/13/17 0420 04/14/17 0320 Imaging Last 72 hours Impressions Chest X-Ray 04/13/17 0600 Signed Impressions: Service Date/Time: Thursday, April 13, 2017 03:27 - CONCLUSION: No significant change has occurred. Raoul Hemphill MD Tubes & Lines: Vas-Cath, Locke (Aliyah Onofre) Physical Exam General Appearance: Well Developed, No Acute Distress, Comfortable (Aliyah Onofre) Eyes Eye Exam: Pupils Equal (Aliyah Onofre) Throat Throat Exam: Oral Mucosa [place] & Moist (Aliyah Onofre) Pulmonary Resp Exam: No Distress, Crackles, Rhonchi, Decreased Bases, Diminished Breath Sounds, Poor Inspiratory Effort Resp Remarks vented lung sounds (Aliyah Onofre) Cardiology CV Exam: Regular, Normal Sinus Rhythm (Aliyah Onofre) Gastrointestinal/Abdomen GI Exam: Soft, Non-Tender, Bowel Sounds Present (Aliyah Onofre) Musculoskeletal MS Exam: Joints Intact, Normal Tone, Unable to Ambulate (Aliyah Onofre) Integumentary Skin Exam: Warm, Dry (Aliyah Onofre) Extremeties Extremities Exam: Moderate Edema, Pitting Edema, Dependent Edema (Aliyah Onofre) Neurologic Neuro Exam: Awake, Moving All Extremities Neuro Remarks Awake on vent (Aliyah Onofre) VTE Prophylaxis Device: SCDs (Aliyah Onofre B. SRIDEVI) Assessment/Plan Discussed Condition With: Patient Assessment Summary: ADALI/Acute Renal Failure, Acute Tubular Necrosis, Fluid/ Volume Overload Problem List: (1) Acute renal failure ICD Codes: N17.9 - Acute kidney failure, unspecified Plan: Baseline creatinine 1.1-1.2 Renal failure from ATN, possibly from renal hypoperfusion. Dialysis initiated 04/11, has had 3 treatments in a row High BUN persists, may be due to steroids Dialysis again today. Repeat labs tomorrow. Await renal recovery Avoid nephrotoxic agents. Lisinopril on hold. Non Oliguric, but urine out put is low. Avoid IVF Lasix on hold. On Nepro tube feeding, Calcium acetate via OG tube (2) Hyperkalemia, diminished renal excretion ICD Codes: E87.5 - Hyperkalemia Plan: Improved with dialysis (3) Chronic diastolic congestive heart failure ICD Codes: I50.32 - Chronic diastolic (congestive) heart failure Plan: Diuresis as above Echo shows LVH, EF 50-55%. 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 CPAP trial, possible extubation. (5) Diabetes mellitus ICD Codes: E11.9 - Diabetes mellitus Status: Acute Plan: Off insulin gtt, maintain glucose 140-180 mg/dL. (6) Hypernatremia ICD Codes: E87.0 - Hyperosmolality and hypernatremia Plan: Improved Reduce free water via OG (Aliyah Onofre) Problem List: (1) Acute renal failure ICD Codes: N17.9 - Acute kidney failure, unspecified Plan: Baseline creatinine 1.1-1.2 Renal failure from ATN, possibly from renal hypoperfusion. Dialysis initiated 04/11, has had 3 treatments in a row High BUN persists, may be due to steroids Dialysis again today. Repeat labs tomorrow. Await renal recovery Avoid nephrotoxic agents. Lisinopril on hold. Non Oliguric, but urine out put is low. Avoid IVF Lasix on hold. On Nepro tube feeding, Calcium acetate via OG tube (2) Hyperkalemia, diminished renal excretion ICD Codes: E87.5 - Hyperkalemia Plan: Improved with dialysis (3) Chronic diastolic congestive heart failure ICD Codes: I50.32 - Chronic diastolic (congestive) heart failure Plan: Diuresis as above Echo shows LVH, EF 50-55%. 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 CPAP trial, possible extubation. (5) Diabetes mellitus ICD Codes: E11.9 - Diabetes mellitus Status: Acute Plan: Off insulin gtt, maintain glucose 140-180 mg/dL. (6) Hypernatremia ICD Codes: E87.0 - Hyperosmolality and hypernatremia Plan: Improved Reduce free water via OG Plan patient was seen and examined. Dialysis again today. Highly catabolic. Agree with above assessment and plan. (Carloz Adams MD) Aliyah Onofre [facility] Apr 14, 2017 09:41 Carloz Adams MD Apr 14, 2017 10:10
[2017-04-14] MEDS: CALCIUM ACETATE 667 MG CAP OG-TUBE SCH ×2 (12:11→17:31)
--- NOTE | 2017-04-14 12:57 | HHI.CCPN ---
Subjective Remarks/Hospital Course This is a 71 year old male with history of CHF, diabetes and recent upper respiratory infection presented to the ED with severe short of breath and wheezing on 04/01/17.The patient resides in SNF secondary to to dementia, his daughter requested to transfer patient to hospital due to increase work of breathing even on rest. Patient recently was diagnosed with pneumonia and started on Levaquin and prednisone. I saw patient in the room he was on BiPAP, in ED he was found to have hypercapnic respiratory failure he was given O2 and DuoNeb and a dose of Solu-Medrol, history was restricted due to increase of respiratory work and being on BiPAP, influenza A and B was negative. The patient was then transferred to the medical floor. During the last evening the patient had increased work of breathing, the patient was noted to have frothy pink sputum and BiPAP was ordered. The patient did not receive BiPAP during the night secondary to being combative, and inability to be restrained on BiPAP. The patient's respiratory status continued to worsen, Halicat was initiated the patient received furosemide 40 mg IV early this a.m. and diuresed greater than 1 L. The patient subsequently became hypotensive, and critical care medicine was consulted. Upon presentation to [facility], the patient was compatible requiring 2-point wrist restraints, and subsequently 1 mg of Ativan was administered. The patient continues on BiPAP, echocardiogram was performing cardiology evaluation. O2 saturation was noted improvement 100% on FiO2 of 35%, a normal respiratory rate. Subjective: 2: No acute events overnight. The patient became agitated, removing peripheral IVs, requiring 1 mg of Ativan last evening. Patient continues in restraints for patient safety. The patient continues to have adequate diuresis with Lasix. Patient was changed from CPAP to nasal cannula 6 L/m ABGs performed this afternoon show slight elevation in PCO2 to 63 however patient had been given Ativan for anxiety. Patient will receive 1 dose of Acetazolamide 250 mg. Plan for bedside swallow and advancement of diet. 04/06: Afebrile. Early this a.m. ,the patient became hypoxemic requiring emergent intubation at 5 AM. The patient currently intubated and sedated. ET tube was noted to be near the ese endotracheal tube retracted chest x-ray pending. Dietary consulted for initiation of tube feeds. 04/07: Afebrile. Overnight the patient's noted sodium level elevation with slight elevation in creatinine. Lasix discontinued on 04/06. Chest x-ray unchanged. Oxygenation status slightly improved today plan for initiation of CPAP trials. 04/08: The patient continues to have an elevation in creatinine, Lasix was discontinued on 04/06. BUN also elevated ,free water flushes frequency increased to every 4 hours. Patient fell CPAP trials yesterday after approximately 30 minutes, and continued attempts at CPAP trials. Palliative care was consulted yesterday discussion with family the patient and family would not want a tracheostomy nor PEG placement. Family arriving from [facility] today to visit patient. Continuing aggressive ventilator weaning in attempt to extubate patient. A chin with persistent hyperglycemia most likely secondary to exogenous steroids, placed on high-dose insulin sliding scale, dehydration will bolus with 1/2 NSS this am. 04/09: Remains intubated sedated. Apparently gets agitated on lightening sedation. On 45% FiO2. Chest x-ray remains unchanged. Further worsening of renal function BUN 144 from 116 yesterday, creatinine 2.4 today from 2.4 yesterday. Urine output in 24 hours under 400. Continues to fail CPAP. I have consulted nephrology 04/10: BUN creat continues to rise. 165/4.3. Remans intubated, on lightening sedation, he follows commands on UE. D/W Dr. Zuniga. Will proceed with [facility] for HD starting in am (Renal failure with volume overload) 04/11: Remains intubated sedated. BUN creatinine very elevated at 192/4.84. Urine output minimally improved 950 mL in [address] a Vas-Cath today to initiate hemodialysis. Still significantly volume overloaded with weight gain 04/12: Started on HD 04/11, removed 2L yesterday and 2.7 L today. Labs today pending, BUN was 192 yesterday. Remains encephalopathic 04/13: Awake on the vent today. Followed basic commands when instructed in Yoruba by the physical therapist. Remains very weak. K remains elevated at 5.8 , BUN/creat 169/5.2, discuss with nephrology Dr. Adams. Plan for repeat dialysis again today 04/14: More awake today, following commands on upper extremity is weaker on the lower extremity. Tolerates CPAP but FiO2 up to 50%. Moderate amount of ET tube and oral secretions. Family at the bedside updated. Objective Vital Signs Date Time Temp Pulse Resp B/P (MAP) Pulse Ox O2 Delivery O2 Flow Rate FiO2 04/14/17 11:18 94 50 04/14/17 11:00 79 04/14/17 11:00 19 175/73 (107) 04/14/17 08:00 98.9 Intake and Output 04/14/17 04/14/17 04/15/17 08:00 16:00 00:00 Intake Total 741 ml Output Total 100 ml Balance 641 ml Result Diagram: 04/13/17 0420 04/14/17 0320 Imaging Last Impressions Chest X-Ray 04/07/17 0600 Signed Impressions: Service Date/Time: Friday, April 07, 2017 03:48 - CONCLUSION: Stable chest x-ray with underinflation with mild bibasilar opacity likely representing atelectasis. Jerman Benitez MD Abdomen X-Ray 04/06/17 0000 Signed Impressions: Service Date/Time: Thursday, April 06, 2017 09:26 - CONCLUSION: 1. Nasogastric tube has its tip in the distal stomach. 2. Mild degenerative changes involving the lumbar spine and hip joints bilaterally. 3. No bowel obstruction or ileus. Jorge Chang MD Last Impressions Chest X-Ray 04/07/17 0600 Signed Impressions: Service Date/Time: Friday, April 07, 2017 03:48 - CONCLUSION: Stable chest x-ray with underinflation with mild bibasilar opacity likely representing atelectasis. Jerman Benitez MD Abdomen X-Ray 04/06/17 0000 Signed Impressions: Service Date/Time: Thursday, April 06, 2017 09:26 - CONCLUSION: 1. Nasogastric tube has its tip in the distal stomach. 2. Mild degenerative changes involving the lumbar spine and hip joints bilaterally. 3. No bowel obstruction or ileus. Jorge Chang MD Last Impressions Chest X-Ray 04/04/17 0000 Signed Impressions: Service Date/Time: Tuesday, April 04, 2017 09:37 - CONCLUSION: 1. Bibasilar atelectasis. Frantz Helms MD Objective Remarks GENERAL: This is an obese chronically ill appearing patient, intubated off all sedation SKIN: Warm and dry. HEAD: Atraumatic. Normocephalic. EYES: Pupils equal and round. No scleral icterus. No injection or drainage. ENT: No nasal bleeding or discharge. Orotracheally intubated, large amount of oral secretions, moderate ETT secretions NECK: Trachea midline. No JVD. CARDIOVASCULAR: Normal rate, regular rhythm. RESPIRATORY: Mild expiratory wheezing, diminished breath sounds throughout lung carcamo, equal bilaterally. Moderate ET tube secretions GASTROINTESTINAL: Abdomen soft, non-tender, protuberant nondistended. No guarding. Normoactive bowel sounds MUSCULOSKELETAL: Extremities without clubbing, cyanosis, or edema. No obvious deformities. NEUROLOGICAL: Awake alert. Follows commands upper and lower extremity, weaker in LE. Procedures 2/ emergent intubation Urinary Catheter: Yes Assessment to: Continue Vascular Central Line Catheter: Yes Assessment to: Continue A/P Assessment and Plan Plan by systems: Neurologic: Dementia History of CVA Agitation Holding all continuos sedation. Start morphine 2 mg IV every 3 hours as needed for pain Continue Aricept and Namenda Continue Haldol 2 mg every 8 hours when necessary for agitation Neurochecks per ICU protocol Respiratory: Acute hypoxemic and hypercapnic respiratory failure History of bronchial asthma and chronic bronchitis Pulmonary edema Solu-Medrol 40 mg every 12 2 emergently intubated 8.0 ETT. Vent day 9 Tolerating CPAP trials but FiO2 requirement 50% today. Attempt CPAP again after hemodialysis DuoNeb every 6 hours scheduled and as needed Pulmonology following Dr. Bay Williamson Family requested continued weaning and no trach/PEG. If he fails extubation family may make him DNR Cardiovascular: Chronic diastolic CHF Cardiology following-Dr. Pace 04/04 echo-EF 50-55% mildly dilated left ventricle, moderately concentric LVH Plan for repeat echo per cardiology in near future HD started 04/11/11. Removed 4.7L in first 2 sessions. Renal: Worsening acute kidney failure BUN and creatinine 192/4.8 on 04/11, HD started Dr. Adams. Getting daily HD since 04/11 Maintain Locke catheter. Strict I/Os, Nephrology following HD started 04/11/11. Removed 4.7L in 2 sessions. FEN/GI: Obesity Mild protein calorie malnutrition Electrolyte derangement Glucerna 1.5 goal rate 50-change to Nepro due to hyperkalemia Hydralazine PRN for systolic blood pressure greater than 160 Heme/ID: Leukocytosis-improving Anemia of chronic disease Probable pneumonia Monitor CBC. WBC count noted trending down 04/02 Blood cultures 2 negative growth to date Influenza nasal wash negative Legionella, pneumococcal urine antigens-negative Continue cefepime Flagyl and DCd azithromycin 04/11 Endocrine: Diabetes mellitus Persistent elevation in glucose secondary to steroids On Insulin SSI Musculoskeletal: PT evaluation and treat Functional maintenance daily Prophylaxis: - GI Prophylaxis Protonix DVT Prophylaxis -- SCDs Heparin every 12 hours Lines: Peripheral IVs 2 providing adequate access. Placed Vascath 04/11 Dispo: Level 3 Discussed with [facility] APPRAISER at bedside. D/W Dr. Adams Condition remains critical with BUN of 169 creatinine of 5.2 and K 5.8, fluid overloaded. Need repeat HD today Palliative care following to determine goals of care in the event that a tracheostomy and PEG placement, family does not want a tracheostomy or PEG tube placement. Plan for aggressive ventilator weaning measures, if unsuccessful tentative plan for possible compassionate withdrawal. Patient could possibly be extubated in 1-2 days, will need to clarify goals of care prior to extubation. Discussed with palliative care team 04/14: Discussed with palliative care and family. Family may decide to not reintubate if patient fails extubation. They definitely did not want trach or PEG Moise Stoll MD Apr 14, 2017 12:57
[2017-04-14] MEDS: ASPIRIN 81 MG CHEW TAB NG SCH (14:02)
[2017-04-14] MEDS: PANTOPRAZOLE SODIUM 40 MG VIAL IV PUSH SCH (17:32)
--- NOTE | 2017-04-14 18:49 | HHI.PR ---
Subjective Remarks Intubated and on vent support. Fio2 40 %. On CPAP 5/5 now and still lethargic. Renal functions are worse.Was Dialyzed again. Seems poorly responsive. Objective Vital Signs Date Time Temp Pulse Resp B/P (MAP) Pulse Ox O2 Delivery O2 Flow Rate FiO2 04/14/17 18:33 94 50 04/14/17 15:11 94 50 04/14/17 14:30 75 17 158/68 (98) 93 04/14/17 14:30 75 04/14/17 14:15 78 22 163/64 (97) 94 04/14/17 14:15 78 04/14/17 14:00 75 17 165/70 (101) 94 04/14/17 14:00 75 04/14/17 13:45 76 04/14/17 13:45 76 19 162/69 (100) 94 04/14/17 13:30 76 04/14/17 13:30 76 22 170/74 (106) 98 04/14/17 13:15 79 04/14/17 13:15 79 22 167/70 (102) 93 04/14/17 13:00 78 04/14/17 13:00 78 20 163/70 (101) 95 04/14/17 12:46 86 28 199/89 (125) 98 04/14/17 12:46 86 04/14/17 12:30 77 22 172/70 (104) 94 04/14/17 12:30 77 04/14/17 12:15 75 16 173/77 (109) 91 04/14/17 12:15 75 04/14/17 12:00 98.8 75 16 169/72 (104) 90 04/14/17 12:00 50 04/14/17 12:00 75 04/14/17 11:18 94 50 04/14/17 11:00 79 04/14/17 11:00 79 19 175/73 (107) 94 04/14/17 10:45 81 23 180/75 (110) 93 04/14/17 10:40 78 19 181/77 (111) 93 04/14/17 10:30 79 23 186/81 (116) 98 04/14/17 10:15 77 19 175/75 (108) 92 04/14/17 10:00 77 21 165/70 (101) 92 04/14/17 10:00 77 04/14/17 09:45 76 18 164/69 (100) 93 04/14/17 09:30 78 22 167/70 (102) 95 04/14/17 09:15 79 21 172/72 (105) 93 04/14/17 09:00 84 28 180/77 (111) 96 04/14/17 09:00 84 04/14/17 08:45 76 19 162/70 (100) 94 04/14/17 08:30 84 30 176/79 (111) 97 04/14/17 08:15 79 16 160/70 (100) 97 04/14/17 08:00 50 04/14/17 08:00 98.9 77 16 159/70 (99) 97 04/14/17 08:00 77 04/14/17 07:45 78 17 164/72 (102) 97 04/14/17 07:30 76 18 160/59 (92) 97 04/14/17 07:15 74 18 157/70 (99) 94 04/14/17 07:11 94 50 04/14/17 07:11 50 04/14/17 07:00 71 04/14/17 07:00 71 18 157/71 (99) 96 04/14/17 06:00 75 04/14/17 04:09 94 50 04/14/17 04:00 97.5 67 18 165/72 (103) 94 04/14/17 04:00 40 04/14/17 04:00 67 04/14/17 02:00 73 04/14/17 01:01 96 50 04/14/17 00:00 97.2 77 19 180/78 (112) 92 04/14/17 00:00 77 04/14/17 00:00 40 04/13/17 22:00 69 04/13/17 20:28 96 40 04/13/17 20:00 96.6 64 16 117/56 (76) 95 04/13/17 20:00 64 04/13/17 20:00 40 I/O 04/13/17 04/13/17 04/13/17 04/14/17 04/14/17 04/14/17 07:00 15:00 23:00 07:00 15:00 23:00 Intake Total 1177 ml 1494 ml 741 ml Output Total 150 ml 0 ml 5175 ml 100 ml 3000 ml Balance 1027 ml 0 ml -3681 ml 641 ml -3000 ml IV Total 100 ml 100 ml Tube Feeding 477 ml 774 ml 441 ml Tube Irrigant 600 ml Other 620 ml 300 ml Output Urine Total 150 ml 175 ml 100 ml Tube Feeding Residual Discard 0 ml Hemodialysis 5000 ml 3000 ml # Bowel Movements 1 0 1 Result Diagram: 04/13/17 0420 04/14/17 0320 Objective Remarks GENERAL: This is an obese elderly man on the vent HEENT: Head normocephalic. Pupils are reactive and equal. Sclerae were clear. Nasal mucosa is clear. NECK: Supple. No bruits. There is venous distension . Trachea midline. No thyroid enlargement. CHEST: Equal movements. Decreased excursions. Breath sounds diminished at the bases with Occ basilar crackles. CARDIAC: Heart sounds are irregular S1, S2 with no murmur. No S3. ABDOMEN: Soft, obese without masses. No organomegaly or tenderness. Bowel sounds are active. EXTREMITIES: Edema 1+. Pigmentation of the skin of the lower extremities. diminished peripheral pulses. NEUROLOGIC: Very lethargic, Sedated. SKIN: Dry and scaly. Assessment and Plan Assessment and Plan IMPRESSION 1. Hypercapnic respiratory failure. 2. Hypoventilation and possible obstructive sleep apnea syndrome 3. History of bronchial asthma with chronic bronchitis 4. Diabetes mellitus 5. Dementia. 6. History of hypertension 7. History of CVA. 8. ADALI Plan : 1. Place on A/C 10 at HS and FIo2 40 % 2. Continue antibiotics per ID 3. Nebs qid Duoneb 4. BMP ,CBC in am. 5.Symbicort 160/4.5 Mcg , 2 puffs bid. 6. D/C Solumedrol 7. Add Prednisone 20 mg BID 8. Dialysis per renal Chhaya Ta MD Apr 14, 2017 18:49
[2017-04-14] MEDS: predniSONE 20 MG TAB PO SCH (20:17)
[2017-04-14] MEDS: CEFEPIME INJ 2,000 MG in SODIUM CHLORIDE 0.9% INJ 100 ML IV SCH (20:18)
[2017-04-15] VITALS (36 sets, daily range): BP systolic 96–172; BP diastolic 51–110; PULSE 66–80; RESP 12–25; TEMP 97.3–98.8; O2SAT 93–98
[2017-04-15] MEDS: HIGH DOSE INSULIN NOVOLOG SUPPLEMENTAL SCALE SQ SCH ×6 (01:20→22:00)
[2017-04-15] MEDS: metroNIDAZOLE 500 MG INJ 100 ML IV SCH ×3 (01:20→17:19)
[2017-04-15] MEDS: RESP: ALBUTEROL 2.5 MG/IPRATROPIUM 0.5 MG NEB (SCH) NEB ×4 (03:33→19:14)
[2017-04-15 04:16] LABS: EOSINOPHIL % 0.1 % (0.0-4.0); HEMATOCRIT 25.6 % (39.0-51.0); HEMOGLOBIN 8.4 GM/DL (13.0-17.0); LYMPHOCYTE # 0.5 TH/MM3 (1.0-4.8); MEAN CELL VOLUME 86.4 FL (80.0-100.0); MEAN CORPUSCULAR HEMOGLOBIN 28.3 PG (27.0-34.0); MEAN CORPUSCULAR HGB CONC 32.7 % (32.0-36.0); MONO % 8.2 % (0.0-8.0); MONOCYTE # 0.9 TH/MM3 (0-0.9); NEUT % 87.7 % (16.0-70.0); PLATELET COUNT 150 TH/MM3 (150-450); RED BLOOD COUNT 2.96 MIL/MM3 (4.50-5.90); RED CELL DISTRIBUTION WIDTH 14.4 % (11.6-17.2); WHITE BLOOD COUNT 11.3 TH/MM3 (4.0-11.0)
[2017-04-15 04:53] LABS: ALBUMIN 2.5 GM/DL (3.4-5.0); ALKALINE PHOSPHATASE 92 U/L (45-117); ALT (GPT) 46 U/L (12-78); AST (GOT) 26 U/L (15-37); BICARBONATE 27.3 MEQ/L (21.0-32.0); BLOOD UREA NITROGEN 115 MG/DL (7-18); CALCIUM 7.9 MG/DL (8.5-10.1); CHLORIDE 100 MEQ/L (98-107); GLOMERULAR FILTRATION RATE 15 ML/MIN (>89); GLUCOSE,RANDOM 196 MG/DL (74-106); SODIUM (NA) 138 MEQ/L (136-145); TOTAL BILIRUBIN ADULT 0.5 MG/DL (0.2-1.0); TOTAL PROTEIN 5.1 GM/DL (6.4-8.2)
--- NOTE | 2017-04-15 05:00 | RADRPT ---
EXAM DATE/TIME: 04/15/2017 03:23 [place] COMPARISON: CHEST SINGLE AP, April 13, 2017, 3:27. INDICATIONS : Shortness of breath, possible pulmonary disease. MEDICAL HISTORY : Hypertension. Diabetes mellitus type II. SURGICAL HISTORY : None. ENCOUNTER: Subsequent ACUITY: 2 weeks PAIN SCORE: Non-responsive. LOCATION: Bilateral chest FINDINGS: No significant interval change in appearance of the chest. Cardiomegaly, consolidation and small bila teral effusions remain unchanged. Right jugular venous catheter, endotracheal tube are again seen. CONCLUSION: No significant change has occurred. Raoul Hemphill MD on April 15, 2017 at 4:58 Board Certified Radiologist. This report was verified electronically.
[2017-04-15] MEDS: FREE WATER G-TUBE SCH ×3 (06:00→21:36)
[2017-04-15] MEDS: hydrALAZINE HCL 10 MG TAB PO SCH ×3 (06:13→22:01)
[2017-04-15] MEDS: ASCORBIC ACID 500 MG TAB PO SCH ×2 (07:58→20:29)
[2017-04-15] MEDS: HEPARIN SODIUM - SQ 10,000 UNITS/ML VIAL SQ SCH ×2 (07:58→20:28)
[2017-04-15] MEDS: ASPIRIN 81 MG CHEW TAB NG SCH (07:58)
[2017-04-15] MEDS: DONEPEZIL HCL 5 MG TAB PO SCH (07:59)
[2017-04-15] MEDS: CHLORHEXIDINE 0.12% (ORAL KIT) 15 ML CUP MT SCH ×2 (07:59→20:00)
[2017-04-15] MEDS: predniSONE 20 MG TAB PO SCH ×2 (07:59→20:29)
[2017-04-15] MEDS: CHOLECALCIFEROL (VIT D3) 1000 UNIT TAB PO SCH (07:59)
[2017-04-15] MEDS: MEMANTINE HCL 10 MG TAB PO SCH ×2 (07:59→20:29)
[2017-04-15] MEDS: INSULIN DETEMIR 100 UNITS/ML VIAL SQ SCH ×2 (07:59→20:29)
[2017-04-15] MEDS: CALCIUM ACETATE 667 MG CAP OG-TUBE SCH ×3 (07:59→17:19)
[2017-04-15] MEDS: BUDESONIDE-FORMOTEROL 160/4.5 MCG INHALER INH SCH ×2 (09:00→21:36)
--- NOTE | 2017-04-15 11:44 | HHI.HCPN ---
Reason for visit a. To assist with evaluation and management of symptoms including: Shortness of breath, anxiety/agitation. b. To assist medical decision maker(s) with: better understanding of current medical conditions; weighing benefits/burdens of medical treatment options; making medical treatment decisions. . Subjective/Interval History Palliative care follow-up for further clarifications of goals of care. Patient seen at 1030am; note to follow Patient seen and assessed in medical ICU- room 500. Off sedation; tolerating CPAP trails since 929 on 40% FiO2 with PEEP/pressor support of 5/5. Eyes are open, tracking. Able to respond to simple questions (asked in English) by nodding yes or no. Follows simple commands by consistently squeezing with his left and right hand when asked to do so. Per notes, patient was following basic commands earlier this morning when instructed in English by the physical therapist. Dialyzed Wednesday and Wednesday, however creatinine, BUN, and potassium are higher. Potassium: 5.8, BUN 169, creatinine 5.21, GFR 16. Plan for HD today. Nephrology following. Plan for possible medical extubation in the upcoming days; palliative care met with the patient's family to clarify medical treatment goals moving forward. If the patient fails extubation he will need trach/PEG tube placement per Dr. Stoll so will need to consider desired CODE STATUS s/p extubation. Previously the patient's indicated that the patient would never be in agreement with tracheostomy or PEG tube placement, but now that the patient is more alert the family is uncertain what they should do. We reviewed the patient's comorbid conditions, underlying dementia as well as baseline debility. Family was encouraged to consider what the patient would say if he was participating in these conversations.They will discuss with family overnight; palliative care will follow up with family tomorrow morning 04/14/16. . Advance Directives Living Will: Never completed Health Care Surrogate: Never completed Durable Power of Volunteer Coordinator: Copy in medical record Advance Directive Specifics Date completed: 02/26/2014. . Health Care Surrogate(s): Only daughter power of attorney lawyer has been completed. No living will or designation of healthcare surrogate completed as per family. As per [place] statute, healthcare proxy decision-making falls to patient's Carley Lora. . Objective Vital Signs Date Time Temp Pulse Resp B/P (MAP) Pulse Ox O2 Delivery O2 Flow Rate FiO2 2/15/18 09:45 72 17 161/73 (102) 96 04/15/17 09:43 73 18 153/67 (95) 95 04/15/17 09:30 70 17 134/110 (118) 94 04/15/17 09:15 78 19 95 04/15/17 09:00 73 18 149/66 (93) 93 04/15/17 09:00 73 04/15/17 08:45 72 18 95 04/15/17 08:39 45 04/15/17 08:39 95 45 04/15/17 08:33 74 20 158/71 (100) 97 04/15/17 08:30 79 25 94 04/15/17 08:30 45 04/15/17 08:15 75 22 98 04/15/17 08:00 71 04/15/17 08:00 98.8 71 23 137/65 (89) 94 04/15/17 08:00 45 04/15/17 07:45 69 17 96 04/15/17 07:40 96 45 04/15/17 07:30 72 18 128/61 (83) 94 04/15/17 07:15 71 18 95 04/15/17 07:00 75 19 126/59 (81) 94 04/15/17 06:00 72 04/15/17 04:43 95 45 04/15/17 04:00 97.3 66 12 150/67 (94) 97 04/15/17 04:00 66 04/15/17 04:00 45 04/15/17 02:00 72 04/15/17 01:47 94 45 04/15/17 00:00 45 04/15/17 00:00 98.2 68 17 147/67 (93) 96 04/15/17 00:00 68 04/14/17 23:06 93 45 04/14/17 22:00 73 04/14/17 20:00 97.6 71 13 143/66 (91) 98 04/14/17 20:00 71 04/14/17 20:00 45 04/14/17 19:34 96 45 04/14/17 18:33 94 50 04/14/17 18:30 69 15 95/53 (67) 93 04/14/17 18:00 76 24 137/65 (89) 97 2/14/18 18:00 76 2/14/18 17:30 73 18 130/60 (83) 95 2/14/18 17:13 76 16 127/58 (81) 98 2/14/18 17:00 74 15 91/54 (66) 97 2/14/18 17:00 74 2/14/18 16:45 73 15 88/54 (65) 96 2/14/18 16:30 74 15 134/61 (85) 99 2/14/18 16:15 72 16 124/55 (78) 97 2/14/18 16:00 98.8 74 16 138/55 (82) 95 2/14/18 16:00 74 2/14/18 16:00 50 2/14/18 15:45 74 16 100/57 (71) 95 2/14/18 15:30 75 17 106/53 (70) 90 2/14/18 15:15 77 18 96/52 (67) 94 2/14/18 15:11 94 50 214/18 15:00 76 2/14/18 15:00 76 18 131/58 (82) 95 2/14/18 14:30 75 17 158/68 (98) 93 2/14/18 14:30 75 2/14/18 14:15 78 22 163/64 (97) 94 2/14/18 14:15 78 2/14/18 14:00 75 17 165/70 (101) 94 2/14/18 14:00 75 2/14/18 13:45 76 2/14/18 13:45 76 19 162/69 (100) 94 2/14/18 13:30 76 2/14/18 13:30 76 22 170/74 (106) 98 2/14/18 13:15 79 2/14/18 13:15 79 22 167/70 (102) 93 2/14/18 13:00 78 2/14/18 13:00 78 20 163/70 (101) 95 2/14/18 12:46 86 28 199/89 (125) 98 2/14/18 12:46 86 2/14/18 12:30 77 22 172/70 (104) 94 2/14/18 12:30 77 2/14/18 12:15 75 16 173/77 (109) 91 2/14/18 12:15 75 2/14/18 12:00 98.8 75 16 169/72 (104) 90 04/14/17 12:00 50 04/14/17 12:00 75 Intake & Output 04/15/17 04/15/17 07:00 19:00 Intake Total 1106 ml Output Total 75 ml Balance 1031 ml IV Total 200 ml Tube Feeding 506 ml Other 400 ml Output Urine Total 75 ml # Bowel Movements 2 Physical Exam CONSTITUTIONAL/GENERAL: This is an adequately nourished patient on [facility] vent. TUBES/LINES/DRAINS: ETT, OG, right IJ central line, Locke catheter, PIV's, SCDs , bilateral soft wrist restraints. SKIN: No jaundice, rashes, or lesions. Ecchymoses on upper extremities. No wounds seen anteriorly. Skin temperature appropriate. Not diaphoretic. EYES: Pupils equal and round and reactive. ENT: Unable to assess hearing. Nose without bleeding or purulent drainage. Dry oral mucosa. CARDIOVASCULAR: Regular rate and rhythm without murmurs, gallops, or rubs. Peripheral pulses symmetric. RESPIRATORY/CHEST: Symmetric, unlabored respirations. Endotracheally intubated , tolerating CPAP trials this morning Scattered rhonchi. GASTROINTESTINAL: Abdomen large, round, obese. Bowel sounds present. GENITOURINARY: Without palpable bladder distension. Locke catheter in place. MUSCULOSKELETAL: Extremities without clubbing, cyanosis. No mottling or clubbing. Edema to bilateral arms. NEUROLOGICAL: Eyes open, tracking. Able to respond to simple questions by nodding yes or no. Assessment limited as patient's primary language is English. PSYCHIATRIC: No obvious anxiety or agitation.. . Diagnostic Tests Laboratory Laboratory Tests Test 04/12/17 12:25 04/13/17 04:20 04/13/17 12:30 04/14/17 03:20 Blood Urea Nitrogen 132 MG/DL (7-18) 169 MG/DL (7-18) 138 MG/DL (7-18) Creatinine 4.05 MG/DL (0.60-1.30) 5.21 MG/DL (0.60-1.30) 4.93 MG/DL (0.60-1.30) Random Glucose 296 MG/DL (74-106) 165 MG/DL (74-106) 309 MG/DL (74-106) Total Protein 5.5 GM/DL (6.4-8.2) Albumin 2.6 GM/DL (3.4-5.0) 2.3 GM/DL (3.4-5.0) 2.8 GM/DL (3.4-5.0) Calcium Level 7.6 MG/DL (8.5-10.1) 7.7 MG/DL (8.5-10.1) 8.0 MG/DL (8.5-10.1) Alkaline Phosphatase 90 U/L (45-117) Aspartate Amino Transf (AST/SGOT) 33 U/L (15-37) Alanine Aminotransferase (ALT/SGPT) 64 U/L (12-78) Total Bilirubin 0.5 MG/DL (0.2-1.0) Sodium Level 138 MEQ/L (136-145) 139 MEQ/L (136-145) 137 MEQ/L (136-145) Potassium Level 5.0 MEQ/L (3.5-5.1) 5.8 MEQ/L (3.5-5.1) 5.0 MEQ/L (3.5-5.1) Chloride Level 101 MEQ/L (98-107) 100 MEQ/L (98-107) 99 MEQ/L (98-107) Carbon Dioxide Level 25.5 MEQ/L (21.0-32.0) 24.8 MEQ/L (21.0-32.0) 25.1 MEQ/L (21.0-32.0) Anion Gap 12 MEQ/L (5-15) 14 MEQ/L (5-15) 13 MEQ/L (5-15) Estimat Glomerular Filtration Rate 18 ML/MIN (>89) 13 ML/MIN (>89) 14 ML/MIN (>89) White Blood Count 13.1 TH/MM3 (4.0-11.0) Red Blood Count 3.22 MIL/MM3 (4.50-5.90) Hemoglobin 9.4 GM/DL (13.0-17.0) Hematocrit 28.1 % (39.0-51.0) Mean Corpuscular Volume 87.3 FL (80.0-100.0) Mean Corpuscular Hemoglobin 29.1 PG (27.0-34.0) Mean Corpuscular Hemoglobin Concent 33.3 % (32.0-36.0) Red Cell Distribution Width 14.7 % (11.6-17.2) Platelet Count 142 TH/MM3 (150-450) Mean Platelet Volume 9.5 FL (7.0-11.0) Neutrophils (%) (Auto) 90.9 % (16.0-70.0) Lymphocytes (%) (Auto) 2.2 % (9.0-44.0) Monocytes (%) (Auto) 6.8 % (0.0-8.0) Eosinophils (%) (Auto) 0.0 % (0.0-4.0) Basophils (%) (Auto) 0.1 % (0.0-2.0) Neutrophils # (Auto) 11.9 TH/MM3 (1.8-7.7) Lymphocytes # (Auto) 0.3 TH/MM3 (1.0-4.8) Monocytes # (Auto) 0.9 TH/MM3 (0-0.9) Eosinophils # (Auto) 0.0 TH/MM3 (0-0.4) Basophils # (Auto) 0.0 TH/MM3 (0-0.2) CBC Comment DIFF FINAL Differential Comment Phosphorus Level 8.3 MG/DL (2.5-4.9) 7.9 MG/DL (2.5-4.9) Magnesium Level 3.4 MG/DL (1.5-2.5) Blood Gas Puncture Site LT RADIAL Blood Gas Patient Temperature 98.6 Blood Gas HCO3 22 mmol/L (22-26) Blood Gas Base Excess -2.4 mmol/L (-2-2) Blood Gas Oxygen Saturation 93 % (90-100) Arterial Blood pH 7.40 (7.380-7.420) Arterial Blood Partial Pressure CO2 36 mmHg (38-42) Arterial Blood Partial Pressure O2 77 mmHG (61-120) Arterial Blood Oxygen Content 15.5 Vol % (12.0-20.0) Arterial Blood Carboxyhemoglobin 1.0 % (0-4) Arterial Blood Methemoglobin 0.8 % (0-2) Blood Gas Hemoglobin 11.8 G/DL (12.0-16.0) Oxygen Delivery Device VENTILATOR Blood Gas Ventilator Setting CPAP 5/5 Blood Gas Inspired Oxygen 40 % Test 04/15/17 03:21 White Blood Count 11.3 TH/MM3 (4.0-11.0) Red Blood Count 2.96 MIL/MM3 (4.50-5.90) Hemoglobin 8.4 GM/DL (13.0-17.0) Hematocrit 25.6 % (39.0-51.0) Mean Corpuscular Volume 86.4 FL (80.0-100.0) Mean Corpuscular Hemoglobin 28.3 PG (27.0-34.0) Mean Corpuscular Hemoglobin Concent 32.7 % (32.0-36.0) Red Cell Distribution Width 14.4 % (11.6-17.2) Platelet Count 150 TH/MM3 (150-450) Mean Platelet Volume 9.0 FL (7.0-11.0) Neutrophils (%) (Auto) 87.7 % (16.0-70.0) Lymphocytes (%) (Auto) 4.0 % (9.0-44.0) Monocytes (%) (Auto) 8.2 % (0.0-8.0) Eosinophils (%) (Auto) 0.1 % (0.0-4.0) Basophils (%) (Auto) 0.0 % (0.0-2.0) Neutrophils # (Auto) 10.0 TH/MM3 (1.8-7.7) Lymphocytes # (Auto) 0.5 TH/MM3 (1.0-4.8) Monocytes # (Auto) 0.9 TH/MM3 (0-0.9) Eosinophils # (Auto) 0.0 TH/MM3 (0-0.4) Basophils # (Auto) 0.0 TH/MM3 (0-0.2) CBC Comment AUTO DIFF Differential Comment AUTO DIFF CONFIRMED Blood Urea Nitrogen 115 MG/DL (7-18) Creatinine 4.60 MG/DL (0.60-1.30) Random Glucose 196 MG/DL (74-106) Total Protein 5.1 GM/DL (6.4-8.2) Albumin 2.5 GM/DL (3.4-5.0) Calcium Level 7.9 MG/DL (8.5-10.1) Alkaline Phosphatase 92 U/L (45-117) Aspartate Amino Transf (AST/SGOT) 26 U/L (15-37) Alanine Aminotransferase (ALT/SGPT) 46 U/L (12-78) Total Bilirubin 0.5 MG/DL (0.2-1.0) Sodium Level 138 MEQ/L (136-145) Potassium Level 4.6 MEQ/L (3.5-5.1) Chloride Level 100 MEQ/L (98-107) Carbon Dioxide Level 27.3 MEQ/L (21.0-32.0) Anion Gap 11 MEQ/L (5-15) Estimat Glomerular Filtration Rate 15 ML/MIN (>89) Result Diagram: 04/15/17 0321 04/15/17 0321 Procedures * 04/06/17 -endotracheal intubation . Assessment and Plan Disease Oriented Problem List: (1) Acute respiratory failure (2) Pulmonary edema (3) Chronic diastolic congestive heart failure (4) Dementia (5) Diabetes mellitus Symptom Scale: (1) Shortness of breath 0-10 Scale: Unable to quantify (2) Pain 0-10 Scale: Unable to quantify (3) Debility 0-10 Scale: Unable to quantify Pertinent Non-Medical Issues Psychosocial: Patient's family is originally from [place]. Patient was born in [facility]. Patient moved to [place] approximately 4 years ago. Patient has been for over 30 years, they have 4 children together. 2 sons who live in [place], one daughter who resides locally and another daughter who is is still in [facility]. 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 Spiritual: Yarsanism. Legal: POA completed. Ethical issues impacting care: No ethical lesions identified. . Important Contacts Daughter Haily Lora , . . Prognosis Mr. Lora 71-year-old male with a medical history significant for dementia, CHF , diabetes mellitus, history of CVA. Patient is a resident of a long-term memory care unit. Currently admitted for respiratory failure requiring intubation and mechanical ventilation. Very high risk for further complications , continue decline and . Guarded prognosis. . Code Status: Full Code Plan * CODE STATUS: Full code. Risks, benefits and limitations of CPR discussed with patient's family given patient's condition. [facility] requesting full code at this time. * HEALTHCARE DECISION-MAKING: Patient incapacitated for medical decision-making given baseline dementia and critical condition. Patient will not regain medical decision-making capacity. POA completed but only includes financial matters. As per [place] statute, healthcare proxy decision-making falls to patient's Carley Lora. is fully supported by daughter Haily Lora who is a nurse. Palliative care recommends to include patient's daughter Haily in all goals of care conversations with . * AGGRESSIVE REMAIN GOALS AT THIS TIME * Plan for possible medical extubation in the upcoming days; palliative care met with the patient's family to clarify medical treatment goals moving forward. If the patient fails extubation he will need trach/PEG tube placement per Dr. Stoll so will need to consider desired CODE STATUS s/p extubation. Previously the patient's indicated that the patient would never be in agreement with tracheostomy or PEG tube placement, but now that the patient is more alert the family is uncertain what they should do. We reviewed the patient' s comorbid conditions, underlying dementia as well as baseline debility. Family was encouraged to consider what the patient would say if he was participating in these conversations.They will discuss with family overnight; palliative care will follow up with family tomorrow morning 04/14/16. * SYMPTOMS: = Shortness of breath, secondary to respiratory failure, pulmonary edema, CHF. Currently intubated-tolerating spontaneous breathing trials this morning. = Debility: Progressive. Patient resident of long-term facility. = Pain: No defect oral. History of chronic pain. Appears comfortable. * Palliative care will continue to follow-up for further clarifications of goals of care as patient's clinical course continue to evolve. . Debra Bruce Apr 15, 2017 11:44
--- NOTE | 2017-04-15 11:45 | HHI.HCPN ---
Reason for visit a. To assist with evaluation and management of symptoms including: Shortness of breath, anxiety/agitation. b. To assist medical decision maker(s) with: better understanding of current medical conditions; weighing benefits/burdens of medical treatment options; making medical treatment decisions. . Subjective/Interval History Palliative care follow-up for further clarifications of goals of care. Patient seen and assessed in medical ICU- room 500. Remains intubated on mechanical ventilator, off sedation. Per nursing report, patient was more alert this morning. Open eyes spontaneously, arouses to verbal stimuli. Following simple commands. Receiving dialysis at time of exam. BUN: 1:15, creatinine 4.60, GFR 15 Plan for possible medical extubation later today. Per Dr. Stoll, if patient fails extubation he will likely need trach/PEG tube placement which the family has previously stated they would not pursue. We reviewed the patient's comorbid conditions, underlying dementia as well as baseline debility. Family consider options overnight and notified Palliative care that if the patient fails medical extubation, they would want to try just into comfort focused care and to allow him to pass naturally. Palliative care again had these discussions with the patient's family today 04/15/2017 at which time they requested the patient's CODE STATUS be changed to NO CODE-DNR/DNI. They stated that they did not wish to be present at the time of extubation because they had spent time with the patient earlier in the day. Discussed with Dr. Stoll and bedside nurse , Delilah. .. Advance Directives Living Will: Never completed Health Care Surrogate: Never completed Durable Power of Buyer Broker: Copy in medical record Advance Directive Specifics Date completed: 02/26/2014. . Health Care Surrogate(s): Only daughter power of unit receptionist has been completed. No living will or designation of healthcare surrogate completed as per family. As per [place] statute, healthcare proxy decision-making falls to patient's Carley Lora. . Objective Vital Signs Date Time Temp Pulse Resp B/P (MAP) Pulse Ox O2 Delivery O2 Flow Rate FiO2 04/15/17 09:45 72 17 161/73 (102) 96 04/15/17 09:43 73 18 153/67 (95) 95 04/15/17 09:30 70 17 134/110 (118) 94 04/15/17 09:15 78 19 95 2/15/18 09:00 73 18 149/66 (93) 93 04/15/17 09:00 73 04/15/17 08:45 72 18 95 04/15/17 08:39 45 04/15/17 08:39 95 45 04/15/17 08:33 74 20 158/71 (100) 97 04/15/17 08:30 79 25 94 04/15/17 08:30 45 04/15/17 08:15 75 22 98 04/15/17 08:00 71 04/15/17 08:00 98.8 71 23 137/65 (89) 94 04/15/17 08:00 45 04/15/17 07:45 69 17 96 04/15/17 07:40 96 45 04/15/17 07:30 72 18 128/61 (83) 94 04/15/17 07:15 71 18 95 04/15/17 07:00 75 19 126/59 (81) 94 04/15/17 06:00 72 04/15/17 04:43 95 45 04/15/17 04:00 97.3 66 12 150/67 (94) 97 04/15/17 04:00 66 04/15/17 04:00 45 04/15/17 02:00 72 04/15/17 01:47 94 45 04/15/17 00:00 45 04/15/17 00:00 98.2 68 17 147/67 (93) 96 04/15/17 00:00 68 04/14/17 23:06 93 45 18 22:00 73 18 20:00 97.6 71 13 143/66 (91) 98 18 20:00 71 18 20:00 45 04/14/18 19:34 96 45 04/14/18 18:33 94 50 04/14/18 18:30 69 15 95/53 (67) 93 04/14/18 18:00 76 24 137/65 (89) 97 04/14/18 18:00 76 2/14/18 17:30 73 18 130/60 (83) 95 /14/18 17:13 76 16 127/58 (81) 98 /14/18 17:00 74 15 91/54 (66) 97 04/14/18 17:00 74 14/18 16:45 73 15 88/54 (65) 96 04/14/17 16:30 74 15 134/61 (85) 99 18 16:15 72 16 124/55 (78) 97 04/14/17 16:00 98.8 74 16 138/55 (82) 95 04/14/17 16:00 74 04/14/17 16:00 50 18 15:45 74 16 100/57 (71) 95 04/14/17 15:30 75 17 106/53 (70) 90 04/14/17 15:15 77 18 96/52 (67) 94 04/14/17 15:11 94 50 04/14/17 15:00 76 04/14/17 15:00 76 18 131/58 (82) 95 04/14/17 14:30 75 17 158/68 (98) 93 04/14/17 14:30 75 04/14/17 14:15 78 22 163/64 (97) 94 04/14/17 14:15 78 04/14/17 14:00 75 17 165/70 (101) 94 04/14/17 14:00 75 04/14/17 13:45 76 04/14/17 13:45 76 19 162/69 (100) 94 04/14/17 13:30 76 04/14/17 13:30 76 22 170/74 (106) 98 04/14/17 13:15 79 04/14/17 13:15 79 22 167/70 (102) 93 04/14/17 13:00 78 04/14/17 13:00 78 20 163/70 (101) 95 04/14/17 12:46 86 28 199/89 (125) 98 04/14/17 12:46 86 04/14/17 12:30 77 22 172/70 (104) 94 18 12:30 77 04/14/17 12:15 75 16 173/77 (109) 91 04/14/17 12:15 75 04/14/17 12:00 98.8 75 16 169/72 (104) 90 04/14/17 12:00 50 04/14/17 12:00 75 Intake & Output 04/15/17 04/15/17 07:00 19:00 Intake Total 1106 ml Output Total 75 ml Balance 1031 ml IV Total 200 ml Tube Feeding 506 ml Other 400 ml Output Urine Total 75 ml # Bowel Movements 2 . Physical Exam CONSTITUTIONAL/GENERAL: This is an adequately nourished patient on mech vent. TUBES/LINES/DRAINS: ETT, OG, right IJ central line, Locke catheter, PIV's, SCDs , bilateral soft wrist restraints. SKIN: No jaundice, rashes, or lesions. Ecchymoses on upper extremities. No wounds seen anteriorly. Skin temperature appropriate. Not diaphoretic. EYES: Pupils equal and round and reactive; tracking with eyes ENT: Hearing appears normal-patient arouses to verbal stimuli Nose without bleeding or purulent drainage. Dry oral mucosa. CARDIOVASCULAR: Regular rate and rhythm without murmurs, gallops, or rubs. Peripheral pulses symmetric. RESPIRATORY/CHEST: Symmetric, unlabored respirations. Endotracheally intubated on mechanical ventilator GASTROINTESTINAL: Abdomen large, round, obese. Bowel sounds present. GENITOURINARY: Without palpable bladder distension. Locke catheter in place. MUSCULOSKELETAL: Extremities without clubbing, cyanosis. No mottling or clubbing. Edema to bilateral arms. NEUROLOGICAL: Arouses easily to verbal stimuli. Eyes open, tracking. Follows simple commands. PSYCHIATRIC: No obvious anxiety or agitation.. . Diagnostic Tests Laboratory Laboratory Tests Test 04/12/17 12:25 04/13/17 04:20 04/13/17 12:30 04/14/17 03:20 Blood Urea Nitrogen 132 MG/DL (7-18) 169 MG/DL (7-18) 138 MG/DL (7-18) Creatinine 4.05 MG/DL (0.60-1.30) 5.21 MG/DL (0.60-1.30) 4.93 MG/DL (0.60-1.30) Random Glucose 296 MG/DL (74-106) 165 MG/DL (74-106) 309 MG/DL (74-106) Total Protein 5.5 GM/DL (6.4-8.2) Albumin 2.6 GM/DL (3.4-5.0) 2.3 GM/DL (3.4-5.0) 2.8 GM/DL (3.4-5.0) Calcium Level 7.6 MG/DL (8.5-10.1) 7.7 MG/DL (8.5-10.1) 8.0 MG/DL (8.5-10.1) Alkaline Phosphatase 90 U/L (45-117) Aspartate Amino Transf (AST/SGOT) 33 U/L (15-37) Alanine Aminotransferase (ALT/SGPT) 64 U/L (12-78) Total Bilirubin 0.5 MG/DL (0.2-1.0) Sodium Level 138 MEQ/L (136-145) 139 MEQ/L (136-145) 137 MEQ/L (136-145) Potassium Level 5.0 MEQ/L (3.5-5.1) 5.8 MEQ/L (3.5-5.1) 5.0 MEQ/L (3.5-5.1) Chloride Level 101 MEQ/L (98-107) 100 MEQ/L (98-107) 99 MEQ/L (98-107) Carbon Dioxide Level 25.5 MEQ/L (21.0-32.0) 24.8 MEQ/L (21.0-32.0) 25.1 MEQ/L (21.0-32.0) Anion Gap 12 MEQ/L (5-15) 14 MEQ/L (5-15) 13 MEQ/L (5-15) Estimat Glomerular Filtration Rate 18 ML/MIN (>89) 13 ML/MIN (>89) 14 ML/MIN (>89) White Blood Count 13.1 TH/MM3 (4.0-11.0) Red Blood Count 3.22 MIL/MM3 (4.50-5.90) Hemoglobin 9.4 GM/DL (13.0-17.0) Hematocrit 28.1 % (39.0-51.0) Mean Corpuscular Volume 87.3 FL (80.0-100.0) Mean Corpuscular Hemoglobin 29.1 PG (27.0-34.0) Mean Corpuscular Hemoglobin Concent 33.3 % (32.0-36.0) Red Cell Distribution Width 14.7 % (11.6-17.2) Platelet Count 142 TH/MM3 (150-450) Mean Platelet Volume 9.5 FL (7.0-11.0) Neutrophils (%) (Auto) 90.9 % (16.0-70.0) Lymphocytes (%) (Auto) 2.2 % (9.0-44.0) Monocytes (%) (Auto) 6.8 % (0.0-8.0) Eosinophils (%) (Auto) 0.0 % (0.0-4.0) Basophils (%) (Auto) 0.1 % (0.0-2.0) Neutrophils # (Auto) 11.9 TH/MM3 (1.8-7.7) Lymphocytes # (Auto) 0.3 TH/MM3 (1.0-4.8) Monocytes # (Auto) 0.9 TH/MM3 (0-0.9) Eosinophils # (Auto) 0.0 TH/MM3 (0-0.4) Basophils # (Auto) 0.0 TH/MM3 (0-0.2) CBC Comment DIFF FINAL Differential Comment Phosphorus Level 8.3 MG/DL (2.5-4.9) 7.9 MG/DL (2.5-4.9) Magnesium Level 3.4 MG/DL (1.5-2.5) Blood Gas Puncture Site LT RADIAL Blood Gas Patient Temperature 98.6 Blood Gas HCO3 22 mmol/L (22-26) Blood Gas Base Excess -2.4 mmol/L (-2-2) Blood Gas Oxygen Saturation 93 % (90-100) Arterial Blood pH 7.40 (7.380-7.420) Arterial Blood Partial Pressure CO2 36 mmHg (38-42) Arterial Blood Partial Pressure O2 77 mmHG (61-120) Arterial Blood Oxygen Content 15.5 Vol % (12.0-20.0) Arterial Blood Carboxyhemoglobin 1.0 % (0-4) Arterial Blood Methemoglobin 0.8 % (0-2) Blood Gas Hemoglobin 11.8 G/DL (12.0-16.0) Oxygen Delivery Device VENTILATOR Blood Gas Ventilator Setting CPAP 5/5 Blood Gas Inspired Oxygen 40 % Test 04/15/17 03:21 White Blood Count 11.3 TH/MM3 (4.0-11.0) Red Blood Count 2.96 MIL/MM3 (4.50-5.90) Hemoglobin 8.4 GM/DL (13.0-17.0) Hematocrit 25.6 % (39.0-51.0) Mean Corpuscular Volume 86.4 FL (80.0-100.0) Mean Corpuscular Hemoglobin 28.3 PG (27.0-34.0) Mean Corpuscular Hemoglobin Concent 32.7 % (32.0-36.0) Red Cell Distribution Width 14.4 % (11.6-17.2) Platelet Count 150 TH/MM3 (150-450) Mean Platelet Volume 9.0 FL (7.0-11.0) Neutrophils (%) (Auto) 87.7 % (16.0-70.0) Lymphocytes (%) (Auto) 4.0 % (9.0-44.0) Monocytes (%) (Auto) 8.2 % (0.0-8.0) Eosinophils (%) (Auto) 0.1 % (0.0-4.0) Basophils (%) (Auto) 0.0 % (0.0-2.0) Neutrophils # (Auto) 10.0 TH/MM3 (1.8-7.7) Lymphocytes # (Auto) 0.5 TH/MM3 (1.0-4.8) Monocytes # (Auto) 0.9 TH/MM3 (0-0.9) Eosinophils # (Auto) 0.0 TH/MM3 (0-0.4) Basophils # (Auto) 0.0 TH/MM3 (0-0.2) CBC Comment AUTO DIFF Differential Comment AUTO DIFF CONFIRMED Blood Urea Nitrogen 115 MG/DL (7-18) Creatinine 4.60 MG/DL (0.60-1.30) Random Glucose 196 MG/DL (74-106) Total Protein 5.1 GM/DL (6.4-8.2) Albumin 2.5 GM/DL (3.4-5.0) Calcium Level 7.9 MG/DL (8.5-10.1) Alkaline Phosphatase 92 U/L (45-117) Aspartate Amino Transf (AST/SGOT) 26 U/L (15-37) Alanine Aminotransferase (ALT/SGPT) 46 U/L (12-78) Total Bilirubin 0.5 MG/DL (0.2-1.0) Sodium Level 138 MEQ/L (136-145) Potassium Level 4.6 MEQ/L (3.5-5.1) Chloride Level 100 MEQ/L (98-107) Carbon Dioxide Level 27.3 MEQ/L (21.0-32.0) Anion Gap 11 MEQ/L (5-15) Estimat Glomerular Filtration Rate 15 ML/MIN (>89) . Result Diagram: 04/15/17 0321 04/15/17 0321 Imaging Last 72 hours Impressions Chest X-Ray 04/15/17 06 Signed Impressions: Service Date/Time: April 03:23 - CONCLUSION: No significant change has occurred. Raoul Hemphill MD Chest X-Ray 04/13/17 06 Signed Impressions: Service Date/Time: Thursday, April 13, 2017 03:27 - CONCLUSION: No significant change has occurred. Raoul Hemphill MD . Procedures * 04/06/17 -endotracheal intubation . Assessment and Plan Disease Oriented Problem List: (1) Acute respiratory failure (2) Pulmonary edema (3) Chronic diastolic congestive heart failure (4) Dementia (5) Diabetes mellitus Symptom Scale: (1) Shortness of breath 0-10 Scale: Unable to quantify (2) Pain 0-10 Scale: Unable to quantify (3) Debility 0-10 Scale: Unable to quantify Pertinent Non-Medical Issues Psychosocial: Patient's family is originally from [place]. Patient was born in [facility]. Patient moved to [place] approximately 4 years ago. Patient has been for over 30 years, they have 4 children together. 2 sons who live in [place], one daughter who resides locally and another daughter who is is still in [facility]. 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 Spiritual: Hinduism. Legal: POA completed. Ethical issues impacting care: No ethical lesions identified. . Important Contacts Silvestre Lora , . . Prognosis Mr. Lora 71-year-old male with a medical history significant for dementia, CHF , diabetes mellitus, history of CVA. Patient is a resident of a long-term memory care unit. Currently admitted for respiratory failure requiring intubation and mechanical ventilation. Very high risk for further complications , continue decline and . Guarded prognosis. . Code Status: Full Code Plan * NO CODE * HEALTHCARE DECISION-MAKING: Patient incapacitated for medical decision-making given baseline dementia and critical condition. Patient will not regain medical decision-making capacity. POA completed but only includes financial matters. As per [place] statute, healthcare proxy decision-making falls to patient's Carley Lora. is fully supported by daughter Haily Lora who is a nurse. Palliative care recommends to include patient's daughter Haily in all goals of care conversations with . * AGGRESSIVE REMAIN GOALS AT THIS TIME * Plan for possible medical extubation later today. Per Dr. Stoll, if patient fails extubation he will likely need trach/PEG tube placement which the family has previously stated they would not pursue. We reviewed the patient's comorbid conditions, underlying dementia as well as baseline debility. Family consider options overnight and notified Palliative care that if the patient fails medical extubation, they would want to try just into comfort focused care and to allow him to pass naturally. Palliative care again had these discussions with the patient's family today 04/15/2017 at which time they requested the patient's CODE STATUS be changed to NO CODE-DNR/DNI. They stated that they did not wish to be present at the time of extubation because they had spent time with the patient earlier in the day. Discussed with Dr. Stoll and bedside nurse , Delilah. .. * SYMPTOMS: = Shortness of breath, secondary to respiratory failure, pulmonary edema, CHF. Currently intubated-tolerating spontaneous breathing trials this morning. = Debility: Progressive. Patient resident of long-term facility. = Pain: No defect oral. History of chronic pain. Appears comfortable. * Palliative care will continue to follow-up for further clarifications of goals of care as patient's clinical course continue to evolve. . Attestation To help prompt me to consider important information that might be impacting today's encounter and assessment, information from prior notes written by myself or my colleagues may have been "brought forward" into today's note. My signature on this note, however, is an attestation that I personally performed the exam, history, and/or decision-making noted today, and, unless otherwise indicated, the interactions with patient, family, and staff as well as the review of records all occurred today. I also attest that the listed assessment and stated plan reflect my best clinical judgment today based on the combination of historical information, prior notes, and today's exam/ interactions. When time spent is documented, it refers only to time spent today by the signer, or if indicated, combined time spent today by collaborating physician/nurse practitioner. . Debra Bruce Apr 15, 2017 11:45
[2017-04-15] MEDS: HEPARIN SODIUM - IV 10,000 UNITS/10 ML VIAL PRN (12:00)
[2017-04-15] MEDS: GENTAMICIN SULFATE 20 MG/2 ML VIAL OTHER PRN (12:00)
--- NOTE | 2017-04-15 12:52 | HHI.PR ---
Subjective Remarks Intubated and on vent support. Fio2 45 %. On A/C Rate 10 now and still lethargic. Renal functions are worse.Was Dialyzed again. poorly responsive. Objective Vital Signs Date Time Temp Pulse Resp B/P (MAP) Pulse Ox O2 Delivery O2 Flow Rate FiO2 04/15/17 12:04 96 45 04/15/17 12:00 70 04/15/17 12:00 98.7 70 14 96/51 (66) 95 04/15/17 12:00 45 04/15/17 11:00 73 18 144/65 (91) 94 04/15/17 11:00 73 04/15/17 10:00 74 18 146/63 (90) 94 04/15/17 10:00 74 04/15/17 09:45 72 17 161/73 (102) 96 04/15/17 09:43 73 18 153/67 (95) 95 04/15/17 09:30 70 17 134/110 (118) 94 04/15/17 09:15 78 19 95 04/15/17 09:00 73 18 149/66 (93) 93 04/15/17 09:00 73 04/15/17 08:45 72 18 95 04/15/17 08:39 45 04/15/17 08:39 95 45 04/15/17 08:33 74 20 158/71 (100) 97 04/15/17 08:30 79 25 94 04/15/17 08:30 45 04/15/17 08:15 75 22 98 04/15/17 08:00 71 04/15/17 08:00 98.8 71 23 137/65 (89) 94 04/15/17 08:00 45 04/15/17 07:45 69 17 96 04/15/17 07:40 96 45 04/15/17 07:30 72 18 128/61 (83) 94 04/15/17 07:15 71 18 95 04/15/17 07:00 75 19 126/59 (81) 94 04/15/17 06:00 72 04/15/17 04:43 95 45 04/15/17 04:00 97.3 66 12 150/67 (94) 97 04/15/17 04:00 66 04/15/17 04:00 45 04/15/17 02:00 72 04/15/17 01:47 94 45 2/15/18 00:00 45 04/15/17 00:00 98.2 68 17 147/67 (93) 96 04/15/17 00:00 68 04/14/17 23:06 93 45 04/14/17 22:00 73 04/14/17 20:00 97.6 71 13 143/66 (91) 98 04/14/17 20:00 71 04/14/17 20:00 45 04/14/17 19:34 96 45 04/14/17 18:33 94 50 04/14/17 18:30 69 15 95/53 (67) 93 04/14/17 18:00 76 24 137/65 (89) 97 04/14/17 18:00 76 04/14/17 17:30 73 18 130/60 (83) 95 04/14/17 17:13 76 16 127/58 (81) 98 04/14/17 17:00 74 15 91/54 (66) 97 04/14/17 17:00 74 04/14/17 16:45 73 15 88/54 (65) 96 04/14/17 16:30 74 15 134/61 (85) 99 04/14/17 16:15 72 16 124/55 (78) 97 04/14/17 16:00 98.8 74 16 138/55 (82) 95 04/14/17 16:00 74 04/14/17 16:00 50 04/14/17 15:45 74 16 100/57 (71) 95 04/14/17 15:30 75 17 106/53 (70) 90 04/14/17 15:15 77 18 96/52 (67) 94 04/14/17 15:11 94 50 04/14/17 15:00 76 04/14/17 15:00 76 18 131/58 (82) 95 18 14:30 75 17 158/68 (98) 93 18 14:30 75 14/18 14:15 78 22 163/64 (97) 94 18 14:15 78 /18 14:00 75 17 165/70 (101) 94 04/14/17 14:00 75 1418 13:45 76 18 13:45 76 19 162/69 (100) 94 04/14/17 13:30 76 04/14/17 13:30 76 22 170/74 (106) 98 04/14/17 13:15 79 04/14/17 13:15 79 22 167/70 (102) 93 04/14/17 13:00 78 04/14/17 13:00 78 20 163/70 (101) 95 I/O 04/14/17 04/14/17 04/14/17 04/15/17 04/15/17 04/15/17 07:00 15:00 23:00 07:00 15:00 23:00 Intake Total 941 ml 100 ml 1132 ml 1106 ml Output Total 100 ml 3125 ml 75 ml 3500 ml Balance 841 ml 100 ml -1993 ml 1031 ml -3500 ml IV Total 200 ml 100 ml 100 ml 200 ml Tube Feeding 441 ml 632 ml 506 ml Other 300 ml 400 ml 400 ml Output Urine Total 100 ml 125 ml 75 ml Hemodialysis 3000 ml 3500 ml # Bowel Movements 1 2 2 Result Diagram: 04/15/17 0321 04/15/17 0321 Objective Remarks GENERAL: This is an obese elderly man on the vent HEENT: Head normocephalic. Pupils are reactive and equal. Sclerae were clear. Nasal mucosa is clear. NECK: Supple. No bruits. There is no venous distension . Trachea midline. No thyroid enlargement. CHEST: Equal movements. Decreased excursions. Breath sounds diminished at the bases with Occ basilar crackles. CARDIAC: Heart sounds are irregular S1, S2 with no murmur. No S3. ABDOMEN: Soft, obese without masses. No organomegaly or tenderness. Bowel sounds are active. EXTREMITIES: Edema 1+. Pigmentation of the skin of the lower extremities. diminished peripheral pulses. NEUROLOGIC: Very lethargic. SKIN: Dry and scaly. Assessment and Plan Assessment and Plan IMPRESSION 1. Hypercapnic respiratory failure. 2. Hypoventilation and possible obstructive sleep apnea syndrome 3. History of bronchial asthma with chronic bronchitis 4. Diabetes mellitus 5. Dementia. 6. History of hypertension 7. History of CVA. 8. ADALI Plan : 1. Place on A/C 10 at HS and FIo2 40 % at HS 2. Continue antibiotics per ID 3. Nebs qid Duoneb 4. BMP ,CBC in am. 5.Symbicort 160/4.5 Mcg , 2 puffs bid. 6. CPAP daytime for 8 hrs 7. Prednisone 20 mg BID 8. Dialysis per renal Chhaya Ta MD Apr 15, 2017 12:52
--- NOTE | 2017-04-15 13:13 | HHI.NPPN ---
Subjective General Problems: Edema Renal Failure: Acute Interval History Dialyzed again today. 3.5 liters removed. Still on the vent. (Aliyah Onofre) Review of Systems General General Remarks unable to obtain (Aliyah Onofre) Objective Data Data 04/15/17 04/16/17 19:00 07:00 Output Total 3500 ml Balance -3500 ml Hemodialysis 3500 ml Vital Signs Date Time Temp Pulse Resp B/P (MAP) Pulse Ox O2 Delivery O2 Flow Rate FiO2 04/15/17 12:04 96 45 04/15/17 12:00 70 04/15/17 12:00 98.7 70 14 96/51 (66) 95 04/15/17 12:00 45 04/15/17 11:00 73 18 144/65 (91) 94 04/15/17 11:00 73 04/15/17 10:00 74 18 146/63 (90) 94 04/15/17 10:00 74 04/15/17 09:45 72 17 161/73 (102) 96 04/15/17 09:43 73 18 153/67 (95) 95 04/15/17 09:30 70 17 134/110 (118) 94 04/15/17 09:15 78 19 95 04/15/17 09:00 73 18 149/66 (93) 93 04/15/17 09:00 73 04/15/17 08:45 72 18 95 04/15/17 08:39 45 04/15/17 08:39 95 45 04/15/17 08:33 74 20 158/71 (100) 97 04/15/17 08:30 79 25 94 04/15/17 08:30 45 04/15/17 08:15 75 22 98 04/15/17 08:00 71 04/15/17 08:00 98.8 71 23 137/65 (89) 94 04/15/17 08:00 45 04/15/17 07:45 69 17 96 04/15/17 07:40 96 45 04/15/17 07:30 72 18 128/61 (83) 94 04/15/17 07:15 71 18 95 04/15/17 07:00 75 19 126/59 (81) 94 04/15/17 06:00 72 04/15/17 04:43 95 45 04/15/17 04:00 97.3 66 12 150/67 (94) 97 04/15/17 04:00 66 04/15/17 04:00 45 04/15/17 02:00 72 04/15/17 01:47 94 45 04/15/17 00:00 45 04/15/17 00:00 98.2 68 17 147/67 (93) 96 04/15/17 00:00 68 04/14/17 23:06 93 45 04/14/17 22:00 73 04/14/17 20:00 97.6 71 13 143/66 (91) 98 04/14/17 20:00 71 04/14/17 20:00 45 04/14/17 19:34 96 45 04/14/17 18:33 94 50 04/14/17 18:30 69 15 95/53 (67) 93 04/14/17 18:00 76 24 137/65 (89) 97 04/14/17 18:00 76 04/14/17 17:30 73 18 130/60 (83) 95 04/14/17 17:13 76 16 127/58 (81) 98 04/14/17 17:00 74 15 91/54 (66) 97 04/14/17 17:00 74 04/14/17 16:45 73 15 88/54 (65) 96 04/14/17 16:30 74 15 134/61 (85) 99 04/14/17 16:15 72 16 124/55 (78) 97 04/14/17 16:00 98.8 74 16 138/55 (82) 95 04/14/17 16:00 74 04/14/17 16:00 50 18 15:45 74 16 100/57 (71) 95 04/14/17 15:30 75 17 106/53 (70) 90 18 15:15 77 18 96/52 (67) 94 18 15:11 94 50 18 15:00 76 18 15:00 76 18 131/58 (82) 95 18 14:30 75 17 158/68 (98) 93 18 14:30 75 14/18 14:15 78 22 163/64 (97) 94 2/14/18 14:15 78 2/14/18 14:00 75 17 165/70 (101) 94 04/14/17 14:00 75 18 13:45 76 04/14/17 13:45 76 19 162/69 (100) 94 04/14/17 13:30 76 04/14/17 13:30 76 22 170/74 (106) 98 04/14/17 13:15 79 04/14/17 13:15 79 22 167/70 (102) 93 (Aliyah Onofre) -: 04/15/17 0321 04/15/17 0321 Imaging Last 72 hours Impressions Chest X-Ray 04/15/17 0600 Signed Impressions: Service Date/Time: April 03:23 - CONCLUSION: No significant change has occurred. Raoul Hemphill MD Chest X-Ray 04/13/17 0600 Signed Impressions: Service Date/Time: Thursday, April 13, 2017 03:27 - CONCLUSION: No significant change has occurred. Raoul Hemphill MD Tubes & Lines: Vas-Cath, Locke (Aliyah Onofre) Physical Exam General Appearance: Well Developed, No Acute Distress, Comfortable (Aliyah Onofre) Eyes Eye Exam: Pupils Equal (Aliyah Onofre) Throat Throat Exam: Oral Mucosa Start & Moist (Aliyah Onofre) Pulmonary Resp Exam: No Distress, Crackles, Rhonchi, Decreased Bases, Diminished Breath Sounds, Poor Inspiratory Effort Resp Remarks vented lung sounds (Aliyah Onofre) Cardiology CV Exam: Regular, Normal Sinus Rhythm (Aliyah Onofre) Gastrointestinal/Abdomen GI Exam: Soft, Non-Tender, Bowel Sounds Present (Aliyah Onofre) Musculoskeletal MS Exam: Joints Intact, Normal Tone, Unable to Ambulate (Aliyah Onofre) Integumentary Skin Exam: Warm, Dry (Aliyah Onofre) Extremeties Extremities Exam: Moderate Edema, Pitting Edema, Dependent Edema (Aliyah Onofre) Neurologic Neuro Exam: Awake, Moving All Extremities Neuro Remarks Awake on vent (Aliyah Onofre) VTE Prophylaxis Device: SCDs (Aliyah Onofre) Assessment/Plan Discussed Condition With: Patient Assessment Summary: ADALI/Acute Renal Failure, Acute Tubular Necrosis, Fluid/ Volume Overload Problem List: (1) Acute renal failure ICD Codes: N17.9 - Acute kidney failure, unspecified Plan: Baseline creatinine 1.1-1.2 Renal failure from ATN, possibly from renal hypoperfusion. Dialysis initiated 04/11, has had 5 treatments in a row as of today High BUN persists, may be due to steroids Repeat labs tomorrow. May need dialysis again tomorrow. Await renal recovery Avoid nephrotoxic agents. Lisinopril on hold. Non Oliguric, but urine out put is low. Avoid IVF Lasix on hold. On Nepro tube feeding, Calcium acetate via OG tube (2) Hyperkalemia, diminished renal excretion ICD Codes: E87.5 - Hyperkalemia Plan: Improved with dialysis (3) Chronic diastolic congestive heart failure ICD Codes: I50.32 - Chronic diastolic (congestive) heart failure Plan: Fluid removal as tolerated Echo shows LVH, EF 50-55%. (4) Acute respiratory failure ICD Codes: J96.00 - Acute respiratory failure, unspecified whether with hypoxia or hypercapnia Plan: Vent management per machine attendant. CPAP trial, possible extubation. (5) Diabetes mellitus ICD Codes: E11.9 - Diabetes mellitus Status: Acute Plan: Off insulin gtt, maintain glucose 140-180 mg/dL. (6) Hypernatremia ICD Codes: E87.0 - Hyperosmolality and hypernatremia Plan: Improved Reduce free water via OG (Aliyah Onofre) Plan patient was seen and examined. High waste products. Dialysis today. Discussed with Dr. Stoll, planned extubation today. (Carloz Adams MD) Aliyah Onofre Apr 15, 2017 13:13 Carloz Adams MD Apr 16, 2017 15:29
--- NOTE | 2017-04-15 13:36 | HHI.HCPN ---
Reason for visit a. To assist with evaluation and management of symptoms including: Shortness of breath, anxiety/agitation. b. To assist medical decision maker(s) with: better understanding of current medical conditions; weighing benefits/burdens of medical treatment options; making medical treatment decisions. . Subjective/Interval History Palliative care follow-up for further clarifications of goals of care. Patient seen at 1030am; note to follow Patient seen and assessed in medical ICU- room 500. Off sedation; tolerating CPAP trails since 929 on 40% FiO2 with PEEP/pressor support of 5/5. Eyes are open, tracking. Able to respond to simple questions (asked in Salvadorean) by nodding yes or no. Follows simple commands by consistently squeezing with his left and right hand when asked to do so. Per notes, patient was following basic commands earlier this morning when instructed in Salvadorean by the physical therapist. Dialyzed Wednesday and Wednesday, however creatinine, BUN, and potassium are higher. Potassium: 5.8, BUN 169, creatinine 5.21, GFR 16. Plan for HD today. Nephrology following. Plan for possible medical extubation in the upcoming days; palliative care met with the patient's family to clarify medical treatment goals moving forward. If the patient fails extubation he will need trach/PEG tube placement per Dr. Stoll so will need to consider desired CODE STATUS s/p extubation. Previously the patient's indicated that the patient would never be in agreement with tracheostomy or PEG tube placement, but now that the patient is more alert the family is uncertain what they should do. We reviewed the patient's comorbid conditions, underlying dementia as well as baseline debility. Family was encouraged to consider what the patient would say if he was participating in these conversations.They will discuss with family overnight; palliative care will follow up with family tomorrow morning 04/14/16. . Advance Directives Living Will: Never completed Health Care Surrogate: Never completed Durable Power of Gelatin Powder Mixer: Copy in medical record Advance Directive Specifics Date completed: 02/26/2014. . Health Care Surrogate(s): Only daughter power of workers compensation attorney has been completed. No living will or designation of healthcare surrogate completed as per family. As per [place] statute, healthcare proxy decision-making falls to patient's Carley Lora. . Objective Vital Signs Date Time Temp Pulse Resp B/P (MAP) Pulse Ox O2 Delivery O2 Flow Rate FiO2 2/15/18 12:04 96 45 04/15/17 12:00 70 04/15/17 12:00 98.7 70 14 96/51 (66) 95 04/15/17 12:00 45 04/15/17 11:00 73 18 144/65 (91) 94 04/15/17 11:00 73 04/15/17 10:00 74 18 146/63 (90) 94 04/15/17 10:00 74 04/15/17 09:45 72 17 161/73 (102) 96 04/15/17 09:43 73 18 153/67 (95) 95 04/15/17 09:30 70 17 134/110 (118) 94 04/15/17 09:15 78 19 95 04/15/17 09:00 73 18 149/66 (93) 93 04/15/17 09:00 73 04/15/17 08:45 72 18 95 04/15/17 08:39 45 04/15/17 08:39 95 45 04/15/17 08:33 74 20 158/71 (100) 97 04/15/17 08:30 79 25 94 04/15/17 08:30 45 04/15/17 08:15 75 22 98 04/15/17 08:00 71 04/15/17 08:00 98.8 71 23 137/65 (89) 94 04/15/17 08:00 45 04/15/17 07:45 69 17 96 04/15/17 07:40 96 45 04/15/17 07:30 72 18 128/61 (83) 94 04/15/17 07:15 71 18 95 04/15/17 07:00 75 19 126/59 (81) 94 04/15/17 06:00 72 04/15/17 04:43 95 45 04/15/17 04:00 97.3 66 12 150/67 (94) 97 04/15/17 04:00 66 04/15/17 04:00 45 04/15/17 02:00 72 04/15/17 01:47 94 45 04/15/17 00:00 45 04/15/17 00:00 98.2 68 17 147/67 (93) 96 04/15/17 00:00 68 04/14/17 23:06 93 45 04/14/17 22:00 73 04/14/17 20:00 97.6 71 13 143/66 (91) 98 04/14/17 20:00 71 04/14/17 20:00 45 04/14/17 19:34 96 45 04/14/17 18:33 94 50 04/14/17 18:30 69 15 95/53 (67) 93 04/14/17 18:00 76 24 137/65 (89) 97 04/14/17 18:00 76 04/14/17 17:30 73 18 130/60 (83) 95 04/14/17 17:13 76 16 127/58 (81) 98 04/14/17 17:00 74 15 91/54 (66) 97 04/14/17 17:00 74 04/14/17 16:45 73 15 88/54 (65) 96 04/14/17 16:30 74 15 134/61 (85) 99 04/14/17 16:15 72 16 124/55 (78) 97 04/14/17 16:00 98.8 74 16 138/55 (82) 95 04/14/17 16:00 74 04/14/17 16:00 50 04/14/17 15:45 74 16 100/57 (71) 95 04/14/17 15:30 75 17 106/53 (70) 90 04/14/17 15:15 77 18 96/52 (67) 94 04/14/17 15:11 94 50 04/14/17 15:00 76 04/14/17 15:00 76 18 131/58 (82) 95 04/14/17 14:30 75 17 158/68 (98) 93 04/14/17 14:30 75 04/14/17 14:15 78 22 163/64 (97) 94 04/14/17 14:15 78 04/14/17 14:00 75 17 165/70 (101) 94 04/14/17 14:00 75 04/14/17 13:45 76 04/14/17 13:45 76 19 162/69 (100) 94 Intake & Output 04/15/17 04/15/17 07:00 19:00 Intake Total 1106 ml Output Total 75 ml 3500 ml Balance 1031 ml -3500 ml IV Total 200 ml Tube Feeding 506 ml Other 400 ml Output Urine Total 75 ml Hemodialysis 3500 ml # Bowel Movements 2 Physical Exam CONSTITUTIONAL/GENERAL: This is an adequately nourished patient on [facility] vent. TUBES/LINES/DRAINS: ETT, OG, right IJ central line, Locke catheter, PIV's, SCDs , bilateral soft wrist restraints. SKIN: No jaundice, rashes, or lesions. Ecchymoses on upper extremities. No wounds seen anteriorly. Skin temperature appropriate. Not diaphoretic. EYES: Pupils equal and round and reactive. ENT: Unable to assess hearing. Nose without bleeding or purulent drainage. Dry oral mucosa. CARDIOVASCULAR: Regular rate and rhythm without murmurs, gallops, or rubs. Peripheral pulses symmetric. RESPIRATORY/CHEST: Symmetric, unlabored respirations. Endotracheally intubated , tolerating CPAP trials this morning Scattered rhonchi. GASTROINTESTINAL: Abdomen large, round, obese. Bowel sounds present. GENITOURINARY: Without palpable bladder distension. Locke catheter in place. MUSCULOSKELETAL: Extremities without clubbing, cyanosis. No mottling or clubbing. Edema to bilateral arms. NEUROLOGICAL: Eyes open, tracking. Able to respond to simple questions by nodding yes or no. Assessment limited as patient's primary language is Salvadorean. PSYCHIATRIC: No obvious anxiety or agitation.. . Diagnostic Tests Laboratory Laboratory Tests Test 04/13/17 04:20 04/13/17 12:30 04/14/17 03:20 04/15/17 03:21 White Blood Count 13.1 TH/MM3 (4.0-11.0) 11.3 TH/MM3 (4.0-11.0) Red Blood Count 3.22 MIL/MM3 (4.50-5.90) 2.96 MIL/MM3 (4.50-5.90) Hemoglobin 9.4 GM/DL (13.0-17.0) 8.4 GM/DL (13.0-17.0) Hematocrit 28.1 % (39.0-51.0) 25.6 % (39.0-51.0) Mean Corpuscular Volume 87.3 FL (80.0-100.0) 86.4 FL (80.0-100.0) Mean Corpuscular Hemoglobin 29.1 PG (27.0-34.0) 28.3 PG (27.0-34.0) Mean Corpuscular Hemoglobin Concent 33.3 % (32.0-36.0) 32.7 % (32.0-36.0) Red Cell Distribution Width 14.7 % (11.6-17.2) 14.4 % (11.6-17.2) Platelet Count 142 TH/MM3 (150-450) 150 TH/MM3 (150-450) Mean Platelet Volume 9.5 FL (7.0-11.0) 9.0 FL (7.0-11.0) Neutrophils (%) (Auto) 90.9 % (16.0-70.0) 87.7 % (16.0-70.0) Lymphocytes (%) (Auto) 2.2 % (9.0-44.0) 4.0 % (9.0-44.0) Monocytes (%) (Auto) 6.8 % (0.0-8.0) 8.2 % (0.0-8.0) Eosinophils (%) (Auto) 0.0 % (0.0-4.0) 0.1 % (0.0-4.0) Basophils (%) (Auto) 0.1 % (0.0-2.0) 0.0 % (0.0-2.0) Neutrophils # (Auto) 11.9 TH/MM3 (1.8-7.7) 10.0 TH/MM3 (1.8-7.7) Lymphocytes # (Auto) 0.3 TH/MM3 (1.0-4.8) 0.5 TH/MM3 (1.0-4.8) Monocytes # (Auto) 0.9 TH/MM3 (0-0.9) 0.9 TH/MM3 (0-0.9) Eosinophils # (Auto) 0.0 TH/MM3 (0-0.4) 0.0 TH/MM3 (0-0.4) Basophils # (Auto) 0.0 TH/MM3 (0-0.2) 0.0 TH/MM3 (0-0.2) CBC Comment DIFF FINAL AUTO DIFF Differential Comment AUTO DIFF CONFIRMED Blood Urea Nitrogen 169 MG/DL (7-18) 138 MG/DL (7-18) 115 MG/DL (7-18) Creatinine 5.21 MG/DL (0.60-1.30) 4.93 MG/DL (0.60-1.30) 4.60 MG/DL (0.60-1.30) Random Glucose 165 MG/DL (74-106) 309 MG/DL (74-106) 196 MG/DL (74-106) Albumin 2.3 GM/DL (3.4-5.0) 2.8 GM/DL (3.4-5.0) 2.5 GM/DL (3.4-5.0) Calcium Level 7.7 MG/DL (8.5-10.1) 8.0 MG/DL (8.5-10.1) 7.9 MG/DL (8.5-10.1) Phosphorus Level 8.3 MG/DL (2.5-4.9) 7.9 MG/DL (2.5-4.9) Magnesium Level 3.4 MG/DL (1.5-2.5) Sodium Level 139 MEQ/L (136-145) 137 MEQ/L (136-145) 138 MEQ/L (136-145) Potassium Level 5.8 MEQ/L (3.5-5.1) 5.0 MEQ/L (3.5-5.1) 4.6 MEQ/L (3.5-5.1) Chloride Level 100 MEQ/L (98-107) 99 MEQ/L (98-107) 100 MEQ/L (98-107) Carbon Dioxide Level 24.8 MEQ/L (21.0-32.0) 25.1 MEQ/L (21.0-32.0) 27.3 MEQ/L (21.0-32.0) Anion Gap 14 MEQ/L (5-15) 13 MEQ/L (5-15) 11 MEQ/L (5-15) Estimat Glomerular Filtration Rate 13 ML/MIN (>89) 14 ML/MIN (>89) 15 ML/MIN (>89) Blood Gas Puncture Site LT RADIAL Blood Gas Patient Temperature 98.6 Blood Gas HCO3 22 mmol/L (22-26) Blood Gas Base Excess -2.4 mmol/L (-2-2) Blood Gas Oxygen Saturation 93 % (90-100) Arterial Blood pH 7.40 (7.380-7.420) Arterial Blood Partial Pressure CO2 36 mmHg (38-42) Arterial Blood Partial Pressure O2 77 mmHG (61-120) Arterial Blood Oxygen Content 15.5 Vol % (12.0-20.0) Arterial Blood Carboxyhemoglobin 1.0 % (0-4) Arterial Blood Methemoglobin 0.8 % (0-2) Blood Gas Hemoglobin 11.8 G/DL (12.0-16.0) Oxygen Delivery Device VENTILATOR Blood Gas Ventilator Setting CPAP 5/5 Blood Gas Inspired Oxygen 40 % Total Protein 5.1 GM/DL (6.4-8.2) Alkaline Phosphatase 92 U/L (45-117) Aspartate Amino Transf (AST/SGOT) 26 U/L (15-37) Alanine Aminotransferase (ALT/SGPT) 46 U/L (12-78) Total Bilirubin 0.5 MG/DL (0.2-1.0) Result Diagram: 04/15/1732004/15/17 032 Procedures * 04/06/17 -endotracheal intubation . Assessment and Plan Disease Oriented Problem List: (1) Acute respiratory failure (2) Pulmonary edema (3) Chronic diastolic congestive heart failure (4) Dementia (5) Diabetes mellitus Symptom Scale: (1) Shortness of breath 0-10 Scale: Unable to quantify (2) Pain 0-10 Scale: Unable to quantify (3) Debility 0-10 Scale: Unable to quantify Pertinent Non-Medical Issues Psychosocial: Patient's family is originally from [place]. Patient was born in [facility]. Patient moved to [place] approximately 4 years ago. Patient has been for over 30 years, they have 4 children together. 2 sons who live in [place], one daughter who resides locally and another daughter who is is still in [facility]. 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 Spiritual: Yarsani. Legal: POA completed. Ethical issues impacting care: No ethical lesions identified. . Important Contacts Daughter Haily Lora , . . Prognosis Mr. Lora 71-year-old male with a medical history significant for dementia, CHF , diabetes mellitus, history of CVA. Patient is a resident of a long-term memory care unit. Currently admitted for respiratory failure requiring intubation and mechanical ventilation. Very high risk for further complications , continue decline and . Guarded prognosis. . Code Status: Full Code Plan * CODE STATUS: Full code. Risks, benefits and limitations of CPR discussed with patient's family given patient's condition. Fam requesting full code at this time. * HEALTHCARE DECISION-MAKING: Patient incapacitated for medical decision-making given baseline dementia and critical condition. Patient will not regain medical decision-making capacity. POA completed but only includes financial matters. As per [place] statute, healthcare proxy decision-making falls to patient's Carley Lora. is fully supported by daughter Haily Lora who is a nurse. Palliative care recommends to include patient's daughter Haily in all goals of care conversations with . * AGGRESSIVE REMAIN GOALS AT THIS TIME * Plan for possible medical extubation in the upcoming days; palliative care met with the patient's family to clarify medical treatment goals moving forward. If the patient fails extubation he will need trach/PEG tube placement per Dr. Stoll so will need to consider desired CODE STATUS s/p extubation. Previously the patient's indicated that the patient would never be in agreement with tracheostomy or PEG tube placement, but now that the patient is more alert the family is uncertain what they should do. We reviewed the patient' s comorbid conditions, underlying dementia as well as baseline debility. Family was encouraged to consider what the patient would say if he was participating in these conversations.They will discuss with family overnight; palliative care will follow up with family tomorrow morning 04/14/16. * SYMPTOMS: = Shortness of breath, secondary to respiratory failure, pulmonary edema, CHF. Currently intubated-tolerating spontaneous breathing trials this morning. = Debility: Progressive. Patient resident of long-term facility. = Pain: No defect oral. History of chronic pain. Appears comfortable. * Palliative care will continue to follow-up for further clarifications of goals of care as patient's clinical course continue to evolve. . Debra Bruce Apr 15, 2017 13:36
--- NOTE | 2017-04-15 14:12 | HHI.CCPN ---
Subjective Remarks/Hospital Course This is a 71 year old male with history of CHF, diabetes and recent upper respiratory infection presented to the ED with severe short of breath and wheezing on 04/01/17.The patient resides in SNF secondary to to dementia, his daughter requested to transfer patient to hospital due to increase work of breathing even on rest. Patient recently was diagnosed with pneumonia and started on Levaquin and prednisone. I saw patient in the room he was on BiPAP, in ED he was found to have hypercapnic respiratory failure he was given O2 and DuoNeb and a dose of Solu-Medrol, history was restricted due to increase of respiratory work and being on BiPAP, influenza A and B was negative. The patient was then transferred to the medical floor. During the last evening the patient had increased work of breathing, the patient was noted to have frothy pink sputum and BiPAP was ordered. The patient did not receive BiPAP during the night secondary to being combative, and inability to be restrained on BiPAP. The patient's respiratory status continued to worsen, Halicat was initiated the patient received furosemide 40 mg IV early this a.m. and diuresed greater than 1 L. The patient subsequently became hypotensive, and critical care medicine was consulted. Upon presentation to [facility], the patient was compatible requiring 2-point wrist restraints, and subsequently 1 mg of Ativan was administered. The patient continues on BiPAP, echocardiogram was performing cardiology evaluation. O2 saturation was noted improvement 100% on FiO2 of 35%, a normal respiratory rate. Subjective: 2: No acute events overnight. The patient became agitated, removing peripheral IVs, requiring 1 mg of Ativan last evening. Patient continues in restraints for patient safety. The patient continues to have adequate diuresis with Lasix. Patient was changed from CPAP to nasal cannula 6 L/m ABGs performed this afternoon show slight elevation in PCO2 to 63 however patient had been given Ativan for anxiety. Patient will receive 1 dose of Acetazolamide 250 mg. Plan for bedside swallow and advancement of diet. 04/06: Afebrile. Early this a.m. ,the patient became hypoxemic requiring emergent intubation at 5 AM. The patient currently intubated and sedated. ET tube was noted to be near the ese endotracheal tube retracted chest x-ray pending. Dietary consulted for initiation of tube feeds. 04/07: Afebrile. Overnight the patient's noted sodium level elevation with slight elevation in creatinine. Lasix discontinued on 04/06. Chest x-ray unchanged. Oxygenation status slightly improved today plan for initiation of CPAP trials. 04/08: The patient continues to have an elevation in creatinine, Lasix was discontinued on 04/06. BUN also elevated ,free water flushes frequency increased to every 4 hours. Patient fell CPAP trials yesterday after approximately 30 minutes, and continued attempts at CPAP trials. Palliative care was consulted yesterday discussion with family the patient and family would not want a tracheostomy nor PEG placement. Family arriving from [facility] today to visit patient. Continuing aggressive ventilator weaning in attempt to extubate patient. A chin with persistent hyperglycemia most likely secondary to exogenous steroids, placed on high-dose insulin sliding scale, dehydration will bolus with 1/2 NSS this am. 04/09: Remains intubated sedated. Apparently gets agitated on lightening sedation. On 45% FiO2. Chest x-ray remains unchanged. Further worsening of renal function BUN 144 from 116 yesterday, creatinine 2.4 today from 2.4 yesterday. Urine output in 24 hours under 400. Continues to fail CPAP. I have consulted nephrology 04/10: BUN creat continues to rise. 165/4.3. Remans intubated, on lightening sedation, he follows commands on UE. D/W Dr. Zuniag. [facility] proceed with [facility] for HD starting in am (Renal failure with volume overload) 04/11: Remains intubated sedated. BUN creatinine very elevated at 192/4.84. Urine output minimally improved 950 mL in [address] a Vas-Cath today to initiate hemodialysis. Still significantly volume overloaded with weight gain 04/12: Started on HD 04/11, removed 2L yesterday and 2.7 L today. Labs today pending, BUN was 192 yesterday. Remains encephalopathic 04/13: Awake on the vent today. Followed basic commands when instructed in English by the physical therapist. Remains very weak. K remains elevated at 5.8 , BUN/creat 169/5.2, discuss with nephrology Dr. Adams. Plan for repeat dialysis again today 04/14: More awake today, following commands on upper extremity is weaker on the lower extremity. Tolerates CPAP but FiO2 up to 50%. Moderate amount of ET tube and oral secretions. Family at the bedside updated. 04/15: S/p HD with fluid removal, following commands tolerating CPAP. Family has made patient a DNR. chest x-ray shows improving infiltrate Objective Vital Signs Date Time Temp Pulse Resp B/P (MAP) Pulse Ox O2 Delivery O2 Flow Rate FiO2 04/15/17 12:04 96 45 04/15/17 12:00 70 04/15/17 12:00 98.7 14 96/51 (66) Intake and Output 04/15/17 04/15/17 04/16/17 08:00 16:00 00:00 Intake Total 1106 ml Output Total 75 ml 3500 ml Balance 1031 ml -3500 ml Result Diagram: 04/15/17 0321 04/15/17 0321 Imaging Last Impressions Chest X-Ray 04/07/17 0600 Signed Impressions: Service Date/Time: Friday, April 07, 2017 03:48 - CONCLUSION: Stable chest x-ray with underinflation with mild bibasilar opacity likely representing atelectasis. Jerman Benitez MD Abdomen X-Ray 04/06/17 0000 Signed Impressions: Service Date/Time: Thursday, April 06, 2017 09:26 - CONCLUSION: 1. Nasogastric tube has its tip in the distal stomach. 2. Mild degenerative changes involving the lumbar spine and hip joints bilaterally. 3. No bowel obstruction or ileus. Jorge Chang MD Last Impressions Chest X-Ray 04/07/17 0600 Signed Impressions: Service Date/Time: Friday, April 07, 2017 03:48 - CONCLUSION: Stable chest x-ray with underinflation with mild bibasilar opacity likely representing atelectasis. Jerman Benitez MD Abdomen X-Ray 04/06/17 0000 Signed Impressions: Service Date/Time: Thursday, April 06, 2017 09:26 - CONCLUSION: 1. Nasogastric tube has its tip in the distal stomach. 2. Mild degenerative changes involving the lumbar spine and hip joints bilaterally. 3. No bowel obstruction or ileus. Jorge Chang MD Last Impressions Chest X-Ray 04/04/17 0000 Signed Impressions: Service Date/Time: Tuesday, April 04, 2017 09:37 - CONCLUSION: 1. Bibasilar atelectasis. Frantz F. Tocci, MD Objective Remarks GENERAL: This is an obese chronically ill appearing patient, intubated off all sedation SKIN: Warm and dry. HEAD: Atraumatic. Normocephalic. EYES: Pupils equal and round. No scleral icterus. ENT: No nasal bleeding or discharge. Orotracheally intubated NECK: Trachea midline. No JVD. CARDIOVASCULAR: Normal rate, regular rhythm. RESPIRATORY: Diminished breath sounds throughout lung carcamo, air entry equal bilaterally. GASTROINTESTINAL: Abdomen soft, non-tender, protuberant nondistended. No guarding. Normoactive bowel sounds MUSCULOSKELETAL: Extremities without clubbing, cyanosis, or edema. No obvious deformities. NEUROLOGICAL: Awake alert. Follows commands upper and lower extremity, weaker in LE. Procedures 2/6 emergent intubation A/P Assessment and Plan Plan by systems: Neurologic: Dementia History of CVA Agitation Holding all continuos sedation. Morphine 2 mg IV every 3 hours as needed for pain Continue Aricept and Namenda Continue Haldol 2 mg every 8 hours when necessary for agitation Neurochecks per ICU protocol Respiratory: Acute hypoxemic and hypercapnic respiratory failure History of bronchial asthma and chronic bronchitis Pulmonary edema Solu-Medrol 40 mg every 12. 2 emergently intubated 8.0 ETT. Vent day 10 Tolerating CPAP today status post hemodialysis with 4 L fluid removal. Extubate to nasal cannula DuoNeb every 6 hours scheduled and as needed Pulmonology following Dr. Bay Williamson DNR and no reintubation Cardiovascular: Chronic diastolic CHF Cardiology following-Dr. Pace 04/04 echo-EF 50-55% mildly dilated left ventricle, moderately concentric LVH HD started 04/11/11. Today 4L removed with HD Renal: Worsening acute kidney failure BUN and creatinine 192/4.8 on 04/11, HD started Dr. Adams. Getting daily HD since 04/11. BUN improving Maintain Locke catheter. Strict I/Os, Nephrology following FEN/GI: Obesity Mild protein calorie malnutrition Electrolyte derangement Glucerna 1.5 goal rate 50-change to Nepro due to hyperkalemia Hydralazine PRN for systolic blood pressure greater than 160 Heme/ID: Leukocytosis-improving Anemia of chronic disease Probable pneumonia Monitor CBC. WBC count noted trending down 2/2 Blood cultures 2 negative growth to date Influenza nasal wash negative Legionella, pneumococcal urine antigens-negative Continue cefepime Flagyl and DCd azithromycin 04/11 Endocrine: Diabetes mellitus Persistent elevation in glucose secondary to steroids On Insulin SSI Musculoskeletal: PT evaluation and treat Functional maintenance daily Prophylaxis: - GI Prophylaxis Protonix DVT Prophylaxis -- SCDs Heparin every 12 hours Lines: Peripheral IVs 2 providing adequate access. Placed Vascath 04/11 Dispo: Level 3 Discussed with RESIDENTIAL PLUMBER at bedside. D/W Dr. Adams Palliative care following to determine goals of care in the event that a tracheostomy and PEG placement, family does not want a tracheostomy or PEG tube placement. Plan for aggressive ventilator weaning measures, if unsuccessful tentative plan for possible compassionate withdrawal. Patient could possibly be extubated in 1-2 days, will need to clarify goals of care prior to extubation. Discussed with palliative care team 04/14: Discussed with palliative care and family. Family may decide to not reintubate if patient fails extubation. They definitely did not want trach or PEG 04/15: BETO now. Wean to extubate Moise Stoll MD Apr 15, 2017 14:12
[2017-04-15] MEDS: PANTOPRAZOLE SODIUM 40 MG VIAL IV PUSH SCH (17:19)
[2017-04-15] MEDS: CEFEPIME INJ 2,000 MG in SODIUM CHLORIDE 0.9% INJ 100 ML IV SCH (22:02)
[2017-04-16] VITALS (9 sets, daily range): BP systolic 145–172; BP diastolic 65–78; PULSE 74–92; RESP 16–24; TEMP 97.6–98.6; O2SAT 93–98
[2017-04-16] MEDS: HIGH DOSE INSULIN NOVOLOG SUPPLEMENTAL SCALE SQ SCH ×5 (02:00→21:00)
[2017-04-16] MEDS: metroNIDAZOLE 500 MG INJ 100 ML IV SCH (03:00)
[2017-04-16] MEDS: RESP: ALBUTEROL 2.5 MG/IPRATROPIUM 0.5 MG NEB (SCH) NEB ×4 (03:30→19:43)
[2017-04-16] MEDS: FREE WATER G-TUBE SCH (05:46)
[2017-04-16] MEDS: hydrALAZINE HCL 10 MG TAB PO SCH ×3 (05:46→21:25)
--- NOTE | 2017-04-16 07:52 | HHI.CCPN ---
Subjective Remarks/Hospital Course This is a 71 year old male with history of CHF, diabetes and recent upper respiratory infection presented to the ED with severe short of breath and wheezing on 04/01/17.The patient resides in SNF secondary to to dementia, his daughter requested to transfer patient to hospital due to increase work of breathing even on rest. Patient recently was diagnosed with pneumonia and started on Levaquin and prednisone. I saw patient in the room he was on BiPAP, in ED he was found to have hypercapnic respiratory failure he was given O2 and DuoNeb and a dose of Solu-Medrol, history was restricted due to increase of respiratory work and being on BiPAP, influenza A and B was negative. The patient was then transferred to the medical floor. During the last evening the patient had increased work of breathing, the patient was noted to have frothy pink sputum and BiPAP was ordered. The patient did not receive BiPAP during the night secondary to being combative, and inability to be restrained on BiPAP. The patient's respiratory status continued to worsen, Halicat was initiated the patient received furosemide 40 mg IV early this a.m. and diuresed greater than 1 L. The patient subsequently became hypotensive, and critical care medicine was consulted. Upon presentation to [facility], the patient was compatible requiring 2-point wrist restraints, and subsequently 1 mg of Ativan was administered. The patient continues on BiPAP, echocardiogram was performing cardiology evaluation. O2 saturation was noted improvement 100% on FiO2 of 35%, a normal respiratory rate. Subjective: 2: No acute events overnight. The patient became agitated, removing peripheral IVs, requiring 1 mg of Ativan last evening. Patient continues in restraints for patient safety. The patient continues to have adequate diuresis with Lasix. Patient was changed from CPAP to nasal cannula 6 L/m ABGs performed this afternoon show slight elevation in PCO2 to 63 however patient had been given Ativan for anxiety. Patient will receive 1 dose of Acetazolamide 250 mg. Plan for bedside swallow and advancement of diet. 04/06: Afebrile. Early this a.m. ,the patient became hypoxemic requiring emergent intubation at 5 AM. The patient currently intubated and sedated. ET tube was noted to be near the ese endotracheal tube retracted chest x-ray pending. Dietary consulted for initiation of tube feeds. 04/07: Afebrile. Overnight the patient's noted sodium level elevation with slight elevation in creatinine. Lasix discontinued on 04/06. Chest x-ray unchanged. Oxygenation status slightly improved today plan for initiation of CPAP trials. 04/08: The patient continues to have an elevation in creatinine, Lasix was discontinued on 04/06. BUN also elevated ,free water flushes frequency increased to every 4 hours. Patient fell CPAP trials yesterday after approximately 30 minutes, and continued attempts at CPAP trials. Palliative care was consulted yesterday discussion with family the patient and family would not want a tracheostomy nor PEG placement. Family arriving from [facility] today to visit patient. Continuing aggressive ventilator weaning in attempt to extubate patient. A chin with persistent hyperglycemia most likely secondary to exogenous steroids, placed on high-dose insulin sliding scale, dehydration will bolus with 1/2 NSS this am. 04/09: Remains intubated sedated. Apparently gets agitated on lightening sedation. On 45% FiO2. Chest x-ray remains unchanged. Further worsening of renal function BUN 144 from 116 yesterday, creatinine 2.4 today from 2.4 yesterday. Urine output in 24 hours under 400. Continues to fail CPAP. I have consulted nephrology 04/10: BUN creat continues to rise. 165/4.3. Remans intubated, on lightening sedation, he follows commands on UE. D/W Dr. Zuniga. [facility] starting in am (Renal failure with volume overload) 04/11: Remains intubated sedated. BUN creatinine very elevated at 192/4.84. Urine output minimally improved 950 mL in [address] a Vas-Cath today to initiate hemodialysis. Still significantly volume overloaded with weight gain 04/12: Started on HD 04/11, removed 2L yesterday and 2.7 L today. Labs today pending, BUN was 192 yesterday. Remains encephalopathic 04/13: Awake on the vent today. Followed basic commands when instructed in Urdu by the physical therapist. Remains very weak. K remains elevated at 5.8 , BUN/creat 169/5.2, discuss with nephrology Dr. Adams. Plan for repeat dialysis again today 04/14: More awake today, following commands on upper extremity is weaker on the lower extremity. Tolerates CPAP but FiO2 up to 50%. Moderate amount of ET tube and oral secretions. Family at the bedside updated. 04/15: S/p HD with fluid removal, following commands tolerating CPAP. Family has made patient a DNR. chest x-ray shows improving infiltrate 04/16: Extubated yesterday tolerating well on nasal cannula. DNR now. CMP pending, did not wear BiPAP yesterday Objective Vital Signs Date Time Temp Pulse Resp B/P (MAP) Pulse Ox O2 Delivery O2 Flow Rate FiO2 04/16/17 07:13 98 Nasal Cannula 1.00 04/16/17 06:00 79 04/16/17 04:00 98.4 16 172/78 (109) 04/15/17 23:06 30 Intake and Output 04/16/17 04/16/17 04/17/17 08:00 16:00 00:00 Intake Total 60 ml Output Total 150 ml Balance -90 ml Result Diagram: 04/15/17 0321 04/15/17 0321 Imaging Last Impressions Chest X-Ray 04/07/17 0600 Signed Impressions: Service Date/Time: Friday, April 07, 2017 03:48 - CONCLUSION: Stable chest x-ray with underinflation with mild bibasilar opacity likely representing atelectasis. Jerman Benitez MD Abdomen X-Ray 04/06/17 0000 Signed Impressions: Service Date/Time: Thursday, April 06, 2017 09:26 - CONCLUSION: 1. Nasogastric tube has its tip in the distal stomach. 2. Mild degenerative changes involving the lumbar spine and hip joints bilaterally. 3. No bowel obstruction or ileus. Jorge Chang MD Last Impressions Chest X-Ray 04/07/17 0600 Signed Impressions: Service Date/Time: Friday, April 07, 2017 03:48 - CONCLUSION: Stable chest x-ray with underinflation with mild bibasilar opacity likely representing atelectasis. Jerman Benitez MD Abdomen X-Ray 04/06/17 0000 Signed Impressions: Service Date/Time: Thursday, April 06, 2017 09:26 - CONCLUSION: 1. Nasogastric tube has its tip in the distal stomach. 2. Mild degenerative changes involving the lumbar spine and hip joints bilaterally. 3. No bowel obstruction or ileus. Jorge Chang MD Last Impressions Chest X-Ray 04/04/17 0000 Signed Impressions: Service Date/Time: Tuesday, April 04, 2017 09:37 - CONCLUSION: 1. Bibasilar atelectasis. Frantz Helms MD Procedures 04/06 emergent intubation Objective Remarks GENERAL: This is an obese chronically ill appearing patient, on 2L NC SKIN: Warm and dry. HEAD: Atraumatic. Normocephalic. EYES: Pupils equal and round. No scleral icterus. ENT: No nasal bleeding or discharge. NECK: Trachea midline. No JVD. CARDIOVASCULAR: Normal rate, regular rhythm. RESPIRATORY: Diminished breath sounds at bases, air entry equal bilaterally. GASTROINTESTINAL: Abdomen soft, non-tender, protuberant nondistended. No guarding. MUSCULOSKELETAL: Extremities without clubbing, cyanosis, or edema. No obvious deformities. NEUROLOGICAL: Awake alert. Follows commands upper and lower extremity, weaker in LE. A/P Assessment and Plan Plan by systems: Neurologic: Dementia History of CVA Agitation Continue Aricept and Namenda Minimize sedation Neurochecks per ICU protocol Respiratory: Acute hypoxemic and hypercapnic respiratory failure History of bronchial asthma and chronic bronchitis Pulmonary edema Solu-Medrol 40 mg every 12. 04/06 emergently intubated 8.0 ETT. extubated 04/15. Now DNR DuoNeb every 6 hours scheduled and as needed. EzPAP, Acapella Pulmonology following Dr. Bay Williamson. Use BiPAP PRN DNR and no reintubation Cardiovascular: Chronic diastolic CHF Cardiology following-Dr. Pace 04/04 echo-EF 50-55% mildly dilated left ventricle, moderately concentric LVH HD started 04/11/11. Getting daily HD since beginning Renal: Worsening acute kidney failure BUN and creatinine 192/4.8 on 04/11, HD started Dr. Adams. Getting daily HD since 04/11. BUN improving. CMP pending today Maintain Locke catheter. Strict I/Os FEN/GI: Obesity Mild protein calorie malnutrition Electrolyte derangement ST consult for swallow eval. renal diabetic diet per recommendation Hydralazine PRN for systolic blood pressure greater than 160 Heme/ID: Leukocytosis-improving Anemia of chronic disease Probable pneumonia Monitor CBC. WBC count noted trending down 04/02 Blood cultures 2 negative growth to date Influenza nasal wash negative Legionella, pneumococcal urine antigens-negative On cefepime Flagyl and off azithromycin 2/11. DC Flagyl 04/16. Complete 10 D cefepime Endocrine: Diabetes mellitus Persistent elevation in glucose secondary to steroids On Insulin SSI Musculoskeletal: PT/OT evaluation and treat Prophylaxis: - GI Prophylaxis Protonix DVT Prophylaxis -- SCDs Heparin every 12 hours Lines: Peripheral IVs 2 providing adequate access. Vascath 04/11 Dispo: Level 2 Discussed with INTEGRATIVE MEDICINE PHYSICIAN at bedside. D/W Dr. Adams Palliative care following to determine goals of care in the event that a tracheostomy and PEG placement, family does not want a tracheostomy or PEG tube placement. Plan for aggressive ventilator weaning measures, if unsuccessful tentative plan for possible compassionate withdrawal. Patient could possibly be extubated in 1-2 days, will need to clarify goals of care prior to extubation. Discussed with palliative care team 04/14: Discussed with palliative care and family. Family may decide to not reintubate if patient fails extubation. They definitely did not want trach or PEG 04/15: BETO now. Wean to extubate 04/16: Clinically stable, consult hospitalist to assume care 04/17/17 Moise Stoll MD Apr 16, 2017 07:52
[2017-04-16] MEDS: BUDESONIDE-FORMOTEROL 160/4.5 MCG INHALER INH SCH ×2 (09:00→21:00)
[2017-04-16] MEDS: DONEPEZIL HCL 5 MG TAB PO SCH (09:00)
[2017-04-16] MEDS: predniSONE 20 MG TAB PO SCH ×2 (09:09→21:54)
[2017-04-16] MEDS: HEPARIN SODIUM - SQ 10,000 UNITS/ML VIAL SQ SCH ×2 (09:09→21:25)
[2017-04-16] MEDS: FAMOTIDINE 20 MG TAB PO SCH ×2 (09:11→21:25)
[2017-04-16] MEDS: MEMANTINE HCL 10 MG TAB PO SCH ×2 (09:11→21:25)
[2017-04-16] MEDS: CHOLECALCIFEROL (VIT D3) 1000 UNIT TAB PO SCH (09:11)
[2017-04-16] MEDS: ASPIRIN 81 MG CHEW TAB NG SCH (09:11)
[2017-04-16] MEDS: ASCORBIC ACID 500 MG TAB PO SCH ×2 (09:11→21:25)
[2017-04-16] MEDS: CHLORHEXIDINE 0.12% (ORAL KIT) 15 ML CUP MT SCH ×2 (09:12→20:00)
[2017-04-16 10:35] LABS: ALBUMIN 2.4 GM/DL (3.4-5.0); ALKALINE PHOSPHATASE 68 U/L (45-117); ALT (GPT) 48 U/L (12-78); AST (GOT) 30 U/L (15-37); BICARBONATE 27.6 MEQ/L (21.0-32.0); BLOOD UREA NITROGEN 114 MG/DL (7-18); CHLORIDE 98 MEQ/L (98-107); CREATININE 5.11 MG/DL (0.60-1.30); GLOMERULAR FILTRATION RATE 14 ML/MIN (>89); GLUCOSE,RANDOM 105 MG/DL (74-106); SODIUM (NA) 138 MEQ/L (136-145); TOTAL BILIRUBIN ADULT 0.5 MG/DL (0.2-1.0); TOTAL PROTEIN 5.2 GM/DL (6.4-8.2)
[2017-04-16] MEDS: CALCIUM ACETATE 667 MG CAP OG-TUBE SCH ×2 (13:00→18:00)
[2017-04-16] MEDS: INSULIN DETEMIR 100 UNITS/ML VIAL SQ SCH ×2 (13:32→21:00)
--- NOTE | 2017-04-16 13:52 | HHI.NPPN ---
Subjective General Problems: Edema Renal Failure: Acute Interval History Creatinine is higher despite daily dialysis. He was extubated. Not in distress. Oliguric. (Aliyah Onofre) Review of Systems Cardiovascular Cardiac: Edema (Aliyah Onofre) Objective Data Data Vital Signs Date Time Temp Pulse Resp B/P (MAP) Pulse Ox O2 Delivery O2 Flow Rate FiO2 04/16/17 07:13 98 Nasal Cannula 1.00 04/16/17 06:00 79 04/16/17 04:00 74 04/16/17 04:00 98.4 74 16 172/78 (109) 97 04/16/17 02:00 74 04/16/17 00:00 98.6 74 16 170/73 (105) 95 04/16/17 00:00 74 04/15/17 23:06 96 30 04/15/17 22:00 75 04/15/17 20:00 98.6 80 20 172/71 (104) 95 04/15/17 20:00 72 04/15/17 19:14 95 04/15/17 19:00 97 Nasal Cannula 4.00 04/15/17 18:00 75 04/15/17 16:00 98.8 72 19 142/64 (90) 94 04/15/17 16:00 72 04/15/17 14:31 98 Nasal Cannula 2.00 04/15/17 14:10 93 Nasal Cannula 4.00 04/15/17 14:10 98 Nasal Cannula 2 04/15/17 14:00 70 (Aliyah Onofre) -: 04/15/17 0321 04/16/17 0946 Imaging Last 72 hours Impressions Chest X-Ray 04/15/17 0600 Signed Impressions: Service Date/Time: April 03:23 - CONCLUSION: No significant change has occurred. Raoul Hemphill MD Tubes & Lines: Vas-Cath, Locke (Aliyah Onofre) Physical Exam General Appearance: Well Developed, No Acute Distress, Comfortable (Aliyah Onofre) Eyes Eye Exam: Pupils Equal (Aliyah Onofre) Throat Throat Exam: Oral Mucosa [place] & Moist (Aliyah Onofre) Pulmonary Resp Exam: Breath Sounds Equal, No Distress, Crackles, Decreased Bases, Diminished Breath Sounds, Poor Inspiratory Effort (Aliyah OnofreP) Cardiology CV Exam: Regular, Normal Sinus Rhythm, Good Perfusion (Aliyah Onofre) Gastrointestinal/Abdomen GI Exam: Soft, Non-Tender, Bowel Sounds Present (Aliyah OnofreP) Musculoskeletal MS Exam: Joints Intact, Normal Tone, Unable to Ambulate (Aliyah OnofreP) Integumentary Skin Exam: Clear, Warm, Dry, Intact (Aliyah OnofreP) Extremeties Extremities Exam: Moderate Edema, Pitting Edema, Dependent Edema (Aliyah Onofre) Neurologic Neuro Exam: Alert, Awake, Speech Clear, Moving All Extremities (Aliyah OnofreP) VTE Prophylaxis Device: SCDs (Aliyah OnofreP) Assessment/Plan Discussed Condition With: Patient Assessment Summary: ADALI/Acute Renal Failure, Acute Tubular Necrosis, Fluid/ Volume Overload Problem List: (1) Acute renal failure ICD Codes: N17.9 - Acute kidney failure, unspecified Plan: Baseline creatinine 1.1-1.2 Renal failure due to ATN Dialysis initiated 04/11, has required daily treatments. Creatinine is higher today, high BUN persists; he remains oliguric but has had fluid removal with dialysis. HD again today. Repeat labs tomorrow. Await renal recovery Avoid nephrotoxic agents. Lisinopril and Lasix on hold. (2) Hyperkalemia, diminished renal excretion ICD Codes: E87.5 - Hyperkalemia Plan: Improved with dialysis (3) Chronic diastolic congestive heart failure ICD Codes: I50.32 - Chronic diastolic (congestive) heart failure Plan: Fluid removal as tolerated Echo shows LVH, EF 50-55%. (4) Acute respiratory failure ICD Codes: J96.00 - Acute respiratory failure, unspecified whether with hypoxia or hypercapnia Plan: Successfully extubated (5) Diabetes mellitus ICD Codes: E11.9 - Diabetes mellitus Status: Acute Plan: Insulin as needed, maintain glucose 140-180 mg/dL. (6) Hypernatremia ICD Codes: E87.0 - Hyperosmolality and hypernatremia Plan: Improved PO fluid intake encouraged if he passes swallow. (Aliyah Onofre) Plan patient was seen and examined. Dialysis again today, he will need at least 4 hours of dialysis for 3-4 hours/day. (Carloz Adams MD) Aliyah Onofre Apr 16, 2017 13:52 Carloz Adams MD Apr 16, 2017 15:33
[2017-04-16] MEDS: ALBUMIN 25% INJ 100 ML IV PRN (16:22)
[2017-04-16] MEDS ORDERED: ASPIRIN 81 MG CHEW TAB NG SCH (18:08)
[2017-04-16] MEDS: HEPARIN SODIUM - IV 10,000 UNITS/10 ML VIAL PRN (18:53)
[2017-04-16] MEDS: GENTAMICIN SULFATE 20 MG/2 ML VIAL OTHER PRN (18:53)
--- NOTE | 2017-04-16 20:09 | HHI.PR ---
Subjective Remarks Extubated and On a N/C 3 L No Fever. More alert and talking. Objective Vital Signs Date Time Temp Pulse Resp B/P (MAP) Pulse Ox O2 Delivery O2 Flow Rate FiO2 04/16/17 19:44 93 04/16/17 16:00 98.5 78 20 146/65 (92) 94 04/16/17 16:00 78 04/16/17 08:00 Nasal Cannula 1.00 04/16/17 07:13 98 Nasal Cannula 1.00 04/16/17 06:00 79 04/16/17 04:00 74 04/16/17 04:00 98.4 74 16 172/78 (109) 97 04/16/17 02:00 74 04/16/17 00:00 98.6 74 16 170/73 (105) 95 04/16/17 00:00 74 04/15/17 23:06 96 30 04/15/17 22:00 75 I/O 04/15/17 04/15/17 04/15/17 04/16/17 04/16/17 04/16/17 07:00 15:00 23:00 07:00 15:00 23:00 Intake Total 1106 ml 100 ml 750 ml 60 ml 100 ml Output Total 75 ml 3500 ml 75 ml 150 ml 4000 ml Balance 1031 ml -3400 ml 675 ml -90 ml -3900 ml Intake Oral 60 ml IV Total 200 ml 100 ml 100 ml 100 ml Tube Feeding 506 ml 250 ml Other 400 ml 400 ml Output Urine Total 75 ml 75 ml 150 ml Hemodialysis 3500 ml 4000 ml # Bowel Movements 2 2 Result Diagram: 04/15/17 0321 04/16/17 0946 Objective Remarks GENERAL: This is an obese elderly man alert HEENT: Head normocephalic. Pupils are reactive and equal. Sclerae were clear. Nasal mucosa is clear. NECK: Supple. No bruits. There is no venous distension . Trachea midline. No thyroid enlargement. CHEST: Equal movements. Decreased excursions. Breath sounds diminished at the bases with basilar crackles. CARDIAC: Heart sounds are irregular S1, S2 with no murmur. No S3. ABDOMEN: Soft, obese without masses. No organomegaly or tenderness. Bowel sounds are active. EXTREMITIES: Edema 1+. Pigmentation of the skin of the lower extremities. diminished peripheral pulses. NEUROLOGIC: responsive and cooperative SKIN: Dry and scaly. Assessment and Plan Assessment and Plan IMPRESSION 1. Hypercapnic respiratory failure. 2. Hypoventilation and possible obstructive sleep apnea syndrome 3. History of bronchial asthma with chronic bronchitis 4. Diabetes mellitus 5. Dementia. 6. History of hypertension 7. History of CVA. 8. ADALI Plan : 1. Place on O2 2L 2. Continue antibiotics per ID 3. Nebs qid Duoneb 4. BMP ,CBC in am. 5.Symbicort 160/4.5 Mcg , 2 puffs bid. 6. DNR Status 7. Prednisone 10 mg BID Chhaya Ta MD Apr 16, 2017 20:09
[2017-04-16] MEDS: CEFEPIME INJ 2,000 MG in SODIUM CHLORIDE 0.9% INJ 100 ML IV SCH (21:24)
[2017-04-16] MEDS: SODIUM CHLORIDE 0.9% FLUSH 10 ML FLUSH IVF PRN (21:25)
[2017-04-16] MEDS: ACETAMINOPHEN/HYDROcodone 325 MG/7.5 MG TAB PO PRN (21:25)
[2017-04-17] VITALS (43 sets, daily range): BP systolic 108–188; BP diastolic 56–80; PULSE 69–93; RESP 13–31; TEMP 97.6–98; O2SAT 92–100
[2017-04-17] MEDS: ACETAMINOPHEN/HYDROcodone 325 MG/7.5 MG TAB PO PRN ×2 (02:08→12:59)
[2017-04-17] MEDS: RESP: ALBUTEROL 2.5 MG/IPRATROPIUM 0.5 MG NEB (SCH) NEB ×4 (04:00→21:13)
[2017-04-17] MEDS: hydrALAZINE HCL 20 MG/ML VIAL IV PUSH PRN ×3 (04:10→21:33)
[2017-04-17] MEDS: hydrALAZINE HCL 10 MG TAB PO SCH ×4 (05:48→23:15)
[2017-04-17 07:05] LABS: ALBUMIN 2.5 GM/DL (3.4-5.0); BICARBONATE 28.8 MEQ/L (21.0-32.0); CALCIUM 8.1 MG/DL (8.5-10.1); CREATININE 4.26 MG/DL (0.60-1.30); PHOSPHORUS 6.8 MG/DL (2.5-4.9)
[2017-04-17] MEDS: HIGH DOSE INSULIN NOVOLOG SUPPLEMENTAL SCALE SQ SCH ×4 (08:00→20:06)
[2017-04-17] MEDS: HEPARIN SODIUM - SQ 10,000 UNITS/ML VIAL SQ SCH ×2 (08:00→20:06)
[2017-04-17] MEDS: INSULIN DETEMIR 100 UNITS/ML VIAL SQ SCH ×2 (08:01→20:06)
[2017-04-17] MEDS: CALCIUM ACETATE 667 MG CAP OG-TUBE SCH ×3 (08:02→18:02)
[2017-04-17] MEDS: CHOLECALCIFEROL (VIT D3) 1000 UNIT TAB PO SCH (08:03)
[2017-04-17] MEDS: ASCORBIC ACID 500 MG TAB PO SCH ×2 (08:03→20:07)
[2017-04-17] MEDS: ASPIRIN 81 MG CHEW TAB NG SCH (08:03)
[2017-04-17] MEDS: FAMOTIDINE 20 MG TAB PO SCH ×2 (08:03→20:07)
[2017-04-17] MEDS: predniSONE 20 MG TAB PO SCH ×2 (08:04→20:07)
[2017-04-17] MEDS: MEMANTINE HCL 10 MG TAB PO SCH ×2 (08:05→20:07)
[2017-04-17] MEDS: DONEPEZIL HCL 5 MG TAB PO SCH (08:05)
--- NOTE | 2017-04-17 08:13 | HHI.PR ---
Subjective Remarks Follow-up for shortness of breath. No overnight events, other than he tried to pull his Vas-Cath. No fever. No shortness of breath. Confused. Denies any chest pain. Getting dialysis. Objective Vitals Vital Signs Date Time Temp Pulse Resp B/P (MAP) Pulse Ox O2 Delivery O2 Flow Rate FiO2 04/17/17 06:00 74 04/17/17 04:00 73 04/17/17 04:00 97.7 73 20 172/80 (110) 99 04/17/17 02:00 77 04/17/17 00:00 97.9 93 31 168/78 (108) 93 04/17/17 00:00 93 04/16/17 22:00 92 04/16/17 20:00 79 04/16/17 20:00 97.6 78 24 145/65 (91) 96 04/16/17 20:00 Nasal Cannula 2.00 04/16/17 19:44 93 04/16/17 16:00 98.5 78 20 146/65 (92) 94 04/16/17 16:00 78 I/O 04/16/17 04/16/17 04/16/17 04/17/17 04/17/17 04/17/17 07:00 15:00 23:00 07:00 15:00 23:00 Intake Total 60 ml 200 ml 480 ml Output Total 150 ml 4000 ml 250 ml Balance -90 ml -3800 ml 230 ml Intake Oral 60 ml 480 ml IV Total 200 ml Output Urine Total 150 ml 250 ml Hemodialysis 4000 ml # Bowel Movements 1 Result Diagram: 04/15/17 0321 04/17/17 0514 Objective Remarks GENERAL: This is an obese chronically ill appearing patient, on 2L NC HEAD: Atraumatic. Normocephalic. EYES: Pupils equal and round. No scleral icterus. ENT: No nasal bleeding or discharge. NECK: Trachea midline. No JVD. CARDIOVASCULAR: Normal rate, regular rhythm. Vas-Cath in place. RESPIRATORY: Diminished breath sounds at bases, air entry equal bilaterally. Poor entry. GASTROINTESTINAL: Abdomen soft, non-tender, protuberant nondistended. No guarding. MUSCULOSKELETAL: Extremities without clubbing, cyanosis, mild 1+ edema. No obvious deformities. NEUROLOGICAL: Awake alert. Follows commands upper and lower extremity, weaker in LE. Hard of hearing. Procedures 2/6 emergent intubation A/P Problem List: (1) Hypertension ICD Code: I10 - Hypertension Status: Acute (2) COPD exacerbation ICD Code: J44.1 - Chronic obstructive pulmonary disease with (acute) exacerbation Status: Acute (3) Diastolic CHF ICD Code: I50.30 - Unspecified diastolic (congestive) heart failure (4) Acute respiratory failure ICD Code: J96.00 - Acute respiratory failure, unspecified whether with hypoxia or hypercapnia (5) Dementia ICD Code: F03.90 - Dementia Status: Acute (6) Pulmonary edema ICD Code: J81.1 - Chronic pulmonary edema (7) Chronic diastolic congestive heart failure ICD Code: I50.32 - Chronic diastolic (congestive) heart failure Assessment and Plan This is a 71-year-old male admitted for acute hypoxemic respiratory failure secondary to pulmonary edema and asthma exacerbation Acute hypoxemic and hypercapnic respiratory failure secondary to pulmonary edema and bronchial asthma exacerbation. - Initially intubated, Extubated 04/15/17, DO NOT RESUSCITATE, continue Symbicort, steroids, switched to prednisone, continue to taper, pulmonary on board, DuoNeb's, easy Pap, Acapella. BiPAP when necessary. Currently on nasal cannula. Chronic diastolic CHF -2/ echo-EF 50-55% mildly dilated left ventricle, moderately concentric LVH, cardiology following. HD started 04/11/11. Lasix on hold. Worsening acute kidney failure secondary to ATN-nephrology on board, hemodialysis since 04/11/17, Lasix on hold. Still with elevated creatinine and BUN, getting dialysis every day and BMP check. Hypertension-uncontrolled, increase hydralazine to 20 mg every 8 hours. Clonidine and hydralazine IV as needed. Anemia of chronic disease-monitor Probable pneumonia -2/ Blood cultures 2 negative growth to date, Influenza nasal wash negative, Legionella, pneumococcal urine antigens-negative -On cefepime for 10 days on 04/20/17, off azithromycin 04/11. DC Flagyl 04/16. Stable. Leukocytosis resolving. Diabetes mellitus -Persistent elevation in glucose secondary to steroids , continue Levemir with sliding scale insulin, BG's in the 100s to 190s. On Insulin SSI Acute toxic metabolic encephalopathy, could be secondary to recent uremia in the background of dementia and history of CVA-continue Aricept and Namenda, minimize sedation, on restraints, discussed with nursing, will try to wean off restraints. Patient previously on Seroquel 12.5 mg twice a day and Xanax 0.25 mg at night. Restart Seroquel. Obesity Mild protein calorie malnutrition Electrolyte derangement - ST input: Pured, honey consistency, renal diabetic diet per recommendation Status post PT evaluation, will need rehabilitation. GI Prophylaxis: Famotidine DVT Prophylaxis: SCDs, Heparin DO NOT RESUSCITATE. Palliative care following to determine goals of care in the event that a tracheostomy and PEG placement, family does not want a tracheostomy or PEG tube placement. Consult case management for SNF placement Discharge Planning Discharge to SNF once with definite renal recovery. Elvin Solis MD Apr 17, 2017 08:13
[2017-04-17] MEDS: QUEtiapine FUMARATE 25 MG TAB PO SCH ×2 (10:55→12:00)
--- NOTE | 2017-04-17 12:50 | HHI.NPPN ---
Subjective General Problems: Edema Renal Failure: Acute Review of Systems Cardiovascular Cardiac: Edema Objective Data Data 04/17/17 04/18/17 19:00 07:00 Output Total 3000 ml Balance -3000 ml Hemodialysis 3000 ml Vital Signs Date Time Temp Pulse Resp B/P (MAP) Pulse Ox O2 Delivery O2 Flow Rate FiO2 04/17/17 08:43 99 Nasal Cannula 2.00 04/17/17 08:00 71 04/17/17 08:00 97.7 71 20 164/75 (104) 99 04/17/17 06:00 74 04/17/17 04:00 73 04/17/17 04:00 97.7 73 20 172/80 (110) 99 04/17/17 02:00 77 04/17/17 00:00 97.9 93 31 168/78 (108) 93 04/17/17 00:00 93 04/16/17 22:00 92 04/16/17 20:00 79 04/16/17 20:00 97.6 78 24 145/65 (91) 96 04/16/17 20:00 Nasal Cannula 2.00 04/16/17 19:44 93 04/16/17 16:00 98.5 78 20 146/65 (92) 94 04/16/17 16:00 78 -: 04/15/17 0321 04/17/17 0514 Tubes & Lines: Vas-Cath, Locke Physical Exam General Appearance: Well Developed, No Acute Distress, Comfortable Eyes Eye Exam: Pupils Equal Throat Throat Exam: Oral Mucosa [place] & Moist Pulmonary Resp Exam: Breath Sounds Equal, No Distress, Crackles, Decreased Bases, Diminished Breath Sounds, Poor Inspiratory Effort Cardiology CV Exam: Regular, Normal Sinus Rhythm, Good Perfusion Gastrointestinal/Abdomen GI Exam: Soft, Non-Tender, Bowel Sounds Present Musculoskeletal MS Exam: Joints Intact, Normal Tone, Unable to Ambulate Integumentary Skin Exam: Clear, Warm, Dry, Intact Extremeties Extremities Exam: Moderate Edema, Pitting Edema, Dependent Edema Neurologic Neuro Exam: Alert, Awake, Speech Clear, Moving All Extremities VTE Prophylaxis Device: SCDs Assessment/Plan Discussed Condition With: Patient Assessment Summary: ADALI/Acute Renal Failure, Acute Tubular Necrosis, Fluid/ Volume Overload Problem List: (1) Acute renal failure ICD Codes: N17.9 - Acute kidney failure, unspecified Plan: Baseline creatinine 1.1-1.2 Renal failure due to ATN Dialysis initiated 04/11, has required daily treatments. Creatinine is higher today, high BUN persists; he remains oliguric but has had fluid removal with dialysis. HD earlier did well. 3 L were removed Continue to monitor (2) Hyperkalemia, diminished renal excretion ICD Codes: E87.5 - Hyperkalemia Plan: Improved with dialysis (3) Chronic diastolic congestive heart failure ICD Codes: I50.32 - Chronic diastolic (congestive) heart failure Plan: Fluid removal as tolerated Echo shows LVH, EF 50-55%. (4) Acute respiratory failure ICD Codes: J96.00 - Acute respiratory failure, unspecified whether with hypoxia or hypercapnia Plan: Successfully extubated (5) Diabetes mellitus ICD Codes: E11.9 - Diabetes mellitus Status: Acute Plan: Insulin as needed, maintain glucose 140-180 mg/dL. (6) Hypernatremia ICD Codes: E87.0 - Hyperosmolality and hypernatremia Plan: Improved PO fluid intake encouraged if he passes swallow. Racquel Honeycutt MD Apr 17, 2017 12:50
[2017-04-17] MEDS: CHLORHEXIDINE 0.12% (ORAL KIT) 15 ML CUP MT SCH (19:19)
[2017-04-17] MEDS: BUDESONIDE-FORMOTEROL 160/4.5 MCG INHALER INH SCH (20:05)
[2017-04-17] MEDS: CEFEPIME INJ 2,000 MG in SODIUM CHLORIDE 0.9% INJ 100 ML IV SCH (21:33)
[2017-04-18] VITALS (43 sets, daily range): BP systolic 106–154; BP diastolic 51–77; PULSE 73–94; RESP 14–31; TEMP 97.1–98; O2SAT 86–100
[2017-04-18] MEDS: RESP: ALBUTEROL 2.5 MG/IPRATROPIUM 0.5 MG NEB (SCH) NEB ×4 (03:28→21:48)
[2017-04-18] MEDS: hydrALAZINE HCL 10 MG TAB PO SCH ×4 (05:11→23:21)
[2017-04-18] MEDS: HIGH DOSE INSULIN NOVOLOG SUPPLEMENTAL SCALE SQ SCH ×4 (08:00→20:35)
[2017-04-18] MEDS: CHLORHEXIDINE 0.12% (ORAL KIT) 15 ML CUP MT SCH ×2 (08:00→20:00)
[2017-04-18] MEDS: HEPARIN SODIUM - SQ 10,000 UNITS/ML VIAL SQ SCH ×2 (08:00→20:37)
[2017-04-18] MEDS: INSULIN DETEMIR 100 UNITS/ML VIAL SQ SCH ×2 (09:00→20:35)
[2017-04-18] MEDS: FAMOTIDINE 20 MG TAB PO SCH ×2 (09:00→20:34)
[2017-04-18] MEDS: ASCORBIC ACID 500 MG TAB PO SCH ×2 (09:00→20:35)
[2017-04-18] MEDS: DONEPEZIL HCL 5 MG TAB PO SCH (09:00)
--- NOTE | 2017-04-18 10:05 | HHI.PR ---
Subjective Remarks No overnight events. Blood pressure is better, still n restraints. Objective Vitals Vital Signs Date Time Temp Pulse Resp B/P (MAP) Pulse Ox O2 Delivery O2 Flow Rate FiO2 04/18/17 08:48 99 Nasal Cannula 2.00 04/18/17 08:00 98.0 77 22 134/68 (90) 99 04/18/17 08:00 81 04/18/17 06:00 81 04/18/17 04:00 97.5 81 14 146/74 (98) 100 04/18/17 04:00 81 04/18/17 02:00 87 04/18/17 00:00 73 04/18/17 00:00 97.1 73 17 119/59 (79) 94 04/17/17 22:00 89 04/17/17 21:13 100 Nasal Cannula 2.00 04/17/17 20:00 82 04/17/17 20:00 97.6 82 21 159/74 (102) 100 04/17/17 19:00 100 Nasal Cannula 2.00 04/17/17 18:00 71 04/17/17 16:15 89 19 149/71 (97) 98 04/17/17 16:00 86 20 173/79 (110) 100 04/17/17 16:00 98.0 93 22 149/71 (97) 99 04/17/17 16:00 71 04/17/17 15:45 83 15 171/76 (107) 99 04/17/17 15:30 82 14 165/70 (101) 99 04/17/17 15:16 87 17 188/80 (116) 100 04/17/17 15:00 85 15 177/79 (111) 100 04/17/17 14:45 87 22 151/69 (96) 98 04/17/17 14:30 80 13 155/70 (98) 95 04/17/17 14:15 80 15 160/77 (104) 98 04/17/17 14:00 71 04/17/17 14:00 80 15 155/74 (101) 97 04/17/17 13:45 80 16 147/69 (95) 95 04/17/17 13:30 80 16 148/72 (97) 97 04/17/17 13:15 85 22 146/73 (97) 98 04/17/17 13:00 81 23 145/70 (95) 97 04/17/17 12:46 82 21 149/66 (93) 97 04/17/17 12:31 80 22 165/74 (104) 100 04/17/17 12:31 80 22 165/74 (104) 100 04/17/17 12:30 79 24 99 04/17/17 12:30 79 24 99 04/17/17 12:15 76 19 141/67 (91) 94 04/17/17 12:00 98.0 80 20 148/72 (97) 99 04/17/17 12:00 71 04/17/17 12:00 76 21 125/67 (86) 94 04/17/17 12:00 76 21 125/67 (86) 94 04/17/17 11:45 79 18 108/70 (83) 96 04/17/17 11:30 77 17 137/70 (92) 95 04/17/17 11:15 76 17 130/65 (86) 94 04/17/17 11:00 76 14 129/62 (84) 93 04/17/17 10:45 75 22 130/60 (83) 93 04/17/17 10:30 75 17 122/56 (78) 92 04/17/17 10:15 78 17 139/64 (89) 92 I/O 04/17/17 04/17/17 04/17/17 04/18/17 04/18/17 04/18/17 07:00 15:00 23:00 07:00 15:00 23:00 Intake Total 480 ml 380 ml 100 ml Output Total 250 ml 3000 ml 125 ml 135 ml Balance 230 ml -3000 ml 255 ml -35 ml Intake Oral 480 ml 380 ml 100 ml Output Urine Total 250 ml 125 ml 135 ml Hemodialysis 3000 ml # Bowel Movements 1 1 Result Diagram: 04/15/17 0321 04/17/17 0514 Objective Remarks GENERAL: This is an obese chronically ill appearing patient, on 2L NC CARDIOVASCULAR: Normal rate, regular rhythm. Vas-Cath in place. RESPIRATORY: Diminished breath sounds at bases, air entry equal bilaterally. Poor entry. GASTROINTESTINAL: Abdomen soft, non-tender, protuberant nondistended. No guarding. MUSCULOSKELETAL: Extremities without clubbing, cyanosis, mild 1+ edema. No obvious deformities. NEUROLOGICAL: Awake alert. Follows commands upper and lower extremity, weaker in LE. Hard of hearing. Procedures 04/06 emergent intubation A/P Problem List: (1) Hypertension ICD Code: I10 - Hypertension Status: Acute (2) COPD exacerbation ICD Code: J44.1 - Chronic obstructive pulmonary disease with (acute) exacerbation Status: Acute (3) Diastolic CHF ICD Code: I50.30 - Unspecified diastolic (congestive) heart failure (4) Acute respiratory failure ICD Code: J96.00 - Acute respiratory failure, unspecified whether with hypoxia or hypercapnia (5) Dementia ICD Code: F03.90 - Dementia Status: Acute (6) Pulmonary edema ICD Code: J81.1 - Chronic pulmonary edema (7) Chronic diastolic congestive heart failure ICD Code: I50.32 - Chronic diastolic (congestive) heart failure Assessment and Plan This is a 71-year-old male admitted for acute hypoxemic respiratory failure secondary to pulmonary edema and asthma exacerbation Acute hypoxemic and hypercapnic respiratory failure secondary to pulmonary edema and bronchial asthma exacerbation. - Initially intubated, Extubated 04/15/17, DO NOT RESUSCITATE, continue Symbicort, steroids, switched to prednisone, continue to taper, decrease to once a day today, pulmonary on board, DuoNeb's, easy Pap, Acapella. BiPAP when necessary. Currently on nasal cannula. Chronic diastolic CHF -2/4 echo-EF 50-55% mildly dilated left ventricle, moderately concentric LVH, cardiology following. HD started 04/11/11. Lasix on hold. Worsening acute kidney failure secondary to ATN-nephrology on board, hemodialysis since 04/11/17, Lasix on hold. Still with elevated creatinine and BUN, getting dialysis every day and BMP check. Hypertension- better controlled, continue hydralazine to 20 mg every 6 hours. Clonidine and hydralazine IV as needed. Anemia of chronic disease-monitor Probable pneumonia -2/ Blood cultures 2 negative growth to date, Influenza nasal wash negative, Legionella, pneumococcal urine antigens-negative -On cefepime for 10 days on 04/20/17, off azithromycin 04/11. DC Flagyl 04/16. Stable. Leukocytosis resolving. Diabetes mellitus -Persistent elevation in glucose secondary to steroids , continue Levemir with sliding scale insulin, BG's in the 100s to 190s. On Insulin SSI Acute toxic metabolic encephalopathy, could be secondary to recent uremia in the background of dementia and history of CVA-continue Aricept and Namenda, minimize sedation, on restraints, discussed with nursing, will try to wean off restraints. Patient previously on Seroquel , increase to 25 mg twice a day and Xanax 0.25 mg at night. Obesity Mild protein calorie malnutrition Electrolyte derangement - ST input: Pured, honey consistency, renal diabetic diet per recommendation Status post PT evaluation, will need rehabilitation. GI Prophylaxis: Famotidine DVT Prophylaxis: SCDs, Heparin DO NOT RESUSCITATE. Palliative care following to determine goals of care in the event that a tracheostomy and PEG placement, family does not want a tracheostomy or PEG tube placement. Consulted case management for SNF placement, transfer to [facility] Discharge Planning Discharge to SNF once with definite renal recovery. Elvin Solis MD Apr 18, 2017 10:05
[2017-04-18] MEDS: CHOLECALCIFEROL (VIT D3) 1000 UNIT TAB PO SCH (10:39)
[2017-04-18] MEDS: CALCIUM ACETATE 667 MG CAP OG-TUBE SCH ×3 (10:39→17:45)
[2017-04-18] MEDS: ASPIRIN 81 MG CHEW TAB NG SCH (10:39)
[2017-04-18] MEDS: MEMANTINE HCL 10 MG TAB PO SCH ×2 (10:40→20:35)
--- NOTE | 2017-04-18 11:58 | HHI.NPPN ---
Subjective General Problems: Edema Renal Failure: Acute Review of Systems Cardiovascular Cardiac: Edema Objective Data Data Vital Signs Date Time Temp Pulse Resp B/P (MAP) Pulse Ox O2 Delivery O2 Flow Rate FiO2 04/18/17 08:48 99 Nasal Cannula 2.00 04/18/17 08:00 98.0 77 22 134/68 (90) 99 04/18/17 08:00 81 04/18/17 06:00 81 04/18/17 04:00 97.5 81 14 146/74 (98) 100 04/18/17 04:00 81 04/18/17 02:00 87 04/18/17 00:00 73 04/18/17 00:00 97.1 73 17 119/59 (79) 94 04/17/17 22:00 89 04/17/17 21:13 100 Nasal Cannula 2.00 04/17/17 20:00 82 04/17/17 20:00 97.6 82 21 159/74 (102) 100 04/17/17 19:00 100 Nasal Cannula 2.00 04/17/17 18:00 71 04/17/17 16:15 89 19 149/71 (97) 98 04/17/17 16:00 86 20 173/79 (110) 100 04/17/17 16:00 98.0 93 22 149/71 (97) 99 04/17/17 16:00 71 04/17/17 15:45 83 15 171/76 (107) 99 04/17/17 15:30 82 14 165/70 (101) 99 04/17/17 15:16 87 17 188/80 (116) 100 04/17/17 15:00 85 15 177/79 (111) 100 04/17/17 14:45 87 22 151/69 (96) 98 04/17/17 14:30 80 13 155/70 (98) 95 04/17/17 14:15 80 15 160/77 (104) 98 04/17/17 14:00 71 04/17/17 14:00 80 15 155/74 (101) 97 04/17/17 13:45 80 16 147/69 (95) 95 04/17/17 13:30 80 16 148/72 (97) 97 04/17/17 13:15 85 22 146/73 (97) 98 04/17/17 13:00 81 23 145/70 (95) 97 04/17/17 12:46 82 21 149/66 (93) 97 04/17/17 12:31 80 22 165/74 (104) 100 04/17/17 12:31 80 22 165/74 (104) 100 04/17/17 12:30 79 24 99 04/17/17 12:30 79 24 99 04/17/17 12:15 76 19 141/67 (91) 94 04/17/17 12:00 98.0 80 20 148/72 (97) 99 04/17/17 12:00 71 04/17/17 12:00 76 21 125/67 (86) 94 04/17/17 12:00 76 21 125/67 (86) 94 -: 04/15/17 0321 04/17/17 0514 Tubes & Lines: Vas-Cath, [place] Physical Exam General Appearance: Well Developed, No Acute Distress, Comfortable Eyes Eye Exam: Pupils Equal Throat Throat Exam: Oral Mucosa [place] & Moist Pulmonary Resp Exam: Breath Sounds Equal, No Distress, Crackles, Decreased Bases, Diminished Breath Sounds, Poor Inspiratory Effort Cardiology CV Exam: Regular, Normal Sinus Rhythm, Good Perfusion Gastrointestinal/Abdomen GI Exam: Soft, Non-Tender, Bowel Sounds Present Musculoskeletal MS Exam: Joints Intact, Normal Tone, Unable to Ambulate Integumentary Skin Exam: Clear, Warm, Dry, Intact Extremeties Extremities Exam: Moderate Edema, Pitting Edema, Dependent Edema Neurologic Neuro Exam: Alert, Awake, Speech Clear, Moving All Extremities VTE Prophylaxis Device: SCDs Assessment/Plan Discussed Condition With: Patient Assessment Summary: ADALI/Acute Renal Failure, Acute Tubular Necrosis, Fluid/ Volume Overload Problem List: (1) Acute renal failure ICD Codes: N17.9 - Acute kidney failure, unspecified Plan: Baseline creatinine 1.1-1.2 Renal failure due to ATN Dialysis initiated 04/11, Creatinine is higher today, high BUN persists; he remains oliguric but has had fluid removal with dialysis. HD earlier did well. 3 L was removed today as well Continue to monitor dr. Adams to follow (2) Hyperkalemia, diminished renal excretion ICD Codes: E87.5 - Hyperkalemia Plan: Improved with dialysis (3) Chronic diastolic congestive heart failure ICD Codes: I50.32 - Chronic diastolic (congestive) heart failure Plan: Fluid removal as tolerated Echo shows LVH, EF 50-55%. (4) Acute respiratory failure ICD Codes: J96.00 - Acute respiratory failure, unspecified whether with hypoxia or hypercapnia Plan: Successfully extubated (5) Diabetes mellitus ICD Codes: E11.9 - Diabetes mellitus Status: Acute Plan: Insulin as needed, maintain glucose 140-180 mg/dL. (6) Hypernatremia ICD Codes: E87.0 - Hyperosmolality and hypernatremia Plan: Improved PO fluid intake encouraged if he passes swallow. Racquel Honeycutt MD Apr 18, 2017 11:58
[2017-04-18] MEDS: QUEtiapine FUMARATE 25 MG TAB PO SCH (20:35)
[2017-04-18] MEDS: BUDESONIDE-FORMOTEROL 160/4.5 MCG INHALER INH SCH (22:05)
[2017-04-18] MEDS: CEFEPIME INJ 2,000 MG in SODIUM CHLORIDE 0.9% INJ 100 ML IV SCH (22:08)
[2017-04-18] MEDS: SODIUM CHLORIDE 0.9% FLUSH 10 ML FLUSH IVF PRN (23:01)
[2017-04-19] VITALS (11 sets, daily range): BP systolic 127–146; BP diastolic 60–70; PULSE 88–105; RESP 18–21; TEMP 96.8–98.7; O2SAT 90–100
[2017-04-19] MEDS: RESP: ALBUTEROL 2.5 MG/IPRATROPIUM 0.5 MG NEB (SCH) NEB ×3 (03:46→15:46)
[2017-04-19] MEDS: hydrALAZINE HCL 10 MG TAB PO SCH ×3 (05:26→17:42)
[2017-04-19] MEDS: HIGH DOSE INSULIN NOVOLOG SUPPLEMENTAL SCALE SQ SCH ×4 (08:00→21:00)
[2017-04-19] MEDS: INSULIN DETEMIR 100 UNITS/ML VIAL SQ SCH ×2 (08:12→21:00)
[2017-04-19] MEDS: CALCIUM ACETATE 667 MG CAP OG-TUBE SCH ×3 (09:00→17:41)
--- NOTE | 2017-04-19 09:00 | HHI.NPPN ---
Subjective General Problems: Edema Renal Failure: Acute Interval History Seen during dialysis. He has not had labs since Wednesday. They were ordered and have been sent. On daily dialysis treatments. Remains oliguric. [place] is not functioning well. (Aliyah Onofre) Review of Systems Cardiovascular Cardiac: Edema (Aliyah Onofre) Objective Data Data Vital Signs Date Time Temp Pulse Resp B/P (MAP) Pulse Ox O2 Delivery O2 Flow Rate FiO2 04/19/17 04:00 98.4 96 20 130/67 (88) 95 04/19/17 03:54 88 04/19/17 00:04 98.0 97 20 127/65 (85) 100 04/19/17 00:00 100 04/18/17 21:51 97 Nasal Cannula 3.00 04/18/17 20:26 89 04/18/17 20:00 98.0 93 20 134/60 (84) 99 04/18/17 19:45 Nasal Cannula 3.00 04/18/17 16:54 97.7 92 20 125/77 (93) 96 04/18/17 15:00 91 24 04/18/17 14:45 94 20 145/67 (93) 04/18/17 14:30 93 22 142/55 (84) 04/18/17 14:16 90 24 151/68 (95) 04/18/17 14:15 90 19 04/18/17 14:00 81 04/18/17 14:00 93 27 128/61 (83) 95 04/18/17 13:45 92 30 139/62 (87) 98 04/18/17 13:30 87 22 142/73 (96) 100 04/18/17 13:15 88 22 145/68 (93) 99 04/18/17 13:00 87 19 139/66 (90) 99 04/18/17 12:46 91 29 137/62 (87) 100 04/18/17 12:45 90 30 87 04/18/17 12:31 85 30 154/70 (98) 99 04/18/17 12:30 85 25 100 04/18/17 12:00 81 04/18/17 12:00 98.0 90 22 134/68 (90) 99 04/18/17 12:00 81 04/18/17 11:45 82 19 139/63 (88) 86 04/18/17 11:31 82 19 131/59 (83) 04/18/17 11:30 84 28 04/18/17 11:16 84 28 112/51 (71) 98 04/18/17 11:00 83 31 120/59 (79) 100 04/18/17 10:45 81 16 138/63 (88) 99 04/18/17 10:30 83 19 115/55 (75) 97 04/18/17 10:16 85 23 106/59 (75) 98 04/18/17 10:01 84 20 106/65 (79) 94 04/18/17 10:00 83 27 100 04/18/17 10:00 81 04/18/17 09:45 80 19 134/67 (89) 99 04/18/17 09:30 77 16 134/68 (90) 100 04/18/17 09:15 80 29 119/56 (77) 99 04/18/17 09:01 79 21 130/64 (86) 99 04/18/17 09:00 80 23 98 (Aliyah Onofre) -: 04/15/17 0321 04/17/17 0514 Tubes & Lines: Vas-Cath, Locke (Aliyah Onofre) Physical Exam General Appearance: Well Developed, No Acute Distress, Comfortable (Aliyah Onofre) Eyes Eye Exam: Pupils Equal (Aliyah Onofre) Throat Throat Exam: Oral Mucosa [place] & Moist (Aliyah Onofre) Pulmonary Resp Exam: Breath Sounds Equal, No Distress, Crackles, Decreased Bases, Diminished Breath Sounds, Poor Inspiratory Effort (Aliyah Onofre) Cardiology CV Exam: Regular, Normal Sinus Rhythm, Good Perfusion (Aliyah Onofre) Gastrointestinal/Abdomen GI Exam: Soft, Non-Tender, Bowel Sounds Present (Aliyah Onofre) Musculoskeletal MS Exam: Joints Intact, Normal Tone, Unable to Ambulate (Aliyah Onofre) Integumentary Skin Exam: Clear, Warm, Dry, Intact (Aliyah Onofre) Extremeties Extremities Exam: Moderate Edema, Pitting Edema (Aliyah Onofre) Neurologic Neuro Exam: Alert, Awake, Speech Clear, Moving All Extremities (Aliyah Onofre) VTE Prophylaxis Device: SCDs (Aliyah Onofre) Assessment/Plan Discussed Condition With: Patient Assessment Summary: ADALI/Acute Renal Failure, Acute Tubular Necrosis, Fluid/ Volume Overload Problem List: (1) Acute renal failure ICD Codes: N17.9 - Acute kidney failure, unspecified Plan: Baseline creatinine 1.1-1.2. Renal failure due to ATN Dialysis initiated 04/11, has been on daily treatments. He is highly catabolic. Labs from today are not available. He remains oliguric. Dialysis today on a 3K, 250 BFR, goal 2.5-3L. 4 hr treatment time. BUN improving, steroids being tapered. Obtain labs in AM. Consider holding dialysis and monitoring. Vascath is malfunctioning, may need replacement. Monitor urine output. Avoid nephrotoxic agents. (2) Hyperkalemia, diminished renal excretion ICD Codes: E87.5 - Hyperkalemia Plan: Improved with dialysis (3) Chronic diastolic congestive heart failure ICD Codes: I50.32 - Chronic diastolic (congestive) heart failure Plan: Fluid removal as tolerated Echo shows LVH, EF 50-55%. (4) Acute respiratory failure ICD Codes: J96.00 - Acute respiratory failure, unspecified whether with hypoxia or hypercapnia Plan: Successfully extubated (5) Diabetes mellitus ICD Codes: E11.9 - Diabetes mellitus Status: Acute Plan: Insulin as needed, maintain glucose 140-180 mg/dL. (6) Hypernatremia ICD Codes: E87.0 - Hyperosmolality and hypernatremia Plan: Improved PO fluid intake encouraged if he passes swallow. (Aliyah Onofre) Plan patient was seen and examined. Agree with above assessment and plan. Schedule for PermCath placement. (Carloz Adams MD) Aliyah Onofre Apr 19, 2017 09:00 Carloz Adams MD Apr 19, 2017 09:52
[2017-04-19 09:47] LABS: ALBUMIN 2.3 GM/DL (3.4-5.0); BICARBONATE 32.3 MEQ/L (21.0-32.0); CREATININE 4.5 MG/DL (0.60-1.30); PHOSPHORUS 5.1 MG/DL (2.5-4.9)
--- NOTE | 2017-04-19 09:53 | HHI.PR ---
Subjective Remarks Follow-up hypoxemic and hypercapnic respiratory failure/diastole CHF/metabolic encephalopathy/ 04/19/17-patient seen and examined, resting this a.m. with upper restraints in place. No acute event overnight. Plan for HD this a.m. Objective Vitals Vital Signs Date Time Temp Pulse Resp B/P (MAP) Pulse Ox O2 Delivery O2 Flow Rate FiO2 04/19/17 08:00 96.8 93 18 145/66 (92) 98 04/19/17 08:00 Nasal Cannula 2.00 04/19/17 04:00 98.4 96 20 130/67 (88) 95 04/19/17 03:54 88 04/19/17 00:04 98.0 97 20 127/65 (85) 100 04/19/17 00:00 100 04/18/17 21:51 97 Nasal Cannula 3.00 04/18/17 20:26 89 04/18/17 20:00 98.0 93 20 134/60 (84) 99 04/18/17 19:45 Nasal Cannula 3.00 04/18/17 16:54 97.7 92 20 125/77 (93) 96 04/18/17 15:00 91 24 04/18/17 14:45 94 20 145/67 (93) 04/18/17 14:30 93 22 142/55 (84) 04/18/17 14:16 90 24 151/68 (95) 04/18/17 14:15 90 19 04/18/17 14:00 81 04/18/17 14:00 93 27 128/61 (83) 95 04/18/17 13:45 92 30 139/62 (87) 98 04/18/17 13:30 87 22 142/73 (96) 100 04/18/17 13:15 88 22 145/68 (93) 99 04/18/17 13:00 87 19 139/66 (90) 99 04/18/17 12:46 91 29 137/62 (87) 100 04/18/17 12:45 90 30 87 04/18/17 12:31 85 30 154/70 (98) 99 04/18/17 12:30 85 25 100 04/18/17 12:00 81 04/18/17 12:00 98.0 90 22 134/68 (90) 99 04/18/17 12:00 81 04/18/17 11:45 82 19 139/63 (88) 86 04/18/17 11:31 82 19 131/59 (83) 04/18/17 11:30 84 28 04/18/17 11:16 84 28 112/51 (71) 98 04/18/17 11:00 83 31 120/59 (79) 100 04/18/17 10:45 81 16 138/63 (88) 99 04/18/17 10:30 83 19 115/55 (75) 97 04/18/17 10:16 85 23 106/59 (75) 98 04/18/17 10:01 84 20 106/65 (79) 94 04/18/17 10:00 83 27 100 04/18/17 10:00 81 04/18/17 09:45 80 19 134/67 (89) 99 I/O 04/18/17 04/18/17 04/18/17 04/19/17 04/19/17 04/19/17 07:00 15:00 23:00 07:00 15:00 23:00 Intake Total 100 ml 250 ml 120 ml Output Total 135 ml 3000 ml 100 ml 100 ml Balance -35 ml -3000 ml 150 ml 20 ml Intake Oral 100 ml 250 ml 120 ml Output Urine Total 135 ml 100 ml 100 ml Hemodialysis 3000 ml # Bowel Movements 1 0 Result Diagram: 04/15/17 0321 04/17/17 0514 Imaging Last Impressions Chest X-Ray 04/15/17 0600 Signed Impressions: Service Date/Time: April 03:23 - CONCLUSION: No significant change has occurred. Raoul Hempihll MD Renal Ultrasound 04/09/17 0000 Signed Impressions: Service Date/Time: Sunday, April 09, 2017 13:55 - CONCLUSION: Limited exam, no hydronephrosis. Normal size kidneys. Marcelino Mc MD FACR Abdomen X-Ray 04/06/17 0000 Signed Impressions: Service Date/Time: Thursday, April 06, 2017 09:26 - CONCLUSION: 1. Nasogastric tube has its tip in the distal stomach. 2. Mild degenerative changes involving the lumbar spine and hip joints bilaterally. 3. No bowel obstruction or ileus. Jorge Chang MD Objective Remarks GENERAL: NAD however somnolent, with Upper restrains in place SKIN: Warm and dry. HEAD: Normocephalic. EYES: No scleral icterus. No injection or drainage. NECK: Supple, trachea midline. No JVD or lymphadenopathy. CARDIOVASCULAR: Regular rate and rhythm without murmurs, gallops, or rubs. RESPIRATORY: Breath sounds equal bilaterally. No accessory muscle use. GASTROINTESTINAL: Abdomen soft, non-tender, nondistended. MUSCULOSKELETAL: No cyanosis, +1 edema. BACK: Nontender without obvious deformity. No CVA tenderness. Procedures 2/6 emergent intubation A/P Problem List: (1) Hypertension ICD Code: I10 - Hypertension Status: Acute (2) COPD exacerbation ICD Code: J44.1 - Chronic obstructive pulmonary disease with (acute) exacerbation Status: Acute (3) Diastolic CHF ICD Code: I50.30 - Unspecified diastolic (congestive) heart failure (4) Acute respiratory failure ICD Code: J96.00 - Acute respiratory failure, unspecified whether with hypoxia or hypercapnia (5) Dementia ICD Code: F03.90 - Dementia Status: Acute (6) Pulmonary edema ICD Code: J81.1 - Chronic pulmonary edema (7) Chronic diastolic congestive heart failure ICD Code: I50.32 - Chronic diastolic (congestive) heart failure Assessment and Plan 71-year-old man with Acute hypoxemic and hypercapnic respiratory failure secondary to pulmonary edema and bronchial asthma exacerbation. Extubated 04/15/17 continue Symbicort, prednisone, DuoNeb's, easy Pap, Acapella. BiPAP when necessary. Currently on nasal cannula. Appreciate input from pulmonary medicine Chronic diastolic CHF 2/4 echo-EF 50-55% mildly dilated left ventricle, moderately concentric LVH, cardiology following. Lasix on hold secondary to worsening renal function. Acute kidney failure secondary to ATN- nephrology on board, hemodialysis since 04/11/17, Lasix on hold. Hypertension continue hydralazine to 20 mg every 6 hours. Cozaar and lisinopril on hold. Clonidine and hydralazine IV as needed. Anemia of chronic disease-monitor Probable pneumonia On cefepime until today 04/20/17 Diabetes mellitus Continue Levemir with sliding scale insulin Acute toxic metabolic encephalopathy Continue with restrains Treat Uremia, PNA, Dementia Continue with Namenda PT to treat and eval GI Prophylaxis: Famotidine DVT Prophylaxis: SCDs, Heparin Frantz Mike MD Apr 19, 2017 09:53
[2017-04-19] MEDS: GENTAMICIN SULFATE 20 MG/2 ML VIAL OTHER PRN (12:52)
[2017-04-19] MEDS: HEPARIN SODIUM - IV 10,000 UNITS/10 ML VIAL PRN (12:53)
[2017-04-19] MEDS: CHLORHEXIDINE 0.12% (ORAL KIT) 15 ML CUP MT SCH ×2 (13:39→20:00)
[2017-04-19] MEDS: HEPARIN SODIUM - SQ 10,000 UNITS/ML VIAL SQ SCH ×2 (13:39→21:52)
[2017-04-19] MEDS: FAMOTIDINE 20 MG TAB PO SCH ×2 (13:40→21:47)
[2017-04-19] MEDS: MEMANTINE HCL 10 MG TAB PO SCH ×2 (13:40→21:48)
[2017-04-19] MEDS: QUEtiapine FUMARATE 25 MG TAB PO SCH ×2 (13:40→21:48)
[2017-04-19] MEDS: predniSONE 10 MG TAB PO SCH (13:41)
[2017-04-19] MEDS: ASPIRIN 81 MG CHEW TAB NG SCH (13:41)
[2017-04-19] MEDS: ASCORBIC ACID 500 MG TAB PO SCH ×2 (13:41→21:47)
[2017-04-19] MEDS: CHOLECALCIFEROL (VIT D3) 1000 UNIT TAB PO SCH (13:41)
[2017-04-19] MEDS: BUDESONIDE-FORMOTEROL 160/4.5 MCG INHALER INH SCH ×2 (13:42→21:53)
[2017-04-19] MEDS: DONEPEZIL HCL 5 MG TAB PO SCH (13:42)
--- NOTE | 2017-04-19 16:57 | HHI.HCPN ---
Reason for visit a. To assist with evaluation and management of symptoms including: Shortness of breath, anxiety/agitation. b. To assist medical decision maker(s) with: better understanding of current medical conditions; weighing benefits/burdens of medical treatment options; making medical treatment decisions. . Subjective/Interval History Palliative care follow-up for further clarifications of goals of care. Patient was medically extubated on 04/15/17, currently tolerating O2 via nasal cannula at 2 L. Laboratory workup today revealing BUN/creatinine 41/4.50. Patient in acute kidney injury secondary to ATN, on daily hemodialysis since 04/11/17. Underwent hemodialysis today, 3 L out. Patient to require PermCath placement tomorrow AM given Vas-Cath malfunctioning. Patient currently tolerating pured diet with honey thickened liquids. Most recent chest x-ray 04/15/17 with no significant changes. Patient seen in his room, resting in bed in no acute distress. Very sleepy, briefly opening eyes to verbal stimuli. Not following commands or communicating during my visit. Daughter Haily bedside, she reports that patient has been talking and communicating. Readdressed goals of care. Daughter reports that family has made the decision to not return patient to [facility] or to place him at any long-term facility. Family wishing for patient to be discharge home with home health. Goals of therapy remain aggressive short of NO code to include continuation of hemodialysis. Reviewed with daughter that patient is likely to require long- term dialysis, review likely trajectory of illness given her progressive decline , baseline dementia, profound physical deconditioning and also multiple comorbidities. Family receptive to palliative care follow-ups. Case discussed with case management assistant. . Family/friend interactions See interval note. . Advance Directives Living Will: Never completed Health Care Surrogate: Never completed Durable Power of Acting Professor: Copy in medical record Advance Directive Specifics Date completed: 02/26/2014. . Health Care Surrogate(s): Only daughter power of laboratory equipment installer has been completed. No living will or designation of healthcare surrogate completed as per family. As per [place] statute, healthcare proxy decision-making falls to patient's Carley Lora. . Significant change in goals: Goals of therapy remain aggressive short of no code. . Objective Vital Signs Date Time Temp Pulse Resp B/P (MAP) Pulse Ox O2 Delivery O2 Flow Rate FiO2 04/19/17 16:16 101 04/19/17 13:38 105 146/70 (95) 04/19/17 08:00 96.8 93 18 145/66 (92) 98 04/19/17 08:00 Nasal Cannula 2.00 04/19/17 07:57 95 04/19/17 04:00 98.4 96 20 130/67 (88) 95 04/19/17 03:54 88 04/19/17 00:04 98.0 97 20 127/65 (85) 100 04/19/17 00:00 100 04/18/17 21:51 97 Nasal Cannula 3.00 04/18/17 20:26 89 04/18/17 20:00 98.0 93 20 134/60 (84) 99 04/18/17 19:45 Nasal Cannula 3.00 04/18/17 16:54 97.7 92 20 125/77 (93) 96 Intake & Output 04/19/17 04/19/17 07:00 19:00 Intake Total 120 ml Output Total 100 ml 3000 ml Balance 20 ml -3000 ml Intake Oral 120 ml Output Urine Total 100 ml Hemodialysis 3000 ml # Bowel Movements 0 Physical Exam CONSTITUTIONAL/GENERAL: This is an adequately nourished patient in no acute distress. TUBES/LINES/DRAINS: Right IJ vascath, Locke catheter, PIV's, SCDs, bilateral soft wrist restraints. SKIN: No jaundice, rashes, or lesions. Ecchymoses on upper extremities. No wounds seen anteriorly. Skin temperature appropriate. Not diaphoretic. EYES: Pupils equal and round and reactive; tracking with eyes ENT: Hearing appears normal-patient arouses to verbal stimuli. Nose without bleeding or purulent drainage. Dry oral mucosa. CARDIOVASCULAR: Regular rate and rhythm without murmurs, gallops, or rubs. Peripheral pulses symmetric. RESPIRATORY/CHEST: Symmetric, unlabored respirations. O2 via nasal cannula. GASTROINTESTINAL: Abdomen large, round, obese. Bowel sounds present. GENITOURINARY: Without palpable bladder distension. Locke catheter in place. MUSCULOSKELETAL: Extremities without clubbing, cyanosis. No mottling or clubbing. Edema to bilateral arms. NEUROLOGICAL: Arouses easily to verbal stimuli. Eyes open, tracking. Sleepy. PSYCHIATRIC: No obvious anxiety or agitation. . Diagnostic Tests Laboratory Laboratory Tests Test 04/17/17 05:14 2/19/18 08:20 Blood Urea Nitrogen 83 MG/DL (7-18) 41 MG/DL (7-18) Creatinine 4.26 MG/DL (0.60-1.30) 4.50 MG/DL (0.60-1.30) Random Glucose 198 MG/DL (74-106) 131 MG/DL (74-106) Albumin 2.5 GM/DL (3.4-5.0) 2.3 GM/DL (3.4-5.0) Calcium Level 8.1 MG/DL (8.5-10.1) 8.0 MG/DL (8.5-10.1) Phosphorus Level 6.8 MG/DL (2.5-4.9) 5.1 MG/DL (2.5-4.9) Sodium Level 138 MEQ/L (136-145) 139 MEQ/L (136-145) Potassium Level 4.6 MEQ/L (3.5-5.1) 4.4 MEQ/L (3.5-5.1) Chloride Level 99 MEQ/L (98-107) 99 MEQ/L (98-107) Carbon Dioxide Level 28.8 MEQ/L (21.0-32.0) 32.3 MEQ/L (21.0-32.0) Anion Gap 10 MEQ/L (5-15) 8 MEQ/L (5-15) Estimat Glomerular Filtration Rate 17 ML/MIN (>89) 16 ML/MIN (>89) Result Diagram: 04/15/17 0321 04/19/17 0820 Procedures * 04/06/17 -endotracheal intubation * 04/15/17 - medical extubation . Assessment and Plan Disease Oriented Problem List: (1) Acute respiratory failure (2) Pulmonary edema (3) Chronic diastolic congestive heart failure (4) Dementia (5) Diabetes mellitus Symptom Scale: (1) Shortness of breath 0-10 Scale: Unable to quantify (2) Pain 0-10 Scale: Unable to quantify (3) Debility 0-10 Scale: Unable to quantify Pertinent Non-Medical Issues Psychosocial: Patient's family is originally from [place]. Patient was born in [facility]. Patient moved to [place] approximately 4 years ago. Patient has been for over 30 years, they have 4 children together. 2 sons who live in [place], one daughter who resides locally and another daughter who is is still in [facility]. 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 Spiritual: Jewish. Legal: POA completed. Ethical issues impacting care: No ethical lesions identified. . Important Contacts Silvestre Lora , . . Prognosis Mr. Lora 71-year-old male with a medical history significant for dementia, CHF , diabetes mellitus, history of CVA. Patient is a resident of a long-term memory care unit. Currently admitted for respiratory failure requiring intubation and mechanical ventilation. Very high risk for further complications , continue decline and . Guarded prognosis. . Code Status: No Code Plan * CODE STATUS: NO CODE -DNR/DNI * HEALTHCARE DECISION-MAKING: Patient incapacitated for medical decision-making given baseline dementia and medical condition. Patient will not regain medical decision-making capacity. POA completed but only includes financial matters. As per [place] statute, healthcare proxy decision-making falls to patient's Carley Lora. is fully supported by daughter Haily Lora who is a nurse. Palliative care recommends to include patient's daughter Haily in all goals of care conversations with . * GOALS OF CARE: Goals of therapy remain aggressive short of NO code to include continuation of hemodialysis. Daughter reports that family has made the decision to not return patient to [facility] or to place him at any long-term facility. Family wishing for patient to be discharge home with home health. Reviewed with daughter that patient is likely to require long-term dialysis, review likely trajectory of illness given her progressive decline, baseline dementia, profound physical deconditioning and also multiple comorbidities. Family receptive to palliative care follow-ups. * SYMPTOMS: = Shortness of breath, secondary to respiratory failure, pulmonary edema, CHF. Medically extubated 04/15/17. Currently tolerating O2 via nasal cannula. = Debility: Progressive. Currently with profound physical deconditioning. Patient resident of long-term facility, likely to continue to worsen. = Pain: History of chronic pain. Union available as needed. Patient appears comfortable during my visit. * Palliative care contact information has been provided to patient's family. * Case discussed with case management. * Palliative care will continue to follow-up as needed for further clarifications of goals of care as patient's clinical course continue to evolve. . Time Spent Total Floor Time (mins): 34 (Total time to include review medical records, physical exam, goals of care conversation with patient's daughter, case discussion with case management.) >50% Counseling/Coord of Care: Yes Attestation To help prompt me to consider important information that might be impacting today's encounter and assessment, information from prior notes written by myself or my colleagues may have been "brought forward" into today's note. My signature on this note, however, is an attestation that I personally performed the exam, history, and/or decision-making noted today, and, unless otherwise indicated, the interactions with patient, family, and staff as well as the review of records all occurred today. I also attest that the listed assessment and stated plan reflect my best clinical judgment today based on the combination of historical information, prior notes, and today's exam/ interactions. When time spent is documented, it refers only to time spent today by the signer, or if indicated, combined time spent today by collaborating physician/nurse practitioner. . Mercedes Blanco Apr 19, 2017 16:57
[2017-04-19] MEDS: CEFEPIME INJ 2,000 MG in SODIUM CHLORIDE 0.9% INJ 100 ML IV SCH (21:56)
[2017-04-20] VITALS (11 sets, daily range): BP systolic 115–148; BP diastolic 59–72; PULSE 102–118; RESP 20–22; TEMP 98.9–100.1; O2SAT 84–98
[2017-04-20] MEDS: hydrALAZINE HCL 10 MG TAB PO SCH ×4 (00:20→16:04)
[2017-04-20] MEDS: INSULIN DETEMIR 100 UNITS/ML VIAL SQ SCH (07:40)
[2017-04-20] MEDS: HIGH DOSE INSULIN NOVOLOG SUPPLEMENTAL SCALE SQ SCH ×3 (07:40→16:03)
[2017-04-20] MEDS: SODIUM CHLORIDE 0.9% FLUSH 10 ML FLUSH IVF PRN (07:42)
[2017-04-20] MEDS ORDERED: FUROSEMIDE 40 MG/4 ML VIAL IV PUSH ONE (08:00)
[2017-04-20] MEDS ORDERED: methylPREDNISolone SOD SUCC 125 MG/2 ML VIAL IV PUSH ONE (08:00)
[2017-04-20] MEDS: HEPARIN SODIUM - SQ 10,000 UNITS/ML VIAL SQ SCH (08:00)
[2017-04-20] MEDS: CHOLECALCIFEROL (VIT D3) 1000 UNIT TAB PO SCH (08:05)
[2017-04-20] MEDS: QUEtiapine FUMARATE 25 MG TAB PO SCH (08:06)
[2017-04-20] MEDS: MEMANTINE HCL 10 MG TAB PO SCH (08:06)
[2017-04-20] MEDS: ASCORBIC ACID 500 MG TAB PO SCH (08:06)
[2017-04-20] MEDS: CALCIUM ACETATE 667 MG CAP OG-TUBE SCH ×3 (08:06→16:03)
[2017-04-20] MEDS: FAMOTIDINE 20 MG TAB PO SCH (08:06)
[2017-04-20] MEDS: DONEPEZIL HCL 5 MG TAB PO SCH (08:06)
[2017-04-20] MEDS: BUDESONIDE-FORMOTEROL 160/4.5 MCG INHALER INH SCH (08:06)
[2017-04-20] MEDS: ASPIRIN 81 MG CHEW TAB NG SCH (08:06)
[2017-04-20] MEDS: predniSONE 10 MG TAB PO SCH (08:06)
[2017-04-20] MEDS: CHLORHEXIDINE 0.12% (ORAL KIT) 15 ML CUP MT SCH (08:07)
[2017-04-20] MEDS ORDERED: ceFAZolin 2 GM PREMIX 50 ML IV SCH (08:30)
[2017-04-20] MEDS ORDERED: VANCOMYCIN INJ 1,000 MG in SODIUM CHLOR 0.9% 250 ML INJ 250 ML IV SCH (08:30)
[2017-04-20 08:44] LABS: ALBUMIN 2.2 GM/DL (3.4-5.0); CALCIUM 8.1 MG/DL (8.5-10.1); CREATININE 4.6 MG/DL (0.60-1.30); PHOSPHORUS 4.2 MG/DL (2.5-4.9)
--- NOTE | 2017-04-20 09:14 | RADRPT ---
EXAM DATE/TIME: 04/20/2017 08:26 [facility] COMPARISON: CHEST SINGLE AP, April 15, 2017, 3:23. INDICATIONS : Chest pain. MEDICAL HISTORY : Hypertension. Diabetes mellitus type II. Dementia SURGICAL HISTORY : None. ENCOUNTER: Subsequent ACUITY: 3 weeks PAIN SCORE: Non-responsive. LOCATION: Bilateral chest FINDINGS: Significant interval change with development of complete white out of the left hemithorax and mediast inal shift towards the left. The right lung is clear. CONCLUSION: Complete white out of the left hemithorax with the shift towards the left is a new finding compared t o chest x-ray 5 days ago. Jesse Hernandez MD on April 20, 2017 at 9:09 Board Certified Radiologist. This report was verified electronically.
[2017-04-20 10:15] LABS: AUTOMATED NEUTROPHIL # 10.2 TH/MM3 (1.8-7.7); BASOPHIL % 0.1 % (0.0-2.0); EOSINOPHIL % 0.3 % (0.0-4.0); HEMATOCRIT 24.2 % (39.0-51.0); HEMOGLOBIN 8.1 GM/DL (13.0-17.0); LYMPH % 4.1 % (9.0-44.0); LYMPHOCYTE # 0.5 TH/MM3 (1.0-4.8); MEAN CELL VOLUME 88.5 FL (80.0-100.0); MEAN CORPUSCULAR HEMOGLOBIN 29.5 PG (27.0-34.0); MEAN CORPUSCULAR HGB CONC 33.3 % (32.0-36.0); MEAN PLATELET VOLUME 7.8 FL (7.0-11.0); MONO % 4.5 % (0.0-8.0); MONOCYTE # 0.5 TH/MM3 (0-0.9); PLATELET COUNT 121 TH/MM3 (150-450); RED BLOOD COUNT 2.73 MIL/MM3 (4.50-5.90); RED CELL DISTRIBUTION WIDTH 14.5 % (11.6-17.2); WHITE BLOOD COUNT 11.2 TH/MM3 (4.0-11.0)
--- NOTE | 2017-04-20 10:25 | HHI.PR ---
Subjective Remarks Follow-up hypoxemic and hypercapnic respiratory failure/diastole CHF/metabolic encephalopathy/ 04/19/17-patient seen and examined, resting this a.m. with upper restraints in place. No acute event overnight. Plan for HD this a.m. 04/20/17-patient seen and examined,Rita was called this AM 2/2 AMS due to Hypoglycemia. Patient responded well to Hypoglycemia protocol therapy Objective Vitals Vital Signs Date Time Temp Pulse Resp B/P (MAP) Pulse Ox O2 Delivery O2 Flow Rate FiO2 04/20/17 08:15 91 6.00 04/20/17 08:14 118 04/20/17 07:50 Nasal Cannula 6.00 04/20/17 07:41 100.1 108 22 130/60 (83) 90 04/20/17 04:00 100.1 111 22 115/67 (83) 93 04/20/17 04:00 Nasal Cannula 6.00 04/20/17 04:00 108 04/20/17 00:00 Nasal Cannula 6.00 04/20/17 00:00 102 04/20/17 00:00 98.9 110 20 119/59 (79) 90 04/19/17 20:00 98.7 99 21 132/60 (84) 90 04/19/17 20:00 99 04/19/17 20:00 Nasal Cannula 6.00 04/19/17 16:16 101 04/19/17 16:00 97.3 99 18 146/62 (90) 96 04/19/17 13:38 105 146/70 (95) 04/19/17 12:04 104 I/O 04/19/17 04/19/17 04/19/17 04/20/17 04/20/17 04/20/17 07:00 15:00 23:00 07:00 15:00 23:00 Intake Total 120 ml Output Total 100 ml 3000 ml 0 ml Balance 20 ml -3000 ml 0 ml Intake Oral 120 ml Output Urine Total 100 ml 0 ml Hemodialysis 3000 ml # Bowel Movements 0 Result Diagram: 04/20/17 0950 04/20/17 0640 Imaging Last Impressions Chest X-Ray 04/20/17 0000 Signed Impressions: Service Date/Time: Thursday, April 20, 2017 08:26 - CONCLUSION: Complete white out of the left hemithorax with the shift towards the left is a new finding compared to chest x-ray 5 days ago. Jesse Hernandez MD Renal Ultrasound 04/09/17 0000 Signed Impressions: Service Date/Time: Sunday, April 09, 2017 13:55 - CONCLUSION: Limited exam, no hydronephrosis. Normal size kidneys. Marcelino Mc MD FACR Abdomen X-Ray 04/06/17 0000 Signed Impressions: Service Date/Time: Thursday, April 06, 2017 09:26 - CONCLUSION: 1. Nasogastric tube has its tip in the distal stomach. 2. Mild degenerative changes involving the lumbar spine and hip joints bilaterally. 3. No bowel obstruction or ileus. Jorge Chang MD Objective Remarks GENERAL: NAD however somnolent, with Upper restrains in place SKIN: Warm and dry. HEAD: Normocephalic. EYES: No scleral icterus. No injection or drainage. NECK: Supple, trachea midline. No JVD or lymphadenopathy. CARDIOVASCULAR: Regular rate and rhythm without murmurs, gallops, or rubs. RESPIRATORY: Breath sounds equal bilaterally. No accessory muscle use. GASTROINTESTINAL: Abdomen soft, non-tender, nondistended. MUSCULOSKELETAL: No cyanosis, +1 edema. BACK: Nontender without obvious deformity. No CVA tenderness. Procedures 2/ emergent intubation A/P Problem List: (1) Hypertension ICD Code: I10 - Hypertension Status: Acute (2) COPD exacerbation ICD Code: J44.1 - Chronic obstructive pulmonary disease with (acute) exacerbation Status: Acute (3) Diastolic CHF ICD Code: I50.30 - Unspecified diastolic (congestive) heart failure (4) Acute respiratory failure ICD Code: J96.00 - Acute respiratory failure, unspecified whether with hypoxia or hypercapnia (5) Dementia ICD Code: F03.90 - Dementia Status: Acute (6) Pulmonary edema ICD Code: J81.1 - Chronic pulmonary edema (7) Chronic diastolic congestive heart failure ICD Code: I50.32 - Chronic diastolic (congestive) heart failure Assessment and Plan 71-year-old man with Acute hypoxemic and hypercapnic respiratory failure secondary to pulmonary edema and bronchial asthma exacerbation. Extubated 04/15/17 continue Symbicort, prednisone, DuoNeb's, easy Pap, Acapella. BiPAP when necessary. Currently on nasal cannula. Appreciate input from pulmonary medicine Chronic diastolic CHF 2/4 echo-EF 50-55% mildly dilated left ventricle, moderately concentric LVH, cardiology following. Lasix on hold secondary to worsening renal function. Acute kidney failure secondary to ATN- nephrology on board, hemodialysis since 04/11/17, Lasix on hold. Hypertension continue hydralazine to 20 mg every 6 hours. Cozaar and lisinopril on hold. Clonidine and hydralazine IV as needed. Anemia of chronic disease-monitor Probable pneumonia On cefepime until today 04/20/17 Diabetes mellitus 2/2 Hypoglycemia will decrease Levemir to 10units BID and continue with ISS Acute toxic metabolic encephalopathy Continue with restrains Treat Uremia, PNA, Dementia Continue with Namenda PT to treat and eval GI Prophylaxis: Famotidine DVT Prophylaxis: SCDs, Heparin Frantz Mike MD Apr 20, 2017 10:25
[2017-04-20 10:36] LABS: INTERNATIONAL NORMALIZED RATIO 1.2 RATIO
--- NOTE | 2017-04-20 11:08 | HHI.NPPN ---
Subjective General Problems: Edema Renal Failure: Acute Interval History Labs are improving. Still anuric. Due for permcath today. He was a rapid response call for AMS, was found to be hypoglycemic. He is restrained, confused , has coarse cough. Febrile. (Aliyah Onofre) Review of Systems Respiratory Lungs: Cough (Aliyah Onofre) Objective Data Data Vital Signs Date Time Temp Pulse Resp B/P (MAP) Pulse Ox O2 Delivery O2 Flow Rate FiO2 04/20/17 08:15 91 6.00 04/20/17 08:14 118 04/20/17 07:50 Nasal Cannula 6.00 04/20/17 07:41 100.1 108 22 130/60 (83) 90 04/20/17 04:00 100.1 111 22 115/67 (83) 93 04/20/17 04:00 Nasal Cannula 6.00 04/20/17 04:00 108 04/20/17 00:00 Nasal Cannula 6.00 04/20/17 00:00 102 04/20/17 00:00 98.9 110 20 119/59 (79) 90 04/19/17 20:00 98.7 99 21 132/60 (84) 90 04/19/17 20:00 99 04/19/17 20:00 Nasal Cannula 6.00 04/19/17 16:16 101 04/19/17 16:00 97.3 99 18 146/62 (90) 96 04/19/17 13:38 105 146/70 (95) 04/19/17 12:04 104 (Aliyah Onofre) -: 04/20/17 0950 04/20/17 0640 Imaging Last 72 hours Impressions Chest X-Ray 04/20/17 0000 Signed Impressions: Service Date/Time: Thursday, April 20, 2017 08:26 - CONCLUSION: Complete white out of the left hemithorax with the shift towards the left is a new finding compared to chest x-ray 5 days ago. Jesse Hernandez MD Tubes & Lines: Vas-Cath, Cornelia (Aliyah Onofre) Physical Exam General Appearance: Well Developed, No Acute Distress, Comfortable (Aliyah Onofre) Eyes Eye Exam: Pupils Equal ([place],Aliyah B. OPERATIONS SCHEDULER) Throat Throat Exam: Oral Mucosa [place] & Moist (Aliyah Onofre OPERATIONS SCHEDULER) Pulmonary Resp Exam: Breath Sounds Equal, No Distress, Crackles, Decreased Bases, Diminished Breath Sounds, Poor Inspiratory Effort (Aliyah Onofre OPERATIONS SCHEDULER) Cardiology CV Exam: Regular, Normal Sinus Rhythm, Good Perfusion (Aliyah Onofre OPERATIONS SCHEDULER) Gastrointestinal/Abdomen GI Exam: Soft, Non-Tender, Bowel Sounds Present (Aliyah Onofre OPERATIONS SCHEDULER) Musculoskeletal MS Exam: Joints Intact, Normal Tone, Unable to Ambulate (Aliyah Onofre OPERATIONS SCHEDULER) Integumentary Skin Exam: Clear, Warm, Dry, Intact (Aliyah Onofre OPERATIONS SCHEDULER) Extremeties Extremities Exam: Moderate Edema, Pitting Edema (Aliyah Onofre OPERATIONS SCHEDULER) Neurologic Neuro Exam: Alert, Awake, Speech Clear, Moving All Extremities (Aliyah Onofre OPERATIONS SCHEDULER) VTE Prophylaxis Device: SCDs (Aliyah Onofre) Assessment/Plan Assessment Summary: ADALI/Acute Renal Failure, Acute Tubular Necrosis, Fluid/ Volume Overload, Hypertension Problem List: (1) Acute renal failure ICD Codes: N17.9 - Acute kidney failure, unspecified Plan: Baseline creatinine 1.1-1.2. Renal failure due to ATN Dialysis initiated 04/11, was on daily treatments x 8. He is highly catabolic. Labs show improvement. Hold HD today, repeat labs tomorrow. He is anuric. Remove chang, can use condom cath. Due for permcath placement today. Monitor urine output. Avoid nephrotoxic agents. (2) Hyperkalemia, diminished renal excretion ICD Codes: E87.5 - Hyperkalemia Plan: Improved with dialysis (3) Chronic diastolic congestive heart failure ICD Codes: I50.32 - Chronic diastolic (congestive) heart failure Plan: Fluid removal as tolerated Echo shows LVH, EF 50-55%. (4) Acute respiratory failure ICD Codes: J96.00 - Acute respiratory failure, unspecified whether with hypoxia or hypercapnia Plan: Successfully extubated Coughing with fever, may have aspirated. (5) Diabetes mellitus ICD Codes: E11.9 - Diabetes mellitus Status: Acute Plan: Insulin as needed, maintain glucose 140-180 mg/dL. (6) Hypernatremia ICD Codes: E87.0 - Hyperosmolality and hypernatremia Plan: Improved PO fluid intake encouraged if he passes swallow. (Aliyah Onofre) Plan patient was seen and examined. Agree with above assessment and plan. (Carloz Adams MD) Aliyah Onofre Apr 20, 2017 11:08 Carloz Adams MD Apr 20, 2017 16:22
--- NOTE | 2017-04-20 14:16 | HHI.HCPN ---
Reason for visit a. To assist with evaluation and management of symptoms including: Shortness of breath, anxiety/agitation. b. To assist medical decision maker(s) with: better understanding of current medical conditions; weighing benefits/burdens of medical treatment options; making medical treatment decisions. . Subjective/Interval History Palliative care follow-up for further clarifications of goals of care. Patient worsening clinical condition. Rapid response this morning secondary to altered mental status, and glucose of 50. Patient was given dextrose as per protocol. Increased oxygen requirement, currently at 12 L on nonrebreather mask. Briefly opening eyes to verbal stimuli, intermittently following simple commands. Chest x-ray today revealing complete white out of left hemithorax with shift. Patient tachycardic with heart rate in the 110 to 120s. Met with patient's Carley and daughter Haily at bedside. Readdressed goals of care given patient's acute decline. Reviewed overall poor prognosis given patient's multiple chronic comorbidities to include CHF, increased oxygen requirement, profound physical deconditioning and acute kidney failure requiring hemodialysis. Gently explored comfort directed care with hospice given the above. Reviewed that patient remains very hard risks of further complications, continue decline and . Not likely to survive this hospitalization. Family considering transitioning patient to comfort-directed care with hospice. verbalized that patient "has been through too much lately" and that "is time for him to be at peace". Hospice referral has been made. Ongoing emotional support and active listening provided. . Family/friend interactions See interval note. . Advance Directives Living Will: Never completed Health Care Surrogate: Never completed Durable Power of Hose Mender: Copy in medical record Advance Directive Specifics Date completed: 02/26/2014. . Health Care Surrogate(s): Only daughter power of commercial litigation attorney has been completed. No living will or designation of healthcare surrogate completed as per family. As per [place] statute, healthcare proxy decision-making falls to patient's Carley Lora. . Significant change in goals: Patient's family electing comfort-directed care, considering hospice at this time. . Objective Vital Signs Date Time Temp Pulse Resp B/P (MAP) Pulse Ox O2 Delivery O2 Flow Rate FiO2 04/20/17 11:40 98 04/20/17 11:39 99.1 113 22 148/72 (97) 84 04/20/17 11:15 97 Non-Rebreather 04/20/17 08:15 91 6.00 04/20/17 08:14 118 04/20/17 07:50 Nasal Cannula 6.00 04/20/17 07:41 100.1 108 22 130/60 (83) 90 04/20/17 04:00 100.1 111 22 115/67 (83) 93 04/20/17 04:00 Nasal Cannula 6.00 04/20/17 04:00 108 04/20/17 00:00 Nasal Cannula 6.00 04/20/17 00:00 102 04/20/17 00:00 98.9 110 20 119/59 (79) 90 04/19/17 20:00 98.7 99 21 132/60 (84) 90 04/19/17 20:00 99 04/19/17 20:00 Nasal Cannula 6.00 04/19/17 16:16 101 04/19/17 16:00 97.3 99 18 146/62 (90) 96 Intake & Output 04/20/17 04/20/17 07:00 19:00 Output Total 0 ml Balance 0 ml Output Urine Total 0 ml Physical Exam CONSTITUTIONAL/GENERAL: This is an adequately nourished patient in moderate distress secondary to increased work of breathing. TUBES/LINES/DRAINS: Right IJ vascath, Locke catheter, PIV's, SCDs, nonrebreather mask. SKIN: No jaundice, rashes, or lesions. Ecchymoses on upper extremities. No wounds seen anteriorly. Skin temperature appropriate. Not diaphoretic. EYES: Pupils equal and round and reactive; tracking with eyes ENT: Hearing appears normal-patient arouses to verbal stimuli. Nose without bleeding or purulent drainage. Dry oral mucosa. CARDIOVASCULAR: Regular rate and rhythm without murmurs, gallops, or rubs. Peripheral pulses symmetric. RESPIRATORY/CHEST: Symmetric, increased work of breathing. Coarse crackle to right lung, absent lung sounds to left. Currently on nonrebreather mask at 15 L. GASTROINTESTINAL: Abdomen large, round, obese. Bowel sounds present. GENITOURINARY: Without palpable bladder distension. Locke catheter in place. MUSCULOSKELETAL: Extremities without clubbing, cyanosis. No mottling or clubbing. Edema to bilateral arms. NEUROLOGICAL: Arouses to verbal stimuli. Eyes open, tracking. Intermittently following simple commands. PSYCHIATRIC: Anxious. . Diagnostic Tests Laboratory Laboratory Tests Test 04/19/17 08:20 04/20/17 06:40 04/20/17 07:52 04/20/17 09:37 Blood Urea Nitrogen 41 MG/DL (7-18) 38 MG/DL (7-18) Creatinine 4.50 MG/DL (0.60-1.30) 4.60 MG/DL (0.60-1.30) Random Glucose 131 MG/DL (74-106) 50 MG/DL (74-106) Albumin 2.3 GM/DL (3.4-5.0) 2.2 GM/DL (3.4-5.0) Calcium Level 8.0 MG/DL (8.5-10.1) 8.1 MG/DL (8.5-10.1) Phosphorus Level 5.1 MG/DL (2.5-4.9) 4.2 MG/DL (2.5-4.9) Sodium Level 139 MEQ/L (136-145) 140 MEQ/L (136-145) Potassium Level 4.4 MEQ/L (3.5-5.1) 4.5 MEQ/L (3.5-5.1) Chloride Level 99 MEQ/L (98-107) 102 MEQ/L (98-107) Carbon Dioxide Level 32.3 MEQ/L (21.0-32.0) 29.0 MEQ/L (21.0-32.0) Anion Gap 8 MEQ/L (5-15) 9 MEQ/L (5-15) Estimat Glomerular Filtration Rate 16 ML/MIN (>89) 15 ML/MIN (>89) Blood Gas Puncture Site RT RADIAL Blood Gas Patient Temperature 98.6 Blood Gas HCO3 28 mmol/L (22-26) Blood Gas Base Excess 4.1 mmol/L (-2-2) Blood Gas Oxygen Saturation 91 % (90-100) Arterial Blood pH 7.43 (7.380-7.420) Arterial Blood Partial Pressure CO2 43 mmHg (38-42) Arterial Blood Partial Pressure O2 65 mmHg (61-120) Arterial Blood Oxygen Content 12.4 Vol % (12.0-20.0) Arterial Blood Carboxyhemoglobin 1.4 % (0-4) Arterial Blood Methemoglobin 1.0 % (0-2) Blood Gas Hemoglobin 9.7 G/DL (12.0-16.0) Oxygen Delivery Device NASAL CANNULA Blood Gas Liter Flow 6 L/M Prothrombin Time 12.0 SEC (9.8-11.6) Prothromb Time International Ratio 1.2 RATIO Activated Partial Thromboplast Time 28.9 SEC (24.3-30.1) Test 04/20/17 09:50 White Blood Count 11.2 TH/MM3 (4.0-11.0) Red Blood Count 2.73 MIL/MM3 (4.50-5.90) Hemoglobin 8.1 GM/DL (13.0-17.0) Hematocrit 24.2 % (39.0-51.0) Mean Corpuscular Volume 88.5 FL (80.0-100.0) Mean Corpuscular Hemoglobin 29.5 PG (27.0-34.0) Mean Corpuscular Hemoglobin Concent 33.3 % (32.0-36.0) Red Cell Distribution Width 14.5 % (11.6-17.2) Platelet Count 121 TH/MM3 (150-450) Mean Platelet Volume 7.8 FL (7.0-11.0) Neutrophils (%) (Auto) 91.0 % (16.0-70.0) Lymphocytes (%) (Auto) 4.1 % (9.0-44.0) Monocytes (%) (Auto) 4.5 % (0.0-8.0) Eosinophils (%) (Auto) 0.3 % (0.0-4.0) Basophils (%) (Auto) 0.1 % (0.0-2.0) Neutrophils # (Auto) 10.2 TH/MM3 (1.8-7.7) Lymphocytes # (Auto) 0.5 TH/MM3 (1.0-4.8) Monocytes # (Auto) 0.5 TH/MM3 (0-0.9) Eosinophils # (Auto) 0.0 TH/MM3 (0-0.4) Basophils # (Auto) 0.0 TH/MM3 (0-0.2) CBC Comment DIFF FINAL Differential Comment Result Diagram: 04/20/17 0950 04/20/17 0640 Imaging Last 24 hours Impressions Chest X-Ray 04/20/17 0000 Signed Impressions: Service Date/Time: Thursday, April 20, 2017 08:26 - CONCLUSION: Complete white out of the left hemithorax with the shift towards the left is a new finding compared to chest x-ray 5 days ago. Jesse Hernandez MD Procedures * 04/06/17 -endotracheal intubation * 04/15/17 - medical extubation . Assessment and Plan Disease Oriented Problem List: (1) Acute respiratory failure (2) Pulmonary edema (3) Chronic diastolic congestive heart failure (4) Dementia (5) Diabetes mellitus Symptom Scale: (1) Shortness of breath 0-10 Scale: Unable to quantify (2) Pain 0-10 Scale: Unable to quantify (3) Debility 0-10 Scale: Unable to quantify Pertinent Non-Medical Issues Psychosocial: Patient's family is originally from [place]. Patient was born in [facility]. Patient moved to [place] approximately 4 years ago. Patient has been for over 30 years, they have 4 children together. 2 sons who live in [place], one daughter who resides locally and another daughter who is is still in [facility]. 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 Spiritual: Orthodox. Legal: POA completed. Ethical issues impacting care: No ethical lesions identified. . Important Contacts Ned Lora , . . Prognosis Mr. Lora 71-year-old male with a medical history significant for dementia, CHF , diabetes mellitus, history of CVA. Patient is a resident of a long-term memory care unit. Currently admitted for respiratory failure requiring intubation and mechanical ventilation. Very high risk for further complications , continue decline and . Guarded prognosis. . Code Status: No Code Plan * CODE STATUS: NO CODE -DNR/DNI. CODE STATUS readdressed today given patient's worsening clinical condition. Family reiterated no CODE STATUS. * HEALTHCARE DECISION-MAKING: Patient incapacitated for medical decision-making given baseline dementia and medical condition. Patient will not regain medical decision-making capacity. POA completed but only includes financial matters. As per [place] statute, healthcare proxy decision-making falls to patient's Carley Lora. is fully supported by ned Lora who is a nurse. Palliative care recommends to include patient's daughter Haily in all goals of care conversations with . * GOALS OF CARE: Patient's Carley, supported by ned Johansen, verbalizing comfort-directed goals. Family considering hospice services at this time, likely discharge to hospice care center for symptom management and end-of-life care. Hospice referral made, discuss case with admissions nurse Marie. * SYMPTOMS: = Shortness of breath, secondary to respiratory failure, pulmonary edema, CHF. Medically extubated 04/15/17. Worsening, currently on 15 L via nonrebreather mask. = Debility: Progressive. Currently with profound physical deconditioning. Patient resident of long-term facility, likely to continue to worsen. = Pain: History of chronic pain. Picher available as needed. * Ongoing emotional support and active listening provided to family. * Palliative care contact information has been provided to patient's family. * Palliative care will continue to follow-up as needed for further clarifications of goals of care as patient's clinical course continue to evolve. . Time Spent Total Floor Time (mins): 44 (Total time to include review of medical records, physical exam, goals of care conversation with patient's family, case discussion with pulmonology, case discussion with hospice informatica mdm architect.) >50% Counseling/Coord of Care: Yes Attestation To help prompt me to consider important information that might be impacting today's encounter and assessment, information from prior notes written by myself or my colleagues may have been "brought forward" into today's note. My signature on this note, however, is an attestation that I personally performed the exam, history, and/or decision-making noted today, and, unless otherwise indicated, the interactions with patient, family, and staff as well as the review of records all occurred today. I also attest that the listed assessment and stated plan reflect my best clinical judgment today based on the combination of historical information, prior notes, and today's exam/ interactions. When time spent is documented, it refers only to time spent today by the signer, or if indicated, combined time spent today by collaborating physician/nurse practitioner. Mercedes Blanco Apr 20, 2017 14:16
--- NOTE | 2017-04-20 14:20 | HHI.DS ---
Discharge Summary Admission Date Apr 01, 2017 at 14:31 Discharge Date: Apr 20, 2017 Admitting Diagnosis copd exacerbation, lactic acidosis, elevated troponin (1) Hypertension ICD Code: I10 - Hypertension Status: Acute (2) COPD exacerbation ICD Code: J44.1 - Chronic obstructive pulmonary disease with (acute) exacerbation Status: Acute (3) Diastolic CHF ICD Code: I50.30 - Unspecified diastolic (congestive) heart failure (4) Acute respiratory failure ICD Code: J96.00 - Acute respiratory failure, unspecified whether with hypoxia or hypercapnia (5) Dementia ICD Code: F03.90 - Dementia Status: Acute (6) Pulmonary edema ICD Code: J81.1 - Chronic pulmonary edema (7) Chronic diastolic congestive heart failure ICD Code: I50.32 - Chronic diastolic (congestive) heart failure Procedures 04/06 emergent intubation Brief History - From Admission 71 years old male with history of CHF diabetes and recent upper respiratory infection presented to the ED with severe short of breath and wheezing, patient lives in [facility] due to dementia, his daughter requested to transfer patient to hospital due to increase work of breathing even on rest. Patient recently was diagnosed with pneumonia and started on Levaquin and prednisone. I saw patient in the room he was on BiPAP, in ED he was found to have hypercapnic respiratory failure he was given O2 and DuoNeb and a dose of Solu- Medrol, history was restricted due to increase of respiratory work and being on BiPAP, influenza A and B was negative CBC/BMP: 04/20/17 0950 04/20/17 0640 Significant Findings Laboratory Tests Test 04/19/17 08:20 04/20/17 06:40 04/20/17 07:52 04/20/17 09:37 Blood Urea Nitrogen 41 MG/DL (7-18) 38 MG/DL (7-18) Creatinine 4.50 MG/DL (0.60-1.30) 4.60 MG/DL (0.60-1.30) Random Glucose 131 MG/DL (74-106) 50 MG/DL (74-106) Albumin 2.3 GM/DL (3.4-5.0) 2.2 GM/DL (3.4-5.0) Calcium Level 8.0 MG/DL (8.5-10.1) 8.1 MG/DL (8.5-10.1) Phosphorus Level 5.1 MG/DL (2.5-4.9) Carbon Dioxide Level 32.3 MEQ/L (21.0-32.0) Estimat Glomerular Filtration Rate 16 ML/MIN (>89) 15 ML/MIN (>89) Blood Gas HCO3 28 mmol/L (22-26) Blood Gas Base Excess 4.1 mmol/L (-2-2) Arterial Blood pH 7.43 (7.380-7.420) Arterial Blood Partial Pressure CO2 43 mmHg (38-42) Blood Gas Hemoglobin 9.7 G/DL (12.0-16.0) Prothrombin Time 12.0 SEC (9.8-11.6) Test 04/20/17 09:50 White Blood Count 11.2 TH/MM3 (4.0-11.0) Red Blood Count 2.73 MIL/MM3 (4.50-5.90) Hemoglobin 8.1 GM/DL (13.0-17.0) Hematocrit 24.2 % (39.0-51.0) Platelet Count 121 TH/MM3 (150-450) Neutrophils (%) (Auto) 91.0 % (16.0-70.0) Lymphocytes (%) (Auto) 4.1 % (9.0-44.0) Neutrophils # (Auto) 10.2 TH/MM3 (1.8-7.7) Lymphocytes # (Auto) 0.5 TH/MM3 (1.0-4.8) Imaging Last Impressions Chest X-Ray 04/20/17 0000 Signed Impressions: Service Date/Time: Thursday, April 20, 2017 08:26 - CONCLUSION: Complete white out of the left hemithorax with the shift towards the left is a new finding compared to chest x-ray 5 days ago. Jesse Hernandez MD Renal Ultrasound 04/09/17 0000 Signed Impressions: Service Date/Time: Sunday, April 09, 2017 13:55 - CONCLUSION: Limited exam, no hydronephrosis. Normal size kidneys. Marcelino Mc MD FACR Abdomen X-Ray 04/06/17 0000 Signed Impressions: Service Date/Time: Thursday, April 06, 2017 09:26 - CONCLUSION: 1. Nasogastric tube has its tip in the distal stomach. 2. Mild degenerative changes involving the lumbar spine and hip joints bilaterally. 3. No bowel obstruction or ileus. Jorge Chang MD PE at Discharge GENERAL: NAD however somnolent, with Upper restrains in place SKIN: Warm and dry. HEAD: Normocephalic. EYES: No scleral icterus. No injection or drainage. NECK: Supple, trachea midline. No JVD or lymphadenopathy. CARDIOVASCULAR: Regular rate and rhythm without murmurs, gallops, or rubs. RESPIRATORY: Breath sounds equal bilaterally. No accessory muscle use. GASTROINTESTINAL: Abdomen soft, non-tender, nondistended. MUSCULOSKELETAL: No cyanosis, +1 edema. BACK: Nontender without obvious deformity. No CVA tenderness. Hospital Course Prior to discharge to hospice, patient was treated for; Acute hypoxemic and hypercapnic respiratory failure secondary to pulmonary edema and bronchial asthma exacerbation. Extubated 04/15/17 treated with Symbicort, prednisone, DuoNeb's, easy Pap, Acapella. BiPAP when necessary. Appreciate input from pulmonary medicine Chronic diastolic CHF 2/ echo-EF 50-55% mildly dilated left ventricle, moderately concentric LVH, cardiology following. Lasix on hold secondary to worsening renal function. Acute kidney failure secondary to ATN- nephrology on board, hemodialysis since 04/11/17, Lasix on hold. Hypertension Treated with hydralazine to 20 mg every 6 hours. Cozaar and lisinopril on hold. Clonidine and hydralazine IV as needed. Anemia of chronic disease-monitor Probable pneumonia Received cefepime until 04/20/17 Diabetes mellitus Treated with Levemir to 10units BID and with ISS Acute toxic metabolic encephalopathy Continue with restrains Treat Uremia, PNA, Dementia Treated with Namenda PT to treat and eval GI Prophylaxis: Famotidine DVT Prophylaxis: SCDs, Heparin Pt Condition on Discharge: Guarded Discharge Disposition: Hospice/Med Facility Discharge Time: > 30 minutes Discharge Instructions DIET: Follow Instructions for: Heart Healthy Diet Speech Therapy-Diet Recommends: Honey Thickened Liquids, Pureed Activities you can perform: Regular-No Restrictions Frantz Mike MD Apr 20, 2017 14:20
[2017-04-20] MEDS ORDERED: INSULIN DETEMIR 100 UNITS/ML VIAL SQ SCH (21:00)
== END 2017-04-20 19:20 | disposition hospice, inpatient (51) | DRG 207 ==
LOC: NEPE 11:45 → NEDA 14:31 → NEDH 20:00 → HIMN 23:35 → HCIS 04-03 17:44 → HIMW 04-04 13:30 → N04B 04-18 15:39
PROVIDERS: ADMIT Hospitalist; ATTEND Hospitalist
PROC: 5A09357 Assistance with Respiratory Ventilation, Less than 24 Consecutive Hours, Continuous Positive Airway Pressure (ICD-10-PCS; principal; 2017-04-01)
PROC: 0T9B70Z Drainage of Bladder with Drainage Device, Via Natural or Artificial Opening (ICD-10-PCS; 2017-04-04)
PROC: 5A1955Z Respiratory Ventilation, Greater than 96 Consecutive Hours (ICD-10-PCS; 2017-04-06)
PROC: 0BH17EZ Insertion of Endotracheal Airway into Trachea, Via Natural or Artificial Opening (ICD-10-PCS; 2017-04-06)
PROC: 05HM33Z Insertion of Infusion Device into Right Internal Jugular Vein, Percutaneous Approach (ICD-10-PCS; 2017-04-11)
PROC: 5A1D70Z Performance of Urinary Filtration, Intermittent, Less than 6 Hours Per Day (ICD-10-PCS; 2017-04-11)
DX: J96.02 Acute respiratory failure with hypercapnia (principal); N17.0 Acute kidney failure with tubular necrosis; G93.41 Metabolic encephalopathy; J18.9 Pneumonia, unspecified organism; E87.2 Acidosis; E87.0 Hyperosmolality and hypernatremia; I13.0 Hypertensive heart and chronic kidney disease with heart failure and stage 1 through stage 4 chronic kidney disease, or unspecified chronic kidney disease; I95.9 Hypotension, unspecified; I50.32 Chronic diastolic (congestive) heart failure; F03.90 Unspecified dementia, unspecified severity, without behavioral disturbance, psychotic disturbance, mood disturbance, and anxiety; J45.901 Unspecified asthma with (acute) exacerbation; J44.0 Chronic obstructive pulmonary disease with (acute) lower respiratory infection; J44.1 Chronic obstructive pulmonary disease with (acute) exacerbation; E44.1 Mild protein-calorie malnutrition; J98.11 Atelectasis; E11.22 Type 2 diabetes mellitus with diabetic chronic kidney disease; E87.5 Hyperkalemia; R74.8 Abnormal levels of other serum enzymes; N18.9 Chronic kidney disease, unspecified; K21.9 Gastro-esophageal reflux disease without esophagitis; Z86.73 Personal history of transient ischemic attack (TIA), and cerebral infarction without residual deficits; F41.9 Anxiety disorder, unspecified; Z79.4 Long term (current) use of insulin; Z78.1 Physical restraint status; D63.8 Anemia in other chronic diseases classified elsewhere; Z66 Do not resuscitate; Z51.5 Encounter for palliative care; F17.290 Nicotine dependence, other tobacco product, uncomplicated; G89.29 Other chronic pain; E11.65 Type 2 diabetes mellitus with hyperglycemia; T38.0X5A Adverse effect of glucocorticoids and synthetic analogues, initial encounter; E86.0 Dehydration; J96.01 Acute respiratory failure with hypoxia
CPT/HCPCS: 31500; 36556; 36600; 71045; 74018; 76775; 76937; 80048; 80053; 80069; 80074; 81001; 82550; 82552; 82805; 82948; 83036; 83605; 83735; 83880; 84100; 84132; 84155; 84484; 85025; 85027; 85379; 85610; 85730; 86738; 87040; 87070; 87205; 87449; 87641; 87804; 90935; 93005; 93306; 94002; 94003; 94150; 94640; 94664; 94667; 94668; 96365; 96368; 96372; 96374; 96375; C9113; J0330; J0360; J0456; J0610; J0692; J0696; J1120; J1205; J1580; J1630; J1644; J1815; J1817; J1940; J1980; J2060; J2150; J2250; J2270; J2920; J2930; J3010; J3486; J7030; J7040; J7050; J7512; J7611; P9047